=== PATIENT | male | born 1940 | race Caucasian/White ===

== ENCOUNTER 2022-07-20 07:38 | Inpatient (IN) | payer MEDICARE, OTHER ==
[~2022-07-20] VITALS: Ht 170 cm; Wt 87.9 kg
[2022-07-20 07:59] LABS: BASOPHILS # (AUTO) 0.1 10^3/uL (0.0-0.1); BASOPHILS % (AUTO) 1 % (0-10); EOSINOPHILS # (AUTO) 0.4 10^3/uL (0.0-0.3); EOSINOPHILS % (AUTO) 4 % (0-10); HEMATOCRIT 33 % (40-54); HEMOGLOBIN 9.6 g/dL (13.3-17.7); LYMPHOCYTES # (AUTO) 0.9 10^3/uL (1.0-4.0); LYMPHOCYTES % (AUTO) 10 % (12-44); MEAN CORPUSCULAR HEMOGLOBIN 31 pg (25-34); MEAN CORPUSCULAR HGB CONC 30 g/dL (32-36); MEAN CORPUSCULAR VOLUME 103 fL (80-99); MEAN PLATELET VOLUME 9.6 fL (9.0-12.2); MONOCYTES # (AUTO) 0.4 10^3/uL (0.0-1.0); MONOCYTES % (AUTO) 5 % (0-12); NEUTROPHILS # (AUTO) 7.4 10^3/uL (1.8-7.8); NEUTROPHILS % (AUTO) 80 % (42-75); PLATELET COUNT 274 10^3/uL (130-400); WHITE BLOOD COUNT 9.2 10^3/uL (4.3-11.0)
[2022-07-20] MEDS ORDERED: RT-ALBUTEROL/IPRATROPIUM 3 ML (DUONEB) VIAL INH ONE (08:00)
[2022-07-20] MEDS ORDERED: methylPREDNISolone 125 MG (Solu-MEDROL) VIAL IM ONE (08:00)
--- NOTE | 2022-07-20 08:10 | Diagnostic Imaging Report ---
EXAMINATION: Chest radiograph, portable AP view. DATE: 07/20/2022 7:59 AM INDICATION: 82-year-old male, shortness of breath. COMPARISON: None. FINDINGS: Heart size is grossly unremarkable. There is no identified pneumothorax. There is nonspecific right basilar airspace consolidation and blunting of the right lateral costophrenic angle. There are streaky opacities in the left medial lung base. There is a chronic appearing deformity of the left proximal humerus. There is advanced left glenohumeral arthritis with probable intra-articular body in the subscapularis recess. There is a right shoulder prosthesis noted. IMPRESSION: 1. Nonspecific bibasilar airspace consolidation right greater than left which may relate to infiltrate, effusions, and/or atelectasis. Dictated by: Dictated on workstation # [id number]
[2022-07-20] MEDS ORDERED: VANCOMYCIN INJECTION 1,500 MG in NS IV 500 ML 500 ML IV ONE (08:15)
[2022-07-20] MEDS ORDERED: PIPERACILLIN SODIUM/TAZOBACTAM 4.5 GM in NS (IVPB) 100 ML IV ONE (08:15)
[2022-07-20] MEDS ORDERED: methylPREDNISolone 125 MG (Solu-MEDROL) VIAL IVP ONE (08:15)
[2022-07-20 08:23] LABS: BILIRUBIN,URINE NEGATIVE (NEGATIVE); CLARITY,URINE CLEAR; COLOR,URINE YELLOW; GLUCOSE, URINE (UA) NEGATIVE (NEGATIVE); KETONES,URINE NEGATIVE (NEGATIVE); LEUKOCYTE ESTERASE ,URINE TRACE (NEGATIVE); NITRITE,URINE NEGATIVE (NEGATIVE); PROTEIN,URINE NEGATIVE (NEGATIVE)
[2022-07-20 08:30] LABS: BACTERIA,URINE NEGATIVE /HPF
[2022-07-20 08:31] LABS: HYALINE CASTS, URINE RARE /LPF
[2022-07-20 08:34] LABS: INR 1.2 (0.8-1.4); PROTHROMBIN TIME PATIENT 15.5 SEC (12.2-14.7)
[2022-07-20 08:38] LABS: SODIUM 142 MMOL/L (135-145)
[2022-07-20 08:39] LABS: ALANINE AMINOTRANSFERASE 9 U/L (0-55); ALKALINE PHOSPHATASE 75 U/L (40-136); BILIRUBIN,TOTAL 0.3 MG/DL (0.1-1.0); BUN/CREATININE RATIO 18; CALCIUM 8.4 MG/DL (8.5-10.1); CARBON DIOXIDE 39 MMOL/L (21-32); CHLORIDE 100 MMOL/L (98-107); CREATININE SERUM 0.85 MG/DL (0.60-1.30); GFR ESTIMATED 88; GLUCOSE 115 MG/DL (70-105); POTASSIUM 4.1 MMOL/L (3.6-5.0)
[2022-07-20 08:40] LABS: ALBUMIN 2.7 GM/DL (3.2-4.5); TOTAL PROTEIN 5.9 GM/DL (6.4-8.2)
[2022-07-20 08:44] LABS: ABG PH 7.39 (7.37-7.43)
[2022-07-20 08:45] LABS: ABG PCO2 82 MMHG (35-45); ABG PO2 103 MMHG (79-93)
[2022-07-20 08:47] LABS: ABG BASE EXCESS 20.3 MMOL/L (-2.5-2.5); ABG OXYGEN SATURATION 98 % (94-100); ABG TCO2 52.1 MMOL/L (21.0-31.0); ALLENS TEST OK; INSPIRED O2 10 L; VENTILATOR NO
[2022-07-20 08:48] LABS: PATIENT TEMP 36.2
--- NOTE | 2022-07-20 08:52 | ED Cough/URI ---
General Chief Complaint: Respiratory Problems Stated Complaint: SOB Nursing Triage Note: PT TO ROOM FS06 [facility]IA [facility] FROM LONG-TERM WITH C/O HYPOXIA AND CONFUSION. EMS REPORTS PT WAS 71% O2 ON RA AND 73% O2 ON 2LPM NC. PT RECEIVED BREATHING TX ENROUTE TO ED. PT 99% UPON ARRIVAL. Source: patient Exam Limitations: no limitations History of Present Illness Date Seen by Provider: Jul 20, 2022 Time Seen by Provider: 08:15 Initial Comments Patient is a 82-year-old male with history of COPD congestive heart failure who presents from half-way with altered mental status with gurgling respirations and O2 saturation in lower 70s. Patient placed on oxygen given Lasix and albuterol breathing treatment per EMS. Patient maintaining O2 saturation in mid 90s. History is limited by the patient's clinical condition. Timing/Duration: just prior to arrival Severity/Quality: other (Cough) Prior Episodes/Possible Cause: other Modifying Factors: Improves With Other Associated Symptoms: other Allergies and Home Medications Allergies Coded Allergies: No Known Drug Allergies (Unverified , 07/20/22) Patient Home Medication List Home Medication List Reviewed: Yes Review of Systems Review of Systems Constitutional: see HPI EENTM: see HPI Respiratory: see HPI Cardiovascular: see HPI Gastrointestinal: see HPI Genitourinary: see HPI Musculoskeletal: see HPI Skin: see HPI Psychiatric/Neurological: See HPI Hematologic/Lymphatic: See HPI Immunological/Allergic: see HPI All Other Systems Reviewed Negative Unless Noted: No Past Wvpwuuo-Uxonxp-Dalhhk Hx Patient Social History Tobacco Use?: No Smoking Status: Never a Smoker Smokeless Tobacco Frequency: Never a User Use of E-Cig and/or Vaping dev: No Use of E-Cig and/or Vaping Toro: Never a User Substance use?: No Alcohol Use?: No Pt feels they are or have been: No Physical Exam Vital Signs - First Documented 07/20/22 08:58 FiO2 60 Capillary Refill : Less Than 3 Seconds Height: '" Weight: lbs. oz. kg; 32.00 BMI Method: General Appearance: mild distress (Respiratory) Eyes: Bilateral Eye Normal Inspection, Bilateral Eye PERRL HEENT: PERRL/EOMI Neck: non-tender, full range of motion Respiratory: decreased breath sounds, crackles, other (Tachypnea, shallow respiration) Cardiovascular: normal peripheral pulses, regular rate, rhythm Gastrointestinal: non tender, soft Neurologic/Psychiatric: alert, oriented x 3 Skin: normal color Focused Exam Sepsis Stage: Ruled Out Lactate Level 07/20/22 07:45: Lactic Acid Level 0.81 Lactic Acid Level Laboratory Tests Test 07/20/22 07:45 Lactic Acid Level 0.81 MMOL/L (0.50-2.00) Progress/Results/Core Measures Suspected Sepsis SIRS Temperature: Pulse: 95 Respiratory Rate: 14 Laboratory Tests 07/20/22 07:45: White Blood Count 9.2 Blood Pressure 109 /61 Mean: 77 07/20/22 07:45: Lactic Acid Level 0.81 Laboratory Tests 07/20/22 07:45: Creatinine 0.85, INR Comment 1.2, Platelet Count 274, Total Bilirubin 0.3 Results/Orders Lab Results Laboratory Tests Test 07/20/22 07:45 07/20/22 08:15 07/20/22 08:39 07/20/22 08:43 Range/Units White Blood Count 9.2 4.3-11.0 10^3/uL Red Blood Count 3.15 L 4.30-5.52 10^6/uL Hemoglobin 9.6 L 13.3-17.7 g/dL Hematocrit 33 L 40-54 % Mean Corpuscular Volume 103 H 80-99 fL Mean Corpuscular Hemoglobin 31 25-34 pg Mean Corpuscular Hemoglobin Concent 30 L 32-36 g/dL Red Cell Distribution Width 17.8 H 10.0-14.5 % Platelet Count 274 130-400 10^3/uL Mean Platelet Volume 9.6 9.0-12.2 fL Immature Granulocyte % (Auto) 0 % Neutrophils (%) (Auto) 80 H 42-75 % Lymphocytes (%) (Auto) 10 L 12-44 % Monocytes (%) (Auto) 5 0-12 % Eosinophils (%) (Auto) 4 0-10 % Basophils (%) (Auto) 1 0-10 % Neutrophils # (Auto) 7.4 1.8-7.8 10^3/uL Lymphocytes # (Auto) 0.9 L 1.0-4.0 10^3/uL Monocytes # (Auto) 0.4 0.0-1.0 10^3/uL Eosinophils # (Auto) 0.4 H 0.0-0.3 10^3/uL Basophils # (Auto) 0.1 0.0-0.1 10^3/uL Immature Granulocyte # (Auto) 0.0 0.0-0.1 10^3/uL Prothrombin Time 15.5 H 12.2-14.7 SEC INR Comment 1.2 0.8-1.4 Activated Partial Thromboplast Time 27 24-35 SEC Sodium Level 142 135-145 MMOL/L Potassium Level 4.1 3.6-5.0 MMOL/L Chloride Level 100 98-107 MMOL/L Carbon Dioxide Level 39 H 21-32 MMOL/L Anion Gap 3 L 5-14 MMOL/L Blood Urea Nitrogen 15 7-18 MG/DL Creatinine 0.85 0.60-1.30 MG/DL Estimat Glomerular Filtration Rate 88 BUN/Creatinine Ratio 18 Glucose Level 115 H 70-105 MG/DL Lactic Acid Level 0.81 0.50-2.00 MMOL/L Calcium Level 8.4 L 8.5-10.1 MG/DL Corrected Calcium 9.4 8.5-10.1 MG/DL Total Bilirubin 0.3 0.1-1.0 MG/DL Aspartate Amino Transf (AST/SGOT) 13 5-34 U/L Alanine Aminotransferase (ALT/SGPT) 9 0-55 U/L Alkaline Phosphatase 75 40-136 U/L Troponin I < 0.30 <0.30 NG/ML Pro-B-Type Natriuretic Peptide 1116.0 H <450.0 PG/ML Total Protein 5.9 L 6.4-8.2 GM/DL Albumin 2.7 L 3.2-4.5 GM/DL Urine Color YELLOW Urine Clarity CLEAR Urine pH 6.0 5-9 Urine Specific [place] 1.020 1.016-1.022 Urine Protein NEGATIVE NEGATIVE Urine Glucose (UA) NEGATIVE NEGATIVE Urine Ketones NEGATIVE NEGATIVE Urine Nitrite NEGATIVE NEGATIVE Urine Bilirubin NEGATIVE NEGATIVE Urine Urobilinogen 0.2 < = 1.0 MG/DL Urine Leukocyte Esterase TRACE H NEGATIVE Urine RBC (Auto) NEGATIVE NEGATIVE Urine RBC NONE /HPF Urine WBC 2-5 /HPF Urine Squamous Epithelial Cells NONE /HPF Urine Crystals NONE /LPF Urine Bacteria NEGATIVE /HPF Urine Casts PRESENT /LPF Urine Hyaline Casts RARE /LPF Urine Mucus SMALL H /LPF Urine Culture Indicated NO Blood Gas Puncture Site RT RADIAL Blood Gas Patient Temperature 36.2 Arterial Blood pH 7.39 7.37-7.43 Arterial Blood Partial Pressure CO2 82 *H 35-45 MMHG Arterial Blood Partial Pressure O2 103 H 79-93 MMHG Arterial Blood HCO3 50 *H 23-27 MMOL/L Arterial Blood Total CO2 52.1 *H 21.0-31.0 MMOL/L Arterial Blood Oxygen Saturation 98 94-100 % Arterial Blood Base Excess 20.3 H -2.5-2.5 MMOL/L Ponce Test OK Blood Gas Ventilator Setting NO Blood Gas Inspired Oxygen 10 L Influenza Type A (RT-PCR) Not Detected Not Detecte Influenza Type B (RT-PCR) Not Detected Not Detecte SARS-CoV-2 RNA (RT-PCR) Not Detected Not Detecte My Orders Orders - SIGRID MARIE DO Cbc With Automated Diff (07/20/22 07:51) Comprehensive Metabolic Panel (07/20/22 07:51) Blood Culture (07/20/22 07:51) Sputum Culture (07/20/22 07:51) Urinalysis (07/20/22 07:51) Urine Culture (07/20/22 07:51) Protime With Inr (07/20/22 07:51) Partial Thromboplastin Time (07/20/22 07:51) Chest 1 View Ap/Pa Only (07/20/22 07:51) Ed Iv/Invasive Line Start (07/20/22 07:51) Ed Iv/Invasive Line Start (07/20/22 07:51) Vital Signs Adult Sepsis Patie Q15M (07/20/22 07:51) O2 (07/20/22 07:51) Remove Rings In Anticipation O (07/20/22 07:51) Lactic Acid Analyzer (07/20/22 07:51) Troponin I Fs (07/20/22 07:51) Probnp Fs (07/20/22 07:51) Ekg Tracing (07/20/22 07:51) Albuterol/Ipra Inhalation Soln (Duoneb I (07/20/22 08:00) Svn Small Volume Nebulizer (07/20/22 07:53) Piperacillin Sodium/Tazobactam (Zosyn Vi (07/20/22 08:15) Vancomycin Injection (Vancomycin Injecti (07/20/22 08:15) Methylprednisolone Sod Succ (Solu-Medrol (07/20/22 08:15) Covid 19 Inhouse Test (07/20/22 08:15) Arterial Blood Gas (07/20/22 08:15) Influenza A And B By Pcr (07/20/22 08:15) Isolation Central Supply Req (07/20/22 08:15) Bipap (Bilevel) Set Up (07/20/22 08:47) Furosemide Injection (Lasix Injection) (07/20/22 09:00) Medications Given in ED Current Medications Medications Dose Ordered Sig/Elizabeth Route Start Time Stop Time Status Last Admin Dose Admin Albuterol/ Ipratropium 3 ml ONCE ONCE INH 07/20/22 08:00 07/20/22 08:12 DC 07/20/22 08:17 3 ML Methylprednisolone Sodium Succinate 125 mg ONCE ONCE IVP 07/20/22 08:15 07/20/22 08:16 DC 07/20/22 08:17 125 MG Piperacillin Sod/ Tazobactam Sod 4.5 gm/Sodium Chloride 100 ml @ 200 mls/hr ONCE ONCE IV 07/20/22 08:15 07/20/22 08:44 DC 07/20/22 08:27 200 MLS/HR Vancomycin HCl 1500 mg/Sodium Chloride 500 ml @ 257.5 mls/ hr ONCE ONCE IV 07/20/22 08:15 07/20/22 10:11 07/20/22 08:27 257.5 MLS/HR Vital Signs/I&O 07/20/22 07/20/22 07/20/22 07/20/22 07:38 07:38 07:38 08:58 Temp 36.2 Pulse 95 Resp 14 B/P (MAP) 109/61 (77) Pulse Ox 95 95 97 O2 Delivery Non Rebreather Non Rebreather Non Rebreather NIV Bilevel O2 Flow Rate 15.00 15.00 15.00 FiO2 60 Capillary Refill : Less Than 3 Seconds Blood Pressure Mean: 77 Departure Communication (Admissions) EKG: Sinus tach, left bundle branch block, rate 102. Chest x-ray: Right lower lobe infiltrate. Patient with respiratory failure likely multifactorial due to volume overload COPD and possible infiltrate. Patient stabilized on oxygen/BiPAP, given IV Lasix and, steroids and IV antibiotics. Dr. Graham to admit to [facility]. Impression Primary Impression: Acute respiratory failure with hypoxia Disposition: ADMITTED INPATIENT Condition: Critical Admissions Decision to Admit Reason: Admit from ER (General) Decision to Admit/Date: Jul 20, 2022 Time/Decision to Admit Time: 09:15 (Dr. Graham) SIGRID MARIE DO Jul 20, 2022 08:52
[2022-07-20] MEDS ORDERED: FUROSEMIDE 40 MG/4 ML INJ (LASIX) IVP ONE (09:00)
[2022-07-20] MEDS ORDERED: ACETAMINOPHEN 325 MG TABLET PO PRN (11:45)
[2022-07-20] MEDS ORDERED: diphenhydrAMINE 25 MG TAB (BENADRYL) PO PRN (11:45)
[2022-07-20] MEDS ORDERED: ONDANSETRON 4 MG/2 ML (SDV) Z0FRAN IV PRN (11:45)
[2022-07-20] MEDS ORDERED: BISACODYL 10 MG SUPP (DULCOLAX) PR PRN (11:45)
[2022-07-20] MEDS ORDERED: polyethylene glycoL POWDER 17 GM (MIRALAX) PACK PO PRN (11:45)
[2022-07-20] MEDS ORDERED: ONDANSETRON 4 MG (ZOFRAN) ORAL DISSOLVE TAB PO PRN (11:45)
[2022-07-20] MEDS ORDERED: MELATONIN 3 MG TABLET PO PRN (11:45)
[2022-07-20] MEDS ORDERED: NS IV 500 ML 500 ML IV PRN (11:45)
[2022-07-20] MEDS ORDERED: diphenhydrAMINE 50 MG/ML INJ (BENADRYL) IVP PRN (11:45)
[2022-07-20] MEDS ORDERED: ANTACID SUSP 30 ML UDC (MYLANTA) PO PRN (11:45)
[2022-07-20] MEDS ORDERED: NS IV 1000 ML 1,000 ML IV SCH (11:45)
--- NOTE | 2022-07-20 11:59 | Tele-ICU Consult ---
History of Present Illness History of Present Illness Date Seen by Provider: Jul 20, 2022 Time Seen by Provider: 11:57 Date of Admission (Tele-ICU Physician , consultation as per request of PCP Service provided via interactive audio and video telecommunications E-CARE system to a patient admitted to ICU bed in [facility]. Available chart/ vitals / labs / Images reviewed H&P is from ER notes Patient's information available about PMH, Shx, Fhx allergy reviewed inEMR. ROS as per chart and RN report Now in ICU, hypodermically stable Video assessment done using teleICU camera, rest of exam as per RN Discussed with RN. 82-year-old male with history of COPD congestive heart failure who presents from [facility] with altered mental status with gurgling respirations and O2 saturation in lower 70s. Patient placed on BIPAP given Lasix and albuterol and ABX Now in ICU , confused, can talk A/P Acute hypoxic resp failure - on BIPAP rr30 tv 280 - tried 09/04 - poorly tolerated ) - follow abg at 14.00 Confusion , agitation - ? TME vs baseline - neuro exam nonfocal as per RNs Suspected PNA ( neg flu and covid ) - started HAP coverage - from [place] Chronic hypercarbic resp failure - -Co2 close to presumed baseline now TRE ulcers - ? venous stasis , ? cellulites - as per bedside assessment Anemia - no active bleeding - follow Elv BNP - lasix given in ER , good UO - unmeasured - follow closely , on 40 % on Bipap - Lines : , (Central Line Necessity Reviewed) Segal: 07/20 OG: Nutrition:NPO now Analgesia: Anxiety/ delirium VTE Prophylaxis: xarelto - NEED TO CHANGE TO LOVENOX IF NPO Stress Ulcer Prophylaxis: NA now Plans in collaboration with bedside consultants and IM MDs. Discussed with RN to reach out if any questions or concerns A total of 32 minutes of critical care time was devoted to this patient today, required to treat and/or prevent further deterioration of critical care condition ( as above ) . I am remotely monitoring this patient from another state. I am unable to do the bedside exam, and history/physical and pertinent information is taken from other notes in the computer and bedside staff. . Allergies and Home Medications Allergies Coded Allergies: No Known Drug Allergies (Unverified , 07/20/22) Past Medical/Social/Family Hx Patient Social History Tobacco Use?: No Smoking Status: Never a Smoker Smokeless Tobacco Frequency: Never a User Use of E-Cig and/or Vaping dev: No E-Cig and/or Vaping Freq: Never a User Substance use?: No Alcohol Use?: No Pt stated abuse/neglect: No Current Status Advance Directives: No Communicates: Verbally Primary Language: Yemeni Is interpretation needed?: No Sensory deficits: Hearing impairment Implanted or Applied Medical D: None Review of Systems Constitutional: see HPI Focused Exam Lactate Level 07/20/22 07:45: Lactic Acid Level 0.81 Height, Weight, BMI Height: '" Weight: lbs. oz. kg; 32.00 BMI Method: Exam Exam Patient acknowledged, consented, and participated in this virtual visit which was conducted using real time audio/video Vital Signs Date Time Temp Pulse Resp B/P (MAP) Pulse Ox O2 Delivery O2 Flow Rate FiO2 07/20/22 11:46 92 07/20/22 10:41 36.3 75 16 111/64 97 NIV Bilevel 07/20/22 08:58 97 NIV Bilevel 60 07/20/22 07:38 95 Non Rebreather 15.00 07/20/22 07:38 Non Rebreather 15.00 07/20/22 07:38 36.2 95 14 109/61 (77) 95 Non Rebreather 15.00 Height & Weight Height: '" Weight: lbs. oz. kg; 32.00 BMI Method: General Appearance: No Apparent Distress Capillary Refill: Less Than 3 Seconds Gastrointestinal: non tender, soft Results Lab Laboratory Tests 07/20/22 07:45 Assessment/Plan Assessment/Plan 1 YOEL ARREAGA MD Jul 20, 2022 11:59
[2022-07-20 12:00] VITALS: BP 117/77
[2022-07-20 13:16] VITALS: BP 109/61
[2022-07-20] MEDS: RT-ALBUTEROL/IPRATROPIUM 3 ML (DUONEB) VIAL INH SCH ×3 (14:33→22:30)
[2022-07-20] MEDS ORDERED: MELA3TAB39 PO (14:37)
[2022-07-20] MEDS ORDERED: DOCU100C37 PO (14:37)
[2022-07-20] MEDS ORDERED: ATOR80TA76 PO (14:37)
[2022-07-20] MEDS ORDERED: POLY500P24 MC (14:37)
[2022-07-20] MEDS ORDERED: QUET25TA PO (14:37)
[2022-07-20] MEDS ORDERED: MULT-1136 PO (14:37)
[2022-07-20] MEDS ORDERED: MIDO5TAB3 PO (14:37)
[2022-07-20] MEDS ORDERED: FERR325T18 PO (14:37)
[2022-07-20] MEDS ORDERED: TMSL.4C PO (14:37)
[2022-07-20] MEDS ORDERED: ACET-93 PO (14:37)
[2022-07-20] MEDS ORDERED: FURO20TA4 PO (14:37)
[2022-07-20] MEDS ORDERED: OLN5T PO (14:37)
[2022-07-20] MEDS ORDERED: ASPI-1238 PO (14:37)
[2022-07-20] MEDS ORDERED: APIX5TAB PO (14:37)
[2022-07-20 14:41] LABS: ABG BASE EXCESS 16.3 MMOL/L (-2.5-2.5); ABG OXYGEN SATURATION 100 % (94-100); ABG PO2 158 MMHG (79-93)
[2022-07-20 14:49] LABS: ABG PCO2 83 MMHG (35-45); ABG PH 7.34 (7.37-7.43); ABG TCO2 45.4 MMOL/L (21.0-31.0)
[2022-07-20 14:50] LABS: ALLENS TEST YES-POS; INSPIRED O2 15L; PATIENT TEMP 98.8; VENTILATOR NO
--- NOTE | 2022-07-20 15:00 | History & Physical-Hospitalist ---
DELILAH OROURKE 07/20/22 1500: History of Present Illness HPI/Chief Complaint Patient is an 82-year-old male with a history of CHF, COPD, and HTN who presented to the ED via EMS on 07/20 from a nursing facility with chief complaint of AMS and hypoxia. History is limited due the patient's AMS. Patient was found by staff to have AMS, gurgling respirations, and O2 sat in the 70s. EMS gave lasix, breathing treatment, and oxygen, and his O2 saturation was 99% u idris arrival to the ED. Patient is awake and alert, but is confused and can not answer very many questions. He has no memory of today's events or leading up to them. The patient was admitted to [facility] earlier this month with similar symptoms and was discharged on the . Patient was maintaining oxygen saturation levels in the 90s on BIPAP, which the patient repeatedly removed and is now on a non-rebreather. Patient states he is very confused and does not know why he is here or what is happening. Per skilled nursing records, the patient is A&Ox4 at baseline, however, [facility] noted that the patient was confused and agitated during the initial portion of his stay. Patient has no complaints. Source: patient, RN/MD, RN notes reviewed, EMS notes reviewed, old records Exam Limitations: clinical condition Date Seen 07/20/22 Time Seen by a Provider: 02:00 Attending Physician PCP Admitting Physician: Heather Graham DO Attending Physician: Heather Graham DO Referring Physician Date of Admission Jul 20, 2022 at 11:25 Home Medications & Allergies Home Medications Reviewed patient Home Medication Reconciliation performed by pharmacy medication reconciliations systems test technician and/or nursing. Patients Allergies have been reviewed. Allergies Allergies Coded Allergies No Known Drug Allergies (Iwztnkzzhb80/28/22) Past Ugrdnko-Refhsn-Xdwgyv Hx Patient Social History Tobacco Use?: No Smoking Status: Never a Smoker Smokeless Tobacco Frequency: Never a User Use of E-Cig and/or Vaping dev: No Use of E-Cig and/or Vaping Toro: Never a User Substance use?: No Alcohol Use?: No Pt feels they are or have been: Unable to obtain Current Status Advance Directives: No Communicates: Verbally Primary Language: Sri Lankan Preferred Spoken Language: Sri Lankan Is interpretation needed?: No Sensory deficits: Hearing impairment Implanted or Applied Medical D: None Review of Systems ROS-Unable to Obtain: AMS Physical Exam Physical Exam Vital Signs Vital Signs - First Documented 07/20/22 08:58 FiO2 60 Capillary Refill : Less Than 3 Seconds Height, Weight, BMI Height: '" Weight: lbs. oz. kg; 31.14 BMI Method: General Appearance: No Apparent Distress, WD/WN, Obese HEENT: PERRL/EOMI Neck: Non Tender, Supple Respiratory: Chest Non Tender, No Respiratory Distress, Decreased Breath Sounds Cardiovascular: Regular Rate, Rhythm, Normal Peripheral Pulses Gastrointestinal: Non Tender, Soft Rectal: Deferred Back: No CVA Tenderness, No Vertebral Tenderness Extremity: Non Tender, No Pedal Edema, Other (Venous stasis dermatitis b/l LEs) Neurologic/Psychiatric: Alert, Disoriented Skin: Warm/Dry, Ecchymosis (Ecchymosis scattered throughout all 4 extremities) Lymphatic: No Adenopathy Results Results/Procedures Labs Laboratory Tests 07/20/22 07:45 Patient resulted labs reviewed. Assessment/Plan Admission Diagnosis Acute respiratory failure Admission Status: Inpatient Order (span 2 midnights) Reason for Inpatient Admission: Acute respiratory failure Assessment and Plan Acute respiratory failure with hypoxia and hypercapnia COPD exacerbation AMS CHF HTN Pulmonary HTN Hx of PE CAD SHANNAN Chronic lymphedema Resume BIPAP if possible, may need intubation Given lasix and steroids in ED today Continue vancomycin, zosyn Continue nebulizers Monitor ABGs On Xarelto Home meds for HTN HEATHER GRAHAM DO 07/21/22 0525: History of Present Illness HPI/Chief Complaint CC: Respiratory failure HPI: This is a [facility] skilled nursing pt who presented to the ICU from [facility] from the skilled nursing with acute respiratory failure. He required BiPAP due to hypercapnia. At this current time pt is unable to provide any history. We will initiate Zosyn and Vanc, empiric coverage for pneumonia on chest x-ray. Dr. Kaufman will be consulted for volume overload. Source: RN/MD Exam Limitations: clinical condition Past Mhemgqz-Cdgyae-Sxwxgy Hx Patient Social History Employed/Student: retired Review of Systems Constitutional: see HPI Physical Exam Physical Exam General Appearance: Chronically ill, Moderate Distress, Obese Respiratory: Decreased Breath Sounds Cardiovascular: Regular Rate, Rhythm Neurologic/Psychiatric: Alert, Disoriented Assessment/Plan Admission Diagnosis Assessment: Acute respiratory failure PNA facility acquired Dementia HTN HLP Plan: BiPAP Precedex IV abx Admission Status: Inpatient Order (span 2 midnights) Reason for Inpatient Admission: resp fail Supervisory-Addendum Brief Verification & Attestation Participated in pt care: history, MDM, physical Personally performed: exam, history, MDM, supervision of care Care discussed with: Medical Student Procedures: n/a Results interpretation: Verified all documentation Verification and Attestation of Medical Student E/M Service A medical student performed and documented this service in my presence. I reviewed and verified all information documented by the medical student and made modifications to such information, when appropriate. I personally performed the physical exam and medical decision making. Heather Graham, Jul 21, 2022,05:25 DELILAH OROURKE Jul 20, 2022 15:00 HEATHER GRAHAM DO Jul 21, 2022 05:25
[2022-07-20] MEDS: NS IV 1000 ML 1,000 ML IV SCH (15:53)
[2022-07-20] MEDS: PIPERACILLIN SODIUM/TAZOBACTAM 4.5 GM in NS (IVPB) 100 ML IV SCH ×2 (15:53→22:14)
[2022-07-20] MEDS: methylPREDNISolone 125 MG (Solu-MEDROL) VIAL IVP SCH ×2 (15:54→20:18)
--- NOTE | 2022-07-20 16:23 | Consultation-Cardiology ---
HPI-Cardiology Cardiology Consultation: Date of Consultation 07/20/22 Time Seen by a Provider: 15:50 Date of Admission 07-20-22 Attending Physician Admitting Physician Admitting Physician: Heather Graham DO Attending Physician: Heather Graham DO Consulting Physician Yary Kaufman MD HPI: Chief Complaint: Increasing SOB Mr. Easley is an 82 yr old male admitted to ICU 6 from the [facility] ED with increasing SOB and AMS. He is currently on a non-rebreather. He awakens easily. He is able to tell me he is in the hospital, but does not know where. He denies any c/o CP. He is a poor historian and has only been able to tell me he has been SOB. Review of the chart has been done Review of Systems-Cardiology Review of Systems Other comments ROS to the extent it can be obtained is as per the HPI All Other Systems Reviewed Negative Unless Noted: No IYK-Pmwnca-Gelrqq Hx Patient Social History Smoking Status: Never a Smoker Have you traveled recently?: No Alcohol Use?: No Pt feels they are or have been: Unable to obtain Past Medical History PMH As described under Assessment. Family Medical History Family Medical History: Unable to obtain d/t confusion Allergies and Home Medications Allergies Coded Allergies: No Known Drug Allergies (Unverified , 07/20/22) Patient Home Medication List Acetaminophen (Acetaminophen) 500 Mg Tablet, 500 MG PO PRN PRN for PAIN-MILD (1- 4), (Reported) Entered as Reported by: MARCELLO ABAD on 07/20/221436 Last Action: New Order Apixaban (Eliquis) 5 Mg Tablet, 5 MG PO BID, (Reported) Entered as Reported by: MARCELLO ABAD on 07/20/221436 Last Action: New Order Aspirin (Aspirin EC) 81 Mg Tablet.dr, 81 MG PO DAILY, (Reported) Entered as Reported by: MARCELLO ABAD on 07/20/221436 Last Action: New Order Atorvastatin Calcium (Atorvastatin Calcium) 80 Mg Tablet, 80 MG PO HS, (Reported) Entered as Reported by: MARCELLO ABAD on 07/20/221436 Last Action: New Order Docusate Sodium (Docusate Sodium) 100 Mg Capsule, 100 MG PO PRN PRN for CONSTIPATION-2ND LINE, (Reported) Entered as Reported by: MARCELLO ABAD on 07/20/221436 Last Action: New Order Ferrous Sulfate (Ferrous Sulfate) 325 Mg (65 Mg Iron) Tablet, 325 MG PO DAILY, (Reported) Entered as Reported by: MARCELLO ABAD on 07/20/221436 Last Action: New Order Furosemide (Furosemide) 20 Mg Tablet, 20 MG PO DAILY, (Reported) Entered as Reported by: MARCELLO ABDA on 07/20/221436 Last Action: New Order Melatonin (Melatonin) 3 Mg Tablet, 3 MG PO HS, (Reported) Entered as Reported by: MARCELLO ABAD on 07/20/221436 Last Action: New Order Midodrine HCl (Midodrine HCl) 5 Mg Tablet, 5 MG PO TID, (Reported) Entered as Reported by: MARCELLO ABAD on 07/20/221436 Last Action: New Order Multivitamin (Multivitamin) 1 Each Tablet, 1 EACH PO DAILY, (Reported) Entered as Reported by: MARCELLO ABAD on 07/20/221436 Last Action: New Order Olanzapine (Olanzapine) 5 Mg Tablet, 5 MG PO HS, (Reported) Entered as Reported by: MARCELLO ABAD on 07/20/221436 Last Action: New Order Polyethylene Glycol 8000 (Polyethylene Glycol) 100 % Powder, 17 GM MC PRN PRN for CONSTIPATION-1ST LINE, (Reported) Entered as Reported by: MARCELLO ABAD on 07/20/221436 Last Action: New Order Quetiapine Fumarate (Seroquel) 25 Mg Tablet, 125 MG PO DAILY, (Reported) Entered as Reported by: MARCELLO ABAD on 07/20/221436 Last Action: New Order Tamsulosin HCl (Flomax) 0.4 Mg Cap, 0.4 MG PO DAILY, (Reported) Entered as Reported by: MARCELLO ABAD on 07/20/221436 Last Action: New Order Physical Exam-Cardiology Physical Exam Vital Signs/I&O 07/20/22 07/20/22 07/20/22 07/20/22 20:00 20:00 20:26 21:00 Temp 36.1 Pulse 92 82 Resp 29 24 B/P (MAP) 93/61 (72) 107/63 (78) Pulse Ox 91 100 O2 Delivery Non Rebreather Non Rebreather Non Rebreather Non Rebreather O2 Flow Rate 10.00 15.00 10.00 10.00 07/20/22 07/20/22 07/20/22 07/20/22 22:00 22:30 22:47 23:00 Pulse 69 60 58 Resp 36 23 12 B/P (MAP) 108/64 (79) 102/56 (71) Pulse Ox 100 94 93 O2 Delivery Non Rebreather NIV Bilevel NIV Bilevel O2 Flow Rate 10.00 45.00 100.00 100.00 07/20/22 07/20/22 07/21/22 07/21/22 23:39 23:39 00:00 00:55 Temp 36.3 Pulse 57 Resp 21 B/P (MAP) 115/67 (83) Pulse Ox 94 96 O2 Delivery NIV Bilevel NIV Bilevel NIV Bilevel NIV Bilevel O2 Flow Rate 100.00 100.00 80.00 FiO2 100 07/21/22 07/21/22 07/21/22 07/21/22 01:00 01:00 02:00 02:42 Pulse 56 56 53 54 Resp 13 16 18 B/P (MAP) 127/74 (91) 132/81 (98) Pulse Ox 97 96 97 O2 Delivery NIV Bilevel NIV Bilevel O2 Flow Rate 80.00 80.00 80.00 07/21/22 07/21/22 07/21/22 07/21/22 03:00 04:00 04:18 04:19 Temp 36.2 Pulse 60 53 Resp 12 15 B/P (MAP) 129/67 (87) 131/72 (91) Pulse Ox 93 97 95 O2 Delivery NIV Bilevel NIV Bilevel NIV Bilevel NIV Bilevel O2 Flow Rate 80.00 80.00 60.00 FiO2 60 07/21/22 07/21/22 07/21/22 07/21/22 04:45 05:00 06:00 06:52 Pulse 50 56 Resp 13 12 B/P (MAP) 137/77 (97) 141/81 (101) Pulse Ox 94 99 O2 Delivery NIV Bilevel NIV Bilevel NIV Bilevel NIV Bilevel O2 Flow Rate 70.00 70.00 70.00 60.00 07/21/22 00:00 Intake Total 585 ml Output Total 1850 ml Balance -1265 ml Capillary Refill : Less Than 3 Seconds Constitutional: other (Oriented to self and place (hospital) only) HEENT: PERRL, hard of hearing Neck: No carotid bruit; carotid pulses are 2 + bilaterally Respiratory: chest expansion is symmetric, chest is bilaterally symmetric, other (coarse breath sounds throughout, diminished lower lobes bilat) Cardiovascular: regular rate-rhythm; No JVD; S1 and S2, systolic murmur Gastrointestinal: No tender; soft, audible bowel sounds Extremities: no lower extremity edema bilateral Neurologic/Psychiatric: grossly intact (moves extremities) Skin: other (abrasions to bilat LE with dressing to LLE; multiple bruises to arms bilat) Data Review Labs Laboratory Tests 07/20/22 07:45: White Blood Count 9.2, Red Blood Count 3.15L, Hemoglobin 9.6L, Hematocrit 33L, Mean Corpuscular Volume 103H, Mean Corpuscular Hemoglobin 31, Mean Corpuscular Hemoglobin Concent 30L, Red Cell Distribution Width 17.8H, Platelet Count 274, Mean Platelet Volume 9.6, Immature Granulocyte % (Auto) 0, Neutrophils (%) (Auto) 80H, Lymphocytes (%) (Auto) 10L, Monocytes (%) (Auto) 5, Eosinophils (%) (Auto) 4, Basophils (%) (Auto) 1, Neutrophils # (Auto) 7.4, Lymphocytes # (Auto) 0.9L, Monocytes # (Auto) 0.4, Eosinophils # (Auto) 0.4H, Basophils # (Auto) 0.1, Immature Granulocyte # (Auto) 0.0, Prothrombin Time 15.5H, INR Comment 1.2, Activated Partial Thromboplast Time 27, Sodium Level 142, Potassium Level 4.1, Chloride Level 100, Carbon Dioxide Level 39H, Anion Gap 3L, Blood Urea Nitrogen 15, Creatinine 0.85, Estimat Glomerular Filtration Rate 88, BUN/Creatinine Ratio 18, Glucose Level 115H, Lactic Acid Level 0.81, Calcium Level 8.4L, Corrected Calcium 9.4, Total Bilirubin 0.3, Aspartate Amino Transf (AST/SGOT) 13, Alanine Aminotransferase (ALT/SGPT) 9, Alkaline Phosphatase 75, Troponin I < 0.30, Pro-B-Type Natriuretic Peptide 1116.0H, Total Protein 5.9L, Albumin 2.7L 07/20/22 08:15: Urine Color YELLOW, Urine Clarity CLEAR, Urine pH 6.0, Urine Specific [place] 1.020, Urine Protein NEGATIVE, Urine Glucose (UA) NEGATIVE, Urine Ketones NEGATIVE, Urine Nitrite NEGATIVE, Urine Bilirubin NEGATIVE, Urine Urobilinogen 0.2, Urine Leukocyte Esterase TRACEH, Urine RBC (Auto) NEGATIVE, Urine RBC NONE, Urine WBC 2-5, Urine Squamous Epithelial Cells NONE, Urine Crystals NONE, Urine Bacteria NEGATIVE, Urine Casts PRESENT, Urine Hyaline Casts RARE, Urine Mucus SMALLH, Urine Culture Indicated NO 07/20/22 08:39: Blood Gas Puncture Site RT RADIAL, Blood Gas Patient Temperature 36.2, Arterial Blood pH 7.39, Arterial Blood Partial Pressure CO2 82*H, Arterial Blood Partial Pressure O2 103H, Arterial Blood HCO3 50*H, Arterial Blood Total CO2 52.1*H, Arterial Blood Oxygen Saturation 98, Arterial Blood Base Excess 20.3H, Ponce T est OK, Blood Gas Ventilator Setting NO, Blood Gas Inspired Oxygen 10 L 07/20/22 08:43: Influenza Type A (RT-PCR) Not Detected, Influenza Type B (RT-PCR) Not Detected, SARS-CoV-2 RNA (RT-PCR) Not Detected 07/20/22 14:30: Blood Gas Puncture Site LR, Blood Gas Patient Temperature 98.8, Arterial Blood pH 7.34*L, Arterial Blood Partial Pressure CO2 83*H, Arterial Blood Partial Pressure O2 158H, Arterial Blood HCO3 43*H, Arterial Blood Total CO2 45.4*H, Arterial Blood Oxygen Saturation 100, Arterial Blood Base Excess 16.3H, Ponce Test YES-POS, Blood Gas Ventilator Setting NO, Blood Gas Inspired Oxygen 15L 07/20/22 19:00: Blood Gas Puncture Site R RADIAL, Blood Gas Patient Temperature 36.7, Arterial Blood pH 7.29*L, Arterial Blood Partial Pressure CO2 97*H, Arterial Blood Pa rtial Pressure O2 28*L, Arterial Blood HCO3 46*H, Arterial Blood Total CO2 48.5*H, Arterial Blood Oxygen Saturation 39L, Arterial Blood Base Excess 18.1H, Ponce Test YES-POS, Blood Gas Ventilator Setting NO, Blood Gas Inspired Oxygen 15 L 07/21/22 04:17: White Blood Count 5.3, Red Blood Count 3.45L, Hemoglobin 10.4L, Hematocrit 36L, Mean Corpuscular Volume 104H, Mean Corpuscular Hemoglobin 30, Mean Corpuscular Hemoglobin Concent 29L, Red Cell Distribution Width 18.0H, Platelet Count 253, Mean Platelet Volume 10.0, Immature Granulocyte % (Auto) 1, Neutrophils (%) (Auto) 87H, Lymphocytes (%) (Auto) 9L, Monocytes (%) (Auto) 3, Eosinophils (%) (Auto) 0, Basophils (%) (Auto) 0, Neutrophils # (Auto) 4.6, Lymphocytes # (Auto) 0.5L, Monocytes # (Auto) 0.2, Eosinophils # (Auto) 0.0, Basophils # (Auto) 0.0, Immature Granulocyte # (Auto) 0.0, Neutrophils % (Manual) 86, Lymphocytes % (Manual) 9, Monocytes % (Manual) 5, Anisocytosis MODERATE, Macrocytosis MODERATE, Sodium Level 145, Potassium Level 4.3, Chloride Level 93L, Carbon Dioxide Level 35H, Anion Gap 17H, Blood Urea Nitrogen 19H, Creatinine 1.10, Estimat Glomerular Filtration Rate 68, BUN/Creatinine Ratio 17, Glucose Level 202H, Calcium Level 8.3L, Corrected Calcium 9.1, Phosphorus Level 5.2H, Magnesium Level 1.4L, Total Bilirubin 0.4, Aspartate Amino Transf (AST/SGOT) 11, Alanine Aminotransferase (ALT/SGPT) 12, Alkaline Phosphatase 61, Total Protein 6.2L, Albumin 3.0L 07/21/22 05:00: Blood Gas Puncture Site R BRACH, Blood Gas Patient Temperature 36.2, Arterial Blood pH 7.39, Arterial Blood Partial Pressure CO2 70H, Arterial Blood Partial Pressure O2 97H, Arterial Blood HCO3 41*H, Arterial Blood Total CO2 43.4*H, Arterial Blood Oxygen Saturation 99, Arterial Blood Base Excess 15.3H, Ponce Test YES-POS, Blood Gas Ventilator Setting NO, Blood Gas Inspired Oxygen 70% Radiology NAME: LAURIE EASLEY [facility] REC#: [id number] PT STATUS: REG ER : 1940 PHYSICIAN: SIGRID MARIE DO ADMIT DATE: 07/20/22/ER FS Signed Date of Exam:07/20/22 CHEST 1 VIEW AP/PA ONLY EXAMINATION: Chest radiograph, portable AP view. DATE: 07/20/2022 7:59 AM INDICATION: 82-year-old male, shortness of breath. COMPARISON: None. FINDINGS: Heart size is grossly unremarkable. There is no identified pneumothorax. There is nonspecific right basilar airspace consolidation and blunting of the right lateral costophrenic angle. There are streaky opacities in the left medial lung base. There is a chronic appearing deformity of the left proximal humerus. There is advanced left glenohumeral arthritis with probable intra-articular body in the subscapularis recess. There is a right shoulder prosthesis noted. IMPRESSION: 1. Nonspecific bibasilar airspace consolidation right greater than left which may relate to infiltrate, effusions, and/or atelectasis. Dictated by: Dictated on workstation # [id number] Dict: 07/20/22 0759 Trans: 07/20/22937 CV [id number] Interpreted by: ZOYA BARRETO MD Electronically signed by: ZOYA BARRETO MD 07/20/2238 A/P-Cardiology Assessment/Admission Diagnosis Respiratory failure with hypoxia - likely multifactorial d/t acute on chronic diastolic CHF, acute on chronic exacerbation of COPD, SHANNAN and pneumonia AMS - likely d/t hypoxia CAD - records from [facility] in [place], [place] of 2021 state h/o PCI (details unknown) - Echocardiogram of 06-25-22 at [facility] in [place], [place] by Dr. Bhatia showed LVEF 60%. Mild RV dilatation. No signif valvular abnormalities Document h/o PE per [facility] records - details unknown - has been maintained on OAC with Eliquis as out pt HTN SHANNAN H/O diastolic CHF H/O COPD H/O pulmonary HTN Discussion and Recomendations Acute respiratory failure with hypoxia and AMS - likely d/t reasons noted above Management of pneumonia is per medical services Documented h/o PE - OAC has been resumed per medical services Acute on chronic diastolic CHF - treat with diuretics Documented h/o CAD - details unknown - request records - start low dose ASA Monitor lab closely Further recs will be based on his hospital course We would like to thank Dr. Graham for this consult ZOILA VALLE Jul 20, 2022 16:22
[2022-07-20] MEDS ORDERED: ASPIRIN 81 MG CHEW (CHILDREN'S ASA) PO NR (16:45)
--- NOTE | 2022-07-20 17:36 | Consultation-Cardiology ---
HPI-Cardiology Cardiology Consultation: Date of Consultation 07/20/22 Time Seen by a Provider: 16:50 Date of Admission Attending Physician Admitting Physician Admitting Physician: Heather Graham DO Attending Physician: Heather Graham DO Consulting Physician LAURA LOWERY MD, MA, FACP, FACC, FSCAI, CCDS Physician requesting consult: Dr Graham HPI: Chief Complaint: Reason for Card consult: Increasing SOB Mr. Easley is an 82 yr old male admitted to ICU 6 from the [facility] ED with increasing SOB and AMS. He is currently on a non-rebreather. He awakens easily. He is able to tell me he is in the hospital, but does not know where. He denies any c/o CP. He is a poor historian and has only been able to tell me he has been SOB. Review of the chart has been done Review of Systems-Cardiology All Other Systems Reviewed Negative Unless Noted: No RGL-Neyqky-Eqxyvp Hx Patient Social History Smoking Status: Never a Smoker Have you traveled recently?: No Alcohol Use?: No Pt feels they are or have been: Unable to obtain Past Medical History PMH As described under Assessment. Family Medical History Family Medical History: Unable to obtain d/t confusion Allergies and Home Medications Allergies Coded Allergies: No Known Drug Allergies (Unverified , 07/20/22) Patient Home Medication List Home Medication List Reviewed: Yes Acetaminophen (Acetaminophen) 500 Mg Tablet, 500 MG PO PRN PRN for PAIN-MILD (1- 4), (Reported) Entered as Reported by: MARCELLO ABAD on 07/20/221436 Last Action: New Order Apixaban (Eliquis) 5 Mg Tablet, 5 MG PO BID, (Reported) Entered as Reported by: MARCELLO ABAD on 07/20/221436 Last Action: New Order Aspirin (Aspirin EC) 81 Mg Tablet., 81 MG PO DAILY, (Reported) Entered as Reported by: MARCELLO ABAD on 07/20/221436 Last Action: New Order Atorvastatin Calcium (Atorvastatin Calcium) 80 Mg Tablet, 80 MG PO HS, (Reported) Entered as Reported by: MARCELLO ABAD on 07/20/221436 Last Action: New Order Docusate Sodium (Docusate Sodium) 100 Mg Capsule, 100 MG PO PRN PRN for CONSTIPATION-2ND LINE, (Reported) Entered as Reported by: MARCELLO ABAD on 07/20/221436 Last Action: New Order Ferrous Sulfate (Ferrous Sulfate) 325 Mg (65 Mg Iron) Tablet, 325 MG PO DAILY, (Reported) Entered as Reported by: MARCELLO ABAD on 07/20/221436 Last Action: New Order Furosemide (Furosemide) 20 Mg Tablet, 20 MG PO DAILY, (Reported) Entered as Reported by: MARCELLO ABAD on 07/20/221436 Last Action: New Order Melatonin (Melatonin) 3 Mg Tablet, 3 MG PO HS, (Reported) Entered as Reported by: MARCELLO ABAD on 07/20/221436 Last Action: New Order Midodrine HCl (Midodrine HCl) 5 Mg Tablet, 5 MG PO TID, (Reported) Entered as Reported by: MARCELLO ABAD on 07/20/221436 Last Action: New Order Multivitamin (Multivitamin) 1 Each Tablet, 1 EACH PO DAILY, (Reported) Entered as Reported by: MARCELLO ABAD on 07/20/221436 Last Action: New Order Olanzapine (Olanzapine) 5 Mg Tablet, 5 MG PO HS, (Reported) Entered as Reported by: MARCELLO ABAD on 07/20/221436 Last Action: New Order Polyethylene Glycol 8000 (Polyethylene Glycol) 100 % Powder, 17 GM MC PRN PRN for CONSTIPATION-1ST LINE, (Reported) Entered as Reported by: MARCELLO ABAD on 07/20/221436 Last Action: New Order Quetiapine Fumarate (Seroquel) 25 Mg Tablet, 125 MG PO DAILY, (Reported) Entered as Reported by: MARCELLO ABAD on 07/20/221436 Last Action: New Order Tamsulosin HCl (Flomax) 0.4 Mg Cap, 0.4 MG PO DAILY, (Reported) Entered as Reported by: MARCELLO ABAD on 07/20/221436 Last Action: New Order Physical Exam-Cardiology Physical Exam Vital Signs/I&O 07/20/22 07/20/22 07/20/22 07/20/22 07:38 07:38 07:38 08:58 Temp 36.2 Pulse 95 Resp 14 B/P (MAP) 109/61 (77) Pulse Ox 95 95 97 O2 Delivery Non Rebreather Non Rebreather Non Rebreather NIV Bilevel O2 Flow Rate 15.00 15.00 15.00 FiO2 60 07/20/22 07/20/22 07/20/22 07/20/22 10:41 11:30 11:46 11:59 Temp 36.3 Pulse 75 91 92 Resp 16 33 B/P (MAP) 111/64 117/77 (90) Pulse Ox 97 86 O2 Delivery NIV Bilevel NIV Bilevel NIV Bilevel O2 Flow Rate 40.00 FiO2 30 07/20/22 07/20/22 07/20/22 07/20/22 12:00 12:00 13:00 13:00 Pulse 93 92 86 83 Resp 39 27 21 B/P (MAP) 110/82 (91) 108/76 (87) Pulse Ox 96 94 91 O2 Delivery NIV Bilevel NIV Bilevel O2 Flow Rate 40.00 30.00 40.00 07/20/22 07/20/22 07/20/22 07/20/22 13:16 14:00 14:34 15:00 Temp 36.2 Pulse 103 84 83 Resp 25 21 B/P (MAP) 124/76 (92) 114/64 (81) Pulse Ox 95 98 100 100 O2 Delivery NIV Bilevel Non Rebreather NIV Bilevel O2 Flow Rate 40.00 15.00 40.00 07/20/22 16:00 Pulse 86 Resp 26 B/P (MAP) 111/65 (80) Pulse Ox 100 O2 Delivery NIV Bilevel O2 Flow Rate 40.00 Capillary Refill : Less Than 3 Seconds Constitutional: other (Oriented to self and place (hospital) only) HEENT: PERRL, hard of hearing Neck: No carotid bruit; carotid pulses are 2 + bilaterally Respiratory: chest expansion is symmetric, chest is bilaterally symmetric, other (coarse breath sounds throughout, diminished lower lobes bilat) Cardiovascular: regular rate-rhythm; No JVD; S1 and S2, systolic murmur Gastrointestinal: No tender; soft, audible bowel sounds Extremities: no lower extremity edema bilateral Neurologic/Psychiatric: grossly intact (moves extremities) Skin: other (abrasions to bilat LE with dressing to LLE; multiple bruises to arms bilat) Data Review Labs Laboratory Tests 07/20/22 07:45: White Blood Count 9.2, Red Blood Count 3.15L, Hemoglobin 9.6L, Hematocrit 33L, Mean Corpuscular Volume 103H, Mean Corpuscular Hemoglobin 31, Mean Corpuscular Hemoglobin Concent 30L, Red Cell Distribution Width 17.8H, Platelet Count 274, Mean Platelet Volume 9.6, Immature Granulocyte % (Auto) 0, Neutrophils (%) (Auto) 80H, Lymphocytes (%) (Auto) 10L, Monocytes (%) (Auto) 5, Eosinophils (%) (Auto) 4, Basophils (%) (Auto) 1, Neutrophils # (Auto) 7.4, Lymphocytes # (Auto) 0.9L, Monocytes # (Auto) 0.4, Eosinophils # (Auto) 0.4H, Basophils # (Auto) 0.1, Immature Granulocyte # (Auto) 0.0, Prothrombin Time 15.5H, INR Comment 1.2, Activated Partial Thromboplast Time 27, Sodium Level 142, Potassium Level 4.1, Chloride Level 100, Carbon Dioxide Level 39H, Anion Gap 3L, Blood Urea Nitrogen 15, Creatinine 0.85, Estimat Glomerular Filtration Rate 88, BUN/Creatinine Ratio 18, Glucose Level 115H, Lactic Acid Level 0.81, Calcium Level 8.4L, Corrected Calcium 9.4, Total Bilirubin 0.3, Aspartate Amino Transf (AST/SGOT) 13, Alanine Aminotransferase (ALT/SGPT) 9, Alkaline Phosphatase 75, Troponin I < 0.30, Pro-B-Type Natriuretic Peptide 1116.0H, Total Protein 5.9L, Albumin 2.7L 07/20/22 08:15: Urine Color YELLOW, Urine Clarity CLEAR, Urine pH 6.0, Urine Specific [place] 1.020, Urine Protein NEGATIVE, Urine Glucose (UA) NEGATIVE, Urine Ketones NEGATIVE, Urine Nitrite NEGATIVE, Urine Bilirubin NEGATIVE, Urine Urobilinogen 0.2, Urine Leukocyte Esterase TRACEH, Urine RBC (Auto) NEGATIVE, Urine RBC NONE, Urine WBC 2-5, Urine Squamous Epithelial Cells NONE, Urine Crystals NONE, Urine Bacteria NEGATIVE, Urine Casts PRESENT, Urine Hyaline Casts RARE, Urine Mucus SMALLH, Urine Culture Indicated NO 07/20/22 08:39: Blood Gas Puncture Site RT RADIAL, Blood Gas Patient Temperature 36.2, Arterial Blood pH 7.39, Arterial Blood Partial Pressure CO2 82*H, Arterial Blood Partial Pressure O2 103H, Arterial Blood HCO3 50*H, Arterial Blood Total CO2 52.1*H, Arterial Blood Oxygen Saturation 98, Arterial Blood Base Excess 20.3H, Ponce Test OK, Blood Gas Ventilator Setting NO, Blood Gas Inspired Oxygen 10 L 07/20/22 08:43: Influenza Type A (RT-PCR) Not Detected, Influenza Type B (RT-PCR) Not Detected, SARS-CoV-2 RNA (RT-PCR) Not Detected 07/20/22 14:30: Blood Gas Puncture Site LR, Blood Gas Patient Temperature 98.8, Arterial Blood pH 7.34*L, Arterial Blood Partial Pressure CO2 83*H, Arterial Blood Partial Pressure O2 158H, Arterial Blood HCO3 43*H, Arterial Blood Total CO2 45.4*H, Arterial Blood Oxygen Saturation 100, Arterial Blood Base Excess 16.3H, Ponce Test YES-POS, Blood Gas Ventilator Setting NO, Blood Gas Inspired Oxygen 15L A/P-Cardiology Assessment/Admission Diagnosis Respiratory failure with hypoxia - likely multifactorial d/t acute on chronic diastolic CHF, acute on chronic exacerbation of COPD, SHANNAN and pneumonia AMS - likely d/t hypoxia CAD - records from [facility] in [place], [place] of 2021 state h/o PCI (details unknown) - Echocardiogram of 06-25-[address] [facility] in [place], [place] by Dr. Bhatia showed LVEF 60%. Mild RV dilatation. No signif valvular abnormalities Document h/o PE per [facility] records - details unknown - has been maintained on OAC with Eliquis as out pt HTN SHANNAN H/O diastolic CHF H/O COPD H/O pulmonary HTN Discussion and Recomendations Acute respiratory failure with hypoxia and AMS - likely d/t reasons noted above Management of pneumonia is per medical services Documented h/o PE - OAC has been resumed per Medical services Acute on chronic diastolic CHF - treat with diuretics Documented h/o CAD - details unknown - request records - start low dose ASA Monitor lab closely Further recs will be based on his hospital course We would like to thank Dr. Graham for this consult LAURA LOWERY MD FACP FAC CCDS Jul 20, 2022 17:35
[2022-07-20] MEDS: RIVAROXABAN 20 MG TABLET (XARELTO) PO SCH (17:59)
[2022-07-20] MEDS: FUROSEMIDE 40 MG/4 ML INJ (LASIX) IVP SCH (18:00)
[2022-07-20 19:18] LABS: ABG BASE EXCESS 18.1 MMOL/L (-2.5-2.5); ABG OXYGEN SATURATION 39 % (94-100)
[2022-07-20 19:20] LABS: ABG PCO2 97 MMHG (35-45); ABG PH 7.29 (7.37-7.43); ABG PO2 28 MMHG (79-93); ABG TCO2 48.5 MMOL/L (21.0-31.0)
[2022-07-20 19:21] LABS: ALLENS TEST YES-POS; INSPIRED O2 15 L; PATIENT TEMP 36.7; VENTILATOR NO
--- NOTE | 2022-07-20 19:59 | Tele-ICU Progress Note ---
Subjective Date Seen by a Provider: Jul 20, 2022 Time Seen by a Provider: 19:55 Subjective/Events-last exam called to evaluate pt and ABG, Pt with COPD and hypercarbic resp failure, latest ABG 7.29/pCO2 97 pO2 28, probably a venous ABG previous pCO2's are in 80's I looked in on pt via camera, is awake and conversant but oriented to name, SpO2 is in 90's and pt not working hard to breathe. Will try combination of BiPAP and IV Precedex Does not look like needs to be intubated Sepsis Event Evaluation Height, Weight, BMI Height: '" Weight: lbs. oz. kg; 31.14 BMI Method: Focused Exam Lactate Level 07/20/22 07:45: Lactic Acid Level 0.81 Exam Exam Patient acknowledged, consented, and participated in this virtual visit which was conducted using real time audio/video Vital Signs Date Time Temp Pulse Resp B/P (MAP) Pulse Ox O2 Delivery O2 Flow Rate FiO2 07/20/22 19:07 100 Non Rebreather 15.00 07/20/22 18:00 91 11 127/108 (114) 93 Non Rebreather 15.00 07/20/22 17:00 85 19 108/61 (77) 100 Non Rebreather 15.00 07/20/22 16:00 NIV Bilevel 30 07/20/22 16:00 86 26 111/65 (80) 100 NIV Bilevel 40.00 07/20/22 15:00 83 21 114/64 (81) 100 NIV Bilevel 40.00 07/20/22 14:34 100 Non Rebreather 15.00 07/20/22 14:00 84 25 124/76 (92) 98 NIV Bilevel 40.00 07/20/22 13:16 36.2 103 95 07/20/22 13:00 83 07/20/22 13:00 86 21 108/76 (87) 91 NIV Bilevel 40.00 07/20/22 12:00 92 27 94 30.00 07/20/22 12:00 93 39 110/82 (91) 96 NIV Bilevel 40.00 07/20/22 11:59 NIV Bilevel 30 07/20/22 11:46 92 07/20/22 11:30 91 33 117/77 (90) 86 NIV Bilevel 40.00 07/20/22 10:41 36.3 75 16 111/64 97 NIV Bilevel 07/20/22 08:58 97 NIV Bilevel 60 07/20/22 07:38 95 Non Rebreather 15.00 07/20/22 07:38 Non Rebreather 15.00 07/20/22 07:38 36.2 95 14 109/61 (77) 95 Non Rebreather 15.00 Height & Weight Height: '" Weight: lbs. oz. kg; 31.14 BMI Method: General Appearance: No Apparent Distress, WD/WN, Mild Distress, Obese HEENT: PERRL/EOMI Neck: Non Tender, Supple Respiratory: Chest Non Tender, No Respiratory Distress, Decreased Breath Sounds Cardiovascular: Regular Rate, Rhythm, Normal Peripheral Pulses Capillary Refill: Less Than 3 Seconds Gastrointestinal: non tender, soft Extremity: Non Tender, No Pedal Edema, Other (Venous stasis dermatitis b/l LEs) Neurologic/Psychiatric: Alert, Disoriented Skin: Warm/Dry, Ecchymosis (Ecchymosis scattered throughout all 4 extremities) Lymphatic: No Adenopathy Results Lab Laboratory Tests 07/20/22 07:45 Assessment/Plan Assessment/Plan Hypercarbic resp failure, will start on IV Precedx and try BiPAP /, FiO2 50% Critical Care: Critically Ill Patient Time spent with patient (mins): 25 LADARIUS CHAVEZ MD Jul 20, 2022 19:59
[2022-07-20] MEDS ORDERED: DexMEDEtomidine 250 ML DRIP 250 ML IV SCH (20:15)
[2022-07-20] MEDS: DOCUSATE SODIUM 100 MG (COLACE) CAP PO SCH (20:18)
[2022-07-20] MEDS: VANCOMYCIN 1250 MG/NS 250 ML IVPB IV SCH ×2 (20:18)
[2022-07-20] MEDS: DexMEDEtomidine 250 ML DRIP 250 ML IV SCH (20:38)
[2022-07-20] MEDS: MICONAZOLE 2% POWDER (DESENEX AF) 90 GM TOP SCH (21:53)
[2022-07-20 22:30] VITALS: BP 117/77
[2022-07-21] VITALS (7 sets, daily range): BP systolic 127–144; BP diastolic 67–85
[2022-07-21] MEDS: NS IV 1000 ML 1,000 ML IV SCH (00:58)
[2022-07-21] MEDS: RT-ALBUTEROL/IPRATROPIUM 3 ML (DUONEB) VIAL INH SCH ×6 (02:41→21:58)
[2022-07-21] MEDS: methylPREDNISolone 125 MG (Solu-MEDROL) VIAL IVP SCH ×4 (04:12→20:19)
[2022-07-21 04:57] LABS: BASOPHILS % (AUTO) 0 % (0-10); EOSINOPHILS % (AUTO) 0 % (0-10); HEMATOCRIT 36 % (40-54); HEMOGLOBIN 10.4 g/dL (13.3-17.7); LYMPHOCYTES # (AUTO) 0.5 10^3/uL (1.0-4.0); LYMPHOCYTES % (AUTO) 9 % (12-44); MEAN CORPUSCULAR HEMOGLOBIN 30 pg (25-34); MEAN CORPUSCULAR HGB CONC 29 g/dL (32-36); MEAN CORPUSCULAR VOLUME 104 fL (80-99); MONOCYTES # (AUTO) 0.2 10^3/uL (0.0-1.0); MONOCYTES % (AUTO) 3 % (0-12); NEUTROPHILS # (AUTO) 4.6 10^3/uL (1.8-7.8); NEUTROPHILS % (AUTO) 87 % (42-75); PLATELET COUNT 253 10^3/uL (130-400); WHITE BLOOD COUNT 5.3 10^3/uL (4.3-11.0)
[2022-07-21 05:18] LABS: BILIRUBIN,TOTAL 0.4 MG/DL (0.1-1.0); CALCIUM 8.3 MG/DL (8.5-10.1); CREATININE SERUM 1.1 MG/DL (0.60-1.30); MAGNESIUM 1.4 MG/DL (1.6-2.4); PHOSPHORUS 5.2 MG/DL (2.3-4.7); POTASSIUM 4.3 MMOL/L (3.6-5.0); TOTAL PROTEIN 6.2 GM/DL (6.4-8.2)
[2022-07-21 05:26] LABS: ABG BASE EXCESS 15.3 MMOL/L (-2.5-2.5); ABG OXYGEN SATURATION 99 % (94-100); ABG PCO2 70 MMHG (35-45); ABG PH 7.39 (7.37-7.43); ABG PO2 97 MMHG (79-93)
[2022-07-21] MEDS: MAGNESIUM 1 GM/100 ML IVPB 100 ML IV SCH ×3 (05:26→05:41)
[2022-07-21] MEDS: POTASSIUM CL 10MEQ/50ML IVPB 50 ML IV SCH (05:26)
[2022-07-21] MEDS: KCL 20 MEQ TAB (K-DUR) PO SCH (05:26)
[2022-07-21 05:29] LABS: ALLENS TEST YES-POS; INSPIRED O2 70%
[2022-07-21 05:30] LABS: PATIENT TEMP 36.2; VENTILATOR NO
[2022-07-21 05:32] LABS: ABG TCO2 43.4 MMOL/L (21.0-31.0)
[2022-07-21] MEDS: DexMEDEtomidine 250 ML DRIP 250 ML IV SCH ×4 (05:40→22:00)
[2022-07-21] MEDS: PIPERACILLIN SODIUM/TAZOBACTAM 4.5 GM in NS (IVPB) 100 ML IV SCH ×3 (05:40→21:59)
[2022-07-21] MEDS: FUROSEMIDE 40 MG/4 ML INJ (LASIX) IVP SCH ×2 (05:41→18:30)
[2022-07-21 05:58] LABS: LYMPHOCYTES % (MANUAL) 9 %; MONOCYTES % (MANUAL) 5 %; NEUTROPHILS % (MANUAL) 86 %
[2022-07-21 05:59] LABS: ANISOCYTOSIS MODERATE
[2022-07-21] MEDS: VANCOMYCIN 1250 MG/NS 250 ML IVPB IV SCH ×4 (08:27→20:18)
[2022-07-21] MEDS: ASPIRIN 81 MG CHEW (CHILDREN'S ASA) PO SCH (08:28)
[2022-07-21] MEDS: DOCUSATE SODIUM 100 MG (COLACE) CAP PO SCH ×2 (08:28→20:18)
[2022-07-21] MEDS: MICONAZOLE 2% POWDER (DESENEX AF) 90 GM TOP SCH ×2 (08:29→20:19)
--- NOTE | 2022-07-21 08:49 | Tele-ICU Progress Note ---
Subjective Date Seen by a Provider: Jul 21, 2022 Subjective/Events-last exam This virtual visit was conducted using real time audio/video. Thank you for asking us to see this patient for respiratory insufficiency due to AECOPD/CHF, B pna Recent events: anxiety/delirium. PE: VSS. Obese. Comfortable on camera currently O2 sat 96% on BiP 18/10, 60% HEENT: No obvious masses, adenopathy or JVD. Chest: clear to auscultation, diminished. CV: RRR S1 S2 No murmur or added sounds. Abd: Non-tender. Bowel sounds Y. : Unremarkable. Segal Y. [employer]/psychiatric: Grossly intact. No obvious focal findings. Extremities: 1+ edema. Capillary refill < 3 seconds. Skin: unremarkable. Results: Elevated BUN 19, BG 202.. Decreased Hb 10.4. B.39/70/97 on 70%. CXR: Hyperinflated, bibasilar infilts.. Available chart/ vitals / labs / images reviewed. Video assessment done using teleICU camera, rest of exam as per RN. A/P: Respiratory insufficiency: Continue present management with BiPAP. Prec., Duonebs, Medrol. Monitor for increasing oxygenation needs and/or need for intubation. Critical Care: critically ill patient. Cont. abx, lasix, Xarelto. TKO IVF. Discussed with RN Moon. Asked RN to reach out to eICU if any questions or concerns later. Time spent with patient/coordination of care with other health professionals ( mins): Sepsis Event Evaluation Height, Weight, BMI Height: '" Weight: lbs. oz. kg; 30.93 BMI Method: Focused Exam Lactate Level 07/20/22 07:45: Lactic Acid Level 0.81 Exam Exam Patient acknowledged, consented, and participated in this virtual visit which was conducted using real time audio/video Vital Signs Date Time Temp Pulse Resp B/P (MAP) Pulse Ox O2 Delivery O2 Flow Rate FiO2 07/21/22 08:00 52 16 135/82 (99) 93 NIV Bilevel 70.00 07/21/22 07:55 36.0 07/21/22 07:50 50.00 07/21/22 07:44 52 18 96 60.00 07/21/22 07:00 51 13 126/73 (90) 97 NIV Bilevel 70.00 07/21/22 07:00 54 07/21/22 06:52 NIV Bilevel 60.00 07/21/22 06:00 56 12 141/81 (101) 99 NIV Bilevel 70.00 07/21/22 05:00 50 13 137/77 (97) 94 NIV Bilevel 70.00 07/21/22 04:45 NIV Bilevel 70.00 07/21/22 04:19 95 NIV Bilevel 60 07/21/22 04:18 36.2 NIV Bilevel 60.00 07/21/22 04:00 53 15 131/72 (91) 97 NIV Bilevel 80.00 07/21/22 03:00 60 12 129/67 (87) 93 NIV Bilevel 80.00 07/21/22 02:42 54 18 97 80.00 07/21/22 02:00 53 16 132/81 (98) 96 NIV Bilevel 80.00 07/21/22 01:00 56 07/21/22 01:00 56 13 127/74 (91) 97 NIV Bilevel 80.00 07/21/22 00:55 NIV Bilevel 80.00 07/21/22 00:00 57 21 115/67 (83) 96 NIV Bilevel 100.00 07/20/22 23:39 36.3 NIV Bilevel 100.00 07/20/22 23:39 94 NIV Bilevel 100 07/20/22 23:00 58 12 102/56 (71) 93 NIV Bilevel 100.00 07/20/22 22:47 NIV Bilevel 100.00 07/20/22 22:30 60 23 94 45.00 07/20/22 22:00 69 36 108/64 (79) 100 Non Rebreather 10.00 07/20/22 21:00 82 24 107/63 (78) 100 Non Rebreather 10.00 07/20/22 20:26 36.1 Non Rebreather 10.00 07/20/22 20:00 Non Rebreather 15.00 07/20/22 20:00 92 29 93/61 (72) 91 Non Rebreather 10.00 07/20/22 19:07 100 Non Rebreather 15.00 07/20/22 19:00 Non Rebreather 10.00 07/20/22 19:00 85 29 115/66 (82) 99 Non Rebreather 10.00 07/20/22 19:00 85 07/20/22 18:00 91 11 127/108 (114) 93 Non Rebreather 15.00 07/20/22 17:00 85 19 108/61 (77) 100 Non Rebreather 15.00 07/20/22 16:00 NIV Bilevel 30 07/20/22 16:00 86 26 111/65 (80) 100 NIV Bilevel 40.00 07/20/22 15:00 83 21 114/64 (81) 100 NIV Bilevel 40.00 07/20/22 14:34 100 Non Rebreather 15.00 07/20/22 14:00 Non Rebreather 15.00 07/20/22 14:00 84 25 124/76 (92) 98 NIV Bilevel 40.00 07/20/22 13:16 36.2 103 95 07/20/22 13:00 83 07/20/22 13:00 86 21 108/76 (87) 91 NIV Bilevel 40.00 07/20/22 12:00 92 27 94 30.00 07/20/22 12:00 93 39 110/82 (91) 96 NIV Bilevel 40.00 07/20/22 11:59 NIV Bilevel 30 07/20/22 11:46 92 07/20/22 11:30 91 33 117/77 (90) 86 NIV Bilevel 40.00 07/20/22 10:41 36.3 75 16 111/64 97 NIV Bilevel 07/20/22 08:58 97 NIV Bilevel 60 I & O 07/21/22 07:00 Intake Total 1555 ml Output Total 2275 ml Balance -720 ml Height & Weight Height: '" Weight: lbs. oz. kg; 30.93 BMI Method: General Appearance: Chronically ill, Moderate Distress, Obese HEENT: PERRL/EOMI Neck: Non Tender, Supple Respiratory: Decreased Breath Sounds Cardiovascular: Regular Rate, Rhythm Capillary Refill: Less Than 3 Seconds Gastrointestinal: non tender, soft Extremity: Non Tender, No Pedal Edema, Other (Venous stasis dermatitis b/l LEs) Neurologic/Psychiatric: Alert, Disoriented Skin: Warm/Dry, Ecchymosis (Ecchymosis scattered throughout all 4 extremities) Lymphatic: No Adenopathy Results Lab Laboratory Tests 07/20/22 07:45 07/21/22 04:17 Assessment/Plan Assessment/Plan See free text. Critical Care: Critically Ill Patient LINDA FOX MD Jul 21, 2022 08:49
[2022-07-21] MEDS ORDERED: VANCOMYCIN INJECTION 1,750 MG in NS IV 500 ML 500 ML IV ONE (09:13)
[2022-07-21] MEDS ORDERED: PIPERACILLIN SODIUM/TAZOBACTAM 4.5 GM in NS (IVPB) 100 ML IV ONE (09:13)
--- NOTE | 2022-07-21 11:18 | Progress Note - Hospitalist ---
DELILAH OROURKE 07/21/22 1118: Subjective HPI/CC On Admission Date Seen by Provider: Jul 21, 2022 Time Seen by Provider: 09:15 CC: Respiratory failure HPI: This is a [facility] correction pt who presented to the ICU from [place] [facility] from the correction with acute respiratory failure. He required BiPAP due to hypercapnia. At this current time pt is unable to provide any history. We will initiate Zosyn and Vanc, empiric coverage for pneumonia on chest x-ray. Dr. Kaufman will be consulted for volume overload. Subjective/Events-last exam Patient is asleep in his bed, BIPAP in place. Started on precedex yesterday. ABG today shows a pH of 7.39, pCO2 of 70 and pO2 of 97. Red sediment seen in p atient's catheter. Per RN, the patient is confused and agitated when he is awake. Focused Exam Lactate Level 07/20/22 07:45: Lactic Acid Level 0.81 Objective Exam Vital Signs Vital Signs Date Time Temp Pulse Resp B/P (MAP) Pulse Ox O2 Delivery O2 Flow Rate FiO2 07/21/22 11:17 56 17 93 40.00 07/21/22 11:00 129/72 (91) NIV Bilevel 07/21/22 08:00 60 07/21/22 07:55 36.0 Capillary Refill : Less Than 3 Seconds General Appearance: No Apparent Distress, WD/WN, Obese HEENT: PERRL/EOMI Neck: Non Tender, Supple Respiratory: Chest Non Tender, No Respiratory Distress, Decreased Breath Sounds Cardiovascular: Regular Rate, Rhythm, No Murmur, Normal Peripheral Pulses Gastrointestinal: Non Tender, Soft Rectal: Deferred Back: No Vertebral Tenderness Extremity: Non Tender, No Pedal Edema, Other (venous stasis dermatitis b/l) Neurologic/Psychiatric: Disoriented Skin: Warm/Dry, Ecchymosis (Multiple scattered throughout extremities) Lymphatic: No Adenopathy Results/Procedures Lab Laboratory Tests 07/21/22 04:17 Patient resulted labs reviewed. Assessment/Plan Assessment and Plan Assess & Plan/Chief Complaint Acute respiratory failure with hypoxia and hypercapnia COPD exacerbation Dementia CHF HTN Pulmonary HTN Hx of PE CAD SHANNAN Chronic lymphedema Obesity: BMI 30.9 Continue BIPAP Continue vancomycin, zosyn Continue nebulizers Continue steroids Continue lasix Continue precedex Monitor ABGs On Xarelto and aspirin Home meds for HTN HEATHER DEL REAL DO 07/22/22 0503: Subjective Subjective/Events-last exam Pt remains on Precedex and BiPAP Prognosis remains poor Cognition is very declined Review of Systems Neurological: Confusion Objective Exam General Appearance: Obese, Other (sedated) Respiratory: Decreased Breath Sounds Cardiovascular: Regular Rate, Rhythm Supervisory-Addendum Brief Verification & Attestation Participated in pt care: history, MDM, physical Personally performed: exam, history, MDM, supervision of care Care discussed with: Medical Student Procedures: n/a Results interpretation: Verified all documentation Verification and Attestation of Medical Student E/M Service A medical student performed and documented this service in my presence. I reviewed and verified all information documented by the medical student and made modifications to such information, when appropriate. I personally performed the physical exam and medical decision making. Heather Del Real, Jul 22, 2022,05:01 DELILAH OROURKE Jul 21, 2022 11:18 HEATHER DEL REAL DO Jul 22, 2022 05:03
--- NOTE | 2022-07-21 11:33 | Progress Note - Cardiology ---
Cardiology SOAP Progress Note Subjective: Lying in bed Increasing confusion at this time Unable to obtain any useful information Objective: I&O/Vital Signs 07/22/22 07/22/22 07/22/22 07/22/22 00:00 00:19 00:21 00:22 Temp 35.3 Pulse 85 Resp 16 B/P (MAP) 129/74 (92) Pulse Ox 92 92 O2 Delivery NIV Bilevel NIV Bilevel NIV Bilevel O2 Flow Rate 50.00 50.00 FiO2 50 07/22/22 07/22/22 07/22/22 07/22/22 01:00 01:00 02:00 02:03 Pulse 56 66 72 83 Resp 11 14 24 B/P (MAP) 116/76 (89) 114/90 (98) Pulse Ox 92 93 92 O2 Delivery NIV Bilevel NIV Bilevel O2 Flow Rate 50.00 50.00 50.00 07/22/22 07/22/22 07/22/22 07/22/22 02:44 03:00 04:00 04:02 Temp 36.3 Pulse 70 68 Resp 16 16 B/P (MAP) 104/71 (82) 96/70 (79) Pulse Ox 93 95 O2 Delivery NIV Bilevel NIV Bilevel NIV Bilevel O2 Flow Rate 60.00 60.00 60.00 07/22/22 07/22/22 07/22/22 07/22/22 04:36 04:36 05:00 06:00 Pulse 70 85 Resp 10 16 B/P (MAP) 123/64 (83) 119/88 (98) Pulse Ox 91 95 96 O2 Delivery NIV Bilevel NIV Bilevel NIV Bilevel NIV Bilevel O2 Flow Rate 60.00 60.00 60.00 FiO2 50 07/22/22 07/22/22 07/22/22 07/22/22 06:32 07:00 07:00 07:46 Pulse 74 79 Resp 20 B/P (MAP) 103/56 (72) Pulse Ox 95 90 O2 Delivery High Flow N/C High Flow N/C High Flow N/C O2 Flow Rate 10.00 10.00 10.00 07/22/22 07/22/22 07/22/22 07/22/22 08:00 08:00 08:02 09:00 Temp 36.4 Pulse 66 77 Resp 15 14 B/P (MAP) 85/60 (68) 93/80 (84) Pulse Ox 91 91 90 O2 Delivery Nasal Cannula High Flow N/C High Flow N/C O2 Flow Rate 10.00 10.00 10.00 07/22/22 07/22/22 10:00 10:45 Pulse 101 Resp 21 B/P (MAP) 112/84 (93) Pulse Ox 90 90 O2 Delivery High Flow N/C High Flow N/C O2 Flow Rate 10.00 10.00 07/22/22 00:00 Intake Total 642.5 ml Output Total 1400 ml Balance -757.5 ml Constitutional: other (Oriented to self and place (hospital) only) Respiratory: chest expansion is symmetric, chest is bilaterally symmetric, other (coarse breath sounds throughout, diminished lower lobes bilat) Cardiovascular: regular rate-rhythm; No JVD; S1 and S2, systolic murmur Gastrointestional: No tender; soft, audible bowel sounds Extremities: no lower extremity edema bilateral Neurologic/Psychiatric: grossly intact (moves extremities) Skin: other (abrasions to bilat LE with dressing to LLE; multiple bruises to arms bilat) Results/Procedures: Labs Laboratory Tests 07/21/22 13:01: Glucometer 170H 07/21/22 16:15: Glucometer 153H 07/21/22 20:17: Glucometer 144H 07/22/22 04:49: White Blood Count 9.0, Red Blood Count 3.27L, Hemoglobin 9.9L, Hematocrit 33L, Mean Corpuscular Volume 102H, Mean Corpuscular Hemoglobin 30, Mean Corpuscular Hemoglobin Concent 30L, Red Cell Distribution Width 18.4H, Platelet Count 225, Mean Platelet Volume 10.5, Immature Granulocyte % (Auto) 0, Neutrophils (%) (Auto) 95H, Lymphocytes (%) (Auto) 3L, Monocytes (%) (Auto) 2, Eosinophils (%) (Auto) 0, Basophils (%) (Auto) 0, Neutrophils # (Auto) 8.6H, Lymphocytes # (Auto) 0.2L, Monocytes # (Auto) 0.2, Eosinophils # (Auto) 0.0, Basophils # (Auto) 0.0, Immature Granulocyte # (Auto) 0.0, Sodium Level 143, Potassium Level 3.1L, Chloride Level 101, Carbon Dioxide Level 28, Anion Gap 14, Blood Urea Nitrogen 26H, Creatinine 0.85, Estimat Glomerular Filtration Rate 88, BUN/Creatinine Ratio 31, Glucose Level 148H, Calcium Level 6.9L, Corrected Calcium 8.0L, Phosphorus Level 3.5, Magnesium Level 1.5L, Total Bilirubin 0.4, Aspartate Amino Transf (AST/SGOT) 10, Alanine Aminotransferase (ALT/SGPT) 10, Alkaline Phosphatase 49, Total Protein 5.2L, Albumin 2.6L 07/22/22 05:04: Blood Gas Puncture Site LR, Blood Gas Patient Temperature 37, Arterial Blood pH 7.51H, Arterial Blood Partial Pressure CO2 51H, Arterial Blood Partial Pressure O2 102H, Arterial Blood HCO3 40H, Arterial Blood Total CO2 41.7*H, Arterial Blood Oxygen Saturation 100, Arterial Blood Base Excess 15.7H, Ponce Test YES- POS, Blood Gas Ventilator Setting NO, Blood Gas Inspired Oxygen 60% 07/22/22 10:50: Glucometer 135H Microbiology 07/20/22 Urine Culture - Preliminary, Resulted Proteus mirabilis 07/20/22 Blood Culture - Preliminary, Resulted No growth A/P: Assessment: Respiratory failure with hypoxia - likely multifactorial d/t acute on chronic diastolic CHF, acute on chronic exacerbation of COPD, SHANNAN and pneumonia AMS - likely d/t hypoxia CAD - records from [facility] in [place], [place] of 2021 state h/o PCI (details unknown) Acute on chronic diastolic CHF - Echocardiogram of 06-25-[address] [facility] in [place], [place] by Dr. Bhatia showed LVEF 60%. Mild RV dilatation. No signif valvular abnormalities - Echocardiogram of 06-30-22 showed LVEF 50-55%. Grade 1 diastolic dysfunction. LA and RA mildly dilated Document h/o PE per [facility] records - details unknown - has been maintained on OAC with Eliquis as out pt HTN SHANNAN H/O COPD H/O pulmonary HTN Plan: Acute respiratory failure with hypoxia and AMS - likely d/t reasons noted above Management of pneumonia is per medical services Acute on chronic diastolic CHF - treat with diuretics Documented h/o CAD - details unknown - waiting on records from [facility] Monitor lab closely ZOILA VALLE Jul 21, 2022 11:33
[2022-07-21] MEDS ORDERED: POLY17PO6 PO (15:07)
[2022-07-21] MEDS ORDERED: MULT-1136 PO (15:07)
[2022-07-21] MEDS ORDERED: OLAN5TAB23 PO (15:07)
[2022-07-21] MEDS ORDERED: SODI45SP9 NSEACH (15:07)
--- NOTE | 2022-07-21 18:26 | Progress Note - Cardiology ---
Cardiology SOAP Progress Note Subjective: Confused, disoriented, and unable to provide any history Objective: I&O/Vital Signs 07/21/22 07/21/22 07/21/22 07/21/22 06:52 07:00 07:00 07:44 Pulse 54 51 52 Resp 13 18 B/P (MAP) 126/73 (90) Pulse Ox 97 96 O2 Delivery NIV Bilevel NIV Bilevel O2 Flow Rate 60.00 70.00 60.00 07/21/22 07/21/22 07/21/22 07/21/22 07:50 07:55 08:00 08:00 Temp 36.0 Pulse 52 Resp 16 B/P (MAP) 135/82 (99) Pulse Ox 93 95 O2 Delivery NIV Bilevel NIV Bilevel O2 Flow Rate 50.00 70.00 FiO2 60 07/21/22 07/21/22 07/21/22 07/21/22 09:00 10:00 10:49 11:00 Pulse 54 51 52 53 Resp 16 9 16 13 B/P (MAP) 137/78 (97) 138/76 (96) 129/72 (91) Pulse Ox 94 96 98 96 O2 Delivery NIV Bilevel NIV Bilevel NIV Bilevel O2 Flow Rate 70.00 50.00 50.00 50.00 07/21/22 07/21/22 07/21/22 07/21/22 11:17 11:30 12:00 12:00 Temp 36.0 Pulse 56 52 Resp 17 14 B/P (MAP) 133/70 (91) Pulse Ox 93 91 O2 Delivery NIV Bilevel NIV Bilevel O2 Flow Rate 40.00 40.00 40.00 07/21/22 07/21/22 07/21/22 07/21/22 13:00 13:00 14:00 14:18 Pulse 49 55 53 49 Resp 8 10 16 B/P (MAP) 132/78 (96) 138/84 (102) Pulse Ox 92 96 95 O2 Delivery NIV Bilevel NIV Bilevel O2 Flow Rate 40.00 40.00 40.00 07/21/22 07/21/22 07/21/22 07/21/22 15:00 16:00 16:00 16:55 Temp 35.0 Pulse 50 53 49 Resp 7 25 B/P (MAP) 144/79 (100) 140/84 (102) Pulse Ox 92 92 O2 Delivery NIV Bilevel NIV Bilevel O2 Flow Rate 40.00 40.00 07/21/22 00:00 Intake Total 585 ml Output Total 1850 ml Balance -1265 ml Constitutional: No AAO x 3; other (very confused, mildly agitated) Respiratory: chest expansion is symmetric, chest is bilaterally symmetric, other (coarse breath sounds throughout, diminished lower lobes bilat) Cardiovascular: regular rate-rhythm; No JVD; S1 and S2, systolic murmur Gastrointestional: No tender; soft, audible bowel sounds Extremities: no lower extremity edema bilateral Neurologic/Psychiatric: No oriented x 3; other (mental status exam given above, moves all limbs equally) Skin: other (abrasions to bilat LE with dressing to LLE; multiple bruises to arms bilat) Results/Procedures: Labs Laboratory Tests 07/20/22 19:00: Blood Gas Puncture Site R RADIAL, Blood Gas Patient Temperature 36.7, Arterial Blood pH 7.29*L, Arterial Blood Partial Pressure CO2 97*H, Arterial Blood Partial Pressure O2 28*L, Arterial Blood HCO3 46*H, Arterial Blood Total CO2 48.5*H, Arterial Blood Oxygen Saturation 39L, Arterial Blood Base Excess 18.1H, Ponce Test YES-POS, Blood Gas Ventilator Setting NO, Blood Gas Inspired Oxygen 15 L 07/21/22 04:17: White Blood Count 5.3, Red Blood Count 3.45L, Hemoglobin 10.4L, Hematocrit 36L, Mean Corpuscular Volume 104H, Mean Corpuscular Hemoglobin 30, Mean Corpuscular Hemoglobin Concent 29L, Red Cell Distribution Width 18.0H, Platelet Count 253, Mean Platelet Volume 10.0, Immature Granulocyte % (Auto) 1, Neutrophils (%) (Auto) 87H, Lymphocytes (%) (Auto) 9L, Monocytes (%) (Auto) 3, Eosinophils (%) (Auto) 0, Basophils (%) (Auto) 0, Neutrophils # (Auto) 4.6, Lymphocytes # (Auto) 0.5L, Monocytes # (Auto) 0.2, Eosinophils # (Auto) 0.0, Basophils # (Auto) 0.0, Immature Granulocyte # (Auto) 0.0, Neutrophils % (Manual) 86, Lymphocytes % (Manual) 9, Monocytes % (Manual) 5, Anisocytosis MODERATE, Macrocytosis MODERATE, Sodium Level 145, Potassium Level 4.3, Chloride Level 93L, Carbon Dioxide Level 35H, Anion Gap 17H, Blood Urea Nitrogen 19H, Creatinine 1.10, Estimat Glomerular Filtration Rate 68, BUN/Creatinine Ratio 17, Glucose Level 202H, Calcium Level 8.3L, Corrected Calcium 9.1, Phosphorus Level 5.2H, Magnesi um Level 1.4L, Total Bilirubin 0.4, Aspartate Amino Transf (AST/SGOT) 11, Alanine Aminotransferase (ALT/SGPT) 12, Alkaline Phosphatase 61, Total Protein 6.2L, Albumin 3.0L 07/21/22 05:00: Blood Gas Puncture Site R BRACH, Blood Gas Patient Temperature 36.2, Arterial Blood pH 7.39, Arterial Blood Partial Pressure CO2 70H, Arterial Blood Partial Pressure O2 97H, Arterial Blood HCO3 41*H, Arterial Blood Total CO2 43.4*H, Arterial Blood Oxygen Saturation 99, Arterial Blood Base Excess 15.3H, Ponce Test YES-POS, Blood Gas Ventilator Setting NO, Blood Gas Inspired Oxygen 70% 07/21/22 13:01: Glucometer 170H 07/21/22 16:15: Glucometer 153H Microbiology 07/20/22 Urine Culture - Preliminary, Resulted Proteus mirabilis 07/20/22 Blood Culture - Preliminary, Resulted No growth A/P: Assessment: Respiratory failure with hypoxia - likely multifactorial d/t acute on chronic diastolic CHF, acute on chronic exacerbation of COPD, SHANNAN and pneumonia AMS, deteriorating mental status CAD - records from [facility] in [place], [place] of 2021 state h/o PCI (details unknown) Acute on chronic diastolic CHF - Echocardiogram of 06-25-[address] [facility] in [place], [place] by Dr. Bhatia showed LVEF 60%. Mild RV dilatation. No signif valvular abnormalities - Echocardiogram of 06-30-22 showed LVEF 50-55%. Grade 1 diastolic dysfunction. LA and RA mildly dilated Document h/o PE per [facility] records - details unknown - has been maintained on OAC with Eliquis as out pt HTN SHANNAN H/O COPD H/O pulmonary HTN Plan: Deteriorating mental status is being managed by the Hospitalist emelyn Acute respiratory failure with hypoxia and AMS - likely d/t reasons noted above Management of pneumonia is per medical services Acute on chronic diastolic CHF - treat with diuretics Documented h/o CAD - details unknown - waiting on records from [facility] Monitor lab closely LAURA LOWERY MD FACP FAC CCDS Jul 21, 2022 18:26
[2022-07-21] MEDS: RIVAROXABAN 20 MG TABLET (XARELTO) PO SCH (18:35)
[2022-07-21] MEDS ORDERED: ZIPRASIDONE 20 MG INJ (GEODON) VIAL IM ONE ×2 (23:39→23:45)
[2022-07-21] MEDS ORDERED: WATER (STERILE) FOR INJ 10 ML BTL INJ SCH (23:45)
[2022-07-22 02:03] VITALS: BP 90/59
[2022-07-22] MEDS: RT-ALBUTEROL/IPRATROPIUM 3 ML (DUONEB) VIAL INH SCH ×6 (02:03→22:45)
[2022-07-22] MEDS: methylPREDNISolone 125 MG (Solu-MEDROL) VIAL IVP SCH ×4 (03:08→19:45)
[2022-07-22] MEDS ORDERED: SALINE NASAL SPRAY (OCEAN) 45 ML BTL PRN (05:15)
[2022-07-22] MEDS ORDERED: DOCUSATE SODIUM 100 MG (COLACE) CAP PO PRN (05:15)
[2022-07-22] MEDS ORDERED: polyethylene glycoL POWDER 17 GM (MIRALAX) PACK PO PRN (05:15)
[2022-07-22 05:21] LABS: ABG BASE EXCESS 15.7 MMOL/L (-2.5-2.5); ABG OXYGEN SATURATION 100 % (94-100); ABG PCO2 51 MMHG (35-45); ABG PH 7.51 (7.37-7.43); ABG PO2 102 MMHG (79-93)
[2022-07-22 05:22] LABS: ALLENS TEST YES-POS; INSPIRED O2 60%; PATIENT TEMP 37; VENTILATOR NO
[2022-07-22 05:23] LABS: ABG TCO2 41.7 MMOL/L (21.0-31.0)
[2022-07-22 05:35] LABS: BASOPHILS % (AUTO) 0 % (0-10); EOSINOPHILS % (AUTO) 0 % (0-10); HEMATOCRIT 33 % (40-54); HEMOGLOBIN 9.9 g/dL (13.3-17.7); LYMPHOCYTES # (AUTO) 0.2 10^3/uL (1.0-4.0); LYMPHOCYTES % (AUTO) 3 % (12-44); MEAN CORPUSCULAR HEMOGLOBIN 30 pg (25-34); MEAN CORPUSCULAR HGB CONC 30 g/dL (32-36); MEAN CORPUSCULAR VOLUME 102 fL (80-99); MEAN PLATELET VOLUME 10.5 fL (9.0-12.2); MONOCYTES # (AUTO) 0.2 10^3/uL (0.0-1.0); MONOCYTES % (AUTO) 2 % (0-12); NEUTROPHILS # (AUTO) 8.6 10^3/uL (1.8-7.8); NEUTROPHILS % (AUTO) 95 % (42-75); PLATELET COUNT 225 10^3/uL (130-400)
[2022-07-22 05:53] LABS: ALBUMIN 2.6 GM/DL (3.2-4.5); BILIRUBIN,TOTAL 0.4 MG/DL (0.1-1.0); CALCIUM 6.9 MG/DL (8.5-10.1); CREATININE SERUM 0.85 MG/DL (0.60-1.30); MAGNESIUM 1.5 MG/DL (1.6-2.4); PHOSPHORUS 3.5 MG/DL (2.3-4.7); POTASSIUM 3.1 MMOL/L (3.6-5.0); TOTAL PROTEIN 5.2 GM/DL (6.4-8.2)
[2022-07-22] MEDS: MAGNESIUM 1 GM/100 ML IVPB 100 ML IV SCH ×2 (05:59→06:10)
[2022-07-22] MEDS: POTASSIUM CL 10MEQ/50ML IVPB 50 ML IV SCH (06:00)
[2022-07-22] MEDS: KCL 20 MEQ TAB (K-DUR) PO SCH (06:00)
[2022-07-22] MEDS ORDERED: KCL 20 MEQ TAB (K-DUR) PO ONE ×2 (06:00→08:00)
[2022-07-22] MEDS: MULTIVIT W/MINERALS TAB (THERAGRAN M) PO SCH (06:09)
[2022-07-22] MEDS: FUROSEMIDE 40 MG/4 ML INJ (LASIX) IVP SCH ×2 (06:10→17:38)
[2022-07-22] MEDS: PIPERACILLIN SODIUM/TAZOBACTAM 4.5 GM in NS (IVPB) 100 ML IV SCH ×3 (06:10→22:02)
[2022-07-22] MEDS: MIDODRINE 10 MG (PROAMATINE) TAB PO SCH ×3 (08:15→17:38)
[2022-07-22] MEDS: QUEtiapine 25 MG (SEROquel) TAB IMMEDIATE RELEASE PO SCH (08:15)
[2022-07-22] MEDS: TAMSULOSIN 0.4 MG (FLOMAX) CAP PO SCH (08:15)
[2022-07-22] MEDS: FERROUS SULF 325 MG (IRON) TAB PO SCH (08:15)
[2022-07-22] MEDS: DOCUSATE SODIUM 100 MG (COLACE) CAP PO SCH ×2 (08:16→19:44)
[2022-07-22] MEDS: VANCOMYCIN 1250 MG/NS 250 ML IVPB IV SCH ×4 (08:18→19:47)
[2022-07-22] MEDS: ASPIRIN 81 MG CHEW (CHILDREN'S ASA) PO SCH (08:51)
[2022-07-22] MEDS: MICONAZOLE 2% POWDER (DESENEX AF) 90 GM TOP SCH ×2 (08:52→19:45)
[2022-07-22] MEDS ORDERED: FUROSEMIDE 20 MG (LASIX) TAB PO SCH (09:00)
[2022-07-22] MEDS ORDERED: ASPIRIN E.C. 81 MG (ECOTRIN) TAB PO SCH (09:00)
--- NOTE | 2022-07-22 09:20 | Tele-ICU Progress Note ---
Subjective Date Seen by a Provider: Jul 22, 2022 Subjective/Events-last exam This virtual visit was conducted using real time audio/video. Thank you for asking us to see this patient for respiratory insufficiency due to AECOPD/CHF, B pna Recent events: anxiety/delirium improved. PE: VSS. Obese. Comfortable on camera currently. O2 sat 94% on NC 10 LPM. Uses 2-4 LPM at NH. HEENT: No obvious masses, adenopathy or JVD. Chest: clear to auscultation, diminished. CV: RRR S1 S2 No murmur or added sounds. Abd: Non-tender. Bowel sounds Y. : Unremarkable. Segal Y. STAMP CLASSIFIER/psychiatric: Grossly intact. No obvious focal findings. Extremities: Trace edema. Capillary refill < 3 seconds. Skin: unremarkable. Results: Elevated BUN 26, BG 148 BNP 1116. Decreased Hb 10.4. B.51/51/102 on 60%. CXR: Hyperinflated, bibasilar infilts.. Available chart/ vitals / labs / images reviewed. Video assessment done using teleICU camera, rest of exam as per RN. A/P: Respiratory insufficiency: Continue present management with BiPAP. Prec., Duonebs, Medrol. Wean O2 as toño. Monitor for increasing oxygenation needs and/or need for intubation. Critical Care: critically ill patient. Cont. abx, lasix, Xarelto, ASA, statin, Seroquel. Replace K. . Discussed with ERIN Boogie. Asked RN to reach out to eICU if any questions or concerns later. Time spent with patient/coordination of care with other health professionals (mins): 25 Sepsis Event Evaluation Height, Weight, BMI Height: '" Weight: lbs. oz. kg; 30.58 BMI Method: Focused Exam Lactate Level 07/20/22 07:45: Lactic Acid Level 0.81 Exam Exam Patient acknowledged, consented, and participated in this virtual visit which was conducted using real time audio/video Vital Signs Date Time Temp Pulse Resp B/P (MAP) Pulse Ox O2 Delivery O2 Flow Rate FiO2 07/22/22 08:02 36.4 07/22/22 07:46 90 High Flow N/C 10.00 07/22/22 07:00 74 07/22/22 06:32 High Flow N/C 10.00 07/22/22 06:00 85 16 119/88 (98) 96 NIV Bilevel 60.00 07/22/22 05:00 70 10 123/64 (83) 95 NIV Bilevel 60.00 07/22/22 04:36 91 NIV Bilevel 50 07/22/22 04:36 NIV Bilevel 60.00 07/22/22 04:02 36.3 07/22/22 04:00 68 16 96/70 (79) 95 NIV Bilevel 60.00 07/22/22 03:00 70 16 104/71 (82) 93 NIV Bilevel 60.00 07/22/22 02:44 NIV Bilevel 60.00 07/22/22 02:03 83 24 92 50.00 07/22/22 02:00 72 14 114/90 (98) 93 NIV Bilevel 50.00 07/22/22 01:00 66 11 116/76 (89) 92 NIV Bilevel 50.00 07/22/22 01:00 56 07/22/22 00:22 92 NIV Bilevel 50 07/22/22 00:21 NIV Bilevel 50.00 07/22/22 00:19 35.3 07/22/22 00:00 85 16 129/74 (92) 92 NIV Bilevel 50.00 07/21/22 23:00 56 18 133/77 (95) 92 NIV Bilevel 50.00 07/21/22 22:16 62 140/83 07/21/22 22:00 50 16 108/74 (85) 94 NIV Bilevel 50.00 07/21/22 21:58 44 18 94 50.00 07/21/22 21:00 60 11 132/75 (94) 93 NIV Bilevel 50.00 07/21/22 20:00 57 11 130/92 (105) 94 NIV Bilevel 50.00 07/21/22 20:00 92 NIV Bilevel 50 07/21/22 19:47 35.6 07/21/22 19:00 65 18 120/73 (89) 90 NIV Bilevel 40.00 07/21/22 19:00 NIV Bilevel 50.00 07/21/22 19:00 65 07/21/22 18:25 52 18 91 30.00 07/21/22 18:00 60 7 137/96 (110) 91 NIV Bilevel 40.00 07/21/22 17:00 56 7 138/76 (96) 94 NIV Bilevel 40.00 07/21/22 16:55 49 07/21/22 16:00 53 25 140/84 (102) 92 NIV Bilevel 40.00 07/21/22 16:00 95 NIV Bilevel 60 07/21/22 16:00 35.0 07/21/22 15:00 50 7 144/79 (100) 92 NIV Bilevel 40.00 07/21/22 14:18 49 16 95 40.00 07/21/22 14:00 53 10 138/84 (102) 96 NIV Bilevel 40.00 07/21/22 13:00 55 8 132/78 (96) 92 NIV Bilevel 40.00 07/21/22 13:00 49 07/21/22 12:00 52 14 133/70 (91) 91 NIV Bilevel 40.00 07/21/22 12:00 95 NIV Bilevel 60 07/21/22 12:00 36.0 07/21/22 11:30 NIV Bilevel 40.00 07/21/22 11:17 56 17 93 40.00 07/21/22 11:00 53 13 129/72 (91) 96 NIV Bilevel 50.00 07/21/22 10:49 52 16 98 50.00 07/21/22 10:00 51 9 138/76 (96) 96 NIV Bilevel 50.00 I & O 07/22/22 06:59 Intake Total 2452.5 ml Output Total 2525 ml Balance -72.5 ml Height & Weight Height: '" Weight: lbs. oz. kg; 30.58 BMI Method: General Appearance: Obese, Other (sedated) HEENT: PERRL/EOMI Neck: Non Tender, Supple Respiratory: Decreased Breath Sounds Cardiovascular: Regular Rate, Rhythm Capillary Refill: Less Than 3 Seconds Gastrointestinal: non tender, soft Extremity: Non Tender, No Pedal Edema, Other (venous stasis dermatitis b/l) Neurologic/Psychiatric: Disoriented Skin: Warm/Dry, Ecchymosis (Multiple scattered throughout extremities) Lymphatic: No Adenopathy Results Lab Laboratory Tests 07/21/22 04:17 07/22/22 04:49 Assessment/Plan Assessment/Plan See free text. Critical Care: Critically Ill Patient LINDA FOX MD Jul 22, 2022 09:20
--- NOTE | 2022-07-22 10:31 | Progress Note - Hospitalist ---
JOHNATHON VELASQUEZ 07/22/22 1030: Subjective HPI/CC On Admission Date Seen by Provider: Jul 22, 2022 Time Seen by Provider: 09:25 CC: Respiratory failure HPI: This is a [facility] pt who presented to the ICU from [facility] from the prison with acute respiratory failure. He required BiPAP due to hypercapnia. At this current time pt is unable to provide any history. We will initiate Zosyn and Vanc, empiric coverage for pneumonia on chest x-ray. Dr. Kaufman will be consulted for volume overload. Subjective/Events-last exam Ignacio Easley is an 82 yo male who was admitted to the ICU from the [facility] due to respiratory failure requiring BiPAP. Labs since last recheck are s ignificant for low HGB of 9.9, K+ 3.1, and elevated BUN of 26; ABG revealed pH 7.51, pCO2 51, pO2 102. The patient on encounter today is no longer on BiPAP. He is alert and speaking but confused. He expresses that he was not aware that he is in the hospital, and he does not recall why. The patient is unable to provide further history. Review of Systems Not obtained due to patient's condition Focused Exam Lactate Level 07/20/22 07:45: Lactic Acid Level 0.81 Objective Exam Vital Signs Vital Signs Date Time Temp Pulse Resp B/P (MAP) Pulse Ox O2 Delivery O2 Flow Rate FiO2 07/22/22 10:00 101 21 112/84 (93) 90 High Flow N/C 10.00 07/22/22 08:02 36.4 07/22/22 04:36 50 Capillary Refill : Less Than 3 Seconds General Appearance: Mild Distress, Other (On oxygen nasal cannula. Confused.) Respiratory: No Accessory Muscle Use, Wheezing (diffuse inspiratory and expiratory wheezes) Cardiovascular: Regular Rate, Rhythm, No Edema, Normal Peripheral Pulses Extremity: No Pedal Edema Results/Procedures Lab Laboratory Tests 07/22/22 04:49 Patient resulted labs reviewed. Assessment/Plan Assessment and Plan Assess & Plan/Chief Complaint 1. Acute respiratory failure with hypoxia and hypercapnia: BiPAP no longer required, but continue to monitor patient's respiratory status with repeat ABGs. Continue vancomycin, Zosyn. Continue nebulizers, steroids 2. COPD exacerbation: Continue nebulizers, steroids 3. CHF: Continue Lasix 4. HTN, Pulmonary HTN: Continue home meds 5. Hx of PE: Continue Xarelto, aspirin regimen. 6. Dementia HEATHER DEL REAL DO 07/23/22 0456: Subjective Subjective/Events-last exam Pt is doing a lot better ABG is 7.51//102 Off BiPAP now Wheezing bilaterally so we'll maintain breathing treatments Overall varied prognosis given the severity of his dementia Objective Exam General Appearance: No Apparent Distress, WD/WN, Chronically ill Neurologic/Psychiatric: Alert, Disoriented Supervisory-Addendum Brief Verification & Attestation Participated in pt care: history, MDM, physical Personally performed: exam, history, MDM, supervision of care Care discussed with: Medical Student Procedures: n/a Results interpretation: Verified all documentation Verification and Attestation of Medical Student E/M Service A medical student performed and documented this service in my presence. I reviewed and verified all information documented by the medical student and made modifications to such information, when appropriate. I personally performed the physical exam and medical decision making. Heather Del Real, Jul 23, 2022,04:56 JOHNATHON VELASQUEZ Jul 22, 2022 10:30 HEATHER DEL REAL DO Jul 23, 2022 04:56
--- NOTE | 2022-07-22 11:07 | Progress Note - Cardiology ---
Cardiology SOAP Progress Note Subjective: Lying in bed Confused Unable to provide any useful information Objective: I&O/Vital Signs 07/22/22 07/22/22 07/22/22 07/22/22 21:00 21:43 22:00 22:45 Pulse 91 81 93 Resp 23 20 19 B/P (MAP) 95/50 (65) 99/52 (68) Pulse Ox 95 94 90 O2 Delivery High Flow N/C Non Rebreather Non Rebreather O2 Flow Rate 12.00 10.00 10.00 65.00 07/22/22 07/22/22 07/22/22 07/23/22 22:49 23:00 23:45 00:00 Temp 37.0 Pulse 93 128 Resp 20 28 B/P (MAP) 90/54 (66) 121/102 (108) Pulse Ox 94 89 O2 Delivery NIV Bilevel NIV Bilevel NIV Bilevel NIV Bilevel O2 Flow Rate 40.00 40.00 40.00 40.00 07/23/22 07/23/22 07/23/22 07/23/22 00:18 00:30 01:00 01:00 Pulse 94 91 Resp 17 B/P (MAP) 95/60 (72) Pulse Ox 92 94 O2 Delivery NIV Bilevel NIV Bilevel NIV Bilevel O2 Flow Rate 60.00 60.00 FiO2 65 07/23/22 07/23/22 07/23/22 07/23/22 02:00 02:20 02:32 02:42 Pulse 82 78 Resp 20 22 B/P (MAP) 105/72 (83) Pulse Ox 92 96 O2 Delivery NIV Bilevel NIV Bilevel O2 Flow Rate 60.00 100.00 80.00 90.00 07/23/22 07/23/22 07/23/22 07/23/22 02:44 03:00 03:34 03:34 Temp 36.2 36.2 Pulse 81 Resp 16 B/P (MAP) 128/81 (97) Pulse Ox 95 O2 Delivery NIV Bilevel NIV Bilevel O2 Flow Rate 90.00 90.00 07/23/22 07/23/22 07/23/22 07/23/22 03:47 04:00 05:00 06:00 Pulse 73 56 55 Resp 17 17 14 B/P (MAP) 113/64 (80) 153/77 (102) 137/84 (101) Pulse Ox 93 96 96 96 O2 Delivery NIV Bilevel NIV Bilevel NIV Bilevel NIV Bilevel O2 Flow Rate 90.00 90.00 90.00 FiO2 90 07/23/22 07/23/22 07/23/22 07/23/22 07:00 07:05 08:00 08:19 Temp 35.8 Pulse 67 61 64 Resp 16 B/P (MAP) 121/63 Pulse Ox 92 O2 Flow Rate 90.00 07/23/22 00:00 Intake Total 762.5 ml Output Total 1575 ml Balance -812.5 ml Constitutional: No AAO x 3; other (very confused, mildly agitated) Respiratory: chest expansion is symmetric, chest is bilaterally symmetric, other (coarse breath sounds throughout, diminished lower lobes bilat) Cardiovascular: regular rate-rhythm; No JVD; S1 and S2, systolic murmur Gastrointestional: No tender; soft, audible bowel sounds Extremities: no lower extremity edema bilateral Neurologic/Psychiatric: No oriented x 3; other (mental status exam given above, moves all limbs equally) Skin: other (abrasions to bilat LE with dressing to LLE; multiple bruises to arms bilat) Results/Procedures: Labs Laboratory Tests 07/22/22 10:50: Glucometer 135H 07/22/22 16:47: Glucometer 101 07/22/22 21:11: Glucometer 131H 07/23/22 04:02: White Blood Count 10.1, Red Blood Count 3.43L, Hemoglobin 10.3L, Hematocrit 35L, Mean Corpuscular Volume 102H, Mean Corpuscular Hemoglobin 30, Mean Corpuscular Hemoglobin Concent 30L, Red Cell Distribution Width 18.9H, Platelet Count 236, Mean Platelet Volume 10.1, Immature Granulocyte % (Auto) 0, Neutrophils (%) (Auto) 91H, Lymphocytes (%) (Auto) 4L, Monocytes (%) (Auto) 5, Eosinophils (%) (Auto) 0, Basophils (%) (Auto) 0, Neutrophils # (Auto) 9.2H, Lymphocytes # (Auto) 0.4L, Monocytes # (Auto) 0.6, Eosinophils # (Auto) 0.0, Basophils # (Auto) 0.0, Immature Granulocyte # (Auto) 0.0, Sodium Level 143, Potassium Level 3.5L, Chloride Level 95L, Carbon Dioxide Level 33H, Anion Gap 15H, Blood Urea Nitrogen 42H, Creatinine 1.33H, Estimat Glomerular Filtration Rate 54, BUN/Creatinine Ratio 32, Glucose Level 148H, Calcium Level 8.6, Corrected Calcium 9.4, Phosphorus Level 3.0, Magnesium Level 2.1, Total Bilirubin 0.7, Aspartate Amino Transf (AST/SGOT) 12, Alanine Aminotransferase (ALT/SGPT) 10, Alkaline Phosphatase 49, Total Protein 6.0L, Albumin 3.0L 07/23/22 05:00: Blood Gas Puncture Site RRAD, Blood Gas Patient Temperature 36.2, Arterial Blood pH 7.41, Arterial Blood Partial Pressure CO2 66H, Arterial Blood Partial Pressure O2 85, Arterial Blood HCO3 42*H, Arterial Blood Total CO2 43.9*H, Arterial Blood Oxygen Saturation 98, Arterial Blood Base Excess 16.0H, Ponce Test YES-POS, Blood Gas Ventilator Setting NO, Blood Gas Inspired Oxygen 90% Microbiology 07/20/22 Urine Culture - Final, Complete Proteus mirabilis 07/20/22 Blood Culture - Preliminary, Resulted No growth A/P: Assessment: Respiratory failure with hypoxia - likely multifactorial d/t acute on chronic diastolic CHF, acute on chronic exacerbation of COPD, SHANNAN and pneumonia AMS, deteriorating mental status CAD - records from [facility] in [place], [place] of 2021 state h/o PCI (details unknown) Acute on chronic diastolic CHF - Echocardiogram of 06-25-[address] [facility] in [place], [place] by Dr. Bhatia showed LVEF 60%. Mild RV dilatation. No signif valvular abnormalities - Echocardiogram of 06-30-22 showed LVEF 50-55%. Grade 1 diastolic dysfunction. LA and RA mildly dilated Document h/o PE per [facility] records - details unknown - has been maintained on OAC with Eliquis as out pt HTN SHANNAN H/O COPD H/O pulmonary HTN Plan: Deteriorating mental status is being managed by the Hospitalist emelyn Acute respiratory failure with hypoxia and AMS - likely d/t reasons noted above Management of pneumonia is per medical services Acute on chronic diastolic CHF - treat with diuretics Replace electrolytes - received potassium this mornig Documented h/o CAD - details unknown - waiting on records from [facility] Monitor lab closely ZOILA VALLE Jul 22, 2022 11:07
[2022-07-22] MEDS: RIVAROXABAN 20 MG TABLET (XARELTO) PO SCH (16:05)
--- NOTE | 2022-07-22 17:21 | Progress Note - Cardiology ---
Cardiology SOAP Progress Note Subjective: Mod gen malaise No focal weakness Shortness of breath improving No cp or palp or syncope No n/v/d Objective: I&O/Vital Signs 07/22/22 07/22/22 07/22/22 07/22/22 06:00 06:32 07:00 07:00 Pulse 85 74 79 Resp 16 20 B/P (MAP) 119/88 (98) 103/56 (72) Pulse Ox 96 95 O2 Delivery NIV Bilevel High Flow N/C High Flow N/C O2 Flow Rate 60.00 10.00 10.00 07/22/22 07/22/22 07/22/22 07/22/22 07:46 08:00 08:00 08:02 Temp 36.4 Pulse 66 Resp 15 B/P (MAP) 85/60 (68) Pulse Ox 90 91 91 O2 Delivery High Flow N/C Nasal Cannula High Flow N/C O2 Flow Rate 10.00 10.00 10.00 07/22/22 07/22/22 07/22/22 07/22/22 09:00 10:00 10:45 11:00 Pulse 77 101 79 Resp 14 21 16 B/P (MAP) 93/80 (84) 112/84 (93) 105/52 (69) Pulse Ox 90 90 90 93 O2 Delivery High Flow N/C High Flow N/C High Flow N/C High Flow N/C O2 Flow Rate 10.00 10.00 10.00 10.00 07/22/22 07/22/22 07/22/22 07/22/22 12:00 12:00 12:20 13:00 Pulse 89 85 Resp 12 17 B/P (MAP) 114/63 (80) 94/74 (81) Pulse Ox 90 92 93 O2 Delivery Nasal Cannula High Flow N/C Non Rebreather Non Rebreather O2 Flow Rate 10.00 10.00 10.00 10.00 07/22/22 07/22/22 07/22/22 07/22/22 13:00 14:00 15:00 15:29 Pulse 90 86 98 Resp 16 8 B/P (MAP) 97/58 (71) 97/61 (73) Pulse Ox 90 90 90 O2 Delivery Non Rebreather Non Rebreather Non Rebreather O2 Flow Rate 10.00 10.00 12.00 07/22/22 07/22/22 16:00 16:00 Pulse 107 Resp 13 B/P (MAP) 84/60 (68) Pulse Ox 90 90 O2 Delivery Nasal Cannula Non Rebreather O2 Flow Rate 10.00 10.00 07/21/22 23:59 Intake Total 642.5 ml Output Total 1400 ml Balance -757.5 ml Constitutional: other (less confused today, O x 2, very hard of hearing) Respiratory: chest expansion is symmetric, chest is bilaterally symmetric, other (coarse breath sounds throughout, diminished lower lobes bilat) Cardiovascular: regular rate-rhythm; No JVD; S1 and S2, systolic murmur Gastrointestional: No tender; soft, audible bowel sounds Extremities: no lower extremity edema bilateral Neurologic/Psychiatric: No oriented x 3; other (mental status exam given above, moves all limbs equally) Skin: other (abrasions to bilat LE with dressing to LLE; multiple bruises to arms bilat) Results/Procedures: Labs Laboratory Tests 07/21/22 20:17: Glucometer 144H 07/22/22 04:49: White Blood Count 9.0, Red Blood Count 3.27L, Hemoglobin 9.9L, Hematocrit 33L, Mean Corpuscular Volume 102H, Mean Corpuscular Hemoglobin 30, Mean Corpuscular Hemoglobin Concent 30L, Red Cell Distribution Width 18.4H, Platelet Count 225, Mean Platelet Volume 10.5, Immature Granulocyte % (Auto) 0, Neutrophils (%) (Auto) 95H, Lymphocytes (%) (Auto) 3L, Monocytes (%) (Auto) 2, Eosinophils (%) (Auto) 0, Basophils (%) (Auto) 0, Neutrophils # (Auto) 8.6H, Lymphocytes # (Auto) 0.2L, Monocytes # (Auto) 0.2, Eosinophils # (Auto) 0.0, Basophils # (Auto) 0.0, Immature Granulocyte # (Auto) 0.0, Sodium Level 143, Potassium Level 3.1L, Chloride Level 101, Carbon Dioxide Level 28, Anion Gap 14, Blood Urea Nitrogen 26H, Creatinine 0.85, Estimat Glomerular Filtration Rate 88, BUN/Creatinine Ratio 31, Glucose Level 148H, Calcium Level 6.9L, Corrected Calcium 8.0L, Phosphorus Level 3.5, Magnesium Level 1.5L, Total Bilirubin 0.4, Aspartate Amino Transf (AST/SGOT) 10, Alanine Aminotransferase (ALT/SGPT) 10, Alkaline Phosphatase 49, Total Protein 5.2L, Albumin 2.6L 07/22/22 05:04: Blood Gas Puncture Site LR, Blood Gas Patient Temperature 37, Arterial Blood pH 7.51H, Arterial Blood Partial Pressure CO2 51H, Arterial Blood Partial Pressure O2 102H, Arterial Blood HCO3 40H, Arterial Blood Total CO2 41.7*H, Arterial Blood Oxygen Saturation 100, Arterial Blood Base Excess 15.7H, Ponce Test YES- POS, Blood Gas Ventilator Setting NO, Blood Gas Inspired Oxygen 60% 07/22/22 10:50: Glucometer 135H 07/22/22 16:47: Glucometer 101 Microbiology 07/20/22 Urine Culture - Final, Complete Proteus mirabilis 07/20/22 Blood Culture - Preliminary, Resulted No growth A/P: Assessment: Respiratory failure with hypoxia - likely multifactorial d/t acute on chronic diastolic CHF, acute on chronic exacerbation of COPD, SHANNAN and pneumonia AMS, improving Very hard of hearing CAD - records from [facility] in [place], [place] of 2021 state h/o PCI (details unknown) Acute on chronic diastolic CHF - Echocardiogram of 06-25-22 at [facility] in [place], [place] by Dr. Bhatia showed LVEF 60%. Mild RV dilatation. No signif valvular abnormalities - Echocardiogram of 06-30-22 showed LVEF 50-55%. Grade 1 diastolic dysfunction. LA and RA mildly dilated Document h/o PE per [facility] records - details unknown - has been maintained on OAC with Eliquis as out pt HTN SHANNAN H/O COPD H/O pulmonary HTN Plan: Acute respiratory failure with hypoxia and AMS - likely d/t reasons noted above Management of pneumonia is per medical services Acute on chronic diastolic CHF - treat with diuretics Replace electrolytes - received potassium this mornig Documented h/o CAD - details unknown - waiting on records from [facility] Monitor lab closely LAURA LOWERY MD FACP FAC CCDS Jul 22, 2022 17:21
[2022-07-22] MEDS ORDERED: DIGOXIN 0.25 MG/ML (LANOXIN) 2 ML AMP IV PRN (19:35)
[2022-07-22] MEDS ORDERED: DIGOXIN 0.25 MG/ML (LANOXIN) 2 ML AMP ONE (19:38)
[2022-07-22] MEDS: MELATONIN 3 MG TABLET PO SCH (19:44)
[2022-07-22] MEDS: OLANZapine 5 MG ODT (ZyPREXA ZYDIS) PO SCH (19:44)
[2022-07-22] MEDS ORDERED: DIGOXIN 0.25 MG/ML (LANOXIN) 2 ML AMP IV NR (19:45)
--- NOTE | 2022-07-22 21:04 | Tele-ICU Progress Note ---
Subjective Date Seen by a Provider: Jul 22, 2022 Time Seen by a Provider: 21:02 Subjective/Events-last exam Called for marginal BP, 89/54, nick GÓMEZ, on dig for a fib with RVR, has been getting diuresis for last 3 days, suspect relative hypovolemia Sepsis Event Evaluation Height, Weight, BMI Height: '" Weight: lbs. oz. kg; 30.58 BMI Method: Focused Exam Lactate Level 07/20/22 07:45: Lactic Acid Level 0.81 Exam Exam Patient acknowledged, consented, and participated in this virtual visit which was conducted using real time audio/video Vital Signs Date Time Temp Pulse Resp B/P (MAP) Pulse Ox O2 Delivery O2 Flow Rate FiO2 07/22/22 19:53 37.7 Non Rebreather 10.00 07/22/22 19:31 36.3 07/22/22 19:21 Non Rebreather 10.00 07/22/22 18:00 36.9 109 18 131/81 (98) 94 Non Rebreather 10.00 07/22/22 17:30 134 24 129/96 (107) 87 Non Rebreather 10.00 07/22/22 17:00 165 14 103/40 (61) 93 Non Rebreather 10.00 07/22/22 16:00 107 13 84/60 (68) 90 Non Rebreather 10.00 07/22/22 16:00 90 Nasal Cannula 10.00 07/22/22 15:29 90 Non Rebreather 12.00 07/22/22 15:00 98 8 97/61 (73) 90 Non Rebreather 10.00 07/22/22 14:00 86 16 97/58 (71) 90 Non Rebreather 10.00 07/22/22 13:00 90 07/22/22 13:00 85 17 94/74 (81) 93 Non Rebreather 10.00 07/22/22 12:20 Non Rebreather 10.00 07/22/22 12:00 89 12 114/63 (80) 92 High Flow N/C 10.00 07/22/22 12:00 90 Nasal Cannula 10.00 07/22/22 11:00 79 16 105/52 (69) 93 High Flow N/C 10.00 07/22/22 10:45 90 High Flow N/C 10.00 07/22/22 10:00 101 21 112/84 (93) 90 High Flow N/C 10.00 07/22/22 09:00 77 14 93/80 (84) 90 High Flow N/C 10.00 07/22/22 08:02 36.4 07/22/22 08:00 66 15 85/60 (68) 91 High Flow N/C 10.00 07/22/22 08:00 91 Nasal Cannula 10.00 07/22/22 07:46 90 High Flow N/C 10.00 07/22/22 07:00 79 20 103/56 (72) 95 High Flow N/C 10.00 07/22/22 07:00 74 07/22/22 06:32 High Flow N/C 10.00 07/22/22 06:00 85 16 119/88 (98) 96 NIV Bilevel 60.00 07/22/22 05:00 70 10 123/64 (83) 95 NIV Bilevel 60.00 07/22/22 04:36 91 NIV Bilevel 50 07/22/22 04:36 NIV Bilevel 60.00 07/22/22 04:02 36.3 07/22/22 04:00 68 16 96/70 (79) 95 NIV Bilevel 60.00 07/22/22 03:00 70 16 104/71 (82) 93 NIV Bilevel 60.00 07/22/22 02:44 NIV Bilevel 60.00 07/22/22 02:03 83 24 92 50.00 07/22/22 02:00 72 14 114/90 (98) 93 NIV Bilevel 50.00 07/22/22 01:00 66 11 116/76 (89) 92 NIV Bilevel 50.00 07/22/22 01:00 56 07/22/22 00:22 92 NIV Bilevel 50 07/22/22 00:21 NIV Bilevel 50.00 07/22/22 00:19 35.3 07/22/22 00:00 85 16 129/74 (92) 92 NIV Bilevel 50.00 07/21/22 23:00 56 18 133/77 (95) 92 NIV Bilevel 50.00 07/21/22 22:16 62 140/83 07/21/22 22:00 50 16 108/74 (85) 94 NIV Bilevel 50.00 07/21/22 21:58 44 18 94 50.00 I & O 07/22/22 06:59 Intake Total 2452.5 ml Output Total 2525 ml Balance -72.5 ml Height & Weight Height: '" Weight: lbs. oz. kg; 30.58 BMI Method: General Appearance: Mild Distress, Other (On oxygen nasal cannula. Confused.) HEENT: PERRL/EOMI Neck: Non Tender, Supple Respiratory: No Accessory Muscle Use, Wheezing (diffuse inspiratory and expiratory wheezes) Cardiovascular: Regular Rate, Rhythm, No Edema, Normal Peripheral Pulses Capillary Refill: Greater Than 3 Seconds Gastrointestinal: non tender, soft Extremity: No Pedal Edema Neurologic/Psychiatric: Disoriented Skin: Warm/Dry, Ecchymosis (Multiple scattered throughout extremities) Lymphatic: No Adenopathy Results Lab Laboratory Tests 07/21/22 04:17 07/22/22 04:49 Assessment/Plan Assessment/Plan suspect hypovolemia, will give 500 mL normal saline bolus Keagan Chavez MD Critical Care: Critically Ill Patient Time spent with patient (mins): 20 LADARIUS CHAVEZ MD Jul 22, 2022 21:04
[2022-07-22] MEDS: NS IV 500 ML 500 ML IV SCH (21:26)
[2022-07-22 22:45] VITALS: BP 99/52
--- NOTE | 2022-07-22 23:33 | Tele-ICU Progress Note ---
Subjective Date Seen by a Provider: Jul 22, 2022 Time Seen by a Provider: 23:31 Subjective/Events-last exam Pt agitated, carries Dx of Alzheimers Has been Margarita Morel, IV Precedex, none has helped much, appears to be "sundowning" BP 98/50, HR has gone up to 130 with agitation will give IV Benadryl 25 Keagan Chavez MD Sepsis Event Evaluation Height, Weight, BMI Height: '" Weight: lbs. oz. kg; 30.58 BMI Method: Focused Exam Lactate Level 07/20/22 07:45: Lactic Acid Level 0.81 Exam Exam Patient acknowledged, consented, and participated in this virtual visit which was conducted using real time audio/video Vital Signs Date Time Temp Pulse Resp B/P (MAP) Pulse Ox O2 Delivery O2 Flow Rate FiO2 07/22/22 22:49 NIV Bilevel 40.00 07/22/22 22:45 93 19 90 65.00 07/22/22 21:43 Non Rebreather 10.00 07/22/22 20:00 High Flow N/C 12.00 07/22/22 20:00 92 High Flow N/C 12.00 07/22/22 19:53 37.7 Non Rebreather 10.00 07/22/22 19:31 36.3 07/22/22 19:21 Non Rebreather 10.00 07/22/22 19:00 126 07/22/22 18:00 36.9 109 18 131/81 (98) 94 Non Rebreather 10.00 07/22/22 17:30 134 24 129/96 (107) 87 Non Rebreather 10.00 07/22/22 17:00 165 14 103/40 (61) 93 Non Rebreather 10.00 07/22/22 16:00 107 13 84/60 (68) 90 Non Rebreather 10.00 07/22/22 16:00 90 Nasal Cannula 10.00 07/22/22 15:29 90 Non Rebreather 12.00 07/22/22 15:00 98 8 97/61 (73) 90 Non Rebreather 10.00 07/22/22 14:00 86 16 97/58 (71) 90 Non Rebreather 10.00 07/22/22 13:00 90 07/22/22 13:00 85 17 94/74 (81) 93 Non Rebreather 10.00 07/22/22 12:20 Non Rebreather 10.00 07/22/22 12:00 89 12 114/63 (80) 92 High Flow N/C 10.00 07/22/22 12:00 90 Nasal Cannula 10.00 07/22/22 11:00 79 16 105/52 (69) 93 High Flow N/C 10.00 07/22/22 10:45 90 High Flow N/C 10.00 07/22/22 10:00 101 21 112/84 (93) 90 High Flow N/C 10.00 07/22/22 09:00 77 14 93/80 (84) 90 High Flow N/C 10.00 07/22/22 08:02 36.4 07/22/22 08:00 66 15 85/60 (68) 91 High Flow N/C 10.00 07/22/22 08:00 91 Nasal Cannula 10.00 07/22/22 07:46 90 High Flow N/C 10.00 07/22/22 07:00 79 20 103/56 (72) 95 High Flow N/C 10.00 07/22/22 07:00 74 07/22/22 06:32 High Flow N/C 10.00 07/22/22 06:00 85 16 119/88 (98) 96 NIV Bilevel 60.00 07/22/22 05:00 70 10 123/64 (83) 95 NIV Bilevel 60.00 07/22/22 04:36 91 NIV Bilevel 50 07/22/22 04:36 NIV Bilevel 60.00 07/22/22 04:02 36.3 07/22/22 04:00 68 16 96/70 (79) 95 NIV Bilevel 60.00 07/22/22 03:00 70 16 104/71 (82) 93 NIV Bilevel 60.00 07/22/22 02:44 NIV Bilevel 60.00 07/22/22 02:03 83 24 92 50.00 07/22/22 02:00 72 14 114/90 (98) 93 NIV Bilevel 50.00 07/22/22 01:00 66 11 116/76 (89) 92 NIV Bilevel 50.00 07/22/22 01:00 56 07/22/22 00:22 92 NIV Bilevel 50 07/22/22 00:21 NIV Bilevel 50.00 07/22/22 00:19 35.3 07/22/22 00:00 85 16 129/74 (92) 92 NIV Bilevel 50.00 I & O 07/22/22 07:00 Intake Total 2452.5 ml Output Total 2525 ml Balance -72.5 ml Height & Weight Height: '" Weight: lbs. oz. kg; 30.58 BMI Method: General Appearance: Mild Distress, Other (On oxygen nasal cannula. Confused.) HEENT: PERRL/EOMI Neck: Non Tender, Supple Respiratory: No Accessory Muscle Use, Wheezing (diffuse inspiratory and expiratory wheezes) Cardiovascular: Regular Rate, Rhythm, No Edema, Normal Peripheral Pulses Capillary Refill: Greater Than 3 Seconds Gastrointestinal: non tender, soft Extremity: No Pedal Edema Neurologic/Psychiatric: Disoriented Skin: Warm/Dry, Ecchymosis (Multiple scattered throughout extremities) Lymphatic: No Adenopathy Results Lab Laboratory Tests 07/21/22 04:17 07/22/22 04:49 Assessment/Plan Assessment/Plan agitation which has been refractory to Seroquel, Zyprexa, IV Precedex will give IV Benadryl 25 mi IV Critical Care: Critically Ill Patient (20) Time spent with patient (mins): 20 LADARIUS CHAVEZ MD Jul 22, 2022 23:33
[2022-07-22] MEDS: DexMEDEtomidine 250 ML DRIP 250 ML IV SCH (23:34)
[2022-07-22] MEDS ORDERED: diphenhydrAMINE 50 MG/ML INJ (BENADRYL) IVP ONE (23:45)
[2022-07-23] MEDS: methylPREDNISolone 125 MG (Solu-MEDROL) VIAL IVP SCH ×4 (02:29→21:06)
[2022-07-23 02:32] VITALS: BP 124/68
[2022-07-23] MEDS: RT-ALBUTEROL/IPRATROPIUM 3 ML (DUONEB) VIAL INH SCH ×6 (02:32→22:30)
[2022-07-23 04:36] LABS: BASOPHILS % (AUTO) 0 % (0-10); EOSINOPHILS % (AUTO) 0 % (0-10); HEMATOCRIT 35 % (40-54); HEMOGLOBIN 10.3 g/dL (13.3-17.7); LYMPHOCYTES # (AUTO) 0.4 10^3/uL (1.0-4.0); LYMPHOCYTES % (AUTO) 4 % (12-44); MEAN CORPUSCULAR HEMOGLOBIN 30 pg (25-34); MEAN CORPUSCULAR HGB CONC 30 g/dL (32-36); MEAN CORPUSCULAR VOLUME 102 fL (80-99); MEAN PLATELET VOLUME 10.1 fL (9.0-12.2); MONOCYTES # (AUTO) 0.6 10^3/uL (0.0-1.0); MONOCYTES % (AUTO) 5 % (0-12); NEUTROPHILS # (AUTO) 9.2 10^3/uL (1.8-7.8); NEUTROPHILS % (AUTO) 91 % (42-75); PLATELET COUNT 236 10^3/uL (130-400); WHITE BLOOD COUNT 10.1 10^3/uL (4.3-11.0)
[2022-07-23 05:01] LABS: POTASSIUM 3.5 MMOL/L (3.6-5.0)
[2022-07-23 05:02] LABS: CALCIUM 8.6 MG/DL (8.5-10.1)
[2022-07-23 05:05] LABS: BILIRUBIN,TOTAL 0.7 MG/DL (0.1-1.0)
[2022-07-23 05:07] LABS: CREATININE SERUM 1.33 MG/DL (0.60-1.30)
[2022-07-23 05:10] LABS: MAGNESIUM 2.1 MG/DL (1.6-2.4)
[2022-07-23] MEDS: MAGNESIUM 1 GM/100 ML IVPB 100 ML IV SCH (05:17)
[2022-07-23 05:18] LABS: ABG OXYGEN SATURATION 98 % (94-100); ABG PCO2 66 MMHG (35-45); ABG PH 7.41 (7.37-7.43); ABG PO2 85 MMHG (79-93); ALLENS TEST YES-POS; PATIENT TEMP 36.2; VENTILATOR NO
[2022-07-23] MEDS: KCL 20 MEQ TAB (K-DUR) PO SCH (05:18)
[2022-07-23] MEDS: POTASSIUM CL 10MEQ/50ML IVPB 50 ML IV SCH (05:18)
[2022-07-23 05:20] LABS: ABG TCO2 43.9 MMOL/L (21.0-31.0); INSPIRED O2 90%
[2022-07-23] MEDS: FUROSEMIDE 40 MG/4 ML INJ (LASIX) IVP SCH (05:57)
[2022-07-23] MEDS: MULTIVIT W/MINERALS TAB (THERAGRAN M) PO SCH (05:57)
[2022-07-23] MEDS: PIPERACILLIN SODIUM/TAZOBACTAM 4.5 GM in NS (IVPB) 100 ML IV SCH ×3 (05:57→21:51)
[2022-07-23 07:05] VITALS: BP 128/83
--- NOTE | 2022-07-23 08:06 | Progress Note - Hospitalist ---
Subjective HPI/CC On Admission Date Seen by Provider: Jul 23, 2022 Time Seen by Provider: 10:30 CC: Respiratory failure HPI: This is a [facility] skilled nursing pt who presented to the ICU from [place] [facility] from the skilled nursing with acute respiratory failure. He required BiPAP due to hypercapnia. At this current time pt is unable to provide any history. We will initiate Zosyn and Vanc, empiric coverage for pneumonia on chest x-ray. Dr. Kaufman will be consulted for volume overload. Subjective/Events-last exam Patient remains BiPAP dependent Precedex needed for agitation Patient will either need to be intubated or placed on comfort care Family is okay with intubation but DNR order was put in Review of Systems Neurological: Confusion Objective Exam Vital Signs Vital Signs Date Time Temp Pulse Resp B/P (MAP) Pulse Ox O2 Delivery O2 Flow Rate FiO2 07/24/22 04:00 94 NIV Bilevel 100 07/24/22 03:41 80 136/98 07/24/22 01:39 24 100.00 07/23/22 23:44 36.5 Capillary Refill : Greater Than 3 Seconds General Appearance: No Apparent Distress, WD/WN, Chronically ill Respiratory: Decreased Breath Sounds Cardiovascular: Regular Rate, Rhythm Neurologic/Psychiatric: Disoriented Results/Procedures Lab Laboratory Tests 07/24/22 03:15 Patient resulted labs reviewed. Assessment/Plan Assessment and Plan Assess & Plan/Chief Complaint Assessment: 1. Acute respiratory failure with hypoxia and hypercapnia: BiPAP no longer required, but continue to monitor patient's respiratory status with repeat ABGs. Continue vancomycin, Zosyn. Continue nebulizers, steroids 2. COPD exacerbation: Continue nebulizers, steroids 3. CHF: Continue Lasix 4. HTN, Pulmonary HTN: Continue home meds 5. Hx of PE: Continue Xarelto, aspirin regimen. 6. Dementia Plan: DNR Prognosis poor Remains BiPAP dependent Critical Care Critically Ill Patient (20) VALERIO DEL REAL DO Jul 23, 2022 08:06
[2022-07-23] MEDS: DexMEDEtomidine 250 ML DRIP 250 ML IV SCH ×2 (08:19→23:41)
[2022-07-23] MEDS: ASPIRIN 81 MG CHEW (CHILDREN'S ASA) PO SCH (08:26)
[2022-07-23] MEDS: QUEtiapine 25 MG (SEROquel) TAB IMMEDIATE RELEASE PO SCH (08:27)
[2022-07-23] MEDS: DOCUSATE SODIUM 100 MG (COLACE) CAP PO SCH ×3 (08:27→21:19)
[2022-07-23] MEDS: MIDODRINE 10 MG (PROAMATINE) TAB PO SCH ×4 (08:27→18:49)
[2022-07-23] MEDS: TAMSULOSIN 0.4 MG (FLOMAX) CAP PO SCH (08:27)
[2022-07-23] MEDS: FERROUS SULF 325 MG (IRON) TAB PO SCH (08:27)
[2022-07-23] MEDS: MICONAZOLE 2% POWDER (DESENEX AF) 90 GM TOP SCH ×3 (08:32→21:19)
--- NOTE | 2022-07-23 08:59 | Progress Note - Cardiology ---
Cardiology SOAP Progress Note Subjective: Sitting up in bed with Bi-pap in place Confused Objective: I&O/Vital Signs 07/23/22 07/23/22 07/23/22 07/23/22 20:00 20:00 20:00 21:00 Temp 36.1 Pulse 89 79 Resp 20 20 B/P (MAP) 142/90 (107) 146/96 (113) Pulse Ox 92 94 89 O2 Delivery NIV Bilevel NIV Bilevel NIV Bilevel O2 Flow Rate 100.00 100.00 FiO2 100 07/23/22 07/23/22 07/23/22 07/23/22 22:00 22:27 23:00 23:41 Pulse 76 82 70 82 Resp 21 20 25 B/P (MAP) 136/98 (111) 154/99 (117) 136/98 Pulse Ox 96 92 95 O2 Delivery NIV Bilevel NIV Bilevel O2 Flow Rate 100.00 100.00 100.00 07/23/22 07/23/22 07/24/22 07/24/22 23:44 23:52 00:00 01:00 Temp 36.5 Pulse 69 80 Resp 23 B/P (MAP) 129/101 (110) Pulse Ox 92 97 O2 Delivery NIV Bilevel NIV Bilevel O2 Flow Rate 100.00 FiO2 100 07/24/22 07/24/22 07/24/22 07/24/22 01:00 01:39 02:00 03:00 Pulse 72 80 61 69 Resp 21 24 20 19 B/P (MAP) 159/94 (115) 152/93 (112) 157/97 (117) Pulse Ox 95 94 94 96 O2 Delivery NIV Bilevel NIV Bilevel NIV Bilevel O2 Flow Rate 100.00 100.00 100.00 100.00 07/24/22 07/24/22 07/24/22 07/24/22 03:41 04:00 04:00 05:00 Pulse 80 66 60 Resp 16 16 B/P (MAP) 136/98 143/100 (114) 165/107 (126) Pulse Ox 97 94 97 O2 Delivery NIV Bilevel NIV Bilevel NIV Bilevel O2 Flow Rate 100.00 100.00 FiO2 100 07/24/22 07/24/22 06:00 06:41 Pulse 66 82 Resp 16 20 B/P (MAP) 165/97 (119) Pulse Ox 97 98 O2 Delivery NIV Bilevel O2 Flow Rate 100.00 100.00 07/24/22 00:00 Intake Total 850 ml Output Total 650 ml Balance 200 ml Constitutional: other (less confused today, O x 2, very hard of hearing) Respiratory: chest expansion is symmetric, chest is bilaterally symmetric, other (coarse breath sounds throughout, diminished lower lobes bilat) Cardiovascular: irregularly irregular; No JVD; S1 and S2, systolic murmur Gastrointestional: No tender; soft, audible bowel sounds Extremities: no lower extremity edema bilateral Neurologic/Psychiatric: No oriented x 3; other (mental status exam given above, moves all limbs equally) Skin: other (abrasions to bilat LE with dressing to LLE; multiple bruises to arms bilat) Results/Procedures: Labs Laboratory Tests 07/23/22 10:33: Glucometer 191H 07/23/22 15:20: Glucometer 104 07/23/22 20:34: Glucometer 157H 07/24/22 03:15: White Blood Count 8.9, Red Blood Count 3.77L, Hemoglobin 11.3L, Hematocrit 38L, Mean Corpuscular Volume 102H, Mean Corpuscular Hemoglobin 30, Mean Corpuscular Hemoglobin Concent 29L, Red Cell Distribution Width 18.7H, Platelet Count 199, Mean Platelet Volume 10.1, Immature Granulocyte % (Auto) 0, Neutrophils (%) (Auto) 93H, Lymphocytes (%) (Auto) 4L, Monocytes (%) (Auto) 3, Eosinophils (%) (Auto) 0, Basophils (%) (Auto) 0, Neutrophils # (Auto) 8.3H, Lymphocytes # (Auto) 0.4L, Monocytes # (Auto) 0.2, Eosinophils # (Auto) 0.0, Basophils # (Auto) 0.0, Immature Granulocyte # (Auto) 0.0, Sodium Level 144, Potassium Level 4.4, Chloride Level 100, Carbon Dioxide Level 28, Anion Gap 16H, Blood Urea Nitrogen 44H, Creatinine 1.29, Estimat Glomerular Filtration Rate 56, BUN/Creatinine Ratio 34, Glucose Level 175H, Calcium Level 8.6, Corrected Calcium 9.3, Phosphorus Level 4.8H, Magnesium Level 2.1, Total Bilirubin 0.7, Aspartate Amino Transf (AST/SGOT) 11, Alanine Aminotransferase (ALT/SGPT) 10, Alkaline Phosphatase 50, Total Protein 6.2L, Albumin 3.1L 07/24/22 04:10: Blood Gas Puncture Site LEFT RADIAL, Blood Gas Patient Temperature 36.7, Arterial Blood pH 7.41, Arterial Blood Partial Pressure CO2 57H, Arterial Blood Partial Pressure O2 92, Arterial Blood HCO3 35H, Arterial Blood Total CO2 37.1H, Arterial Blood Oxygen Saturation 98, Arterial Blood Base Excess 10.3H, Ponce Test YES-POS, Blood Gas Ventilator Setting NO, Blood Gas Inspired Oxygen NA Microbiology 07/20/22 Urine Culture - Final, Complete Proteus mirabilis 07/20/22 Blood Culture - Preliminary, Resulted No growth A/P: Assessment: Respiratory failure with hypoxia - likely multifactorial d/t acute on chronic diastolic CHF, acute on chronic exacerbation of COPD, SHANNAN and pneumonia New onset a-fib with RVR per tele on 07-22-22 - OAC with Xarelto - rate controlled Confusion Very hard of hearing CAD - records from [facility] in [place], [place] of 2021 state h/o PCI (details unknown) Acute on chronic diastolic CHF - Echocardiogram of 06-25-22 at [facility] in [place], [place] by Dr. Bhatia showed LVEF 60%. Mild RV dilatation. No signif valvular abnormalities - Echocardiogram of 06-30-22 showed LVEF 50-55%. Grade 1 diastolic dysfunction. LA and RA mildly dilated Document h/o PE per [facility] records - details unknown - has been maintained on OAC with Eliquis as out pt Acute renal insufficiency - likely d/t aggressive diuresis - reduce diuretices HTN SHANNAN H/O COPD H/O pulmonary HTN Plan: New onset a-fib with RVR on 07-22-22 - rate controlled - Continue OAC with Xarelto Acute respiratory failure with hypoxia and AMS - likely d/t reasons noted above Management of pneumonia is per medical services Acute on chronic diastolic CHF Acute renal insufficiency likely in some part d/t aggressive diuresis - reduce dose Replace electrolytes - received potassium Documented h/o CAD - details unknown - waiting on records from [facility] Monitor lab closely ZOILA VALLE Jul 23, 2022 08:59
[2022-07-23] MEDS ORDERED: KCL 20 MEQ TAB (K-DUR) PO ONE (09:00)
--- NOTE | 2022-07-23 09:03 | Tele-ICU Progress Note ---
Subjective Date Seen by a Provider: Jul 23, 2022 Subjective/Events-last exam This virtual visit was conducted using real time audio/video. Thank you for asking us to see this patient for respiratory insufficiency due to AECOPD/CHF, B pna Recent events: anxiety/deliriumrecurred, back in afib, back on BiPAP. Recd 500 ml bolus overnight PE: VSS. Obese. Comfortable on camera currently. O2 sat 91% on BiPAP. Uses 2-4 LPM at NE. HEENT: No obvious masses, adenopathy or JVD. Chest: clear to auscultation, diminished, wheezy. CV: RRR S1 S2 No murmur or added sounds. Abd: Non-tender. Bowel sounds Y. : Unremarkable. Segal Y. [employer]/psychiatric: Grossly intact. No obvious focal findings. Extremities: No edema. Capillary refill < 3 seconds. Skin: unremarkable. Results: Elevated BUN 42, Cr 1.33BG 148 BNP 1116. Decreased Hb 10.3. B.41/66/85 on 60%. CXR: Hyperinflated, bibasilar infilts.. Available chart/ vitals / labs / images reviewed. Video assessment done using teleICU camera, rest of exam as per RN. A/P: Respiratory insufficiency: Continue present management with BiPAP. Attempt NC 10 LPM this AM. Cont. Prec., Duonebs, Medrol. Wean O2 as toño. Monitor for increasing oxygenation needs and/or need for intubation. Critical Care: critically ill patient. Cont. abx, lasix, Xarelto, ASA, statin, Seroquel. Replace K. . Discussed with ERIN Boogie. Asked RN to reach out to eICU if any questions or concerns later. Time spent with patient/coordination of care with other health professionals (mins): 22 Sepsis Event Evaluation Height, Weight, BMI Height: '" Weight: lbs. oz. kg; 29.68 BMI Method: Exam Exam Patient acknowledged, consented, and participated in this virtual visit which was conducted using real time audio/video Vital Signs Date Time Temp Pulse Resp B/P (MAP) Pulse Ox O2 Delivery O2 Flow Rate FiO2 07/23/22 08:19 64 121/63 07/23/22 08:00 70 21 121/63 (82) 93 NIV Bilevel 90.00 07/23/22 08:00 35.8 07/23/22 07:05 61 16 92 90.00 07/23/22 07:00 59 16 128/83 (98) 93 NIV Bilevel 90.00 07/23/22 07:00 67 07/23/22 06:00 55 14 137/84 (101) 96 NIV Bilevel 90.00 07/23/22 05:00 56 17 153/77 (102) 96 NIV Bilevel 90.00 07/23/22 04:00 73 17 113/64 (80) 96 NIV Bilevel 90.00 07/23/22 03:47 93 NIV Bilevel 90 07/23/22 03:34 36.2 07/23/22 03:34 36.2 07/23/22 03:00 81 16 128/81 (97) 95 NIV Bilevel 90.00 07/23/22 02:44 NIV Bilevel 90.00 07/23/22 02:42 90.00 07/23/22 02:32 78 22 96 80.00 07/23/22 02:20 NIV Bilevel 100.00 07/23/22 02:00 82 20 105/72 (83) 92 NIV Bilevel 60.00 07/23/22 01:00 91 17 95/60 (72) 94 NIV Bilevel 60.00 07/23/22 01:00 94 07/23/22 00:30 NIV Bilevel 60.00 07/23/22 00:18 92 NIV Bilevel 65 07/23/22 00:00 128 28 121/102 (108) 89 NIV Bilevel 40.00 07/22/22 23:45 37.0 NIV Bilevel 40.00 07/22/22 23:00 93 20 90/54 (66) 94 NIV Bilevel 40.00 07/22/22 22:49 NIV Bilevel 40.00 07/22/22 22:45 93 19 90 65.00 07/22/22 22:00 81 20 99/52 (68) 94 Non Rebreather 10.00 07/22/22 21:43 Non Rebreather 10.00 07/22/22 21:00 91 23 95/50 (65) 95 High Flow N/C 12.00 07/22/22 20:00 113 17 87/67 (74) 95 High Flow N/C 12.00 07/22/22 20:00 High Flow N/C 12.00 07/22/22 20:00 92 High Flow N/C 12.00 07/22/22 19:53 37.7 Non Rebreather 10.00 07/22/22 19:31 36.3 07/22/22 19:21 Non Rebreather 10.00 07/22/22 19:00 118 15 80/68 (72) 95 Non Rebreather 10.00 07/22/22 19:00 126 07/22/22 18:00 36.9 109 18 131/81 (98) 94 Non Rebreather 10.00 07/22/22 17:30 134 24 129/96 (107) 87 Non Rebreather 10.00 07/22/22 17:00 165 14 103/40 (61) 93 Non Rebreather 10.00 07/22/22 16:00 107 13 84/60 (68) 90 Non Rebreather 10.00 07/22/22 16:00 90 Nasal Cannula 10.00 07/22/22 15:29 90 Non Rebreather 12.00 07/22/22 15:00 98 8 97/61 (73) 90 Non Rebreather 10.00 07/22/22 14:00 86 16 97/58 (71) 90 Non Rebreather 10.00 07/22/22 13:00 90 07/22/22 13:00 85 17 94/74 (81) 93 Non Rebreather 10.00 07/22/22 12:20 Non Rebreather 10.00 07/22/22 12:00 89 12 114/63 (80) 92 High Flow N/C 10.00 07/22/22 12:00 90 Nasal Cannula 10.00 07/22/22 11:00 79 16 105/52 (69) 93 High Flow N/C 10.00 07/22/22 10:45 90 High Flow N/C 10.00 07/22/22 10:00 101 21 112/84 (93) 90 High Flow N/C 10.00 07/22/22 09:00 77 14 93/80 (84) 90 High Flow N/C 10.00 I & O 07/23/22 07:00 Intake Total 1535.0 ml Output Total 3475 ml Balance -1940.0 ml Height & Weight Height: '" Weight: lbs. oz. kg; 29.68 BMI Method: General Appearance: No Apparent Distress, WD/WN, Chronically ill HEENT: PERRL/EOMI Neck: Non Tender, Supple Respiratory: No Accessory Muscle Use, Wheezing (diffuse inspiratory and expirat ory wheezes) Cardiovascular: Regular Rate, Rhythm, No Edema, Normal Peripheral Pulses Capillary Refill: Greater Than 3 Seconds Gastrointestinal: non tender, soft Extremity: No Pedal Edema Neurologic/Psychiatric: Alert, Disoriented Skin: Warm/Dry, Ecchymosis (Multiple scattered throughout extremities) Lymphatic: No Adenopathy Results Lab Laboratory Tests 07/22/22 04:49 07/23/22 04:02 Assessment/Plan Assessment/Plan See free text. Critical Care: Critically Ill Patient LINDA FOX MD Jul 23, 2022 09:03
[2022-07-23 10:15] VITALS: BP 88/60
[2022-07-23] MEDS: NS IV 500 ML 500 ML IV SCH (10:37)
[2022-07-23 14:54] VITALS: BP 94/58
[2022-07-23] MEDS: RIVAROXABAN 20 MG TABLET (XARELTO) PO SCH ×2 (17:07→18:49)
--- NOTE | 2022-07-23 17:10 | Progress Note - Cardiology ---
Cardiology SOAP Progress Note Subjective: Does not report cp or palp or syncope Does not report shortness of breath Has had some nausea Report gen weakness and malaise Objective: I&O/Vital Signs 07/23/22 07/23/22 07/23/22 07/23/22 06:00 07:00 07:00 07:05 Pulse 55 67 59 61 Resp 14 16 16 B/P (MAP) 137/84 (101) 128/83 (98) Pulse Ox 96 93 92 O2 Delivery NIV Bilevel NIV Bilevel O2 Flow Rate 90.00 90.00 90.00 07/23/22 07/23/22 07/23/22 07/23/22 08:00 08:00 08:00 08:19 Temp 35.8 Pulse 70 64 Resp 21 B/P (MAP) 121/63 (82) 121/63 Pulse Ox 97 93 O2 Delivery NIV Bilevel NIV Bilevel O2 Flow Rate 90.00 FiO2 90 07/23/22 07/23/22 07/23/22 07/23/22 09:00 10:00 10:15 10:41 Pulse 51 64 86 Resp 20 16 22 B/P (MAP) 128/77 (94) 87/61 (70) Pulse Ox 100 96 95 O2 Delivery NIV Bilevel NIV Bilevel NIV Bilevel O2 Flow Rate 90.00 90.00 85.00 85.00 07/23/22 07/23/22 07/23/22 07/23/22 11:00 12:00 12:00 12:00 Temp 35.8 Pulse 68 85 Resp 19 16 B/P (MAP) 79/43 (55) 109/80 (90) Pulse Ox 92 97 93 O2 Delivery NIV Bilevel NIV Bilevel NIV Bilevel O2 Flow Rate 85.00 85.00 FiO2 100 07/23/22 07/23/22 07/23/22 07/23/22 13:00 13:00 13:00 14:00 Pulse 90 90 109 Resp 27 15 B/P (MAP) 128/90 (103) 117/46 (69) Pulse Ox 94 94 O2 Delivery NIV Bilevel NIV Bilevel NIV Bilevel O2 Flow Rate 100.00 100.00 100.00 07/23/22 07/23/22 07/23/22 07/23/22 14:54 15:00 15:57 16:00 Temp 36.0 Pulse 112 113 96 Resp 24 14 B/P (MAP) 98/64 (75) 100/68 (79) Pulse Ox 93 91 94 O2 Delivery NIV Bilevel NIV Bilevel O2 Flow Rate 100.00 100.00 100.00 07/23/22 00:00 Intake Total 762.5 ml Output Total 1575 ml Balance -812.5 ml Constitutional: other (O x 2, very hard of hearing) Respiratory: chest expansion is symmetric, chest is bilaterally symmetric, other (coarse breath sounds throughout, diminished lower lobes bilat) Cardiovascular: irregularly irregular; No JVD; S1 and S2, systolic murmur Gastrointestional: No tender; soft, audible bowel sounds Extremities: no lower extremity edema bilateral Neurologic/Psychiatric: No oriented x 3; other (mental status exam given above, moves all limbs equally) Skin: other (abrasions to bilat LE with dressing to LLE; multiple bruises to arms bilat) Results/Procedures: Labs Laboratory Tests 07/22/22 21:11: Glucometer 131H 07/23/22 04:02: White Blood Count 10.1, Red Blood Count 3.43L, Hemoglobin 10.3L, Hematocrit 35L, Mean Corpuscular Volume 102H, Mean Corpuscular Hemoglobin 30, Mean Corpuscular Hemoglobin Concent 30L, Red Cell Distribution Width 18.9H, Platelet Count 236, Mean Platelet Volume 10.1, Immature Granulocyte % (Auto) 0, Neutrophils (%) (Auto) 91H, Lymphocytes (%) (Auto) 4L, Monocytes (%) (Auto) 5, Eosinophils (%) (Auto) 0, Basophils (%) (Auto) 0, Neutrophils # (Auto) 9.2H, Lymphocytes # (Auto) 0.4L, Monocytes # (Auto) 0.6, Eosinophils # (Auto) 0.0, Basophils # (Auto) 0.0, Immature Granulocyte # (Auto) 0.0, Sodium Level 143, Potassium Level 3.5L, Chloride Level 95L, Carbon Dioxide Level 33H, Anion Gap 15H, Blood Urea Nitrogen 42H, Creatinine 1.33H, Estimat Glomerular Filtration Rate 54, BUN/Creatinine Ratio 32, Glucose Level 148H, Calcium Level 8.6, Corrected Calcium 9.4, Phosphorus Level 3.0, Magnesium Level 2.1, Total Bilirubin 0.7, Aspartate Amino Transf (AST/SGOT) 12, Alanine Aminotransferase (ALT/SGPT) 10, Alkaline Phosphatase 49, Total Protein 6.0L, Albumin 3.0L 07/23/22 05:00: Blood Gas Puncture Site RRAD, Blood Gas Patient Temperature 36.2, Arterial Blood pH 7.41, Arterial Blood Partial Pressure CO2 66H, Arterial Blood Partial Pressure O2 85, Arterial Blood HCO3 42*H, Arterial Blood Total CO2 43.9*H, Arterial Blood Oxygen Saturation 98, Arterial Blood Base Excess 16.0H, Ponce Test YES-POS, Blood Gas Ventilator Setting NO, Blood Gas Inspired Oxygen 90% 07/23/22 10:33: Glucometer 191H 07/23/22 15:20: Glucometer 104 Microbiology 07/20/22 Urine Culture - Final, Complete Proteus mirabilis 07/20/22 Blood Culture - Preliminary, Resulted No growth A/P: Assessment: Respiratory failure with hypoxia - likely multifactorial d/t acute on chronic diastolic CHF, acute on chronic exacerbation of COPD, SHANNAN and pneumonia New onset a-fib with RVR per tele on 07-22-22 - OAC with Xarelto - rate controlled Confusion Very hard of hearing CAD - records from [facility] in [place], [place] of 2021 state h/o PCI (details unknown) Acute on chronic diastolic CHF - Echocardiogram of 06-25-[address] [facility] in [place], [place] by Dr. Bhatia showed LVEF 60%. Mild RV dilatation. No signif valvular abnormalities - Echocardiogram of 06-30-22 showed LVEF 50-55%. Grade 1 diastolic dysfunction. LA and RA mildly dilated Document h/o PE per [facility] records - details unknown - has been maintained on OAC with Eliquis as out pt Acute renal insufficiency - likely d/t aggressive diuresis - reduce diuretices HTN SHANNAN H/O COPD H/O pulmonary HTN Plan: Hypotension - give iv fluids New onset a-fib with RVR on 07-22-22 - rate controlled - Continue OAC with Xarelto Acute respiratory failure with hypoxia and AMS - likely d/t reasons noted above Management of pneumonia is per medical services Acute on chronic diastolic CHF Acute renal insufficiency likely in some part d/t aggressive diuresis - reduce dose Replace electrolytes - received potassium Documented h/o CAD - details unknown - waiting on records from [place] Monitor lab closely LAURA LOWERY MD FACP [facility] Jul 23, 2022 17:10
[2022-07-23 18:40] VITALS: BP 117/93
[2022-07-23] MEDS: NS IV 1000 ML 1,000 ML IV SCH (18:53)
[2022-07-23] MEDS ORDERED: HALOPERIDOL 5 MG/ML (HALDOL) VIAL IM ONE (20:45)
[2022-07-23] MEDS ORDERED: HALOPERIDOL 5 MG/ML (HALDOL) VIAL ONE (20:55)
[2022-07-23] MEDS: MELATONIN 3 MG TABLET PO SCH ×2 (21:12→21:19)
[2022-07-23] MEDS: OLANZapine 5 MG ODT (ZyPREXA ZYDIS) PO SCH ×2 (21:12→21:19)
[2022-07-24] MEDS: RT-ALBUTEROL/IPRATROPIUM 3 ML (DUONEB) VIAL INH SCH ×6 (01:39→22:43)
[2022-07-24] MEDS: methylPREDNISolone 125 MG (Solu-MEDROL) VIAL IVP SCH ×4 (02:59→21:11)
[2022-07-24] MEDS: NS IV 1000 ML 1,000 ML IV SCH ×3 (03:30→23:30)
[2022-07-24 03:48] LABS: BASOPHILS % (AUTO) 0 % (0-10); EOSINOPHILS % (AUTO) 0 % (0-10); HEMATOCRIT 38 % (40-54); HEMOGLOBIN 11.3 g/dL (13.3-17.7); LYMPHOCYTES # (AUTO) 0.4 10^3/uL (1.0-4.0); LYMPHOCYTES % (AUTO) 4 % (12-44); MEAN CORPUSCULAR HEMOGLOBIN 30 pg (25-34); MEAN CORPUSCULAR HGB CONC 29 g/dL (32-36); MEAN CORPUSCULAR VOLUME 102 fL (80-99); MEAN PLATELET VOLUME 10.1 fL (9.0-12.2); MONOCYTES # (AUTO) 0.2 10^3/uL (0.0-1.0); MONOCYTES % (AUTO) 3 % (0-12); NEUTROPHILS # (AUTO) 8.3 10^3/uL (1.8-7.8); NEUTROPHILS % (AUTO) 93 % (42-75); PLATELET COUNT 199 10^3/uL (130-400); WHITE BLOOD COUNT 8.9 10^3/uL (4.3-11.0)
[2022-07-24 04:08] LABS: ALBUMIN 3.1 GM/DL (3.2-4.5); POTASSIUM 4.4 MMOL/L (3.6-5.0)
[2022-07-24 04:09] LABS: CALCIUM 8.6 MG/DL (8.5-10.1)
[2022-07-24 04:11] LABS: TOTAL PROTEIN 6.2 GM/DL (6.4-8.2)
[2022-07-24 04:12] LABS: BILIRUBIN,TOTAL 0.7 MG/DL (0.1-1.0)
[2022-07-24 04:14] LABS: PHOSPHORUS 4.8 MG/DL (2.3-4.7)
[2022-07-24 04:15] LABS: CREATININE SERUM 1.29 MG/DL (0.60-1.30)
[2022-07-24 04:17] LABS: MAGNESIUM 2.1 MG/DL (1.6-2.4)
[2022-07-24 04:35] LABS: ABG BASE EXCESS 10.3 MMOL/L (-2.5-2.5); ABG OXYGEN SATURATION 98 % (94-100); ABG PCO2 57 MMHG (35-45); ABG PH 7.41 (7.37-7.43); ABG PO2 92 MMHG (79-93); ABG TCO2 37.1 MMOL/L (21.0-31.0)
[2022-07-24 04:36] LABS: ALLENS TEST YES-POS
[2022-07-24 04:37] LABS: PATIENT TEMP 36.7; VENTILATOR NO
[2022-07-24] MEDS: MAGNESIUM 1 GM/100 ML IVPB 100 ML IV SCH (05:30)
[2022-07-24] MEDS: POTASSIUM CL 10MEQ/50ML IVPB 50 ML IV SCH (05:30)
[2022-07-24] MEDS: KCL 20 MEQ TAB (K-DUR) PO SCH (05:30)
[2022-07-24] MEDS: PIPERACILLIN SODIUM/TAZOBACTAM 4.5 GM in NS (IVPB) 100 ML IV SCH ×3 (05:57→22:50)
--- NOTE | 2022-07-24 07:45 | Tele-ICU Progress Note ---
Subjective Date Seen by a Provider: Jul 24, 2022 Time Seen by a Provider: 07:40 Subjective/Events-last exam This virtual visit was conducted using real time audio/video. Remains on BiPAP 07/06, FiO2 80%, SpO2 in 90's Problems remain with agitation, remains on Zyprexa, Seroquel-not given Also on Medrol, albuterol, IV Precedex @ 1.5, no bradycardia ABG 7.41 Last CXR 07/20 showed bilbasilar opacities, on IV Zosyn, Vancomycin will repeat Pt is DNR but can be intubated if needed per family Sepsis Event Evaluation Height, Weight, BMI Height: '" Weight: lbs. oz. kg; 29.10 BMI Method: Exam Exam Patient acknowledged, consented, and participated in this virtual visit which was conducted using real time audio/video Vital Signs Date Time Temp Pulse Resp B/P (MAP) Pulse Ox O2 Delivery O2 Flow Rate FiO2 07/24/22 06:41 82 20 98 100.00 07/24/22 06:00 66 16 165/97 (119) 97 NIV Bilevel 100.00 07/24/22 05:00 60 16 165/107 (126) 97 NIV Bilevel 100.00 07/24/22 04:00 94 NIV Bilevel 100 07/24/22 04:00 66 16 143/100 (114) 97 NIV Bilevel 100.00 07/24/22 03:41 80 136/98 07/24/22 03:00 69 19 157/97 (117) 96 NIV Bilevel 100.00 07/24/22 02:00 61 20 152/93 (112) 94 NIV Bilevel 100.00 07/24/22 01:39 80 24 94 100.00 07/24/22 01:00 72 21 159/94 (115) 95 NIV Bilevel 100.00 07/24/22 01:00 80 07/24/22 00:00 69 23 129/101 (110) 97 NIV Bilevel 100.00 07/23/22 23:52 92 NIV Bilevel 100 07/23/22 23:44 36.5 07/23/22 23:41 82 136/98 07/23/22 23:00 70 25 154/99 (117) 95 NIV Bilevel 100.00 07/23/22 22:27 82 20 92 100.00 07/23/22 22:00 76 21 136/98 (111) 96 NIV Bilevel 100.00 07/23/22 21:00 79 20 146/96 (113) 89 NIV Bilevel 100.00 07/23/22 20:00 89 20 142/90 (107) 94 NIV Bilevel 100.00 07/23/22 20:00 92 NIV Bilevel 100 07/23/22 20:00 36.1 07/23/22 19:00 82 18 119/77 (91) 94 NIV Bilevel 100.00 07/23/22 19:00 80 07/23/22 18:40 82 20 92 100.00 07/23/22 18:00 82 121/94 (103) 98 NIV Bilevel 100.00 07/23/22 17:00 98 119/90 (100) 96 NIV Bilevel 100.00 07/23/22 16:00 96 100/68 (79) 94 NIV Bilevel 100.00 07/23/22 16:00 99 NIV Bilevel 100 07/23/22 15:57 36.0 07/23/22 15:00 113 14 98/64 (75) 91 NIV Bilevel 100.00 07/23/22 14:54 112 24 93 100.00 07/23/22 14:00 109 15 117/46 (69) 94 NIV Bilevel 100.00 07/23/22 13:00 NIV Bilevel 100.00 07/23/22 13:00 90 07/23/22 13:00 90 27 128/90 (103) 94 NIV Bilevel 100.00 07/23/22 12:00 35.8 07/23/22 12:00 85 16 109/80 (90) 93 NIV Bilevel 85.00 07/23/22 12:00 97 NIV Bilevel 100 07/23/22 11:00 68 19 79/43 (55) 92 NIV Bilevel 85.00 07/23/22 10:41 NIV Bilevel 85.00 07/23/22 10:15 86 22 95 85.00 07/23/22 10:00 64 16 87/61 (70) 96 NIV Bilevel 90.00 07/23/22 09:00 51 20 128/77 (94) 100 NIV Bilevel 90.00 07/23/22 08:19 64 121/63 07/23/22 08:00 70 21 121/63 (82) 93 NIV Bilevel 90.00 07/23/22 08:00 35.8 07/23/22 08:00 97 NIV Bilevel 90 I & O 07/24/22 07:00 Intake Total 950 ml Output Total 2075 ml Balance -1125 ml Height & Weight Height: '" Weight: lbs. oz. kg; 29.10 BMI Method: General Appearance: No Apparent Distress, WD/WN, Chronically ill HEENT: PERRL/EOMI Neck: Non Tender, Supple Respiratory: Decreased Breath Sounds Cardiovascular: Regular Rate, Rhythm Capillary Refill: Greater Than 3 Seconds Gastrointestinal: normal bowel sounds, non tender, soft Extremity: No Pedal Edema Neurologic/Psychiatric: Disoriented Skin: Warm/Dry, Ecchymosis (Multiple scattered throughout extremities) Lymphatic: No Adenopathy Results Lab Laboratory Tests 07/23/22 04:02 07/24/22 03:15 Assessment/Plan Assessment/Plan AECOPD, dementia/agitation-can talk does not always understand and can get combative PNA will continue on IV Zosyn, leave on BiPAP for now, Pt is DNR but can be intubated Spoke with Keagan KHANreservoir engineering consultant: Critically Ill Patient Time spent with patient (mins): 25 LADARIUS CHAVEZ MD Jul 24, 2022 07:45
[2022-07-24] MEDS: DexMEDEtomidine 250 ML DRIP 250 ML IV SCH ×2 (08:06→18:36)
--- NOTE | 2022-07-24 09:52 | Diagnostic Imaging Report ---
INDICATION: Hypertension. INDICATION: Respiratory failure COMPARISON: 07/20/2022 FINDINGS: There are new bibasilar infiltrates as well as likely left greater than right pleural effusions. The upper lobes are clear. The heart size is stable. IMPRESSION: 1. Bibasilar pleural-parenchymal opacities, greater left, appear to be a combination of pleural fluid and subjacent consolidations. 2. No overt failure pattern and no pneumothorax. Dictated by: Dictated on workstation # [id number]
[2022-07-24] MEDS: DOCUSATE SODIUM 100 MG (COLACE) CAP PO SCH ×2 (10:45→21:29)
[2022-07-24] MEDS: QUEtiapine 25 MG (SEROquel) TAB IMMEDIATE RELEASE PO SCH (10:45)
[2022-07-24] MEDS: FUROSEMIDE 40 MG (LASIX) TAB PO SCH (10:46)
[2022-07-24] MEDS: FERROUS SULF 325 MG (IRON) TAB PO SCH (10:46)
[2022-07-24] MEDS: ASPIRIN 81 MG CHEW (CHILDREN'S ASA) PO SCH (10:46)
[2022-07-24] MEDS: TAMSULOSIN 0.4 MG (FLOMAX) CAP PO SCH (10:47)
[2022-07-24] MEDS: MICONAZOLE 2% POWDER (DESENEX AF) 90 GM TOP SCH ×2 (10:47→21:11)
[2022-07-24] MEDS: MULTIVIT W/MINERALS TAB (THERAGRAN M) PO SCH (10:47)
--- NOTE | 2022-07-24 10:54 | Progress Note - Cardiology ---
Cardiology SOAP Progress Note Subjective: Sitting up in bed Bi-pap in place Confused Objective: I&O/Vital Signs 07/26/22 07/27/22 07/27/22 07/27/22 23:49 03:27 07:06 07:09 Temp 36.4 36.2 Pulse 65 95 Resp 18 18 B/P (MAP) 112/62 (79) 134/64 (87) Pulse Ox 93 96 94 O2 Delivery NIV Bilevel NIV Bilevel High Flow N/C High Flow N/C O2 Flow Rate 15.00 10.00 07/27/22 07/27/22 07/27/22 08:00 08:00 10:25 Temp 36.7 Pulse 95 138 Resp 18 24 B/P (MAP) 101/66 (78) Pulse Ox 93 88 O2 Delivery High Flow N/C Nasal Cannula High Flow N/C O2 Flow Rate 11.00 15.00 FiO2 15 07/27/22 00:00 Intake Total 350 ml Output Total 2150 ml Balance -1800 ml Constitutional: other (O x 2, very hard of hearing) Respiratory: chest expansion is symmetric, chest is bilaterally symmetric, other (coarse breath sounds throughout, diminished lower lobes bilat) Cardiovascular: irregularly irregular; No JVD; S1 and S2, systolic murmur Gastrointestional: No tender; soft, audible bowel sounds Extremities: no lower extremity edema bilateral Neurologic/Psychiatric: No oriented x 3; other (mental status exam given above, moves all limbs equally) Skin: other (abrasions to bilat LE with dressing to LLE; multiple bruises to arms bilat) Results/Procedures: Labs Laboratory Tests 07/26/22 15:39: Glucometer 138H 07/26/22 20:55: Glucometer 166H 07/27/22 05:06: Glucometer 221H 07/27/22 05:35: White Blood Count 18.1H, Red Blood Count 3.68L, Hemoglobin 11.2L, Hematocrit 38L , Mean Corpuscular Volume 104H, Mean Corpuscular Hemoglobin 30, Mean Corpuscular Hemoglobin Concent 29L, Red Cell Distribution Width 18.6H, Platelet Count 264, Mean Platelet Volume 10.9, Immature Granulocyte % (Auto) 0, Neutrophils (%) (Auto) 96H, Lymphocytes (%) (Auto) 1L, Monocytes (%) (Auto) 3, Eosinophils (%) (Auto) 0, Basophils (%) (Auto) 0, Neutrophils # (Auto) 17.4H, Lymphocytes # (Auto) 0.2L, Monocytes # (Auto) 0.5, Eosinophils # (Auto) 0.0, Basophils # (Auto) 0.0, Immature Granulocyte # (Auto) 0.1, Neutrophils % (Manual) 97, Lymphocytes % (Manual) 2, Monocytes % (Manual) 1, Poikilocytosis SLIGHT, Anisocytosis MODERATE, Microcytosis SLIGHT, Macrocytosis SLIGHT, Sodium Level 143, Potassium Level 3.8, Chloride Level 101, Carbon Dioxide Level 29, Anion Gap 13, Blood Urea Nitrogen 43H, Creatinine 1.19, Estimat Glomerular Filtration Rate 62, BUN/Creatinine Ratio 36, Glucose Level 191H, Calcium Level 8.9, Corrected Calcium 9.6, Magnesium Level 1.9, Total Bilirubin 0.5, Aspartate Amino Transf (AST/SGOT) 10, Alanine Aminotransferase (ALT/SGPT) 13, Alkaline Phosphatase 46, Total Protein 5.6L, Albumin 3.1L 07/27/22 10:33: Glucometer 162H Microbiology 07/20/22 Urine Culture - Final, Complete Proteus mirabilis 07/20/22 Blood Culture - Final, Complete No growth Procedures NAME: LAURIE JOHNSON [facility] REC#: [id number] PT STATUS: ADM IN : 1940 PHYSICIAN: LADARIUS CHAVEZ MD ADMIT DATE: 07/20/22/ICU Draft Date of Exam:07/24/22 CHEST 1 VIEW, AP/PA ONLY INDICATION: Hypertension. INDICATION: Respiratory failure COMPARISON: 07/20/2022 FINDINGS: There are new bibasilar infiltrates as well as likely left greater than right pleural effusions. The upper lobes are clear. The heart size is stable. IMPRESSION: 1. Bibasilar pleural-parenchymal opacities, greater left, appear to be a combination of pleural fluid and subjacent consolidations. 2. No overt failure pattern and no pneumothorax. Dictated on workstation # [id number] Dict: 07/24/22 0948 Trans: 07/24/22 0951 [facility] [id number] Interpreted by: JUAN JOSE SOW Electronically signed by: A/P: Assessment: Respiratory failure with hypoxia - likely multifactorial d/t acute on chronic diastolic CHF, acute on chronic exacerbation of COPD, SHANNAN and pneumonia New onset a-fib with RVR per tele on 07-22-22 - OAC with Xarelto - rate controlled Confusion Very hard of hearing CAD - records from [facility] in [place], [place] of 2021 state h/o PCI (details unknown) Acute on chronic diastolic CHF - compensated - Echocardiogram of 06-25-22 at [facility] in [place], [place] by Dr. Bhatia showed LVEF 60%. Mild RV dilatation. No signif valvular abnormalities - Echocardiogram of 06-30-22 showed LVEF 50-55%. Grade 1 diastolic dysfunction. LA and RA mildly dilated Document h/o PE per [facility] records - details unknown - has been maintained on OAC with Eliquis as out pt Acute renal insufficiency - likely d/t aggressive diuresis - renal function improved following reduction in diuretices HTN SHANNAN H/O COPD H/O pulmonary HTN Plan: Hypotension - resolved New onset a-fib with RVR on 07-22-22 - rate controlled - Continue OAC with Xarelto Acute respiratory failure with hypoxia and AMS - likely d/t reasons noted above Management of pneumonia is per medical services Acute renal insufficiency likely in some part d/t aggressive diuresis - renal function improved with reduction of diuretics Monitor lab closely ZOILA VALLE Jul 24, 2022 10:54
[2022-07-24] MEDS: MIDODRINE 10 MG (PROAMATINE) TAB PO SCH ×3 (10:56→18:25)
--- NOTE | 2022-07-24 11:05 | Progress Note - Hospitalist ---
Subjective HPI/CC On Admission Date Seen by Provider: Jul 24, 2022 Time Seen by Provider: 10:00 CC: Respiratory failure HPI: This is a [facility] prison pt who presented to the ICU from [place] [facility] from the prison with acute respiratory failure. He required BiPAP due to hypercapnia. At this current time pt is unable to provide any history. We will initiate Zosyn and Vanc, empiric coverage for pneumonia on chest x-ray. Dr. Kaufman will be consulted for volume overload. Subjective/Events-last exam Pt remains BiPAP dependent at 100% oxygen Pt may need to be intubated DNR maintained Review of Systems Neurological: Confusion Objective Exam Vital Signs Vital Signs Date Time Temp Pulse Resp B/P (MAP) Pulse Ox O2 Delivery O2 Flow Rate FiO2 07/25/22 04:00 88 23 108/70 (83) 97 NIV Bilevel 90.00 07/25/22 04:00 80 07/25/22 00:48 35.9 Capillary Refill : Greater Than 3 Seconds General Appearance: No Apparent Distress, WD/WN, Chronically ill Respiratory: No Accessory Muscle Use, No Respiratory Distress, Decreased Breath Sounds Cardiovascular: Regular Rate, Rhythm Results/Procedures Lab Laboratory Tests 07/25/22 04:22 Patient resulted labs reviewed. Assessment/Plan Assessment and Plan Assess & Plan/Chief Complaint Assessment: 1. Acute respiratory failure with hypoxia and hypercapnia: BiPAP no longer required, but continue to monitor patient's respiratory status with repeat ABGs. Continue vancomycin, Zosyn. Continue nebulizers, steroids 2. COPD exacerbation: Continue nebulizers, steroids 3. CHF: Continue Lasix 4. HTN, Pulmonary HTN: Continue home meds 5. Hx of PE: Continue Xarelto, aspirin regimen. 6. Dementia Plan: DNR Prognosis poor Remains BiPAP dependent Critical Care Critically Ill Patient NASIMAVALERIO ERICKSON Jul 24, 2022 11:05
--- NOTE | 2022-07-24 14:10 | Physician Query Clarification ---
Physician Query-General Query to Physician: The medical record reflects the following clinical scenario: History/Risk factors: "Patient was found by staff to have AMS, gurgling respirations, and O2 sat in the 70s", custodial resident, Clinical Findings: Admission Chest Xray: "bibasilar airspace consolidation right greater than left which may relate to infiltrate, effusions, and/or atelectasis." Temp 36.2 with T Max 37.7 and T min 35.0, AHRF requiring 02 up to 100% and Bipap, 14 on admission has been 20s to 30s frequently, initially non productive cough later documented to be productive with "creamy blood tinged sputum". Treatment: ER: DuoNeb, Zosyn IV, vancomycin IV, Solu-Medrol IV, Continues to receive Vanco, and Zosyn IV, supplemental 02, Bipap, Question: Is Pneumonia a clinically valid diagnosis? Pneumonia (facility acquired) was documented in the Assessment and plan on the H and P with no further documentation of Pneumonia on attending progress notes. Dr. Ana Kaufman did documented Pneumonia on consult note and progress notes. If yes, please document in the Progress Notes and Discharge Summary. 1. Yes, Pneumonia clinically valid, present on admission, condition resolving 2. No, condition ruled out 3. Other, with explanation of clinical findings 4. Undetermined, no explanation for clinical findings In responding to this query, please exercise your independent professional judgment. The purpose of this communication is to more accurately reflect the complexity of your patients condition. The fact that a question is asked does not imply that any particular answer is desired or expected. Thank you for your timely response to this clarification. Manuel Oleary MSN, RN Clinical Special Weapons And Tactics Officer [email or web address] PHYSICIAN RESPONSE: Based on the clinical findings in the record, please respond to the query above on this document as an addendum. Physician Response: Physician Response 1 If you have questions please contact: Director Of Content And Programming: Ext: Thank you for your time and cooperation. Clinical Special Weapons And Tactics Officer/Director Of Content And Programming This is a permanent part of the medical record MANUEL OLEARY Jul 24, 2022 14:10 VALERIO DEL REAL DO Jul 24, 2022 19:24
--- NOTE | 2022-07-24 15:46 | Tele-ICU Progress Note ---
Subjective Date Seen by a Provider: Jul 24, 2022 Time Seen by a Provider: 15:42 Subjective/Events-last exam called for marked agitation, has had same problem every afternoon, in past given Haldol 5 mg IM QTc today 412, will give another 5 mg IM Grzegorzdoar Wu MD Sepsis Event Evaluation Height, Weight, BMI Height: '" Weight: lbs. oz. kg; 29.10 BMI Method: Exam Exam Patient acknowledged, consented, and participated in this virtual visit which was conducted using real time audio/video Vital Signs Date Time Temp Pulse Resp B/P (MAP) Pulse Ox O2 Delivery O2 Flow Rate FiO2 07/24/22 15:00 74 12 119/62 (81) 95 NIV Bilevel 100.00 07/24/22 14:41 94 High Flow N/C 10.00 07/24/22 14:00 78 16 106/61 (76) 99 NIV Bilevel 100.00 07/24/22 13:00 68 07/24/22 13:00 80 18 123/70 (87) 96 NIV Bilevel 100.00 07/24/22 12:00 99 NIV Bilevel 100 07/24/22 12:00 71 14 122/71 (88) 96 NIV Bilevel 100.00 07/24/22 11:00 72 18 121/85 (97) 96 NIV Bilevel 100.00 07/24/22 10:25 69 21 99 80.00 07/24/22 10:00 56 17 140/90 (107) 99 NIV Bilevel 100.00 07/24/22 09:00 72 15 127/71 (89) 94 NIV Bilevel 100.00 07/24/22 08:06 79 148/99 07/24/22 08:00 66 7 135/91 (106) 95 NIV Bilevel 100.00 07/24/22 08:00 99 NIV Bilevel 100 07/24/22 08:00 36.0 07/24/22 07:00 62 14 173/101 (125) 96 NIV Bilevel 100.00 07/24/22 07:00 67 07/24/22 06:41 82 20 98 100.00 07/24/22 06:00 66 16 165/97 (119) 97 NIV Bilevel 100.00 07/24/22 05:00 60 16 165/107 (126) 97 NIV Bilevel 100.00 07/24/22 04:00 94 NIV Bilevel 100 07/24/22 04:00 66 16 143/100 (114) 97 NIV Bilevel 100.00 07/24/22 03:41 80 136/98 07/24/22 03:00 69 19 157/97 (117) 96 NIV Bilevel 100.00 07/24/22 02:00 61 20 152/93 (112) 94 NIV Bilevel 100.00 07/24/22 01:39 80 24 94 100.00 07/24/22 01:00 72 21 159/94 (115) 95 NIV Bilevel 100.00 07/24/22 01:00 80 07/24/22 00:00 69 23 129/101 (110) 97 NIV Bilevel 100.00 07/23/22 23:52 92 NIV Bilevel 100 07/23/22 23:44 36.5 07/23/22 23:41 82 136/98 07/23/22 23:00 70 25 154/99 (117) 95 NIV Bilevel 100.00 07/23/22 22:27 82 20 92 100.00 07/23/22 22:00 76 21 136/98 (111) 96 NIV Bilevel 100.00 07/23/22 21:00 79 20 146/96 (113) 89 NIV Bilevel 100.00 07/23/22 20:00 89 20 142/90 (107) 94 NIV Bilevel 100.00 07/23/22 20:00 92 NIV Bilevel 100 07/23/22 20:00 36.1 07/23/22 19:00 82 18 119/77 (91) 94 NIV Bilevel 100.00 07/23/22 19:00 80 07/23/22 18:40 82 20 92 100.00 07/23/22 18:00 82 121/94 (103) 98 NIV Bilevel 100.00 07/23/22 17:00 98 119/90 (100) 96 NIV Bilevel 100.00 07/23/22 16:00 96 100/68 (79) 94 NIV Bilevel 100.00 07/23/22 16:00 99 NIV Bilevel 100 07/23/22 15:57 36.0 I & O 07/24/22 07:00 Intake Total 950 ml Output Total 2075 ml Balance -1125 ml Height & Weight Height: '" Weight: lbs. oz. kg; 29.10 BMI Method: General Appearance: No Apparent Distress, WD/WN, Chronically ill HEENT: PERRL/EOMI Neck: Non Tender, Supple Respiratory: Decreased Breath Sounds Cardiovascular: Regular Rate, Rhythm Capillary Refill: Greater Than 3 Seconds Gastrointestinal: normal bowel sounds, non tender, soft Extremity: No Pedal Edema Neurologic/Psychiatric: Disoriented Skin: Warm/Dry, Ecchymosis (Multiple scattered throughout extremities) Lymphatic: No Adenopathy Results Lab Laboratory Tests 07/23/22 04:02 07/24/22 03:15 Assessment/Plan Assessment/Plan dementia, severe agitation, will give Haldol 5 mg IM x 1 MD SCOTT Nielsen JOSEPH K MD Jul 24, 2022 15:46
[2022-07-24] MEDS ORDERED: HALOPERIDOL 5 MG/ML (HALDOL) VIAL IM NR (16:00)
[2022-07-24] MEDS: RIVAROXABAN 20 MG TABLET (XARELTO) PO SCH (16:29)
--- NOTE | 2022-07-24 18:02 | Progress Note - Cardiology ---
Cardiology SOAP Progress Note Subjective: Hard of hearing Varying mental status: intermittent clarity and confusion Does not report new symptoms Objective: I&O/Vital Signs 07/24/22 07/24/22 07/24/22 07/24/22 06:00 06:41 07:00 07:00 Pulse 66 82 67 62 Resp 16 20 14 B/P (MAP) 165/97 (119) 173/101 (125) Pulse Ox 97 98 96 O2 Delivery NIV Bilevel NIV Bilevel O2 Flow Rate 100.00 100.00 100.00 07/24/22 07/24/22 07/24/22 07/24/22 08:00 08:00 08:00 08:06 Temp 36.0 Pulse 66 79 Resp 7 B/P (MAP) 135/91 (106) 148/99 Pulse Ox 99 95 O2 Delivery NIV Bilevel NIV Bilevel O2 Flow Rate 100.00 FiO2 100 07/24/22 07/24/22 07/24/22 07/24/22 09:00 10:00 10:25 11:00 Pulse 72 56 69 72 Resp 15 17 21 18 B/P (MAP) 127/71 (89) 140/90 (107) 121/85 (97) Pulse Ox 94 99 99 96 O2 Delivery NIV Bilevel NIV Bilevel NIV Bilevel O2 Flow Rate 100.00 100.00 80.00 100.00 07/24/22 07/24/22 07/24/22 07/24/22 12:00 12:00 13:00 13:00 Pulse 71 80 68 Resp 14 18 B/P (MAP) 122/71 (88) 123/70 (87) Pulse Ox 96 99 96 O2 Delivery NIV Bilevel NIV Bilevel NIV Bilevel O2 Flow Rate 100.00 100.00 FiO2 100 07/24/22 07/24/22 07/24/22 07/24/22 14:00 14:41 15:00 16:00 Pulse 78 74 Resp 16 12 B/P (MAP) 106/61 (76) 119/62 (81) Pulse Ox 99 94 95 99 O2 Delivery NIV Bilevel High Flow N/C NIV Bilevel NIV Bilevel O2 Flow Rate 100.00 10.00 100.00 FiO2 100 07/24/22 07/24/22 07/24/22 16:00 16:00 17:00 Temp 35.8 Pulse 67 78 Resp 17 19 B/P (MAP) 115/84 (94) 113/98 (103) Pulse Ox 98 97 O2 Delivery NIV Bilevel NIV Bilevel O2 Flow Rate 100.00 100.00 07/23/22 23:59 Intake Total 850 ml Output Total 650 ml Balance 200 ml Constitutional: other (O x 2, very hard of hearing) Respiratory: chest expansion is symmetric, chest is bilaterally symmetric, other (coarse breath sounds throughout, diminished lower lobes bilat) Cardiovascular: irregularly irregular; No JVD; S1 and S2, systolic murmur Gastrointestional: No tender; soft, audible bowel sounds Extremities: no lower extremity edema bilateral Neurologic/Psychiatric: No oriented x 3; other (mental status exam given above, moves all limbs equally) Skin: other (abrasions to bilat LE with dressing to LLE; multiple bruises to arms bilat) Results/Procedures: Labs Laboratory Tests 07/23/22 20:34: Glucometer 157H 07/24/22 03:15: White Blood Count 8.9, Red Blood Count 3.77L, Hemoglobin 11.3L, Hematocrit 38L, Mean Corpuscular Volume 102H, Mean Corpuscular Hemoglobin 30, Mean Corpuscular Hemoglobin Concent 29L, Red Cell Distribution Width 18.7H, Platelet Count 199, Mean Platelet Volume 10.1, Immature Granulocyte % (Auto) 0, Neutrophils (%) (Auto) 93H, Lymphocytes (%) (Auto) 4L, Monocytes (%) (Auto) 3, Eosinophils (%) (Auto) 0, Basophils (%) (Auto) 0, Neutrophils # (Auto) 8.3H, Lymphocytes # (Auto) 0.4L, Monocytes # (Auto) 0.2, Eosinophils # (Auto) 0.0, Basophils # (Auto) 0.0, Immature Granulocyte # (Auto) 0.0, Sodium Level 144, Potassium Level 4.4, Chloride Level 100, Carbon Dioxide Level 28, Anion Gap 16H, Blood Urea Nitrogen 44H, Creatinine 1.29, Estimat Glomerular Filtration Rate 56, BUN/Creatinine Ratio 34, Glucose Level 175H, Calcium Level 8.6, Corrected Calcium 9.3, Phosphorus Level 4.8H, Magnesium Level 2.1, Total Bilirubin 0.7, Aspartate Amino Transf (AST/SGOT) 11, Alanine Aminotransferase (ALT/SGPT) 10, Alkaline Phosphatase 50, Total Protein 6.2L, Albumin 3.1L 07/24/22 04:10: Blood Gas Puncture Site LEFT RADIAL, Blood Gas Patient Temperature 36.7, Arterial Blood pH 7.41, Arterial Blood Partial Pressure CO2 57H, Arterial Blood Partial Pressure O2 92, Arterial Blood HCO3 35H, Arterial Blood Total CO2 37.1H, Arterial Blood Oxygen Saturation 98, Arterial Blood Base Excess 10.3H, Ponce Test YES-POS, Blood Gas Ventilator Setting NO, Blood Gas Inspired Oxygen NA 07/24/22 11:23: Glucometer 157H 07/24/22 16:06: Glucometer 166H Microbiology 07/20/22 Urine Culture - Final, Complete Proteus mirabilis 07/20/22 Blood Culture - Preliminary, Resulted No growth A/P: Assessment: Respiratory failure with hypoxia - likely multifactorial d/t acute on chronic diastolic CHF, acute on chronic exacerbation of COPD, SHANNAN and pneumonia New onset a-fib with RVR per tele on 07-22-22 - OAC with Xarelto - rate controlled Confusion Very hard of hearing CAD - records from [facility] in [place], [place] of 2021 state h/o PCI (details unknown) Acute on chronic diastolic CHF - compensated - Echocardiogram of 06-25-22 at [facility] in [place], [place] by Dr. Bhatia showed LVEF 60%. Mild RV dilatation. No signif valvular abnormalities - Echocardiogram of 06-30-22 showed LVEF 50-55%. Grade 1 diastolic dysfunction. LA and RA mildly dilated Document h/o PE per [facility] records - details unknown - has been maintained on OAC with Eliquis as out pt Acute renal insufficiency - likely d/t aggressive diuresis - renal function improved following reduction in diuretics HTN SHANNAN H/O COPD H/O pulmonary HTN Plan: Complex management Hypotension - resolved New onset a-fib with RVR on 07-22-22 - rate controlled - Continue OAC with Xarelto Acute respiratory failure with hypoxia and AMS - likely d/t reasons noted above Management of pneumonia is per medical services Acute renal insufficiency likely in some part d/t aggressive diuresis - renal function improved with reduction of diuretics Monitor lab closely LAURA LOWERY MD FACP [facility] Jul 24, 2022 18:02
[2022-07-24] MEDS: NS IV 500 ML 500 ML IV SCH ×2 (18:35→23:07)
[2022-07-24] MEDS: OLANZapine 5 MG ODT (ZyPREXA ZYDIS) PO SCH (21:27)
[2022-07-24] MEDS: MELATONIN 3 MG TABLET PO SCH (21:29)
[2022-07-24] MEDS ORDERED: HALOPERIDOL 5 MG/ML (HALDOL) VIAL IV ONE (23:15)
[2022-07-25] MEDS ORDERED: ZIPRASIDONE 20 MG INJ (GEODON) VIAL IM ONE ×6 (00:15→18:47)
[2022-07-25] MEDS ORDERED: WATER (STERILE) FOR INJ 10 ML BTL INJ ONE ×3 (00:15→18:00)
[2022-07-25] MEDS: DexMEDEtomidine 250 ML DRIP 250 ML IV SCH ×3 (02:15→17:32)
[2022-07-25] MEDS: RT-ALBUTEROL/IPRATROPIUM 3 ML (DUONEB) VIAL INH SCH ×6 (02:54→22:40)
[2022-07-25] MEDS: methylPREDNISolone 125 MG (Solu-MEDROL) VIAL IVP SCH ×4 (04:30→20:34)
[2022-07-25] MEDS: NS IV 1000 ML 1,000 ML IV SCH ×2 (04:30→14:37)
[2022-07-25 04:40] LABS: BASOPHILS % (AUTO) 0 % (0-10); EOSINOPHILS % (AUTO) 0 % (0-10); HEMATOCRIT 37 % (40-54); HEMOGLOBIN 11.1 g/dL (13.3-17.7); LYMPHOCYTES # (AUTO) 0.3 10^3/uL (1.0-4.0); LYMPHOCYTES % (AUTO) 3 % (12-44); MEAN CORPUSCULAR HEMOGLOBIN 31 pg (25-34); MEAN CORPUSCULAR HGB CONC 30 g/dL (32-36); MEAN CORPUSCULAR VOLUME 102 fL (80-99); MEAN PLATELET VOLUME 10.7 fL (9.0-12.2); MONOCYTES # (AUTO) 0.5 10^3/uL (0.0-1.0); MONOCYTES % (AUTO) 5 % (0-12); NEUTROPHILS # (AUTO) 8.5 10^3/uL (1.8-7.8); NEUTROPHILS % (AUTO) 91 % (42-75); PLATELET COUNT 166 10^3/uL (130-400); WHITE BLOOD COUNT 9.3 10^3/uL (4.3-11.0)
[2022-07-25 05:10] LABS: BILIRUBIN,TOTAL 0.5 MG/DL (0.1-1.0); CALCIUM 8.6 MG/DL (8.5-10.1); CREATININE SERUM 1.17 MG/DL (0.60-1.30); MAGNESIUM 1.9 MG/DL (1.6-2.4); PHOSPHORUS 4.7 MG/DL (2.3-4.7); POTASSIUM 4.5 MMOL/L (3.6-5.0); TOTAL PROTEIN 5.9 GM/DL (6.4-8.2)
[2022-07-25] MEDS: KCL 20 MEQ TAB (K-DUR) PO SCH (05:22)
[2022-07-25] MEDS: POTASSIUM CL 10MEQ/50ML IVPB 50 ML IV SCH (05:22)
[2022-07-25] MEDS: MAGNESIUM 1 GM/100 ML IVPB 100 ML IV SCH (05:22)
[2022-07-25] MEDS: PIPERACILLIN SODIUM/TAZOBACTAM 4.5 GM in NS (IVPB) 100 ML IV SCH (06:19)
--- NOTE | 2022-07-25 06:46 | Progress Note - Hospitalist ---
Subjective HPI/CC On Admission Date Seen by Provider: Jul 25, 2022 Time Seen by Provider: 11:00 CC: Respiratory failure HPI: This is a [facility] halfway pt who presented to the ICU from [facility] from the halfway with acute respiratory failure. He required BiPAP due to hypercapnia. At this current time pt is unable to provide any history. We will initiate Zosyn and Vanc, empiric coverage for pneumonia on chest x-ray. Dr. Kaufman will be consulted for volume overload. Subjective/Events-last exam No major changes BiPAP dependent We will try to wean down today Dementia is so profound it is hard for him to follow any direction Review of Systems General: Fatigue, Malaise Neurological: Confusion Objective Exam Vital Signs Vital Signs Date Time Temp Pulse Resp B/P (MAP) Pulse Ox O2 Delivery O2 Flow Rate FiO2 07/26/22 05:00 82 18 121/90 (100) 95 NIV Bilevel 70.00 07/26/22 03:37 70 07/25/22 16:53 36.1 Capillary Refill : Less Than 3 Seconds General Appearance: No Apparent Distress, WD/WN, Other (Sedated on BiPAP) Respiratory: Lungs Clear, Normal Breath Sounds Cardiovascular: Regular Rate, Rhythm Results/Procedures Lab Laboratory Tests 07/26/22 03:50 Patient resulted labs reviewed. Assessment/Plan Assessment and Plan Assess & Plan/Chief Complaint Assessment: 1. Acute respiratory failure with hypoxia and hypercapnia: BiPAP no longer required, but continue to monitor patient's respiratory status with repeat ABGs. Continue vancomycin, Zosyn. Continue nebulizers, steroids 2. COPD exacerbation: Continue nebulizers, steroids 3. CHF: Continue Lasix 4. HTN, Pulmonary HTN: Continue home meds 5. Hx of PE: Continue Xarelto, aspirin regimen. 6. Dementia Plan: DNR Prognosis poor Remains BiPAP dependent Critical Care Critically Ill Patient VALERIO DEL REAL Jul 25, 2022 06:46
--- NOTE | 2022-07-25 08:19 | Tele-ICU Progress Note ---
Subjective Date Seen by a Provider: Jul 25, 2022 Time Seen by a Provider: 08:15 Subjective/Events-last exam This virtual visit was conducted using real time audio/video. Oxygen needs better, now on BIPAP 16 80%, I reviewed CXR from yesterday, shows LLL infiltrate, Now on IV Vanco/Zosyn Still having issues with agitation at night, right now still pulling on tubes Pt is DNR but intubation ok, Not needing much suctioning Sepsis Event Evaluation Height, Weight, BMI Height: '" Weight: lbs. oz. kg; 29.37 BMI Method: Exam Exam Patient acknowledged, consented, and participated in this virtual visit which was conducted using real time audio/video Vital Signs Date Time Temp Pulse Resp B/P (MAP) Pulse Ox O2 Delivery O2 Flow Rate FiO2 07/25/22 07:55 36.2 07/25/22 07:39 77 18 96 80.00 07/25/22 07:00 65 07/25/22 06:00 74 14 158/107 (124) 99 NIV Bilevel 90.00 07/25/22 05:00 84 13 160/127 (138) 97 NIV Bilevel 90.00 07/25/22 04:00 88 23 108/70 (83) 97 NIV Bilevel 90.00 07/25/22 04:00 98 NIV Bilevel 80 07/25/22 03:00 80 14 128/98 (108) 99 NIV Bilevel 90.00 07/25/22 02:54 68 26 96 80.00 07/25/22 02:00 76 21 141/86 (104) 97 NIV Bilevel 90.00 07/25/22 01:00 104 07/25/22 01:00 80 15 114/88 (97) 99 NIV Bilevel 90.00 07/25/22 00:48 35.9 07/25/22 00:00 86 30 123/99 (107) 99 NIV Bilevel 90.00 07/25/22 00:00 98 NIV Bilevel 80 07/24/22 23:00 60 17 130/92 (105) 100 NIV Bilevel 90.00 07/24/22 22:40 63 35 94 80.00 07/24/22 22:00 74 15 137/97 (110) 99 NIV Bilevel 90.00 07/24/22 21:00 62 20 142/84 (103) 98 NIV Bilevel 90.00 07/24/22 20:00 62 15 118/87 (97) 98 NIV Bilevel 90.00 07/24/22 20:00 98 NIV Bilevel 90 07/24/22 19:56 35.5 07/24/22 19:27 51 20 97 80.00 07/24/22 19:00 70 07/24/22 19:00 56 13 121/82 (95) 96 NIV Bilevel 90.00 07/24/22 18:36 74 133/86 07/24/22 18:19 35.8 78 19 145/70 (95) 97 NIV Bilevel 90.00 07/24/22 17:00 78 19 113/98 (103) 97 NIV Bilevel 100.00 07/24/22 16:00 67 17 115/84 (94) 98 NIV Bilevel 100.00 07/24/22 16:00 35.8 07/24/22 16:00 99 NIV Bilevel 100 07/24/22 15:00 74 12 119/62 (81) 95 NIV Bilevel 100.00 07/24/22 14:41 94 High Flow N/C 10.00 07/24/22 14:00 78 16 106/61 (76) 99 NIV Bilevel 100.00 07/24/22 13:00 68 07/24/22 13:00 80 18 123/70 (87) 96 NIV Bilevel 100.00 07/24/22 12:00 99 NIV Bilevel 100 07/24/22 12:00 71 14 122/71 (88) 96 NIV Bilevel 100.00 07/24/22 11:00 72 18 121/85 (97) 96 NIV Bilevel 100.00 07/24/22 10:25 69 21 99 80.00 07/24/22 10:00 56 17 140/90 (107) 99 NIV Bilevel 100.00 07/24/22 09:00 72 15 127/71 (89) 94 NIV Bilevel 100.00 I & O 07/25/22 07:00 Intake Total 2400 ml Output Total 2175 ml Balance 225 ml Height & Weight Height: '" Weight: lbs. oz. kg; 29.37 BMI Method: General Appearance: No Apparent Distress, WD/WN, Chronically ill HEENT: PERRL/EOMI Neck: Non Tender, Supple Respiratory: No Accessory Muscle Use, No Respiratory Distress, Decreased Breath Sounds Cardiovascular: Regular Rate, Rhythm, Other (goes from a fib to sinus) Capillary Refill: Less Than 3 Seconds Gastrointestinal: normal bowel sounds, non tender, soft Extremity: No Pedal Edema Neurologic/Psychiatric: Disoriented Skin: Warm/Dry, Ecchymosis (Multiple scattered throughout extremities) Lymphatic: No Adenopathy Results Lab Laboratory Tests 07/24/22 03:15 07/25/22 04:22 Assessment/Plan Assessment/Plan AECOPD, CHF, dementia PNA LLL will continue on same oxygen delivery, continue abx, keep HOB up meds PRN for extreme agitatiojn getting Geodon and Haldol, will order EKG to check QTc interval Critical Care: Critically Ill Patient Time spent with patient (mins): 25 LADARIUS CHAVEZ MD Jul 25, 2022 08:19
[2022-07-25] MEDS: MIDODRINE 10 MG (PROAMATINE) TAB PO SCH ×4 (09:00→17:02)
[2022-07-25] MEDS: MICONAZOLE 2% POWDER (DESENEX AF) 90 GM TOP SCH ×2 (10:16→20:55)
--- NOTE | 2022-07-25 11:15 | Progress Note - Cardiology ---
Cardiology SOAP Progress Note Subjective: On BiPAP Confused Unable to provide any meaningful review of systems Objective: I&O/Vital Signs 07/25/22 07/25/22 07/25/22 07/25/22 00:00 00:00 00:48 01:00 Temp 35.9 Pulse 86 80 Resp 30 15 B/P (MAP) 123/99 (107) 114/88 (97) Pulse Ox 98 99 99 O2 Delivery NIV Bilevel NIV Bilevel NIV Bilevel O2 Flow Rate 90.00 90.00 FiO2 80 07/25/22 07/25/22 07/25/22 07/25/22 01:00 02:00 02:54 03:00 Pulse 104 76 68 80 Resp 21 26 14 B/P (MAP) 141/86 (104) 128/98 (108) Pulse Ox 97 96 99 O2 Delivery NIV Bilevel NIV Bilevel O2 Flow Rate 90.00 80.00 90.00 07/25/22 07/25/22 07/25/22 07/25/22 04:00 04:00 05:00 06:00 Pulse 88 84 74 Resp 23 13 14 B/P (MAP) 108/70 (83) 160/127 (138) 158/107 (124) Pulse Ox 98 97 97 99 O2 Delivery NIV Bilevel NIV Bilevel NIV Bilevel NIV Bilevel O2 Flow Rate 90.00 90.00 90.00 FiO2 80 07/25/22 07/25/22 07/25/22 07/25/22 07:00 07:00 07:39 07:55 Temp 36.2 Pulse 84 65 77 Resp 12 18 B/P (MAP) Pulse Ox 96 96 O2 Delivery NIV Bilevel O2 Flow Rate 90.00 80.00 07/25/22 07/25/22 07/25/22 07/25/22 08:00 08:00 09:00 09:53 Pulse 87 114 98 Resp 10 B/P (MAP) 132/91 (105) 140/110 Pulse Ox 96 98 95 O2 Delivery NIV Bilevel NIV Bilevel NIV Bilevel O2 Flow Rate 90.00 90.00 FiO2 80 07/25/22 07/25/22 07/25/22 10:00 10:09 11:00 Pulse 70 71 93 Resp 11 19 24 B/P (MAP) 146/85 (105) 136/85 (102) Pulse Ox 95 95 98 O2 Delivery NIV Bilevel NIV Bilevel O2 Flow Rate 90.00 80.00 90.00 07/25/22 00:00 Intake Total 650 ml Output Total 1500 ml Balance -850 ml Constitutional: other (confused, unable to communicate meaningfully) Respiratory: chest expansion is symmetric, chest is bilaterally symmetric, other (coarse breath sounds throughout, diminished lower lobes bilat) Cardiovascular: irregularly irregular; No JVD; S1 and S2, systolic murmur Gastrointestional: No tender; soft, audible bowel sounds Extremities: no lower extremity edema bilateral Neurologic/Psychiatric: No oriented x 3; other (mental status exam given above, moves all limbs equally) Skin: other (abrasions to bilat LE with dressing to LLE; multiple bruises to arms bilat) Results/Procedures: Labs Laboratory Tests 07/24/22 11:23: Glucometer 157H 07/24/22 16:06: Glucometer 166H 07/24/22 23:07: Glucometer 175H 07/25/22 04:22: White Blood Count 9.3, Red Blood Count 3.63L, Hemoglobin 11.1L, Hematocrit 37L, Mean Corpuscular Volume 102H, Mean Corpuscular Hemoglobin 31, Mean Corpuscular Hemoglobin Concent 30L, Red Cell Distribution Width 18.3H, Platelet Count 166, Mean Platelet Volume 10.7, Immature Granulocyte % (Auto) 1, Neutrophils (%) (Auto) 91H, Lymphocytes (%) (Auto) 3L, Monocytes (%) (Auto) 5, Eosinophils (%) (Auto) 0, Basophils (%) (Auto) 0, Neutrophils # (Auto) 8.5H, Lymphocytes # (Auto) 0.3L, Monocytes # (Auto) 0.5, Eosinophils # (Auto) 0.0, Basophils # (Auto) 0.0, Immature Granulocyte # (Auto) 0.1, Sodium Level 143, Potassium Level 4.5, Chloride Level 100, Carbon Dioxide Level 26, Anion Gap 17H, Blood Urea Nitrogen 40H, Creatinine 1.17, Estimat Glomerular Filtration Rate 63, BUN/Creatinine Ratio 34, Glucose Level 146H, Calcium Level 8.6, Corrected Calcium 9.4, Phosphorus Level 4.7, Magnesium Level 1.9, Total Bilirubin 0.5, Aspartate Amino Transf (AST/SGOT) 25, Alanine Aminotransferase (ALT/SGPT) 15, Alkaline Phosphatase 43, Total Protein 5.9L, Albumin 3.0L 07/25/22 10:29: Glucometer 145H Microbiology 07/20/22 Urine Culture - Final, Complete Proteus mirabilis 07/20/22 Blood Culture - Preliminary, Resulted No growth Laboratory Tests 07/24/22 03:15 07/25/22 04:22 A/P: Assessment: Respiratory failure with hypoxia - likely multifactorial d/t acute on chronic diastolic CHF, acute on chronic exacerbation of COPD, SHANNAN and pneumonia New onset a-fib with RVR per tele on 07-22-22 - OAC with Xarelto - rate controlled Confusion and dementia Very hard of hearing CAD - records from [facility] in [place], [place] of 2021 state h/o PCI (details unknown) Acute on chronic diastolic CHF - compensated - Echocardiogram of 06-25-22 at [facility] in [place], [place] by Dr. Bhatia showed LVEF 60%. Mild RV dilatation. No signif valvular abnormalities - Echocardiogram of 06-30-22 showed LVEF 50-55%. Grade 1 diastolic dysfunction. LA and RA mildly dilated Document h/o PE per [facility] records - details unknown - has been maintained on OAC with Eliquis as out pt Acute renal insufficiency - likely d/t aggressive diuresis - renal function improved following reduction in diuretics HTN SHANNAN H/O COPD H/O pulmonary HTN Plan: * ASA for CAD * Xarelto for stroke prophylaxis * Dig/Dilt as needed for vent rate control (rate is currently controlled) * Check dig level * Midodrine for mild hypotension, currently controlled * eICU and Hosp svces managing resp failure / pneumonia and AMS * Renal function has improved * Monitor labs LAURA LOWERY MD FACP FAC CCDS Jul 25, 2022 11:15
[2022-07-25] MEDS: QUEtiapine 25 MG (SEROquel) TAB IMMEDIATE RELEASE PO SCH (14:32)
[2022-07-25] MEDS: TAMSULOSIN 0.4 MG (FLOMAX) CAP PO SCH (14:32)
[2022-07-25] MEDS: MULTIVIT W/MINERALS TAB (THERAGRAN M) PO SCH (14:32)
[2022-07-25] MEDS: FERROUS SULF 325 MG (IRON) TAB PO SCH (14:32)
[2022-07-25] MEDS: FUROSEMIDE 40 MG (LASIX) TAB PO SCH (14:32)
[2022-07-25] MEDS: ASPIRIN 81 MG CHEW (CHILDREN'S ASA) PO SCH (14:32)
[2022-07-25] MEDS: DOCUSATE SODIUM 100 MG (COLACE) CAP PO SCH ×2 (14:37→20:36)
[2022-07-25] MEDS: NS IV 500 ML 500 ML IV SCH (16:30)
[2022-07-25] MEDS: RIVAROXABAN 20 MG TABLET (XARELTO) PO SCH (17:02)
--- NOTE | 2022-07-25 17:52 | Tele-ICU Progress Note ---
Subjective Date Seen by a Provider: Jul 25, 2022 Time Seen by a Provider: 17:50 Subjective/Events-last exam called for marked agitation, this has happened almost every night, In past Lidya and Margarita has helped, will reorder Keagan Chavez MD Sepsis Event Evaluation Height, Weight, BMI Height: '" Weight: lbs. oz. kg; 29.37 BMI Method: Exam Exam Patient acknowledged, consented, and participated in this virtual visit which was conducted using real time audio/video Vital Signs Date Time Temp Pulse Resp B/P (MAP) Pulse Ox O2 Delivery O2 Flow Rate FiO2 07/25/22 17:32 92 95/51 07/25/22 16:53 36.1 07/25/22 16:52 36.1 89 16 116/64 (81) 98 NIV Bilevel 10.00 10.00 07/25/22 16:52 36.1 07/25/22 16:00 99 NIV Bilevel 70 07/25/22 16:00 89 16 116/64 (81) 98 NIV Bilevel 70.00 07/25/22 15:55 NIV Bilevel 70.00 07/25/22 15:00 93 24 144/77 (99) 96 Nasal Cannula 10.00 07/25/22 14:35 Nasal Cannula 10.00 07/25/22 14:00 87 22 131/77 (95) 99 NIV Bilevel 90.00 07/25/22 13:00 69 12 154/97 (116) NIV Bilevel 90.00 07/25/22 12:50 89 07/25/22 12:00 98 NIV Bilevel 80 07/25/22 12:00 98 24 145/98 (114) 96 NIV Bilevel 90.00 07/25/22 11:00 93 24 136/85 (102) 98 NIV Bilevel 90.00 07/25/22 10:09 71 19 95 80.00 07/25/22 10:00 70 11 146/85 (105) 95 NIV Bilevel 90.00 07/25/22 09:53 98 140/110 07/25/22 09:00 114 10 132/91 (105) 95 NIV Bilevel 90.00 07/25/22 08:00 98 NIV Bilevel 80 07/25/22 08:00 87 96 NIV Bilevel 90.00 07/25/22 07:55 36.2 07/25/22 07:39 77 18 96 80.00 07/25/22 07:00 65 07/25/22 07:00 84 12 96 NIV Bilevel 90.00 07/25/22 06:00 74 14 158/107 (124) 99 NIV Bilevel 90.00 07/25/22 05:00 84 13 160/127 (138) 97 NIV Bilevel 90.00 07/25/22 04:00 88 23 108/70 (83) 97 NIV Bilevel 90.00 07/25/22 04:00 98 NIV Bilevel 80 07/25/22 03:00 80 14 128/98 (108) 99 NIV Bilevel 90.00 07/25/22 02:54 68 26 96 80.00 07/25/22 02:00 76 21 141/86 (104) 97 NIV Bilevel 90.00 07/25/22 01:00 104 07/25/22 01:00 80 15 114/88 (97) 99 NIV Bilevel 90.00 07/25/22 00:48 35.9 07/25/22 00:00 86 30 123/99 (107) 99 NIV Bilevel 90.00 07/25/22 00:00 98 NIV Bilevel 80 07/24/22 23:00 60 17 130/92 (105) 100 NIV Bilevel 90.00 07/24/22 22:40 63 35 94 80.00 07/24/22 22:00 74 15 137/97 (110) 99 NIV Bilevel 90.00 07/24/22 21:00 62 20 142/84 (103) 98 NIV Bilevel 90.00 07/24/22 20:00 62 15 118/87 (97) 98 NIV Bilevel 90.00 07/24/22 20:00 98 NIV Bilevel 90 07/24/22 19:56 35.5 07/24/22 19:27 51 20 97 80.00 07/24/22 19:00 70 07/24/22 19:00 56 13 121/82 (95) 96 NIV Bilevel 90.00 07/24/22 18:36 74 133/86 07/24/22 18:19 35.8 78 19 145/70 (95) 97 NIV Bilevel 90.00 I & O 07/25/22 06:59 Intake Total 2400 ml Output Total 2175 ml Balance 225 ml Height & Weight Height: '" Weight: lbs. oz. kg; 29.37 BMI Method: General Appearance: No Apparent Distress, WD/WN, Chronically ill HEENT: PERRL/EOMI Neck: Non Tender, Supple Respiratory: No Accessory Muscle Use, No Respiratory Distress, Decreased Breath Sounds Cardiovascular: Regular Rate, Rhythm, Other (goes from a fib to sinus) Capillary Refill: Less Than 3 Seconds Gastrointestinal: normal bowel sounds, non tender, soft Extremity: No Pedal Edema Neurologic/Psychiatric: Disoriented Skin: Warm/Dry, Ecchymosis (Multiple scattered throughout extremities) Lymphatic: No Adenopathy Results Lab Laboratory Tests 07/24/22 03:15 07/25/22 04:22 Assessment/Plan Assessment/Plan severe agitation, Haldol 5 Geodon 20 will be reordered Critical Care: Critically Ill Patient Time spent with patient (mins): 10 LADARIUS CHAVEZ MD Jul 25, 2022 17:52
[2022-07-25] MEDS ORDERED: HALOPERIDOL 5 MG/ML (HALDOL) VIAL ONE (17:55)
[2022-07-25] MEDS ORDERED: HALOPERIDOL 5 MG/ML (HALDOL) VIAL IM ONE (18:00)
[2022-07-25] MEDS ORDERED: WATER (STERILE) FOR INJECTION 10 ML ONE (18:46)
[2022-07-25] MEDS: OLANZapine 5 MG ODT (ZyPREXA ZYDIS) PO SCH (20:36)
[2022-07-25] MEDS: MELATONIN 3 MG TABLET PO SCH (20:36)
[2022-07-25] MEDS: HYDROmorphone 2 MG/ML VIAL (DILAUDID) IV PRN (22:53)
[2022-07-26] MEDS: DexMEDEtomidine 250 ML DRIP 250 ML IV SCH ×3 (00:43→16:03)
[2022-07-26] MEDS: NS IV 1000 ML 1,000 ML IV SCH ×2 (00:43→11:04)
[2022-07-26] MEDS ORDERED: HALOPERIDOL 5 MG/ML (HALDOL) VIAL ONE (01:14)
[2022-07-26] MEDS ORDERED: HALOPERIDOL 5 MG/ML (HALDOL) VIAL IV ONE (01:15)
[2022-07-26] MEDS: RT-ALBUTEROL/IPRATROPIUM 3 ML (DUONEB) VIAL INH SCH ×2 (02:55→06:28)
[2022-07-26] MEDS: methylPREDNISolone 125 MG (Solu-MEDROL) VIAL IVP SCH ×4 (03:31→22:24)
[2022-07-26] MEDS: HYDROmorphone 2 MG/ML VIAL (DILAUDID) IV PRN ×2 (03:31→11:25)
[2022-07-26 03:58] LABS: BASOPHILS % (AUTO) 0 % (0-10); EOSINOPHILS % (AUTO) 0 % (0-10); HEMATOCRIT 35 % (40-54); HEMOGLOBIN 10.3 g/dL (13.3-17.7); LYMPHOCYTES # (AUTO) 0.3 10^3/uL (1.0-4.0); LYMPHOCYTES % (AUTO) 3 % (12-44); MEAN CORPUSCULAR HEMOGLOBIN 30 pg (25-34); MEAN CORPUSCULAR HGB CONC 29 g/dL (32-36); MEAN CORPUSCULAR VOLUME 104 fL (80-99); MONOCYTES # (AUTO) 0.4 10^3/uL (0.0-1.0); MONOCYTES % (AUTO) 4 % (0-12); NEUTROPHILS # (AUTO) 9.4 10^3/uL (1.8-7.8); NEUTROPHILS % (AUTO) 92 % (42-75); PLATELET COUNT 181 10^3/uL (130-400); WHITE BLOOD COUNT 10.2 10^3/uL (4.3-11.0)
[2022-07-26 04:28] LABS: ALANINE AMINOTRANSFERASE 15 U/L (0-55); ALBUMIN 2.8 GM/DL (3.2-4.5); ALKALINE PHOSPHATASE 39 U/L (40-136); BILIRUBIN,TOTAL 0.4 MG/DL (0.1-1.0); BUN/CREATININE RATIO 38; CALCIUM 8.4 MG/DL (8.5-10.1); CARBON DIOXIDE 26 MMOL/L (21-32); CHLORIDE 106 MMOL/L (98-107); GFR ESTIMATED 68; GLUCOSE 149 MG/DL (70-105); MAGNESIUM 1.8 MG/DL (1.6-2.4); PHOSPHORUS 4.1 MG/DL (2.3-4.7); POTASSIUM 4.7 MMOL/L (3.6-5.0); SODIUM 147 MMOL/L (135-145); TOTAL PROTEIN 5.4 GM/DL (6.4-8.2)
[2022-07-26] MEDS: MAGNESIUM 1 GM/100 ML IVPB 100 ML IV SCH (06:12)
[2022-07-26] MEDS: KCL 20 MEQ TAB (K-DUR) PO SCH (06:12)
[2022-07-26] MEDS: POTASSIUM CL 10MEQ/50ML IVPB 50 ML IV SCH (06:12)
--- NOTE | 2022-07-26 06:15 | Progress Note - Hospitalist ---
Subjective HPI/CC On Admission Date Seen by Provider: Jul 26, 2022 Time Seen by Provider: 11:30 CC: Respiratory failure HPI: This is a [facility] halfway pt who presented to the ICU from [place] [facility] from the halfway with acute respiratory failure. He required BiPAP due to hypercapnia. At this current time pt is unable to provide any history. We will initiate Zosyn and Vanc, empiric coverage for pneumonia on chest x-ray. Dr. Kaufman will be consulted for volume overload. Subjective/Events-last exam No changes BiPAP dependence noted No pain Review of Systems General: Fatigue, Malaise Neurological: Confusion Objective Exam Vital Signs Vital Signs Date Time Temp Pulse Resp B/P (MAP) Pulse Ox O2 Delivery O2 Flow Rate FiO2 07/26/22 16:03 67 130/83 07/26/22 16:00 35.9 07/26/22 16:00 12 95 NIV Bilevel 70.00 07/26/22 12:00 70 Capillary Refill : Less Than 3 Seconds General Appearance: No Apparent Distress, WD/WN, Chronically ill, Other (BiPAP) Respiratory: Lungs Clear, Normal Breath Sounds Cardiovascular: Regular Rate, Rhythm Neurologic/Psychiatric: Disoriented Results/Procedures Lab Laboratory Tests 07/26/22 03:50 Patient resulted labs reviewed. Assessment/Plan Assessment and Plan Assess & Plan/Chief Complaint Assessment: 1. Acute respiratory failure with hypoxia and hypercapnia: BiPAP no longer required, but continue to monitor patient's respiratory status with repeat ABGs. Continue vancomycin, Zosyn. Continue nebulizers, steroids 2. COPD exacerbation: Continue nebulizers, steroids 3. CHF: Continue Lasix 4. HTN, Pulmonary HTN: Continue home meds 5. Hx of PE: Continue Xarelto, aspirin regimen. 6. Dementia Plan: DNR Prognosis poor Remains BiPAP dependent Critical Care Critically Ill Patient DEL REALROSIBEL MERCADOBrianna ERICKSON Jul 26, 2022 06:15
[2022-07-26 06:28] VITALS: BP 127/82
[2022-07-26] MEDS: MULTIVIT W/MINERALS TAB (THERAGRAN M) PO SCH (08:07)
[2022-07-26] MEDS: QUEtiapine 25 MG (SEROquel) TAB IMMEDIATE RELEASE PO SCH (08:07)
[2022-07-26] MEDS: DOCUSATE SODIUM 100 MG (COLACE) CAP PO SCH ×2 (08:07→22:25)
[2022-07-26] MEDS: FERROUS SULF 325 MG (IRON) TAB PO SCH (08:07)
[2022-07-26] MEDS: ASPIRIN 81 MG CHEW (CHILDREN'S ASA) PO SCH (08:07)
[2022-07-26] MEDS: FUROSEMIDE 40 MG (LASIX) TAB PO SCH (08:07)
[2022-07-26] MEDS: MIDODRINE 10 MG (PROAMATINE) TAB PO SCH ×3 (08:07→17:00)
[2022-07-26] MEDS: TAMSULOSIN 0.4 MG (FLOMAX) CAP PO SCH (08:08)
[2022-07-26] MEDS: MICONAZOLE 2% POWDER (DESENEX AF) 90 GM TOP SCH ×2 (08:08→22:25)
[2022-07-26] MEDS: NS IV 500 ML 500 ML IV SCH (08:26)
--- NOTE | 2022-07-26 09:28 | Tele-ICU Progress Note ---
Progress Note video rounds completed 82 y/o male admitted from [place] with PNA On zosyn and vanc Treated with BIPAP for hypercarbic respiratory failure. HAs underlying dementia PE: resting comfortably with BIPAP 70% HR: a fib 105-112 BP: 132/80 O2 sat: 94% IMP: hypercarbic respiratory failure and PNA PLAN: respiratory support with BIPAP And antibiotics Focused Exam Height, Weight, BMI Height: '" Weight: lbs. oz. kg; 30.41 BMI Method: Labs Laboratory Tests 07/26/22 03:50 Results Results/Procedures Lab Laboratory Tests 07/25/22 04:22 07/26/22 03:50 Results Labs Labs Laboratory Tests 07/25/22 10:29: Glucometer 145H 07/25/22 16:09: Glucometer 287H 07/25/22 21:36: Glucometer 270H 07/26/22 03:50: White Blood Count 10.2, Red Blood Count 3.39L, Hemoglobin 10.3L, Hematocrit 35L, Mean Corpuscular Volume 104H, Mean Corpuscular Hemoglobin 30, Mean Corpuscular Hemoglobin Concent 29L, Red Cell Distribution Width 18.6H, Platelet Count 181, Mean Platelet Volume 11.0, Immature Granulocyte % (Auto) 1, Neutrophils (%) (Auto) 92H, Lymphocytes (%) (Auto) 3L, Monocytes (%) (Auto) 4, Eosinophils (%) (Auto) 0, Basophils (%) (Auto) 0, Neutrophils # (Auto) 9.4H, Lymphocytes # (Auto) 0.3L, Monocytes # (Auto) 0.4, Eosinophils # (Auto) 0.0, Basophils # (Auto) 0.0, Immature Granulocyte # (Auto) 0.1, Sodium Level 147H, Potassium Level 4.7, Chloride Level 106, Carbon Dioxide Level 26, Anion Gap 15H, Blood Urea Nitrogen 42H, Creatinine 1.10, Estimat Glomerular Filtration Rate 68, BUN/Creatinine Ratio 38, Glucose Level 149H, Calcium Level 8.4L, Corrected Calcium 9.4, Phosphorus Level 4.1, Magnesium Level 1.8, Total Bilirubin 0.4, Aspartate Amino Transf (AST/SGOT) 25, Alanine Aminotransferase (ALT/SGPT) 15, Alkaline Phosphatase 39L, Total Protein 5.4L, Albumin 2.8L, Digoxin Level < 0.30L Microbiology 11/28/22 Urine Culture - Final, Complete Proteus mirabilis 07/20/22 Blood Culture - Preliminary, Resulted No growth LADARIUS BLAKELY MD Jul 26, 2022 09:28
[2022-07-26 10:16] VITALS: BP 136/89
[2022-07-26 10:48] VITALS: BP 136/89
--- NOTE | 2022-07-26 13:56 | Progress Note - Cardiology ---
Cardiology SOAP Progress Note Subjective: on BiPAP He does not answer questions or communicate Objective: I&O/Vital Signs 07/26/22 07/26/22 07/26/22 07/26/22 02:00 02:55 03:00 03:37 Pulse 86 97 89 Resp 17 16 11 B/P (MAP) 131/83 (99) 141/93 (109) Pulse Ox 93 98 97 97 O2 Delivery NIV Bilevel NIV Bilevel NIV Bilevel O2 Flow Rate 70.00 70.00 70.00 FiO2 70 07/26/22 07/26/22 07/26/22 07/26/22 04:00 04:00 05:00 06:00 Temp 36.3 Pulse 99 82 90 Resp 16 18 22 B/P (MAP) 129/86 (100) 121/90 (100) 127/82 (97) Pulse Ox 90 95 96 O2 Delivery NIV Bilevel NIV Bilevel NIV Bilevel O2 Flow Rate 70.00 70.00 70.00 07/26/22 07/26/22 07/26/22 07/26/22 06:28 07:00 07:00 07:50 Temp 36.4 Pulse 103 111 116 Resp 19 18 B/P (MAP) 117/72 (87) Pulse Ox 94 O2 Delivery NIV Bilevel O2 Flow Rate 70.00 70.00 07/26/22 07/26/22 07/26/22 07/26/22 08:00 08:06 08:21 09:00 Pulse 93 89 93 Resp 14 B/P (MAP) 126/88 (101) 126/88 132/80 (97) Pulse Ox 94 92 94 O2 Delivery NIV Bilevel NIV Bilevel NIV Bilevel O2 Flow Rate 70.00 70.00 FiO2 70 07/26/22 07/26/22 07/26/22 07/26/22 10:00 10:16 10:48 11:00 Temp 36.4 Pulse 82 82 73 84 Resp 19 18 24 B/P (MAP) 136/89 (105) 144/80 (101) Pulse Ox 96 96 100 99 O2 Delivery NIV Bilevel NIV Bilevel O2 Flow Rate 70.00 100.00 70.00 FiO2 60 07/26/22 07/26/22 07/26/22 11:56 12:00 13:00 Temp 36.9 Pulse 78 90 Resp 16 B/P (MAP) 138/86 (103) Pulse Ox 96 O2 Delivery NIV Bilevel O2 Flow Rate 70.00 07/26/22 00:00 Intake Total 1960 ml Output Total 1400 ml Balance 560 ml Constitutional: other (confused, unable to communicate meaningfully) Respiratory: chest expansion is symmetric, chest is bilaterally symmetric, other (coarse breath sounds throughout, diminished lower lobes bilat) Cardiovascular: irregularly irregular; No JVD; S1 and S2, systolic murmur Gastrointestional: No tender; soft, audible bowel sounds Extremities: no lower extremity edema bilateral Neurologic/Psychiatric: No oriented x 3; other (mental status exam given above, moves all limbs equally) Skin: other (abrasions to bilat LE with dressing to LLE; multiple bruises to arms bilat) Results/Procedures: Labs Laboratory Tests 07/25/22 16:09: Glucometer 287H 07/25/22 21:36: Glucometer 270H 07/26/22 03:50: White Blood Count 10.2, Red Blood Count 3.39L, Hemoglobin 10.3L, Hematocrit 35L, Mean Corpuscular Volume 104H, Mean Corpuscular Hemoglobin 30, Mean Corpuscular Hemoglobin Concent 29L, Red Cell Distribution Width 18.6H, Platelet Count 181, Mean Platelet Volume 11.0, Immature Granulocyte % (Auto) 1, Neutrophils (%) (Auto) 92H, Lymphocytes (%) (Auto) 3L, Monocytes (%) (Auto) 4, Eosinophils (%) (Auto) 0, Basophils (%) (Auto) 0, Neutrophils # (Auto) 9.4H, Lymphocytes # ( Auto) 0.3L, Monocytes # (Auto) 0.4, Eosinophils # (Auto) 0.0, Basophils # (Auto) 0.0, Immature Granulocyte # (Auto) 0.1, Sodium Level 147H, Potassium Level 4.7, Chloride Level 106, Carbon Dioxide Level 26, Anion Gap 15H, Blood Urea Nitrogen 42H, Creatinine 1.10, Estimat Glomerular Filtration Rate 68, BUN/Creatinine Ratio 38, Glucose Level 149H, Calcium Level 8.4L, Corrected Calcium 9.4, Phosphorus Level 4.1, Magnesium Level 1.8, Total Bilirubin 0.4, Aspartate Amino Transf (AST/SGOT) 25, Alanine Aminotransferase (ALT/SGPT) 15, Alkaline Phosphatase 39L, Total Protein 5.4L, Albumin 2.8L, Digoxin Level < 0.30L 07/26/22 10:30: Glucometer 165H Microbiology 07/20/22 Urine Culture - Final, Complete Proteus mirabilis 07/20/22 Blood Culture - Preliminary, Resulted No growth Laboratory Tests 07/25/22 04:22 07/26/22 03:50 A/P: Assessment: Respiratory failure with hypoxia - likely multifactorial d/t acute on chronic diastolic CHF, acute on chronic exacerbation of COPD, SHANNAN and pneumonia New onset a-fib with RVR per tele on 07-22-22 - OAC with Xarelto - rate controlled Confusion and dementia Very hard of hearing CAD - records from [facility] in [place], [place] of 2021 state h/o PCI (details unknown) Acute on chronic diastolic CHF - compensated - Echocardiogram of 06-25-[address] [facility] in [place], [place] by Dr. Bhatia showed LVEF 60%. Mild RV dilatation. No signif valvular abnormalities - Echocardiogram of 06-30-22 showed LVEF 50-55%. Grade 1 diastolic dysfunction. LA and RA mildly dilated Document h/o PE per [facility] records - details unknown - has been maintained on OAC with Eliquis as out pt Acute renal insufficiency - likely d/t aggressive diuresis - renal function improved following reduction in diuretics HTN SHANNAN H/O COPD H/O pulmonary HTN Plan: * ASA for CAD * Xarelto for stroke prophylaxis * Dig/Dilt as needed for vent rate control (rate is currently controlled) * Dig level checked - acceptable (less than 1) * Midodrine for mild hypotension, currently controlled * eICU and Hosp svces managing resp failure / pneumonia and AMS * Renal function has improved * Monitor labs LAURA LOWERY MD FACP FAC CCDS Jul 26, 2022 13:55
[2022-07-26] MEDS: RIVAROXABAN 20 MG TABLET (XARELTO) PO SCH (17:00)
[2022-07-26] MEDS ORDERED: morphine INJ 10 MG/ML 1ML (SYR OR VIAL) IVP PRN (17:45)
[2022-07-26] MEDS ORDERED: ZIPRASIDONE 20 MG INJ (GEODON) VIAL IM PRN (17:45)
[2022-07-26] MEDS ORDERED: WATER (STERILE) FOR INJ 10 ML BTL INJ SCH (17:45)
[2022-07-26] MEDS: RT-ALBUTEROL/IPRATROPIUM 3 ML (DUONEB) VIAL INH PRN (19:20)
[2022-07-26] MEDS ORDERED: HYDROmorphone 2 MG/ML VIAL (DILAUDID) IV PRN (19:45)
[2022-07-26] MEDS: OLANZapine 5 MG ODT (ZyPREXA ZYDIS) PO SCH ×2 (22:25→22:26)
[2022-07-26] MEDS: MELATONIN 3 MG TABLET PO SCH (22:25)
[2022-07-26 23:49] VITALS: BP 112/62
[2022-07-27] VITALS (7 sets, daily range): BP systolic 97–134; BP diastolic 53–66
[2022-07-27] MEDS: methylPREDNISolone 125 MG (Solu-MEDROL) VIAL IVP SCH ×3 (03:17→14:56)
[2022-07-27] MEDS: MULTIVIT W/MINERALS TAB (THERAGRAN M) PO SCH (05:50)
[2022-07-27 05:51] LABS: BASOPHILS % (AUTO) 0 % (0-10); EOSINOPHILS % (AUTO) 0 % (0-10); HEMATOCRIT 38 % (40-54); HEMOGLOBIN 11.2 g/dL (13.3-17.7); LYMPHOCYTES # (AUTO) 0.2 10^3/uL (1.0-4.0); LYMPHOCYTES % (AUTO) 1 % (12-44); MEAN CORPUSCULAR HEMOGLOBIN 30 pg (25-34); MEAN CORPUSCULAR HGB CONC 29 g/dL (32-36); MEAN CORPUSCULAR VOLUME 104 fL (80-99); MEAN PLATELET VOLUME 10.9 fL (9.0-12.2); MONOCYTES # (AUTO) 0.5 10^3/uL (0.0-1.0); MONOCYTES % (AUTO) 3 % (0-12); NEUTROPHILS # (AUTO) 17.4 10^3/uL (1.8-7.8); NEUTROPHILS % (AUTO) 96 % (42-75); PLATELET COUNT 264 10^3/uL (130-400); WHITE BLOOD COUNT 18.1 10^3/uL (4.3-11.0)
[2022-07-27 06:12] LABS: ALBUMIN 3.1 GM/DL (3.2-4.5); BILIRUBIN,TOTAL 0.5 MG/DL (0.1-1.0); CALCIUM 8.9 MG/DL (8.5-10.1); CREATININE SERUM 1.19 MG/DL (0.60-1.30); MAGNESIUM 1.9 MG/DL (1.6-2.4); POTASSIUM 3.8 MMOL/L (3.6-5.0); TOTAL PROTEIN 5.6 GM/DL (6.4-8.2)
[2022-07-27 06:41] LABS: ANISOCYTOSIS MODERATE; LYMPHOCYTES % (MANUAL) 2 %; MICROCYTOSIS SLIGHT; MONOCYTES % (MANUAL) 1 %; NEUTROPHILS % (MANUAL) 97 %; POIKILOCYTOSIS SLIGHT
[2022-07-27] MEDS: TAMSULOSIN 0.4 MG (FLOMAX) CAP PO SCH (09:57)
[2022-07-27] MEDS: ASPIRIN 81 MG CHEW (CHILDREN'S ASA) PO SCH (09:57)
[2022-07-27] MEDS: FERROUS SULF 325 MG (IRON) TAB PO SCH (09:57)
[2022-07-27] MEDS: FUROSEMIDE 40 MG (LASIX) TAB PO SCH (09:57)
[2022-07-27] MEDS: QUEtiapine 25 MG (SEROquel) TAB IMMEDIATE RELEASE PO SCH (09:58)
[2022-07-27] MEDS: MICONAZOLE 2% POWDER (DESENEX AF) 90 GM TOP SCH ×2 (09:58→20:10)
[2022-07-27] MEDS: DOCUSATE SODIUM 100 MG (COLACE) CAP PO SCH ×2 (09:58→20:09)
[2022-07-27] MEDS: MIDODRINE 10 MG (PROAMATINE) TAB PO SCH ×3 (09:58→17:35)
--- NOTE | 2022-07-27 10:49 | Progress Note - Cardiology ---
Cardiology SOAP Progress Note Subjective: Lying in bed Increasing SOB since coming off Bi-pap to eat breakfast Confused Objective: I&O/Vital Signs 07/27/22 07/27/22 07/27/22 07/28/22 19:52 20:15 21:47 00:58 Temp 37.4 36.5 Pulse 101 93 98 Resp 16 24 16 B/P (MAP) 129/56 (80) 125/68 (87) Pulse Ox 97 95 93 O2 Delivery NIV Bilevel NIV Bilevel NIV Bilevel O2 Flow Rate 50.00 50.00 50.00 16.00 16.00 FiO2 50 07/28/22 07/28/22 07/28/22 02:55 04:13 06:28 Temp 36.2 Pulse 104 87 94 Resp 21 20 17 B/P (MAP) 132/70 (90) Pulse Ox 96 97 100 O2 Delivery NIV Bilevel O2 Flow Rate 50.00 50.00 50.00 16.00 07/28/22 00:00 Intake Total 1816 ml Output Total 625 ml Balance 1191 ml Constitutional: other (confused, unable to communicate meaningfully) Respiratory: chest expansion is symmetric, chest is bilaterally symmetric, other (coarse breath sounds throughout, diminished lower lobes bilat) Cardiovascular: irregularly irregular; No JVD; S1 and S2, systolic murmur Gastrointestional: No tender; soft, audible bowel sounds Extremities: no lower extremity edema bilateral Neurologic/Psychiatric: No oriented x 3; other (mental status exam given above, moves all limbs equally) Skin: other (abrasions to bilat LE with dressing to LLE; multiple bruises to arms bilat) Results/Procedures: Labs Laboratory Tests 07/27/22 10:33: Glucometer 162H 07/27/22 15:52: Glucometer 247H 07/27/22 20:00: Glucometer 268H 07/28/22 05:15: White Blood Count 16.4H, Red Blood Count 3.36L, Hemoglobin 9.9L, Hematocrit 34L, Mean Corpuscular Volume 101H, Mean Corpuscular Hemoglobin 30, Mean Corpuscular Hemoglobin Concent 29L, Red Cell Distribution Width 18.7H, Platelet Count 218, Mean Platelet Volume 10.8, Immature Granulocyte % (Auto) 1, Neutrophils (%) (Auto) 93H, Lymphocytes (%) (Auto) 2L, Monocytes (%) (Auto) 4, Eosinophils (%) (Auto) 0, Basophils (%) (Auto) 0, Neutrophils # (Auto) 15.2H, Lymphocytes # (Auto) 0.4L, Monocytes # (Auto) 0.7, Eosinophils # (Auto) 0.0, Basophils # (Auto) 0.0, Immature Granulocyte # (Auto) 0.1, Sodium Level 142, Potassium Level 4.0, Chloride Level 100, Carbon Dioxide Level 31, Anion Gap 11, Blood Urea Nitrogen 70H, Creatinine 1.60H, Estimat Glomerular Filtration Rate 43, BUN/Creatinine Ratio 44, Glucose Level 143H, Calcium Level 8.5, Corrected Calcium 9.4, Magnesium Level 1.7, Total Bilirubin 0.5, Aspartate Amino Transf (AST/SGOT) 11, Alanine Aminotransferase (ALT/SGPT) 10, Alkaline Phosphatase 49, Total Protein 5.1L, Albumin 2.9L, Digoxin Level 0.52L Microbiology 07/20/22 Urine Culture - Final, Complete Proteus mirabilis 07/20/22 Blood Culture - Final, Complete No growth A/P: Assessment: Respiratory failure with hypoxia - likely multifactorial d/t acute on chronic diastolic CHF, acute on chronic exacerbation of COPD, SHANNAN and pneumonia New onset a-fib with RVR per tele on 07-22-22 - OAC with Xarelto - rate controlled Confusion and dementia Very hard of hearing CAD - records from [facility] in [place], [place] of 2021 state h/o PCI (details unknown) Acute on chronic diastolic CHF - compensated - Echocardiogram of 06-25-22 at [facility] in [place], [place] by Dr. Bhatia showed LVEF 60%. Mild RV dilatation. No signif valvular abnormalities - Echocardiogram of 06-30-22 showed LVEF 50-55%. Grade 1 diastolic dysfunction. LA and RA mildly dilated Document h/o PE per [facility] records - details unknown - has been maintained on OAC with Eliquis as out pt Acute renal insufficiency - likely d/t aggressive diuresis - renal function improved following reduction in diuretics HTN SHANNAN H/O COPD H/O pulmonary HTN Plan: * ASA for CAD * Xarelto for stroke prophylaxis * Dig/Dilt as needed for vent rate control * Midodrine for mild hypotension, currently controlled * Hosp svces managing resp failure / pneumonia and AMS * Renal function has improved * Monitor labs ZOILA VALLE [facility] Jul 27, 2022 10:49
[2022-07-27] MEDS: RT-ALBUTEROL/IPRATROPIUM 3 ML (DUONEB) VIAL INH PRN (10:57)
[2022-07-27] MEDS ORDERED: DIGOXIN 0.25 MG/ML (LANOXIN) 2 ML AMP IV NR (11:00)
--- NOTE | 2022-07-27 17:30 | Progress Note - Cardiology ---
Cardiology SOAP Progress Note Subjective: Only minimally communicative Does not report cp or palp or syncope or shortness of breath at rest Some gen malaise Does not report n/v/d Objective: I&O/Vital Signs 07/27/22 07/27/22 07/27/22 07/27/22 07:06 07:09 08:00 08:00 Temp 36.7 Pulse 95 Resp 18 B/P (MAP) 101/66 (78) Pulse Ox 94 93 O2 Delivery High Flow N/C High Flow N/C High Flow N/C Nasal Cannula O2 Flow Rate 15.00 10.00 11.00 FiO2 15 07/27/22 07/27/22 07/27/22 07/27/22 10:25 10:50 10:58 11:03 Pulse 138 97 99 126 Resp 24 22 Pulse Ox 88 96 95 94 O2 Delivery High Flow N/C NIV Bilevel O2 Flow Rate 15.00 70.00 60.00 07/27/22 07/27/22 07/27/22 07/27/22 11:58 14:53 15:47 15:54 Temp 37.4 Pulse 127 115 Resp 18 21 B/P (MAP) 107/60 (76) Pulse Ox 94 93 94 O2 Delivery High Flow N/C O2 Flow Rate 15.00 60.00 50.00 07/27/22 15:56 Temp 37.0 Pulse 100 Resp 20 B/P (MAP) 97/53 (68) Pulse Ox 96 O2 Delivery NIV Bilevel O2 Flow Rate 50.00 16.00 07/26/22 23:59 Intake Total 350 ml Output Total 2150 ml Balance -1800 ml Constitutional: other (on BiPAP, hard or hearing, mildly confused) Respiratory: chest expansion is symmetric, chest is bilaterally symmetric, other (coarse breath sounds throughout, diminished lower lobes bilat) Cardiovascular: irregularly irregular; No JVD; S1 and S2, systolic murmur Gastrointestional: No tender; soft, audible bowel sounds Extremities: no lower extremity edema bilateral Neurologic/Psychiatric: No oriented x 3; other (mental status exam given above, moves all limbs equally) Skin: other (abrasions to bilat LE with dressing to LLE; multiple bruises to arms bilat) Results/Procedures: Labs Laboratory Tests 07/26/22 20:55: Glucometer 166H 07/27/22 05:06: Glucometer 221H 07/27/22 05:35: White Blood Count 18.1H, Red Blood Count 3.68L, Hemoglobin 11.2L, Hematocrit 38L , Mean Corpuscular Volume 104H, Mean Corpuscular Hemoglobin 30, Mean Corpuscular Hemoglobin Concent 29L, Red Cell Distribution Width 18.6H, Platelet Count 264, Mean Platelet Volume 10.9, Immature Granulocyte % (Auto) 0, Neutrophils (%) (Auto) 96H, Lymphocytes (%) (Auto) 1L, Monocytes (%) (Auto) 3, Eosinophils (%) (Auto) 0, Basophils (%) (Auto) 0, Neutrophils # (Auto) 17.4H, Lymphocytes # (A uto) 0.2L, Monocytes # (Auto) 0.5, Eosinophils # (Auto) 0.0, Basophils # (Auto) 0.0, Immature Granulocyte # (Auto) 0.1, Neutrophils % (Manual) 97, Lymphocytes % (Manual) 2, Monocytes % (Manual) 1, Poikilocytosis SLIGHT, Anisocytosis MODERATE, Microcytosis SLIGHT, Macrocytosis SLIGHT, Sodium Level 143, Potassium Level 3.8, Chloride Level 101, Carbon Dioxide Level 29, Anion Gap 13, Blood Urea Nitrogen 43H, Creatinine 1.19, Estimat Glomerular Filtration Rate 62, BUN/C reatinine Ratio 36, Glucose Level 191H, Calcium Level 8.9, Corrected Calcium 9. 6, Magnesium Level 1.9, Total Bilirubin 0.5, Aspartate Amino Transf (AST/SGOT) 10, Alanine Aminotransferase (ALT/SGPT) 13, Alkaline Phosphatase 46, Total Protein 5.6L, Albumin 3.1L 07/27/22 10:33: Glucometer 162H 07/27/22 15:52: Glucometer 247H Microbiology 07/20/22 Urine Culture - Final, Complete Proteus mirabilis 07/20/22 Blood Culture - Final, Complete No growth Laboratory Tests 07/26/22 03:50 07/27/22 05:35 A/P: Assessment: Respiratory failure with hypoxia - likely multifactorial d/t acute on chronic diastolic CHF, acute on chronic exacerbation of COPD, SHANNAN and pneumonia New onset a-fib with RVR per tele on 07-22-22 - OAC with Xarelto - rate controlled Confusion and dementia Very hard of hearing CAD - records from [facility] in [place], [place] of 2021 state h/o PCI (details unknown) Acute on chronic diastolic CHF - compensated - Echocardiogram of 06-25-22 at [facility] in [place], [place] by Dr. Sriram cabello wed LVEF 60%. Mild RV dilatation. No signif valvular abnormalities - Echocardiogram of 06-30-22 showed LVEF 50-55%. Grade 1 diastolic dysfunction. LA and RA mildly dilated Document h/o PE per [facility] records - details unknown - has been maintained on OAC with Eliquis as out pt Acute renal insufficiency - likely d/t aggressive diuresis - renal function improved following reduction in diuretics HTN SHANNAN H/O COPD H/O pulmonary HTN Plan: * ASA for CAD * Xarelto for stroke prophylaxis * Dig/Dilt as needed for vent rate control * Midodrine for mild hypotension, currently controlled * Hosp svces managing resp failure / pneumonia and AMS * Renal function has improved * Monitor labs LAURA LOWERY MD FACP [facility] Jul 27, 2022 17:30
[2022-07-27] MEDS: RIVAROXABAN 20 MG TABLET (XARELTO) PO SCH (17:35)
--- NOTE | 2022-07-27 18:56 | Progress Note ---
Subjective Subjective/Events-last exam Pt is on bipap, able to answer one word at a time, able to state name and answer "hospital" for location. Objective Exam Last Set of Vital Signs Vital Signs Date Time Temp Pulse Resp B/P (MAP) Pulse Ox O2 Delivery O2 Flow Rate FiO2 07/27/22 15:56 37.0 100 20 97/53 (68) 96 NIV Bilevel 50.00 16.00 07/27/22 08:00 15 Capillary Refill : Less Than 3 Seconds I&O Intake and Output 07/26/22 23:59 Intake Total 2700 ml Output Total 3025 ml Balance -325 ml Intake Oral 200 ml IV Total 2500 ml Output Urine Total 3025 ml General: Alert, Mild Distress Lungs: Other (decreased air movement) Heart: Other (tachycardic) Extremities: No Edema Results/Procedures Lab Laboratory Tests 07/26/22 20:55: Glucometer 166H 07/27/22 05:06: Glucometer 221H 07/27/22 05:35: White Blood Count 18.1H, Red Blood Count 3.68L, Hemoglobin 11.2L, Hematocrit 38L , Mean Corpuscular Volume 104H, Mean Corpuscular Hemoglobin 30, Mean Corpuscular Hemoglobin Concent 29L, Red Cell Distribution Width 18.6H, Platelet Count 264, Mean Platelet Volume 10.9, Immature Granulocyte % (Auto) 0, Neutrophils (%) (Auto) 96H, Lymphocytes (%) (Auto) 1L, Monocytes (%) (Auto) 3, Eosinophils (%) (Auto) 0, Basophils (%) (Auto) 0, Neutrophils # (Auto) 17.4H, Lymphocytes # (Auto) 0.2L, Monocytes # (Auto) 0.5, Eosinophils # (Auto) 0.0, Basophils # (Auto) 0.0, Immature Granulocyte # (Auto) 0.1, Neutrophils % (Manual) 97, Lymphocytes % (Manual) 2, Monocytes % (Manual) 1, Poikilocytosis SLIGHT, Anisocytosis MODERATE, Microcytosis SLIGHT, Macrocytosis SLIGHT, Sodium Level 143, Potassium Level 3.8, Chloride Level 101, Carbon Dioxide Level 29, Anion Gap 13, Blood Urea Nitrogen 43H, Creatinine 1.19, Estimat Glomerular Filtration Rate 62, BUN/Creatinine Ratio 36, Glucose Level 191H, Calcium Level 8.9, Corrected Calcium 9.6, Magnesium Level 1.9, Total Bilirubin 0.5, Aspartate Amino Transf (AST/SGOT) 10, Alanine Aminotransferase (ALT/SGPT) 13, Alkaline Phosphatase 46, Total Protein 5.6L, Albumin 3.1L 07/27/22 10:33: Glucometer 162H 07/27/22 15:52: Glucometer 247H Microbiology 07/20/22 Urine Culture - Final, Complete Proteus mirabilis 07/20/22 Blood Culture - Final, Complete No growth Radiology NAME: LAURIE JOHNSON [facility] REC#: [id number] PT STATUS: REG ER : 1940 PHYSICIAN: SIGRID MARIE DO ADMIT DATE: 07/20/22/ER FS Signed Date of Exam:07/20/22 CHEST 1 VIEW AP/PA ONLY EXAMINATION: Chest radiograph, portable AP view. DATE: 07/20/2022 7:59 AM INDICATION: 82-year-old male, shortness of breath. COMPARISON: None. FINDINGS: Heart size is grossly unremarkable. There is no identified pneumothorax. There is nonspecific right basilar airspace consolidation and blunting of the right lateral costophrenic angle. There are streaky opacities in the left medial lung base. There is a chronic appearing deformity of the left proximal humerus. There is advanced left glenohumeral arthritis with probable intra-articular body in the subscapularis recess. There is a right shoulder prosthesis noted. IMPRESSION: 1. Nonspecific bibasilar airspace consolidation right greater than left which may relate to infiltrate, effusions, and/or atelectasis. Dictated by: Dictated on workstation # [id number] Dict: 07/20/22 [id number] Trans: 07/20/22937 CV [id number] Interpreted by: ZOYA BARRETO MD Electronically signed by: ZOYA BARRETO MD 07/20/22937 Assessment/Plan Assessment/Plan Assessment & Plan Respiratory failure with hypoxia - secondary to acute on chronic diastolic CHF, acute on chronic exacerbation of COPD, SHANNAN and pneumonia. Remains dependent on bipap. COPD exacerbation- duonebs, has been on solumedrol 62.5 mg IV q6 since 07/20, but still remains bipap dependent, will taper steroid. Pneumonia- bibasilar consolidations on CXR, right greater than left, treated with Zosyn 07/20-07/25 and vancomycin 07/20-07/22 A-fib with RVR- Cardiology consulted, anticoagulated with Xarelto, rate controlled. Confusion and dementia- uncertain baseline, attempted to review clinic notes, but he has no encounters in our clinic. No family at bedside, will try to call family for more detail. CAD with reported history of percutaneous intervention Acute on chronic diastolic CHF- Cardiology consulted, appreciate recommendations. Echo 06/25/22 at [facility] EF 60%, Echo 06/30/22 EF 50-55%, grade 1 diastolic dysfunction h/o PE per [facility]'s records- on Eliquis Acute renal insufficiency- likely secondary to diuresis, improved HTN SHANNAN H/O pulmonary HTN ANNALISE MESSER MD Jul 27, 2022 18:55
[2022-07-27] MEDS: DexMEDEtomidine 250 ML DRIP 250 ML IV SCH (19:35)
[2022-07-27] MEDS: MELATONIN 3 MG TABLET PO SCH (20:10)
[2022-07-27] MEDS: OLANZapine 5 MG ODT (ZyPREXA ZYDIS) PO SCH ×2 (20:10→20:12)
[2022-07-28] VITALS (7 sets, daily range): BP systolic 94–138; BP diastolic 61–74
[2022-07-28] MEDS: methylPREDNISolone 125 MG (Solu-MEDROL) VIAL IVP SCH ×2 (03:33→15:54)
[2022-07-28 05:38] LABS: BASOPHILS % (AUTO) 0 % (0-10); EOSINOPHILS % (AUTO) 0 % (0-10); HEMATOCRIT 34 % (40-54); HEMOGLOBIN 9.9 g/dL (13.3-17.7); LYMPHOCYTES # (AUTO) 0.4 10^3/uL (1.0-4.0); LYMPHOCYTES % (AUTO) 2 % (12-44); MEAN CORPUSCULAR HEMOGLOBIN 30 pg (25-34); MEAN CORPUSCULAR HGB CONC 29 g/dL (32-36); MEAN CORPUSCULAR VOLUME 101 fL (80-99); MEAN PLATELET VOLUME 10.8 fL (9.0-12.2); MONOCYTES # (AUTO) 0.7 10^3/uL (0.0-1.0); MONOCYTES % (AUTO) 4 % (0-12); NEUTROPHILS # (AUTO) 15.2 10^3/uL (1.8-7.8); NEUTROPHILS % (AUTO) 93 % (42-75); PLATELET COUNT 218 10^3/uL (130-400); WHITE BLOOD COUNT 16.4 10^3/uL (4.3-11.0)
[2022-07-28 05:48] LABS: ALBUMIN 2.9 GM/DL (3.2-4.5)
[2022-07-28 05:49] LABS: CALCIUM 8.5 MG/DL (8.5-10.1)
[2022-07-28 05:51] LABS: TOTAL PROTEIN 5.1 GM/DL (6.4-8.2)
[2022-07-28 05:52] LABS: BILIRUBIN,TOTAL 0.5 MG/DL (0.1-1.0)
[2022-07-28 05:54] LABS: CREATININE SERUM 1.6 MG/DL (0.60-1.30)
[2022-07-28 05:57] LABS: MAGNESIUM 1.7 MG/DL (1.6-2.4)
[2022-07-28] MEDS: DIGOXIN 0.125 MG (LANOXIN) TAB PO SCH (08:35)
[2022-07-28] MEDS: FERROUS SULF 325 MG (IRON) TAB PO SCH (08:35)
[2022-07-28] MEDS: MIDODRINE 10 MG (PROAMATINE) TAB PO SCH ×3 (08:35→18:03)
[2022-07-28] MEDS: TAMSULOSIN 0.4 MG (FLOMAX) CAP PO SCH (08:35)
[2022-07-28] MEDS: ASPIRIN 81 MG CHEW (CHILDREN'S ASA) PO SCH (08:35)
[2022-07-28] MEDS: MULTIVIT W/MINERALS TAB (THERAGRAN M) PO SCH (08:35)
[2022-07-28] MEDS: FUROSEMIDE 40 MG (LASIX) TAB PO SCH (08:35)
[2022-07-28] MEDS: QUEtiapine 25 MG (SEROquel) TAB IMMEDIATE RELEASE PO SCH (08:36)
[2022-07-28] MEDS: DOCUSATE SODIUM 100 MG (COLACE) CAP PO SCH ×2 (08:36→20:56)
[2022-07-28] MEDS: MICONAZOLE 2% POWDER (DESENEX AF) 90 GM TOP SCH ×2 (08:36→21:04)
--- NOTE | 2022-07-28 12:04 | Progress Note - Cardiology ---
Cardiology SOAP Progress Note Subjective: Sitting up in bed Objective: I&O/Vital Signs 07/28/22 07/28/22 07/28/22 07/29/22 20:00 20:55 22:18 00:09 Temp 36.0 36.5 Pulse 90 103 92 Resp 20 17 20 B/P (MAP) 136/65 (88) 145/78 (100) Pulse Ox 97 100 97 O2 Delivery NIV Bilevel NIV Bilevel O2 Flow Rate 50.00 50.00 16.00 FiO2 50 07/29/22 07/29/22 03:28 07:38 Temp 36.2 36.5 Pulse 80 83 Resp 16 18 B/P (MAP) 121/61 (81) 133/75 (94) Pulse Ox 99 96 O2 Delivery NIV Bilevel Nasal Cannula O2 Flow Rate 50.00 8.00 16.00 07/29/22 00:00 Intake Total 1060 ml Output Total 2425 ml Balance -1365 ml Constitutional: other (on BiPAP, hard or hearing, mildly confused) Respiratory: chest expansion is symmetric, chest is bilaterally symmetric, other (coarse breath sounds throughout, diminished lower lobes bilat) Cardiovascular: irregularly irregular; No JVD; S1 and S2, systolic murmur Gastrointestional: No tender; soft, audible bowel sounds Extremities: no lower extremity edema bilateral Neurologic/Psychiatric: No oriented x 3; other (mental status exam given above, moves all limbs equally) Skin: other (abrasions to bilat LE with dressing to LLE; multiple bruises to arms bilat) Results/Procedures: Labs Laboratory Tests 07/28/22 11:10: Glucometer 200H 07/28/22 14:03: Lab Scanned Report Transfusion Reaction Form 07/28/22 16:01: Glucometer 170H 07/28/22 20:33: Glucometer 159H 07/29/22 05:34: White Blood Count 13.9H, Red Blood Count 3.55L, Hemoglobin 10.6L, Hematocrit 36L , Mean Corpuscular Volume 102H, Mean Corpuscular Hemoglobin 30, Mean Corpuscular Hemoglobin Concent 29L, Red Cell Distribution Width 18.4H, Platelet Count 235, Mean Platelet Volume 11.3, Immature Granulocyte % (Auto) 1, Neutrophils (%) (Auto) 94H, Lymphocytes (%) (Auto) 2L, Monocytes (%) (Auto) 3, Eosinophils (%) (Auto) 0, Basophils (%) (Auto) 0, Neutrophils # (Auto) 13.1H, Lymphocytes # (Auto) 0.3L, Monocytes # (Auto) 0.4, Eosinophils # (Auto) 0.0, Basophils # (Auto) 0.0, Immature Granulocyte # (Auto) 0.1, Sodium Level 142, Potassium Level 4.1, Chloride Level 97L, Carbon Dioxide Level 33H, Anion Gap 12, Blood Urea Nitrogen 61H, Creatinine 1.30, Estimat Glomerular Filtration Rate 56, BUN/Creatinine Ratio 47, Glucose Level 141H, Calcium Level 8.7, Corrected Calcium 9.6, Magnesium Level 1.8, Total Bilirubin 0.7, Aspartate Amino Transf (AST/SGOT) 12, Alanine Aminotransferase (ALT/SGPT) 15, Alkaline Phosphatase 48, Total Protein 5.2L, Albumin 2.9L 07/29/22 05:51: Glucometer 138H Microbiology 07/20/22 Urine Culture - Final, Complete Proteus mirabilis 07/20/22 Blood Culture - Final, Complete No growth A/P: Assessment: Respiratory failure with hypoxia - likely multifactorial d/t acute on chronic diastolic CHF, acute on chronic exacerbation of COPD, SHANNAN and pneumonia New onset a-fib with RVR per tele on 07-22-22 - OAC with Xarelto - rate controlled Confusion and dementia Very hard of hearing CAD - records from [facility] in [place], [place] of 2021 state h/o PCI (details unknown) Acute on chronic diastolic CHF - compensated - Echocardiogram of 06-25-[address] [facility] in [place], [place] by Dr. Bhatia showed LVEF 60%. Mild RV dilatation. No signif valvular abnormalities - Echocardiogram of 06-30-22 showed LVEF 50-55%. Grade 1 diastolic dysfunction. LA and RA mildly dilated Document h/o PE per [facility] records - details unknown - has been maintained on OAC with Eliquis as out pt Acute renal insufficiency - likely d/t aggressive diuresis - renal function improved following reduction in diuretics HTN SHANNAN H/O COPD H/O pulmonary HTN Plan: * ASA for CAD * Xarelto for stroke prophylaxis * Currently on digoxin for HR control - dig leevl acceptable at 0.52 - monitor closely * Midodrine for mild hypotension, currently controlled * Hosp svces managing resp failure / pneumonia and AMS * Monitor labs ZOILA VALLE Jul 28, 2022 12:04
[2022-07-28] MEDS: RIVAROXABAN 20 MG TABLET (XARELTO) PO SCH (15:54)
--- NOTE | 2022-07-28 17:12 | Progress Note - Cardiology ---
Cardiology SOAP Progress Note Subjective: On BiPAP. Does not communicate Objective: I&O/Vital Signs 07/28/22 07/28/22 07/28/22 07/28/22 06:28 08:00 08:00 12:00 Temp 36.5 36.0 Pulse 94 111 97 Resp 17 20 20 B/P (MAP) 138/66 (90) 131/74 (93) Pulse Ox 100 97 89 O2 Delivery NIV Bilevel High Flow N/C Nasal Cannula O2 Flow Rate 50.00 7.00 FiO2 10 07/28/22 00:00 Intake Total 1816 ml Output Total 625 ml Balance 1191 ml Constitutional: other (on BiPAP, non-communicative) Respiratory: chest expansion is symmetric, chest is bilaterally symmetric, other (coarse breath sounds throughout, diminished lower lobes bilat) Cardiovascular: irregularly irregular; No JVD; S1 and S2, systolic murmur Gastrointestional: No tender; soft, audible bowel sounds Extremities: no lower extremity edema bilateral Neurologic/Psychiatric: No oriented x 3; other (mental status exam given above, moves all limbs equally) Skin: other (abrasions to bilat LE with dressing to LLE; multiple bruises to arms bilat) Results/Procedures: Labs Laboratory Tests 07/27/22 20:00: Glucometer 268H 07/28/22 05:15: White Blood Count 16.4H, Red Blood Count 3.36L, Hemoglobin 9.9L, Hematocrit 34L, Mean Corpuscular Volume 101H, Mean Corpuscular Hemoglobin 30, Mean Corpuscular Hemoglobin Concent 29L, Red Cell Distribution Width 18.7H, Platelet Count 218, Mean Platelet Volume 10.8, Immature Granulocyte % (Auto) 1, Neutrophils (%) (Auto) 93H, Lymphocytes (%) (Auto) 2L, Monocytes (%) (Auto) 4, Eosinophils (%) (Auto) 0, Basophils (%) (Auto) 0, Neutrophils # (Auto) 15.2H, Lymphocytes # (Auto) 0.4L, Monocytes # (Auto) 0.7, Eosinophils # (Auto) 0.0, Basophils # (Auto) 0.0, Immature Granulocyte # (Auto) 0.1, Sodium Level 142, Potassium Level 4.0, Chloride Level 100, Carbon Dioxide Level 31, Anion Gap 11, Blood Urea Nitrogen 70H, Creatinine 1.60H, Estimat Glomerular Filtration Rate 43, BUN/Creatinine Ratio 44, Glucose Level 143H, Calcium Level 8.5, Corrected Calcium 9.4, Magnesium Level 1.7, Total Bilirubin 0.5, Aspartate Amino Transf (AST/SGOT) 11, Alanine Aminotransferase (ALT/SGPT) 10, Alkaline Phosphatase 49, Total Protein 5.1L, Albumin 2.9L, Digoxin Level 0.52L 07/28/22 11:10: Glucometer 200H 07/28/22 14:03: Lab Scanned Report Transfusion Reaction Form 07/28/22 16:01: Glucometer 170H Microbiology 07/20/22 Urine Culture - Final, Complete Proteus mirabilis 07/20/22 Blood Culture - Final, Complete No growth A/P: Assessment: Respiratory failure with hypoxia - likely multifactorial d/t acute on chronic diastolic CHF, acute on chronic exacerbation of COPD, SHANNAN and pneumonia New onset a-fib with RVR per tele on 07-22-22 - OAC with Xarelto - rate controlled Confusion and dementia Very hard of hearing CAD - records from [facility] in [place], [place] of 2021 state h/o PCI (details unknown) Acute on chronic diastolic CHF - compensated - Echocardiogram of 06-25-22 at [facility] in [place], [place] by Dr. Bhatia showed LVEF 60%. Mild RV dilatation. No signif valvular abnormalities - Echocardiogram of 06-30-22 showed LVEF 50-55%. Grade 1 diastolic dysfunction. LA and RA mildly dilated Document h/o PE per [facility] records - details unknown - has been maintained on OAC with Eliquis as out pt Acute renal insufficiency - likely d/t aggressive diuresis - renal function improved following reduction in diuretics HTN SHANNAN H/O COPD H/O pulmonary HTN Plan: * ASA for CAD * Xarelto for stroke prophylaxis * Currently on digoxin for HR control - dig level acceptable at 0.52 - monitor closely * Midodrine for mild hypotension, currently controlled * Hosp svces managing resp failure / pneumonia and AMS * Monitor labs LAURA LOWERY MD FACP [facility] Jul 28, 2022 17:12
[2022-07-28] MEDS: OLANZapine 5 MG ODT (ZyPREXA ZYDIS) PO SCH ×2 (20:56→21:00)
[2022-07-28] MEDS: MELATONIN 3 MG TABLET PO SCH (20:56)
--- NOTE | 2022-07-28 21:29 | Progress Note ---
Subjective Subjective/Events-last exam Pt seen at 1330. On high flow nasal cannula, breathing more easily today. Denies concerns. Able to answer name and location but doesn't answer other questions. Objective Exam Last Set of Vital Signs Vital Signs Date Time Temp Pulse Resp B/P (MAP) Pulse Ox O2 Delivery O2 Flow Rate FiO2 07/28/22 20:00 36.0 90 20 136/65 (88) 97 07/28/22 16:00 Nasal Cannula 7.00 7.00 07/28/22 08:00 10 Capillary Refill : Less Than 3 Seconds I&O Intake and Output 07/28/22 00:00 Intake Total 2516 ml Output Total 1575 ml Balance 941 ml Intake Oral 2516 ml Output Urine Total 1575 ml General: Alert, Mild Distress Lungs: Other (ronchi) Heart: Regular Rate Neuro: Other (answers name and some direct questions, but others does not respond to) Psych/Mental Status: Mood NL Results/Procedures Lab Laboratory Tests 07/28/22 05:15: White Blood Count 16.4H, Red Blood Count 3.36L, Hemoglobin 9.9L, Hematocrit 34L, Mean Corpuscular Volume 101H, Mean Corpuscular Hemoglobin 30, Mean Corpuscular Hemoglobin Concent 29L, Red Cell Distribution Width 18.7H, Platelet Count 218, Mean Platelet Volume 10.8, Immature Granulocyte % (Auto) 1, Neutrophils (%) (Auto) 93H, Lymphocytes (%) (Auto) 2L, Monocytes (%) (Auto) 4, Eosinophils (%) (Auto) 0, Basophils (%) (Auto) 0, Neutrophils # (Auto) 15.2H, Lymphocytes # (Auto) 0.4L, Monocytes # (Auto) 0.7, Eosinophils # (Auto) 0.0, Basophils # (Auto) 0.0, Immature Granulocyte # (Auto) 0.1, Sodium Level 142, Potassium Level 4.0, Chloride Level 100, Carbon Dioxide Level 31, Anion Gap 11, Blood Urea Nitrogen 70H, Creatinine 1.60H, Estimat Glomerular Filtration Rate 43, BUN/Creatinine Ratio 44, Glucose Level 143H, Calcium Level 8.5, Corrected C alcium 9.4, Magnesium Level 1.7, Total Bilirubin 0.5, Aspartate Amino Transf (AST/SGOT) 11, Alanine Aminotransferase (ALT/SGPT) 10, Alkaline Phosphatase 49, Total Protein 5.1L, Albumin 2.9L, Digoxin Level 0.52L 07/28/22 11:10: Glucometer 200H 07/28/22 14:03: Lab Scanned Report Transfusion Reaction Form 07/28/22 16:01: Glucometer 170H 07/28/22 20:33: Glucometer 159H Microbiology 07/20/22 Urine Culture - Final, Complete Proteus mirabilis 07/20/22 Blood Culture - Final, Complete No growth Radiology NAME: LAURIE JOHNSON [facility] REC#: [id number] PT STATUS: REG ER : 1940 PHYSICIAN: SIGRID MARIE DO ADMIT DATE: 07/20/22/ER FS Signed Date of Exam:07/20/22 CHEST 1 VIEW AP/PA ONLY EXAMINATION: Chest radiograph, portable AP view. DATE: 07/20/2022 7:59 AM INDICATION: 82-year-old male, shortness of breath. COMPARISON: None. FINDINGS: Heart size is grossly unremarkable. There is no identified pneumothorax. There is nonspecific right basilar airspace consolidation and blunting of the right lateral costophrenic angle. There are streaky opacities in the left medial lung base. There is a chronic appearing deformity of the left proximal humerus. There is advanced left glenohumeral arthritis with probable intra-articular body in the subscapularis recess. There is a right shoulder prosthesis noted. IMPRESSION: 1. Nonspecific bibasilar airspace consolidation right greater than left which may relate to infiltrate, effusions, and/or atelectasis. Dictated by: Dictated on workstation # [id number] Dict: 07/20/22 0759 Trans: 07/20/22937 CV [id number] Interpreted by: ZOYA BARRETO MD Electronically signed by: ZOYA BARRETO MD 07/20/2238 Assessment/Plan Assessment/Plan Assessment & Plan Respiratory failure with hypoxia - secondary to acute on chronic diastolic CHF, acute on chronic exacerbation of COPD, SHANNAN and pneumonia. Able to be on high flow nasal cannula most of the day today. COPD exacerbation- duonebs, has been on solumedrol 62.5 mg IV q6 since 07/20, but still remained bipap dependent, tapered to q12 on 07/27 Pneumonia- bibasilar consolidations on CXR, right greater than left, treated with Zosyn 07/20-07/25 and vancomycin 07/20-07/22 A-fib with RVR- Cardiology consulted, anticoagulated with Xarelto, rate controlled. Confusion and dementia- uncertain baseline, attempted to review clinic notes, but he has no encounters in our clinic. No family at bedside, will try to call family for more detail. CAD with reported history of percutaneous intervention Acute on chronic diastolic CHF- Cardiology consulted, appreciate recommendations. Echo 06/25/22 at [facility] EF 60%, Echo 06/30/22 EF 50-55%, grade 1 diastolic dysfunction h/o PE per [facility]'s records- on Eliquis Acute renal insufficiency- likely secondary to diuresis, improved HTN SHANNAN H/O pulmonary HTN ANNALISE MESSER MD Jul 28, 2022 21:29
[2022-07-29 00:09] VITALS: BP 145/78
[2022-07-29] MEDS: methylPREDNISolone 125 MG (Solu-MEDROL) VIAL IVP SCH ×2 (03:26→15:22)
[2022-07-29 03:28] VITALS: BP 121/61
[2022-07-29] MEDS: MULTIVIT W/MINERALS TAB (THERAGRAN M) PO SCH (05:48)
[2022-07-29 05:59] LABS: BASOPHILS % (AUTO) 0 % (0-10); EOSINOPHILS % (AUTO) 0 % (0-10); HEMATOCRIT 36 % (40-54); HEMOGLOBIN 10.6 g/dL (13.3-17.7); LYMPHOCYTES # (AUTO) 0.3 10^3/uL (1.0-4.0); LYMPHOCYTES % (AUTO) 2 % (12-44); MEAN CORPUSCULAR HEMOGLOBIN 30 pg (25-34); MEAN CORPUSCULAR HGB CONC 29 g/dL (32-36); MEAN CORPUSCULAR VOLUME 102 fL (80-99); MEAN PLATELET VOLUME 11.3 fL (9.0-12.2); MONOCYTES # (AUTO) 0.4 10^3/uL (0.0-1.0); MONOCYTES % (AUTO) 3 % (0-12); NEUTROPHILS # (AUTO) 13.1 10^3/uL (1.8-7.8); NEUTROPHILS % (AUTO) 94 % (42-75); PLATELET COUNT 235 10^3/uL (130-400); WHITE BLOOD COUNT 13.9 10^3/uL (4.3-11.0)
[2022-07-29 06:20] LABS: ALBUMIN 2.9 GM/DL (3.2-4.5); BILIRUBIN,TOTAL 0.7 MG/DL (0.1-1.0); CALCIUM 8.7 MG/DL (8.5-10.1); CREATININE SERUM 1.3 MG/DL (0.60-1.30); MAGNESIUM 1.8 MG/DL (1.6-2.4); POTASSIUM 4.1 MMOL/L (3.6-5.0); TOTAL PROTEIN 5.2 GM/DL (6.4-8.2)
[2022-07-29 07:38] VITALS: BP 133/75
[2022-07-29] MEDS: FERROUS SULF 325 MG (IRON) TAB PO SCH (08:15)
[2022-07-29] MEDS: QUEtiapine 25 MG (SEROquel) TAB IMMEDIATE RELEASE PO SCH (08:15)
[2022-07-29] MEDS: DOCUSATE SODIUM 100 MG (COLACE) CAP PO SCH ×2 (08:15→20:14)
[2022-07-29] MEDS: MIDODRINE 10 MG (PROAMATINE) TAB PO SCH ×3 (08:15→17:49)
[2022-07-29] MEDS: DIGOXIN 0.125 MG (LANOXIN) TAB PO SCH (08:15)
[2022-07-29] MEDS: TAMSULOSIN 0.4 MG (FLOMAX) CAP PO SCH (08:15)
[2022-07-29] MEDS: FUROSEMIDE 40 MG (LASIX) TAB PO SCH (08:16)
[2022-07-29] MEDS: MICONAZOLE 2% POWDER (DESENEX AF) 90 GM TOP SCH ×2 (08:16→20:15)
[2022-07-29] MEDS: ASPIRIN 81 MG CHEW (CHILDREN'S ASA) PO SCH (08:16)
[2022-07-29 11:17] VITALS: BP 129/71
--- NOTE | 2022-07-29 11:30 | Progress Note - Cardiology ---
Cardiology SOAP Progress Note Subjective: Currently on Bi-pap Objective: I&O/Vital Signs 07/29/22 07/30/22 07/30/22 07/30/22 20:57 00:40 02:26 04:20 Temp 36.2 36.3 Pulse 116 101 89 86 Resp 28 17 18 18 B/P (MAP) 124/73 (90) 142/80 (100) Pulse Ox 97 99 97 O2 Delivery NIV Bilevel NIV Bilevel O2 Flow Rate 35.00 35.00 25.00 16.00 07/30/22 07/30/22 07:22 08:00 Temp 35.4 Pulse 82 84 Resp 16 20 B/P (MAP) 172/77 (108) Pulse Ox 95 95 O2 Delivery NIV Bilevel O2 Flow Rate 25.00 07/30/22 00:00 Intake Total 1300 ml Output Total 2100 ml Balance -800 ml Constitutional: other (on BiPAP, non-communicative) Respiratory: chest expansion is symmetric, chest is bilaterally symmetric, other (coarse breath sounds throughout, diminished lower lobes bilat) Cardiovascular: irregularly irregular; No JVD; S1 and S2, systolic murmur Gastrointestional: No tender; soft, audible bowel sounds Extremities: no lower extremity edema bilateral Neurologic/Psychiatric: No oriented x 3; other (mental status exam given above, moves all limbs equally) Skin: other (abrasions to bilat LE with dressing to LLE; multiple bruises to arms bilat) Results/Procedures: Labs Laboratory Tests 07/29/22 10:51: Glucometer 243H 07/29/22 15:19: Glucometer 179H 07/29/22 20:29: Glucometer 367H 07/30/22 06:09: Glucometer 149H 07/30/22 06:10: White Blood Count 15.0H, Red Blood Count 3.61L, Hemoglobin 10.8L, Hematocrit 37L , Mean Corpuscular Volume 101H, Mean Corpuscular Hemoglobin 30, Mean Corpuscular Hemoglobin Concent 30L, Red Cell Distribution Width 18.4H, Platelet Count 251, Mean Platelet Volume 10.7, Immature Granulocyte % (Auto) 1, Neutrophils (%) (Auto) 95H, Lymphocytes (%) (Auto) 2L, Monocytes (%) (Auto) 3, Eosinophils (%) (Auto) 0, Basophils (%) (Auto) 0, Neutrophils # (Auto) 14.3H, Lymphocytes # (Auto) 0.3L, Monocytes # (Auto) 0.4, Eosinophils # (Auto) 0.0, Basophils # (Auto) 0.0, Immature Granulocyte # (Auto) 0.1, Sodium Level 141, Potassium Level 4.2, Chloride Level 97L, Carbon Dioxide Level 35H, Anion Gap 9, Blood Urea Nitrogen 60H, Creatinine 1.07, Estimat Glomerular Filtration Rate 70, BUN/Cr eatinine Ratio 56, Glucose Level 149H, Calcium Level 8.8, Corrected Calcium 9.6, Magnesium Level 1.9, Total Bilirubin 0.5, Aspartate Amino Transf (AST/SGOT) 8, Alanine Aminotransferase (ALT/SGPT) 13, Alkaline Phosphatase 54, Total Protein 5.3L, Albumin 3.0L, Digoxin Level 0.61L Microbiology 07/20/22 Urine Culture - Final, Complete Proteus mirabilis 07/20/22 Blood Culture - Final, Complete No growth A/P: Assessment: Respiratory failure with hypoxia - likely multifactorial d/t acute on chronic diastolic CHF, acute on chronic exacerbation of COPD, SHANNAN and pneumonia - Bi-pap dependant New onset a-fib with RVR per tele on 07-22-22 - OAC with Xarelto - rate controlled Confusion and dementia Very hard of hearing CAD - records from [facility] in [place], [place] of 2021 state h/o PCI (details unknown) Acute on chronic diastolic CHF - compensated - Echocardiogram of 06-25-[address] [facility] in [place], [place] by Dr. Bhatia showed LVEF 60%. Mild RV dilatation. No signif valvular abnormalities - Echocardiogram of 06-30-22 showed LVEF 50-55%. Grade 1 diastolic dysfunction. LA and RA mildly dilated Document h/o PE per [facility] records - details unknown - has been maintained on OAC with Eliquis as out pt Acute renal insufficiency - likely d/t aggressive diuresis - renal function improved following reduction in diuretics HTN SHANNAN H/O COPD H/O pulmonary HTN Plan: * Continue ASA for CAD * Continue Xarelto for stroke prophylaxis * Currently on digoxin for HR control - dig level acceptable at 0.52 - monitor closely * Midodrine for mild hypotension, currently controlled * Hosp svces managing resp failure / pneumonia and AMS * Monitor labs ZOILA VALLE Jul 29, 2022 11:30
--- NOTE | 2022-07-29 14:15 | Progress Note - Cardiology ---
Cardiology SOAP Progress Note Subjective: On BiPAP and non-communicative Objective: I&O/Vital Signs 07/29/22 07/29/22 07/29/22 07/29/22 03:28 07:38 08:00 11:17 Temp 36.2 36.5 36.5 Pulse 80 83 104 Resp 16 18 18 B/P (MAP) 121/61 (81) 133/75 (94) 129/71 (90) Pulse Ox 99 96 97 O2 Delivery NIV Bilevel Nasal Cannula High Flow N/C NIV Bilevel O2 Flow Rate 50.00 8.00 16.00 FiO2 10 07/29/22 00:00 Intake Total 1060 ml Output Total 2425 ml Balance -1365 ml Constitutional: other (on BiPAP, non-communicative) Respiratory: chest expansion is symmetric, chest is bilaterally symmetric, other (coarse breath sounds throughout, diminished lower lobes bilat) Cardiovascular: irregularly irregular; No JVD; S1 and S2, systolic murmur Gastrointestional: No tender; soft, audible bowel sounds Extremities: no lower extremity edema bilateral Neurologic/Psychiatric: No oriented x 3; other (mental status exam given above, moves all limbs equally) Skin: other (abrasions to bilat LE with dressing to LLE; multiple bruises to arms bilat) Results/Procedures: Labs Laboratory Tests 07/28/22 16:01: Glucometer 170H 07/28/22 20:33: Glucometer 159H 07/29/22 05:34: White Blood Count 13.9H, Red Blood Count 3.55L, Hemoglobin 10.6L, Hematocrit 36L , Mean Corpuscular Volume 102H, Mean Corpuscular Hemoglobin 30, Mean Corpuscular Hemoglobin Concent 29L, Red Cell Distribution Width 18.4H, Platelet Count 235, Mean Platelet Volume 11.3, Immature Granulocyte % (Auto) 1, Neutrophils (%) (Auto) 94H, Lymphocytes (%) (Auto) 2L, Monocytes (%) (Auto) 3, Eosinophils (%) (Auto) 0, Basophils (%) (Auto) 0, Neutrophils # (Auto) 13.1H, Lymphocytes # (Auto) 0.3L, Monocytes # (Auto) 0.4, Eosinophils # (Auto) 0.0, Basophils # (Aut o) 0.0, Immature Granulocyte # (Auto) 0.1, Sodium Level 142, Potassium Level 4.1, Chloride Level 97L, Carbon Dioxide Level 33H, Anion Gap 12, Blood Urea Nitrogen 61H, Creatinine 1.30, Estimat Glomerular Filtration Rate 56, BUN/Creatinine Ratio 47, Glucose Level 141H, Calcium Level 8.7, Corrected Calcium 9.6, Magnesium Level 1.8, Total Bilirubin 0.7, Aspartate Amino Transf (AST/SGOT) 12, Alanine Aminotransferase (ALT/SGPT) 15, Alkaline Phosphatase 48, Total Protein 5.2L, Albumin 2.9L 07/29/22 05:51: Glucometer 138H 07/29/22 10:51: Glucometer 243H Microbiology 07/20/22 Urine Culture - Final, Complete Proteus mirabilis 07/20/22 Blood Culture - Final, Complete No growth Laboratory Tests 07/28/22 05:15 07/29/22 05:34 A/P: Assessment: Respiratory failure with hypoxia - likely multifactorial d/t acute on chronic diastolic CHF, acute on chronic exacerbation of COPD, SHANNAN and pneumonia - Bi-pap dependant New onset a-fib with RVR per tele on 07-22-22 - OAC with Xarelto - rate controlled Confusion and dementia Very hard of hearing CAD - records from [facility] in [place], [place] of 2021 state h/o PCI (details unknown) Acute on chronic diastolic CHF - compensated - Echocardiogram of 06-25-[address] [facility] in [place], [place] by Dr. Bhatia showed LVEF 60%. Mild RV dilatation. No signif valvular abnormalities - Echocardiogram of 06-30-22 showed LVEF 50-55%. Grade 1 diastolic dysfunction. LA and RA mildly dilated Document h/o PE per [facility] records - details unknown - has been maintained on OAC with Eliquis as out pt Acute renal insufficiency - likely d/t aggressive diuresis - renal function improved following reduction in diuretics HTN SHANNAN H/O COPD H/O pulmonary HTN Plan: * Continue ASA for CAD * Continue Xarelto for stroke prophylaxis * Currently on digoxin for HR control - dig level acceptable at 0.52 on 07/28/22 - monitor closely * Midodrine for mild hypotension, currently controlled * Hosp svces managing resp failure / pneumonia and AMS * Monitor labs LAURA LOWERY MD FACP FAC CCDS Jul 29, 2022 14:15
[2022-07-29 15:07] VITALS: BP 137/75
[2022-07-29] MEDS: RIVAROXABAN 20 MG TABLET (XARELTO) PO SCH (17:49)
--- NOTE | 2022-07-29 18:41 | Progress Note ---
Subjective Subjective/Events-last exam Seen at 1335, Pt is on bipap again, opens eyes to voice but doesn't answer questions. Objective Exam Last Set of Vital Signs Vital Signs Date Time Temp Pulse Resp B/P (MAP) Pulse Ox O2 Delivery O2 Flow Rate FiO2 07/29/22 15:07 36.5 105 22 137/75 (95) 96 OxyMask 35.00 07/29/22 08:00 10 Capillary Refill : Less Than 3 Seconds I&O Intake and Output 07/29/22 00:00 Intake Total 1060 ml Output Total 3175 ml Balance -2115 ml Intake Oral 1060 ml Output Urine Total 3175 ml # Bowel Movements 2 General: Other (somnolent) Lungs: Other (ronchi) Heart: Regular Rate Neuro: Other (lethargic, opens eyes to voice) Results/Procedures Lab Laboratory Tests 07/28/22 20:33: Glucometer 159H 07/29/22 05:34: White Blood Count 13.9H, Red Blood Count 3.55L, Hemoglobin 10.6L, Hematocrit 36L , Mean Corpuscular Volume 102H, Mean Corpuscular Hemoglobin 30, Mean Corpuscular Hemoglobin Concent 29L, Red Cell Distribution Width 18.4H, Platelet Count 235, Mean Platelet Volume 11.3, Immature Granulocyte % (Auto) 1, Neutrophils (%) (Auto) 94H, Lymphocytes (%) (Auto) 2L, Monocytes (%) (Auto) 3, Eosinophils (%) (Auto) 0, Basophils (%) (Auto) 0, Neutrophils # (Auto) 13.1H, Lymphocytes # (Auto) 0.3L, Monocytes # (Auto) 0.4, Eosinophils # (Auto) 0.0, Basophils # (Auto) 0.0, Immature Granulocyte # (Auto) 0.1, Sodium Level 142, Potassium Level 4.1, Chloride Level 97L, Carbon Dioxide Level 33H, Anion Gap 12, Blood Urea Nitrogen 61H, Creatinine 1.30, Estimat Glomerular Filtration Rate 56, BUN/Creatinine Ratio 47, Glucose Level 141H, Calcium Level 8.7, Corrected Calciu m 9.6, Magnesium Level 1.8, Total Bilirubin 0.7, Aspartate Amino Transf (AST/SGOT) 12, Alanine Aminotransferase (ALT/SGPT) 15, Alkaline Phosphatase 48, Total Protein 5.2L, Albumin 2.9L 07/29/22 05:51: Glucometer 138H 07/29/22 10:51: Glucometer 243H 07/29/22 15:19: Glucometer 179H Microbiology 07/20/22 Urine Culture - Final, Complete Proteus mirabilis 07/20/22 Blood Culture - Final, Complete No growth Radiology NAME: LAURIE JOHNSON [facility] REC#: [id number] PT STATUS: REG ER : 1940 PHYSICIAN: SIGRID MARIE DO ADMIT DATE: 07/20/22/ER FS Signed Date of Exam:07/20/22 CHEST 1 VIEW AP/PA ONLY EXAMINATION: Chest radiograph, portable AP view. DATE: 07/20/2022 7:59 AM INDICATION: 82-year-old male, shortness of breath. COMPARISON: None. FINDINGS: Heart size is grossly unremarkable. There is no identified pneumothorax. There is nonspecific right basilar airspace consolidation and blunting of the right lateral costophrenic angle. There are streaky opacities in the left medial lung base. There is a chronic appearing deformity of the left proximal humerus. There is advanced left glenohumeral arthritis with probable intra-articular body in the subscapularis recess. There is a right shoulder prosthesis noted. IMPRESSION: 1. Nonspecific bibasilar airspace consolidation right greater than left which may relate to infiltrate, effusions, and/or atelectasis. Dictated by: Dictated on workstation # [id number] Dict: 07/20/22 0759 Trans: 07/20/22937 [facility] [id number] Interpreted by: ZOYA BARRETO MD Electronically signed by: ZOYA BARRETO MD 07/20/22937 Assessment/Plan Assessment/Plan Assessment & Plan Respiratory failure with hypoxia - secondary to acute on chronic diastolic CHF, acute on chronic exacerbation of COPD, SHANNAN and pneumonia. Able to be on high flow nasal cannula most of the day 07/28, however is now again bipap dependent, and is getting anxious and agitated, not wanting to use bipap. Discussed updated status with and son as I am concerned he may begin to fight bipap enough to require sedation and intubation if they do not feel he would want to pursue comfort care. They expressed understanding and are discussing. COPD exacerbation- art, has been on solumedrol 62.5 mg IV q6 since 07/20, but still remains bipap dependent, tapered to q12 on 07/27 Pneumonia- bibasilar consolidations on CXR, right greater than left, treated wi th Zosyn 07/20-07/25 and vancomycin 07/20-07/22 A-fib with RVR- Cardiology consulted, anticoagulated with Xarelto, rate controll ed. Confusion and dementia- uncertain baseline, attempted to review clinic notes, but he has no encounters in our clinic. No family at bedside, will try to call family for more detail. CAD with reported history of percutaneous intervention Acute on chronic diastolic CHF- Cardiology consulted, appreciate recommendations. Echo 06/25/[address] [facility] EF 60%, Echo 06/30/22 EF 50-55%, grade 1 diastolic dysfunction h/o PE per [facility]'s records- on Eliquis Acute renal insufficiency- likely secondary to diuresis, improved HTN SHANNAN H/O pulmonary HTN ANNALISE MESSER MD Jul 29, 2022 18:41
[2022-07-29 19:59] VITALS: BP 129/72
[2022-07-29] MEDS: OLANZapine 5 MG ODT (ZyPREXA ZYDIS) PO SCH ×2 (20:14)
[2022-07-29] MEDS: MELATONIN 3 MG TABLET PO SCH (20:14)
[2022-07-29] MEDS ORDERED: inSUlin ASPART (NovoLOG) 1 UNIT/0.01 ML (CHARGE PER UNIT) ONE (21:55)
[2022-07-29] MEDS: inSUlin ASPART (NovoLOG) 1 UNIT/0.01 ML (CHARGE PER UNIT) SC SCH (21:57)
[2022-07-30] VITALS (8 sets, daily range): BP systolic 124–172; BP diastolic 71–83
[2022-07-30] MEDS: methylPREDNISolone 125 MG (Solu-MEDROL) VIAL IVP SCH (03:26)
[2022-07-30] MEDS: inSUlin ASPART (NovoLOG) 1 UNIT/0.01 ML (CHARGE PER UNIT) SC SCH ×4 (06:00→22:07)
[2022-07-30] MEDS: MULTIVIT W/MINERALS TAB (THERAGRAN M) PO SCH (06:22)
[2022-07-30 06:29] LABS: BASOPHILS % (AUTO) 0 % (0-10); EOSINOPHILS % (AUTO) 0 % (0-10); HEMATOCRIT 37 % (40-54); HEMOGLOBIN 10.8 g/dL (13.3-17.7); LYMPHOCYTES # (AUTO) 0.3 10^3/uL (1.0-4.0); LYMPHOCYTES % (AUTO) 2 % (12-44); MEAN CORPUSCULAR HEMOGLOBIN 30 pg (25-34); MEAN CORPUSCULAR HGB CONC 30 g/dL (32-36); MEAN CORPUSCULAR VOLUME 101 fL (80-99); MEAN PLATELET VOLUME 10.7 fL (9.0-12.2); MONOCYTES # (AUTO) 0.4 10^3/uL (0.0-1.0); MONOCYTES % (AUTO) 3 % (0-12); NEUTROPHILS # (AUTO) 14.3 10^3/uL (1.8-7.8); NEUTROPHILS % (AUTO) 95 % (42-75); PLATELET COUNT 251 10^3/uL (130-400)
[2022-07-30 06:48] LABS: POTASSIUM 4.2 MMOL/L (3.6-5.0)
[2022-07-30 06:49] LABS: CALCIUM 8.8 MG/DL (8.5-10.1)
[2022-07-30 06:50] LABS: TOTAL PROTEIN 5.3 GM/DL (6.4-8.2)
[2022-07-30 06:52] LABS: BILIRUBIN,TOTAL 0.5 MG/DL (0.1-1.0)
[2022-07-30 06:54] LABS: CREATININE SERUM 1.07 MG/DL (0.60-1.30)
[2022-07-30 06:57] LABS: MAGNESIUM 1.9 MG/DL (1.6-2.4)
[2022-07-30] MEDS: MICONAZOLE 2% POWDER (DESENEX AF) 90 GM TOP SCH ×2 (08:36→20:44)
[2022-07-30] MEDS: DIGOXIN 0.125 MG (LANOXIN) TAB PO SCH (08:36)
[2022-07-30] MEDS: FERROUS SULF 325 MG (IRON) TAB PO SCH (08:37)
[2022-07-30] MEDS: MIDODRINE 10 MG (PROAMATINE) TAB PO SCH ×3 (08:37→17:28)
[2022-07-30] MEDS: FUROSEMIDE 40 MG (LASIX) TAB PO SCH (08:37)
[2022-07-30] MEDS: DOCUSATE SODIUM 100 MG (COLACE) CAP PO SCH ×2 (08:37→20:43)
[2022-07-30] MEDS: ASPIRIN 81 MG CHEW (CHILDREN'S ASA) PO SCH (08:37)
[2022-07-30] MEDS: TAMSULOSIN 0.4 MG (FLOMAX) CAP PO SCH (08:37)
[2022-07-30] MEDS: QUEtiapine 25 MG (SEROquel) TAB IMMEDIATE RELEASE PO SCH (08:37)
[2022-07-30] MEDS: predniSONE 20 MG TAB PO SCH (08:37)
--- NOTE | 2022-07-30 09:09 | Progress Note - Cardiology ---
Cardiology SOAP Progress Note Subjective: Awake, alert this morning Off the Bi-pap [facility] Denies any c/o CP States breathing is better Objective: I&O/Vital Signs 07/30/22 07/30/22 07/30/22 07/31/22 20:00 22:02 23:53 02:33 Temp 36.7 Pulse 82 84 91 Resp 20 18 16 B/P (MAP) 141/83 (102) Pulse Ox 94 96 96 94 O2 Delivery NIV Bilevel NIV Bilevel O2 Flow Rate 16.00 25.00 25.00 25.00 FiO2 60 07/31/22 07/31/22 04:12 06:52 Temp 36.7 Pulse 86 91 Resp 16 16 B/P (MAP) 157/86 (109) Pulse Ox 95 91 O2 Delivery NIV Bilevel O2 Flow Rate 25.00 35.00 07/31/22 00:00 Intake Total 1220 ml Output Total 2250 ml Balance -1030 ml Constitutional: other ([facility], awake and alert this morning; oriented to self and place) Respiratory: chest expansion is symmetric, chest is bilaterally symmetric, other (coarse breath sounds throughout, diminished lower lobes bilat) Cardiovascular: irregularly irregular; No JVD; S1 and S2, systolic murmur Gastrointestional: No tender; soft, audible bowel sounds Extremities: no lower extremity edema bilateral Neurologic/Psychiatric: No oriented x 3; other (mental status exam given above, moves all limbs equally) Skin: other (abrasions to bilat LE with dressing to LLE; multiple bruises to arms bilat) Results/Procedures: Labs Laboratory Tests 07/30/22 11:32: Glucometer 223H 07/31/22 05:23: Glucometer 110 Microbiology 07/20/22 Urine Culture - Final, Complete Proteus mirabilis 07/20/22 Blood Culture - Final, Complete No growth A/P: Assessment: Respiratory failure with hypoxia - likely multifactorial d/t acute on chronic diastolic CHF, acute on chronic exacerbation of COPD, SHANNAN and pneumonia - Off bi-pap today New onset a-fib with RVR per tele on 07-22-22 - OAC with Xarelto - rate controlled Confusion and dementia Very hard of hearing CAD - records from [facility] in [place], [place] of 2021 state h/o PCI (details unknown) Acute on chronic diastolic CHF - compensated - Echocardiogram of 06-25-22 at [facility] in [place], [place] by Dr. Bhatia showed LVEF 60%. Mild RV dilatation. No signif valvular abnormalities - Echocardiogram of 06-30-22 showed LVEF 50-55%. Grade 1 diastolic dysfunction. LA and RA mildly dilated Document h/o PE per [facility]'s records - details unknown - has been maintained on OAC with Eliquis as out pt Acute renal insufficiency - likely d/t aggressive diuresis - renal function improved following reduction in diuretics HTN SHANNAN H/O COPD H/O pulmonary HTN Plan: * Continue ASA for CAD * Continue Xarelto for stroke prophylaxis * Currently on digoxin for HR control - dig level 0.61 today * Midodrine for mild hypotension, currently controlled * Hosp svces managing resp failure / pneumonia and AMS * Monitor labs ZOILA VALLE Jul 30, 2022 09:09
--- NOTE | 2022-07-30 12:47 | Progress Note ---
Subjective Subjective/Events-last exam Pt on bipap, but is alert and oriented to self, knows he is in the hospital and that is 2021 and he is here for breathing problems. He says he hates the mask because he has to yell and it is uncomfortable. Asked about his wishes and if he would want to be off bipap, he asked his options. Discussed that we could focus on comfort and stop bipap but his life may be limited. Alternatively if he gets worse would require intubation. He expressed some ambivalence to either. Objective Exam Last Set of Vital Signs Vital Signs Date Time Temp Pulse Resp B/P (MAP) Pulse Ox O2 Delivery O2 Flow Rate FiO2 07/30/22 11:07 103 21 94 25.00 07/30/22 08:00 NIV Bilevel 60 07/30/22 08:00 35.4 172/77 (108) Capillary Refill : Less Than 3 Seconds I&O Intake and Output 07/30/22 00:00 Intake Total 1500 ml Output Total 2600 ml Balance -1100 ml Intake Oral 1500 ml Output Urine Total 2600 ml General: Alert, Mild Distress Lungs: Other (ronchi) Heart: Regular Rate Extremities: No Edema Neuro: Normal Speech Psych/Mental Status: Mood NL Results/Procedures Lab Laboratory Tests 07/29/22 15:19: Glucometer 179H 07/29/22 20:29: Glucometer 367H 07/30/22 06:09: Glucometer 149H 07/30/22 06:10: White Blood Count 15.0H, Red Blood Count 3.61L, Hemoglobin 10.8L, Hematocrit 37L , Mean Corpuscular Volume 101H, Mean Corpuscular Hemoglobin 30, Mean Corpuscular Hemoglobin Concent 30L, Red Cell Distribution Width 18.4H, Platelet Count 251, Mean Platelet Volume 10.7, Immature Granulocyte % (Auto) 1, Neutrophils (%) (Auto) 95H, Lymphocytes (%) (Auto) 2L, Monocytes (%) (Auto) 3, Eosinophils (%) (Auto) 0, Basophils (%) (Auto) 0, Neutrophils # (Auto) 14.3H, Lymphocytes # (Auto) 0.3L, Monocytes # (Auto) 0.4, Eosinophils # (Auto) 0.0, Basophils # (Auto) 0.0, Immature Granulocyte # (Auto) 0.1, Sodium Level 141, Potassium Level 4.2, Chloride Level 97L, Carbon Dioxide Level 35H, Anion Gap 9, Blood Urea Nitrogen 60H, Creatinine 1.07, Estimat Glomerular Filtration Rate 70, BUN/Creatinine Ratio 56, Glucose Level 149H, Calcium Level 8.8, Corrected Calcium 9.6, Magnesium Level 1.9, Total Bilirubin 0.5, Aspartate Amino Transf (AST/SGOT) 8, Alanine Aminotransferase (ALT/SGPT) 13, Alkaline Phosphatase 54, Total Protein 5.3L, Albumin 3.0L, Digoxin Level 0.61L 07/30/22 11:32: Glucometer 223H Microbiology 07/20/22 Urine Culture - Final, Complete Proteus mirabilis 07/20/22 Blood Culture - Final, Complete No growth Radiology NAME: LAURIE JOHNSON [facility] REC#: [id number] PT STATUS: REG ER : 1940 PHYSICIAN: SIGRID MARIE DO ADMIT DATE: 07/20/22/ER FS Signed Date of Exam:07/20/22 CHEST 1 VIEW AP/PA ONLY EXAMINATION: Chest radiograph, portable AP view. DATE: 07/20/2022 7:59 AM INDICATION: 82-year-old male, shortness of breath. COMPARISON: None. FINDINGS: Heart size is grossly unremarkable. There is no identified pneumothorax. There is nonspecific right basilar airspace consolidation and blunting of the right lateral costophrenic angle. There are streaky opacities in the left medial lung base. There is a chronic appearing deformity of the left proximal humerus. There is advanced left glenohumeral arthritis with probable intra-articular body in the subscapularis recess. There is a right shoulder prosthesis noted. IMPRESSION: 1. Nonspecific bibasilar airspace consolidation right greater than left which may relate to infiltrate, effusions, and/or atelectasis. Dictated by: Dictated on workstation # [id number] Dict: 07/20/22 0759 Trans: 07/20/22937 [facility] [id number] Interpreted by: ZOYA BARRETO MD Electronically signed by: ZOYA BARRETO MD 07/20/2238 Assessment/Plan Assessment/Plan Assessment & Plan Respiratory failure with hypoxia - secondary to acute on chronic diastolic CHF, acute on chronic exacerbation of COPD, SHANNAN and pneumonia. Able to be on high flow nasal cannula most of the day 07/28, however is now again bipap dependent, and is getting anxious and agitated, not wanting to use bipap. Discussed updated status with and son as I am concerned he may begin to fight bipap enough to require sedation and intubation if they do not feel he would want to pursue comfort care. They expressed understanding and are discussing. 07/30- per patient, he does recognize he could without bipap, and doesn't seem upset by this, but also when asked what he would want, requests what we think is best. Discussed that I don't expect him to get better by using ventilator if that were needed, but as to changing to comfort goals, would be his decision. He will continue to consider. I let him know about the discussion with his family as well and confirmed he did not want to change his status right now, to which he nodded. COPD exacerbation- art, has been on solumedrol 62.5 mg IV q6 since 07/20, but still remains bipap dependent, tapered to q12 on 07/27. Changed to oral prednisone taper 07/30. Pneumonia- bibasilar consolidations on CXR, right greater than left, treated with Zosyn 07/20-07/25 and vancomycin 07/20-07/22 A-fib with RVR- Cardiology consulted, anticoagulated with Xarelto, rate controlled. Confusion and dementia- uncertain baseline, attempted to review clinic notes, but he has no encounters in our clinic. Discussed with and caregiver who stated at baseline he could get around, cook some in the microwave, was "usually confused" but "rarely had memory loss". CAD with reported history of percutaneous intervention Acute on chronic diastolic CHF- Cardiology consulted, appreciate recommendations. Echo 06/25/22 at [facility] EF 60%, Echo 06/30/22 EF 50-55%, grade 1 diastolic dysfunction h/o PE per [facility]'s records- on Eliquis Acute renal insufficiency- likely secondary to diuresis, improved HTN SHANNAN H/O pulmonary HTN ANNALISE MESSER MD Jul 30, 2022 12:47
--- NOTE | 2022-07-30 14:08 | Progress Note - Cardiology ---
Cardiology SOAP Progress Note Subjective: Confused at the time of my exam. Unable to provide any reliable response to questions Objective: I&O/Vital Signs 07/30/22 07/30/22 07/30/22 07/30/22 02:26 04:20 07:22 08:00 Temp 36.3 35.4 Pulse 89 86 82 84 Resp 18 18 16 20 B/P (MAP) 142/80 (100) 172/77 (108) Pulse Ox 99 97 95 95 O2 Delivery NIV Bilevel NIV Bilevel O2 Flow Rate 35.00 25.00 25.00 16.00 07/30/22 07/30/22 07/30/22 08:00 11:07 12:00 Temp 35.6 Pulse 103 100 Resp 21 21 B/P (MAP) 148/73 (98) Pulse Ox 95 94 96 O2 Delivery NIV Bilevel Room Air O2 Flow Rate 16.00 25.00 FiO2 60 07/30/22 00:00 Intake Total 1300 ml Output Total 2100 ml Balance -800 ml Constitutional: other ([place], confused) Respiratory: chest expansion is symmetric, chest is bilaterally symmetric, other (coarse breath sounds throughout, diminished lower lobes bilat) Cardiovascular: irregularly irregular; No JVD; S1 and S2, systolic murmur Gastrointestional: No tender; soft, audible bowel sounds Extremities: no lower extremity edema bilateral Neurologic/Psychiatric: No oriented x 3; other (mental status exam given above, moves all limbs equally) Skin: other (abrasions to bilat LE with dressing to LLE; multiple bruises to arms bilat) Results/Procedures: Labs Laboratory Tests 07/29/22 15:19: Glucometer 179H 07/29/22 20:29: Glucometer 367H 07/30/22 06:09: Glucometer 149H 07/30/22 06:10: White Blood Count 15.0H, Red Blood Count 3.61L, Hemoglobin 10.8L, Hematocrit 37L , Mean Corpuscular Volume 101H, Mean Corpuscular Hemoglobin 30, Mean Corpuscular Hemoglobin Concent 30L, Red Cell Distribution Width 18.4H, Platelet Count 251, Mean Platelet Volume 10.7, Immature Granulocyte % (Auto) 1, Neutrophils (%) (Auto) 95H, Lymphocytes (%) (Auto) 2L, Monocytes (%) (Auto) 3, Eosinophils (%) (Auto) 0, Basophils (%) (Auto) 0, Neutrophils # (Auto) 14.3H, Lymphocytes # (Auto) 0.3L, Monocytes # (Auto) 0.4, Eosinophils # (Auto) 0.0, Basophils # (Auto) 0.0, Immature Granulocyte # (Auto) 0.1, Sodium Level 141, Potassium Level 4.2, Chloride Level 97L, Carbon Dioxide Level 35H, Anion Gap 9, Blood Urea Nitrogen 60H, Creatinine 1.07, Estimat Glomerular Filtration Rate 70, BUN/Creatinine Ratio 56, Glucose Level 149H, Calcium Level 8.8, Corrected Calcium 9.6, Magnesium Level 1.9, Total Bilirubin 0.5, Aspartate Amino Transf (AST/SGOT) 8, Alanine Aminotransferase (ALT/SGPT) 13, Alkaline Phosphatase 54, Total Protein 5.3L, Albumin 3.0L, Digoxin Level 0.61L 07/30/22 11:32: Glucometer 223H Microbiology 07/20/22 Urine Culture - Final, Complete Proteus mirabilis 07/20/22 Blood Culture - Final, Complete No growth Laboratory Tests 07/29/22 05:34 07/30/22 06:10 A/P: Assessment: Respiratory failure with hypoxia - likely multifactorial d/t acute on chronic diastolic CHF, acute on chronic exacerbation of COPD, SHANNAN and pneumonia - has required BiPAP intermittently New onset a-fib with RVR per tele on 07-22-22 - OAC with Xarelto - rate controlled Confusion and dementia Very hard of hearing CAD - records from [facility] in [place], [place] of 2021 state h/o PCI (details unknown) Acute on chronic diastolic CHF - compensated - Echocardiogram of 06-25-22 at [facility] in [place], [place] by Dr. Bhatia showed LVEF 60%. Mild RV dilatation. No signif valvular abnormalities - Echocardiogram of 06-30-22 showed LVEF 50-55%. Grade 1 diastolic dysfunction. LA and RA mildly dilated Document h/o PE per [facility] records - details unknown - has been maintained on OAC with Eliquis as out pt Acute renal insufficiency - likely d/t aggressive diuresis - renal function improved following reduction in diuretics HTN SHANNAN H/O COPD H/O pulmonary HTN Plan: * Continue ASA for CAD * Continue Xarelto for stroke prophylaxis * Currently on digoxin for HR control - dig level 0.61 today * Midodrine for mild hypotension, currently controlled * Hosp svces managing resp failure / pneumonia and AMS * Monitor labs LAURA LOWERY MD [facility] CCDS Jul 30, 2022 14:08
[2022-07-30] MEDS: RIVAROXABAN 20 MG TABLET (XARELTO) PO SCH (17:28)
[2022-07-30] MEDS: OLANZapine 5 MG ODT (ZyPREXA ZYDIS) PO SCH ×2 (20:43→20:45)
[2022-07-30] MEDS: MELATONIN 3 MG TABLET PO SCH (20:43)
[2022-07-31 04:12] VITALS: BP 157/86
[2022-07-31] MEDS: inSUlin ASPART (NovoLOG) 1 UNIT/0.01 ML (CHARGE PER UNIT) SC SCH ×4 (05:39→20:52)
[2022-07-31] MEDS: MULTIVIT W/MINERALS TAB (THERAGRAN M) PO SCH (05:43)
[2022-07-31] MEDS: predniSONE 20 MG TAB PO SCH (05:44)
[2022-07-31 08:00] VITALS: BP 164/81
[2022-07-31 08:23] LABS: BASOPHILS % (AUTO) 0 % (0-10); EOSINOPHILS # (AUTO) 0.1 10^3/uL (0.0-0.3); EOSINOPHILS % (AUTO) 1 % (0-10); HEMATOCRIT 37 % (40-54); HEMOGLOBIN 11.1 g/dL (13.3-17.7); LYMPHOCYTES # (AUTO) 0.4 10^3/uL (1.0-4.0); LYMPHOCYTES % (AUTO) 2 % (12-44); MEAN CORPUSCULAR HEMOGLOBIN 31 pg (25-34); MEAN CORPUSCULAR HGB CONC 30 g/dL (32-36); MEAN CORPUSCULAR VOLUME 101 fL (80-99); MEAN PLATELET VOLUME 10.5 fL (9.0-12.2); MONOCYTES # (AUTO) 0.6 10^3/uL (0.0-1.0); MONOCYTES % (AUTO) 4 % (0-12); NEUTROPHILS # (AUTO) 14.9 10^3/uL (1.8-7.8); NEUTROPHILS % (AUTO) 92 % (42-75); PLATELET COUNT 271 10^3/uL (130-400); WHITE BLOOD COUNT 16.1 10^3/uL (4.3-11.0)
[2022-07-31 08:40] LABS: BILIRUBIN,TOTAL 0.7 MG/DL (0.1-1.0); CALCIUM 8.8 MG/DL (8.5-10.1); CREATININE SERUM 0.98 MG/DL (0.60-1.30); MAGNESIUM 1.9 MG/DL (1.6-2.4); POTASSIUM 3.8 MMOL/L (3.6-5.0); TOTAL PROTEIN 5.3 GM/DL (6.4-8.2)
[2022-07-31] MEDS: FERROUS SULF 325 MG (IRON) TAB PO SCH (09:07)
[2022-07-31] MEDS: ASPIRIN 81 MG CHEW (CHILDREN'S ASA) PO SCH (09:07)
[2022-07-31] MEDS: DOCUSATE SODIUM 100 MG (COLACE) CAP PO SCH ×2 (09:07→20:46)
[2022-07-31] MEDS: DIGOXIN 0.125 MG (LANOXIN) TAB PO SCH (09:07)
[2022-07-31] MEDS: MIDODRINE 10 MG (PROAMATINE) TAB PO SCH ×3 (09:08→18:27)
[2022-07-31] MEDS: MICONAZOLE 2% POWDER (DESENEX AF) 90 GM TOP SCH ×2 (09:08→20:47)
[2022-07-31] MEDS: FUROSEMIDE 40 MG (LASIX) TAB PO SCH (09:08)
[2022-07-31] MEDS: TAMSULOSIN 0.4 MG (FLOMAX) CAP PO SCH (09:08)
[2022-07-31] MEDS: QUEtiapine 25 MG (SEROquel) TAB IMMEDIATE RELEASE PO SCH (09:08)
--- NOTE | 2022-07-31 11:16 | Progress Note - Cardiology ---
Cardiology SOAP Progress Note Subjective: More awake and alert at the time of this exam Denies cp or palp or syncope or shortness of breath Gen weakness present Objective: I&O/Vital Signs 07/30/22 07/31/22 07/31/22 07/31/22 23:53 02:33 04:12 06:52 Temp 36.7 36.7 Pulse 84 91 86 91 Resp 18 16 16 16 B/P (MAP) 141/83 (102) 157/86 (109) Pulse Ox 96 94 95 91 O2 Delivery NIV Bilevel NIV Bilevel O2 Flow Rate 25.00 25.00 25.00 35.00 07/31/22 07/31/22 08:00 08:00 Temp 36.9 Pulse 78 Resp 19 B/P (MAP) 164/81 (108) Pulse Ox 95 97 O2 Delivery NIV Bilevel O2 Flow Rate 16.00 25.00 FiO2 60 07/31/22 00:00 Intake Total 1220 ml Output Total 2250 ml Balance -1030 ml Constitutional: other ([place], oriented to place and person at this time ( alertness varies throughout the day)) Respiratory: chest expansion is symmetric, chest is bilaterally symmetric, other (coarse breath sounds throughout, diminished lower lobes bilat) Cardiovascular: irregularly irregular; No JVD; S1 and S2, systolic murmur Gastrointestional: No tender; soft, audible bowel sounds Extremities: no lower extremity edema bilateral Neurologic/Psychiatric: No oriented x 3; other (mental status exam given above, moves all limbs equally) Skin: other (abrasions to bilat LE with dressing to LLE; multiple bruises to arms bilat) Results/Procedures: Labs Laboratory Tests 07/30/22 11:32: Glucometer 223H 07/31/22 05:23: Glucometer 110 07/31/22 08:09: White Blood Count 16.1H, Red Blood Count 3.64L, Hemoglobin 11.1L, Hematocrit 37L , Mean Corpuscular Volume 101H, Mean Corpuscular Hemoglobin 31, Mean Corpuscular Hemoglobin Concent 30L, Red Cell Distribution Width 18.4H, Platelet Count 271, Mean Platelet Volume 10.5, Immature Granulocyte % (Auto) 1, Neutrophils (%) (Auto) 92H, Lymphocytes (%) (Auto) 2L, Monocytes (%) (Auto) 4, Eosinophils (%) (Auto) 1, Basophils (%) (Auto) 0, Neutrophils # (Auto) 14.9H, Lymphocytes # (Auto) 0.4L, Monocytes # (Auto) 0.6, Eosinophils # (Auto) 0.1, Basophils # (Auto) 0.0, Immature Granulocyte # (Auto) 0.1, Sodium Level 139, Potassium Level 3.8, Chloride Level 93L, Carbon Dioxide Level 36H, Anion Gap 10, Blood Urea Nitrogen 53H, Creatinine 0.98, Estimat Glomerular Filtration Rate 78, BUN/Creatinine Ratio 54, Glucose Level 116H, Calcium Level 8.8, Corrected Calcium 9.6, Magnesium Level 1.9, Total Bilirubin 0.7, Aspartate Amino Transf (AST/SGOT) 11, Alanine Aminotransferase (ALT/SGPT) 15, Alkaline Phosphatase 54, Total Protein 5.3L, Albumin 3.0L Microbiology 07/20/22 Urine Culture - Final, Complete Proteus mirabilis 07/20/22 Blood Culture - Final, Complete No growth Laboratory Tests 07/30/22 06:10 07/31/22 08:09 A/P: Assessment: Respiratory failure with hypoxia - likely multifactorial d/t acute on chronic diastolic CHF, acute on chronic exacerbation of COPD, SHANNAN and pneumonia - has required BiPAP intermittently New onset a-fib with RVR per tele on 07-22-22 - OAC with Xarelto - rate controlled Confusion and dementia and sun-downing Very hard of hearing CAD - records from [facility] in [place], [place] of 2021 state h/o PCI (details unknown) Acute on chronic diastolic CHF - compensated - Echocardiogram of 06-25-22 at [facility] in [place], [place] by Dr. Bhatia s howed LVEF 60%. Mild RV dilatation. No signif valvular abnormalities - Echocardiogram of 06-30-22 showed LVEF 50-55%. Grade 1 diastolic dysfunction. LA and RA mildly dilated Document h/o PE per [facility] records - details unknown - has been maintained on OAC with Eliquis as out pt Acute renal insufficiency - likely d/t aggressive diuresis - renal function improved following reduction in diuretics HTN SHANNAN H/O COPD H/O pulmonary HTN Plan: * Continue ASA for CAD * Continue Xarelto for stroke prophylaxis * Currently on digoxin for HR control - dig level 0.61 today * Midodrine for mild hypotension, currently controlled * Hosp svces managing resp failure / pneumonia and AMS * Ok for d/c from cardiac standpoint LAURA LOWERY MD FACP [facility] CCDS Jul 31, 2022 11:16
[2022-07-31 12:46] VITALS: BP 117/62
[2022-07-31 16:05] VITALS: BP 149/80
--- NOTE | 2022-07-31 16:54 | Progress Note ---
Subjective Subjective/Events-last exam Pt on high flow nasal cannula at time of my exam, reports no concerns. He is alert but confused, talking about taking his for a drive in the [address] which is in the garage he points to across the room. Objective Exam Last Set of Vital Signs Vital Signs Date Time Temp Pulse Resp B/P (MAP) Pulse Ox O2 Delivery O2 Flow Rate FiO2 07/31/22 16:05 36.0 91 18 149/80 (103) NIV Bilevel 35.00 17.00 07/31/22 14:41 98 07/31/22 08:00 60 Capillary Refill : Less Than 3 Seconds I&O Intake and Output 07/31/22 00:00 Intake Total 1220 ml Output Total 2950 ml Balance -1730 ml Intake Oral 1220 ml Output Urine Total 2950 ml # Bowel Movements 1 General: Alert Lungs: Clear to Auscultation, Normal Air Movement Heart: Regular Rate, No Murmurs Abdomen: Normal Bowel Sounds, Soft Extremities: No Edema Neuro: Normal Speech, Other (oriented x 3) Psych/Mental Status: Mood NL Results/Procedures Lab Laboratory Tests 07/31/22 05:23: Glucometer 110 07/31/22 08:09: White Blood Count 16.1H, Red Blood Count 3.64L, Hemoglobin 11.1L, Hematocrit 37L , Mean Corpuscular Volume 101H, Mean Corpuscular Hemoglobin 31, Mean Corpuscular Hemoglobin Concent 30L, Red Cell Distribution Width 18.4H, Platelet Count 271, Mean Platelet Volume 10.5, Immature Granulocyte % (Auto) 1, Neutrophils (%) (Auto) 92H, Lymphocytes (%) (Auto) 2L, Monocytes (%) (Auto) 4, Eosinophils (%) (Auto) 1, Basophils (%) (Auto) 0, Neutrophils # (Auto) 14.9H, Lymphocytes # (Auto) 0.4L, Monocytes # (Auto) 0.6, Eosinophils # (Auto) 0.1, Basophils # (Auto) 0.0, Immature Granulocyte # (Auto) 0.1, Sodium Level 139, Potassium Level 3.8, Chloride Level 93L, Carbon Dioxide Level 36H, Anion Gap 10, Blood Urea Nitrogen 53H, Creatinine 0.98, Estimat Glomerular Filtration Rate 78, BUN/Creatinine Ratio 54, Glucose Level 116H, Calcium Level 8.8, Corrected Calcium 9.6, Magnesium Level 1.9, Total Bilirubin 0.7, Aspartate Amino Transf (AST/SGOT) 11, Alanine Aminotransferase (ALT/SGPT) 15, Alkaline Phosphatase 54, Total Protein 5.3L, Albumin 3.0L 07/31/22 11:13: Glucometer 283H 07/31/22 16:12: Glucometer 211H Microbiology 07/20/22 Urine Culture - Final, Complete Proteus mirabilis 07/20/22 Blood Culture - Final, Complete No growth Radiology NAME: LAURIE JOHNSON [facility] REC#: [id number] PT STATUS: REG ER : 1940 PHYSICIAN: SIGRID MARIE DO ADMIT DATE: 07/20/22/ER FS Signed Date of Exam:07/20/22 CHEST 1 VIEW AP/PA ONLY EXAMINATION: Chest radiograph, portable AP view. DATE: 07/20/2022 7:59 AM INDICATION: 82-year-old male, shortness of breath. COMPARISON: None. FINDINGS: Heart size is grossly unremarkable. There is no identified pneumothorax. There is nonspecific right basilar airspace consolidation and blunting of the right lateral costophrenic angle. There are streaky opacities in the left medial lung base. There is a chronic appearing deformity of the left proximal humerus. There is advanced left glenohumeral arthritis with probable intra-articular body in the subscapularis recess. There is a right shoulder prosthesis noted. IMPRESSION: 1. Nonspecific bibasilar airspace consolidation right greater than left which may relate to infiltrate, effusions, and/or atelectasis. Dictated by: Dictated on workstation # [id number] Dict: 07/20/22 0759 Trans: 07/20/22937 [facility] [id number] Interpreted by: ZOYA BARRETO MD Electronically signed by: ZOYA BARRETO MD 07/20/2238 Assessment/Plan Assessment/Plan Assessment & Plan Respiratory failure with hypoxia - secondary to acute on chronic diastolic CHF, acute on chronic exacerbation of COPD, SHANNAN and pneumonia. Able to be on high flow nasal cannula most of the day 12/6, however is now again bipap dependent, and is getting anxious and agitated, not wanting to use bipap. Discussed updated status with and son as I am concerned he may begin to fight bipap enough to require sedation and intubation if they do not feel he would want to pursue comfort care. They expressed understanding and are discussing. 07/30- per patient, he does recognize he could without bipap, and doesn't seem upset by this, but also when asked what he would want, requests what we think is best. Discussed that I don't expect him to get better by using ventilator if that were needed, but as to changing to comfort goals, would be his decision. He will continue to consider. I let him know about the discussion with his family as well and confirmed he did not want to change his status right now, to which he nodded. 07/31- again appears somewhat improved, but is too confused to discuss goals of care, family reportedly coming later today. COPD exacerbation- art, has been on solumedrol 62.5 mg IV q6 since 07/20, but still remains bipap dependent, tapered to q12 on 07/27. Changed to oral prednisone taper 07/30. Pneumonia- bibasilar consolidations on CXR, right greater than left, treated with Zosyn 07/20-07/25 and vancomycin 07/20-07/22 A-fib with RVR- Cardiology consulted, anticoagulated with Xarelto, rate controlled. Confusion and dementia- uncertain baseline, attempted to review clinic notes, but he has no encounters in our clinic. Discussed with and caregiver who stated at baseline he could get around, cook some in the microwave, was "usually confused" but "rarely had memory loss". CAD with reported history of percutaneous intervention Acute on chronic diastolic CHF- Cardiology consulted, appreciate recommendations. Echo 06/25/22 at [facility] EF 60%, Echo 06/30/22 EF 50-55%, grade 1 diastolic dysfunction h/o PE per [facility]'s records- on Eliquis Acute renal insufficiency- likely secondary to diuresis, improved HTN SHANNAN H/O pulmonary HTN ANNALISE MESSER MD Jul 31, 2022 16:54
[2022-07-31] MEDS: RIVAROXABAN 20 MG TABLET (XARELTO) PO SCH (18:27)
[2022-07-31 20:05] VITALS: BP 133/80
[2022-07-31] MEDS: MELATONIN 3 MG TABLET PO SCH (20:45)
[2022-07-31] MEDS: OLANZapine 5 MG ODT (ZyPREXA ZYDIS) PO SCH ×2 (20:45)
[2022-08-01 00:07] VITALS: BP 133/82
[2022-08-01 03:36] VITALS: BP 132/71
[2022-08-01] MEDS: MULTIVIT W/MINERALS TAB (THERAGRAN M) PO SCH (05:21)
[2022-08-01] MEDS: inSUlin ASPART (NovoLOG) 1 UNIT/0.01 ML (CHARGE PER UNIT) SC SCH ×5 (05:22→20:29)
[2022-08-01] MEDS: predniSONE 20 MG TAB PO SCH (05:22)
--- NOTE | 2022-08-01 06:34 | Progress Note - Hospitalist ---
Subjective HPI/CC On Admission Date Seen by Provider: Aug 01, 2022 Time Seen by Provider: 11:00 CC: Respiratory failure HPI: This is a [facility] detention pt who presented to the ICU from [place] [facility] from the detention with acute respiratory failure. He required BiPAP due to hypercapnia. At this current time pt is unable to provide any history. We will initiate Zosyn and Vanc, empiric coverage for pneumonia on chest x-ray. Dr. Kaufman will be consulted for volume overload. Subjective/Events-last exam Patient is now DNR per family request Patient sleeps all the time No acute issues Review of Systems General: Fatigue, Malaise Neurological: Confusion Objective Exam Vital Signs Vital Signs Date Time Temp Pulse Resp B/P (MAP) Pulse Ox O2 Delivery O2 Flow Rate FiO2 08/01/22 11:16 36.1 101 18 114/69 (84) 96 High Flow N/C 5.00 08/01/22 07:35 35 Capillary Refill : Less Than 3 Seconds General Appearance: No Apparent Distress, WD/WN, Chronically ill Respiratory: Lungs Clear Cardiovascular: Regular Rate, Rhythm Results/Procedures Lab Patient resulted labs reviewed. Assessment/Plan Assessment and Plan Assess & Plan/Chief Complaint Assessment: 1. Acute respiratory failure with hypoxia and hypercapnia: BiPAP no longer required, but continue to monitor patient's respiratory status with repeat ABGs. Continue vancomycin, Zosyn. Continue nebulizers, steroids 2. COPD exacerbation: Continue nebulizers, steroids 3. CHF: Continue Lasix 4. HTN, Pulmonary HTN: Continue home meds 5. Hx of PE: Continue Xarelto, aspirin regimen. 6. Dementia Plan: DNR Prognosis poor Discharge home Wednesday Critical Care Critically Ill Patient VALERIO DEL REAL DO Aug 01, 2022 06:34
[2022-08-01 08:43] VITALS: BP 135/86
[2022-08-01] MEDS: ASPIRIN 81 MG CHEW (CHILDREN'S ASA) PO SCH (09:13)
[2022-08-01] MEDS: FUROSEMIDE 40 MG (LASIX) TAB PO SCH (09:13)
[2022-08-01] MEDS: DIGOXIN 0.125 MG (LANOXIN) TAB PO SCH (09:14)
[2022-08-01] MEDS: MIDODRINE 10 MG (PROAMATINE) TAB PO SCH ×3 (09:14→16:23)
[2022-08-01] MEDS: DOCUSATE SODIUM 100 MG (COLACE) CAP PO SCH ×2 (09:14→20:18)
[2022-08-01] MEDS: TAMSULOSIN 0.4 MG (FLOMAX) CAP PO SCH (09:14)
[2022-08-01] MEDS: FERROUS SULF 325 MG (IRON) TAB PO SCH (09:14)
[2022-08-01] MEDS: MICONAZOLE 2% POWDER (DESENEX AF) 90 GM TOP SCH ×2 (09:15→20:19)
[2022-08-01] MEDS: QUEtiapine 25 MG (SEROquel) TAB IMMEDIATE RELEASE PO SCH (09:22)
[2022-08-01 11:16] VITALS: BP 114/69
[2022-08-01 15:23] VITALS: BP 107/73
[2022-08-01] MEDS: RIVAROXABAN 20 MG TABLET (XARELTO) PO SCH (16:23)
[2022-08-01 19:17] VITALS: BP 109/75
[2022-08-01] MEDS: OLANZapine 5 MG ODT (ZyPREXA ZYDIS) PO SCH ×2 (20:18)
[2022-08-01] MEDS: MELATONIN 3 MG TABLET PO SCH (20:18)
[2022-08-02] VITALS: BP 131/71
[2022-08-02 03:57] VITALS: BP 117/69
[2022-08-02] MEDS: inSUlin ASPART (NovoLOG) 1 UNIT/0.01 ML (CHARGE PER UNIT) SC SCH ×4 (05:59→20:50)
[2022-08-02] MEDS: predniSONE 20 MG TAB PO SCH (05:59)
[2022-08-02] MEDS: MULTIVIT W/MINERALS TAB (THERAGRAN M) PO SCH (05:59)
--- NOTE | 2022-08-02 06:17 | Progress Note - Hospitalist ---
Subjective HPI/CC On Admission Date Seen by Provider: Aug 02, 2022 Time Seen by Provider: 11:00 CC: Respiratory failure HPI: This is a [facility] long term pt who presented to the ICU from [place] [facility] from the long term with acute respiratory failure. He required BiPAP due to hypercapnia. At this current time pt is unable to provide any history. We will initiate Zosyn and Vanc, empiric coverage for pneumonia on chest x-ray. Dr. Kaufman will be consulted for volume overload. Subjective/Events-last exam No major changes Awakens but sleeps most of the time Ready for DC from my standpoint Overall prognosis is extremely poor Review of Systems Neurological: Confusion Objective Exam Vital Signs Vital Signs Date Time Temp Pulse Resp B/P (MAP) Pulse Ox O2 Delivery O2 Flow Rate FiO2 08/02/22 15:16 36.3 100 20 120/66 (84) 96 High Flow N/C 3.50 08/01/22 19:27 95 Capillary Refill : Less Than 3 Seconds General Appearance: No Apparent Distress, WD/WN, Chronically ill Respiratory: Lungs Clear, Normal Breath Sounds, Decreased Breath Sounds Cardiovascular: Regular Rate, Rhythm Neurologic/Psychiatric: Alert, Disoriented Results/Procedures Lab Patient resulted labs reviewed. Assessment/Plan Assessment and Plan Assess & Plan/Chief Complaint Assessment: 1. Acute respiratory failure with hypoxia and hypercapnia: BiPAP no longer required 2. COPD exacerbation: Continue nebulizers 3. CHF: Continue Lasix 4. HTN, Pulmonary HTN: Continue home meds 5. Hx of PE: Continue Xarelto, aspirin regimen. 6. Dementia Plan: DNR Prognosis poor Discharge home Wednesday Critical Care Critically Ill Patient NASIMAVALERIO ERICKSON Aug 02, 2022 06:17
[2022-08-02 08:54] VITALS: BP 127/78
[2022-08-02] MEDS: FERROUS SULF 325 MG (IRON) TAB PO SCH (09:54)
[2022-08-02] MEDS: DOCUSATE SODIUM 100 MG (COLACE) CAP PO SCH ×2 (09:54→20:45)
[2022-08-02] MEDS: TAMSULOSIN 0.4 MG (FLOMAX) CAP PO SCH (09:54)
[2022-08-02] MEDS: DIGOXIN 0.125 MG (LANOXIN) TAB PO SCH (09:54)
[2022-08-02] MEDS: ASPIRIN 81 MG CHEW (CHILDREN'S ASA) PO SCH (09:54)
[2022-08-02] MEDS: QUEtiapine 25 MG (SEROquel) TAB IMMEDIATE RELEASE PO SCH (09:55)
[2022-08-02] MEDS: FUROSEMIDE 40 MG (LASIX) TAB PO SCH (09:55)
[2022-08-02] MEDS: MIDODRINE 10 MG (PROAMATINE) TAB PO SCH ×3 (09:55→17:40)
[2022-08-02] MEDS: MICONAZOLE 2% POWDER (DESENEX AF) 90 GM TOP SCH ×2 (09:56→20:47)
[2022-08-02 12:31] VITALS: BP 120/78
[2022-08-02 15:16] VITALS: BP 120/66
[2022-08-02] MEDS: RIVAROXABAN 20 MG TABLET (XARELTO) PO SCH (17:40)
[2022-08-02] MEDS: MELATONIN 3 MG TABLET PO SCH (20:42)
[2022-08-02] MEDS: OLANZapine 5 MG ODT (ZyPREXA ZYDIS) PO SCH ×2 (20:42)
[2022-08-03 00:10] VITALS: BP 134/80
[2022-08-03 03:43] VITALS: BP 130/71
[2022-08-03] MEDS: inSUlin ASPART (NovoLOG) 1 UNIT/0.01 ML (CHARGE PER UNIT) SC SCH ×3 (05:41→16:32)
[2022-08-03] MEDS: predniSONE 20 MG TAB PO SCH (05:41)
[2022-08-03] MEDS: MULTIVIT W/MINERALS TAB (THERAGRAN M) PO SCH (05:41)
[2022-08-03 08:00] VITALS: BP 109/68
[2022-08-03 08:05] VITALS: BP 113/70
[2022-08-03] MEDS: DOCUSATE SODIUM 100 MG (COLACE) CAP PO SCH (09:05)
[2022-08-03] MEDS: ASPIRIN 81 MG CHEW (CHILDREN'S ASA) PO SCH (09:05)
[2022-08-03] MEDS: DIGOXIN 0.125 MG (LANOXIN) TAB PO SCH (09:05)
[2022-08-03] MEDS: MIDODRINE 10 MG (PROAMATINE) TAB PO SCH ×2 (09:05→13:27)
[2022-08-03] MEDS: TAMSULOSIN 0.4 MG (FLOMAX) CAP PO SCH (09:05)
[2022-08-03] MEDS: FERROUS SULF 325 MG (IRON) TAB PO SCH (09:06)
[2022-08-03] MEDS: MICONAZOLE 2% POWDER (DESENEX AF) 90 GM TOP SCH (09:06)
[2022-08-03] MEDS: FUROSEMIDE 40 MG (LASIX) TAB PO SCH (09:06)
[2022-08-03] MEDS: QUEtiapine 25 MG (SEROquel) TAB IMMEDIATE RELEASE PO SCH (09:06)
[2022-08-03] MEDS ORDERED: PRED10TA22 PO (11:12)
[2022-08-03] MEDS ORDERED: DIGO125T18 PO (11:12)
[2022-08-03] MEDS ORDERED: FURO40TA4 PO (11:12)
[2022-08-03] MEDS ORDERED: OXC5T PO (11:12)
[2022-08-03] MEDS ORDERED: IPRA3AMP31 INH (11:12)
--- NOTE | 2022-08-03 11:13 | Discharge Inst-Skilled Nursing ---
Discharge Inst-Skilled NF Reconcile Patient Problems Problems Reviewed?: Yes Chief Complaint CC: Respiratory failure HPI: This is a [facility] halfway pt who presented to the ICU from [facility] from the halfway with acute respiratory failure. He required BiPAP due to hypercapnia. At this current time pt is unable to provide any history. We will initiate Zosyn and Vanc, empiric coverage for pneumonia on chest x-ray. Dr. Kaufman will be consulted for volume overload. Patient Instructions Patient Problems: Debility Dementia Consult/Follow Up/Orders Follow Up Appt.: PCP [place] rounds Skilled NF Admit to: [facility] Certification (SNF) I certify that SNF services are required to be given on an inpatient basis because of the above named patient's need for long term care on a continuing basis for the conditions(s) for which he/she was receiving inpatient hospital services prior to his/her transfer to the SNF. Long Term Facility Order: Nursing Services, Machinist Apprentice Wood-Evaluate & Treat, Physical Therapy-Evaluate & Treat, Speech Language-Evaluate & Treat Oxygen Delivery Method: Nasal Cannula (4L/min) Resuscitation Status: Do Not Resuscitate New & Resume Previous Orders New Medications: Prednisone (Prednisone) 10 Mg Tab.ds.pk 10 MG PO DAILY, #10 EA Take 4 tabs(40mg)daily,decrease by 1 tab(10MG)daily. Digoxin (Digox) 125 Mcg (0.125 Mg) Tablet 0.125 MG PO DAILY, #30 TAB Furosemide (Furosemide) 40 Mg Tablet 40 MG PO DAILY, #30 TAB Ipratropium/Albuterol Sulfate (Iprat-Albut 0.5-3(2.5) mg/3 ml) 0.5 Mg-3 Mg (2.5 Mg Base)/3 Ml Ampul.neb 3 ML INH Q2HR PRN for SHORTNESS OF AIR, #30 INHALER Oxycodone Hcl (Oxyir Tablet) 5 Mg Tab 5 MG PO Q4HR PRN for PAIN-SEE DOSE INSTRUCTIONS, #10 TAB Continued Medications: Acetaminophen (Acetaminophen) 500 Mg Tablet 500 MG PO Q6H PRN for PAIN-MILD (1-4), TAB Apixaban (Eliquis) 5 Mg Tablet 5 MG PO BID, TAB Aspirin (Aspirin EC) 81 Mg Tablet.dr 81 MG PO DAILY, TAB Atorvastatin Calcium (Atorvastatin Calcium) 80 Mg Tablet 80 MG PO HS, TAB Docusate Sodium (Docusate Sodium) 100 Mg Capsule 100 MG PO Q12H PRN for CONSTIPATION-1ST LINE, CAP Ferrous Sulfate (Ferrous Sulfate) 325 Mg (65 Mg Iron) Tablet 325 MG PO DAILY, TAB Melatonin (Melatonin) 3 Mg Tablet 3 MG PO HS, TAB Midodrine HCl (Midodrine HCl) 5 Mg Tablet 5 MG PO TID, TAB Multivitamin (Multivitamin) 1 Each Tablet 1 EACH PO DAILY, TAB Olanzapine (Olanzapine Odt) 5 Mg Tab.rapdis 5 MG PO HS, TAB Polyethylene Glycol 3350 (Miralax) 17 Gram Powd.pack 17 GM PO DAILY PRN for CONSTIPATION-2ND LINE, EACH Quetiapine Fumarate (Seroquel) 25 Mg Tablet 125 MG PO DAILY, TAB TAKES 5 (25MG) TABS Sodium Chloride (Saline Nose [place]) 0.65 % [place] 1 SPRAYS NSEACH DAILY PRN for CONGESTION, EA Tamsulosin HCl (Flomax) 0.4 Mg Cap 0.4 MG PO DAILY, CAP Discontinued Medications: Furosemide (Furosemide) 20 Mg Tablet 20 MG PO DAILY, TAB Heather Graham Aug 03, 2022 11:13 HEATHER GRAHAM DO Aug 03, 2022 11:13
[2022-08-03 12:05] VITALS: BP 107/73
== END 2022-08-03 16:34 | DRG 193 ==
LOC: ER FS 07:40 → ICU 11:25 → 4TH 07-26 18:12
PROVIDERS: ADMIT Internal Medicine; ATTEND Internal Medicine
PROC: 5A09457 Assistance with Respiratory Ventilation, 24-96 Consecutive Hours, Continuous Positive Airway Pressure (ICD-10-PCS; principal; 2022-07-20)
PROC: 5A0945A Assistance with Respiratory Ventilation, 24-96 Consecutive Hours, High Flow/Velocity Cannula (ICD-10-PCS; 2022-07-22)
DX: J18.9 Pneumonia, unspecified organism (principal); I50.33 Acute on chronic diastolic (congestive) heart failure; J96.01 Acute respiratory failure with hypoxia; J96.22 Acute and chronic respiratory failure with hypercapnia; J44.0 Chronic obstructive pulmonary disease with (acute) lower respiratory infection; J44.1 Chronic obstructive pulmonary disease with (acute) exacerbation; F02.811 Dementia in other diseases classified elsewhere, unspecified severity, with agitation; F05 Delirium due to known physiological condition; Z66 Do not resuscitate; I11.0 Hypertensive heart disease with heart failure; G47.33 Obstructive sleep apnea (adult) (pediatric); I27.20 Pulmonary hypertension, unspecified; H91.90 Unspecified hearing loss, unspecified ear; Z20.822 Contact with and (suspected) exposure to COVID-19; I25.10 Atherosclerotic heart disease of native coronary artery without angina pectoris; I89.0 Lymphedema, not elsewhere classified; E86.1 Hypovolemia; G30.9 Alzheimer's disease, unspecified; Z86.711 Personal history of pulmonary embolism; Z79.01 Long term (current) use of anticoagulants; Z79.82 Long term (current) use of aspirin
CPT/HCPCS: 36415; 36600; 71045; 80053; 80162; 81000; 82607; 82746; 82805; 82947; 83605; 83735; 83880; 84100; 84484; 85007; 85025; 85027; 85610; 85730; 87040; 87077; 87088; 87186; 87636; 93005; 93306; 94640; 94660; 94760; 96365; 96366; 96367; 96368; 96375

== ENCOUNTER 2022-08-13 20:39 | Inpatient (IN) | payer MEDICARE, OTHER ==
[~2022-08-13] VITALS: Ht 177.8 cm; Wt 88.0 kg
[~2022-08-13 20:39] MED LIST: ACET-93 PO; APIX5TAB PO; ASPI-1238 PO; ATOR80TA76 PO; DIGO125T18 PO; DOCU100C37 PO; FERR325T18 PO; FURO20TA4 PO; FURO40TA4 PO; IPRA3AMP31 INH; MELA3TAB39 PO; MIDO5TAB3 PO; MULT-1136 PO; OLAN5TAB23 PO; OLN5T PO; OXC5T PO; POLY17PO6 PO; POLY500P24 MC; PRED10TA22 PO; QUET25TA PO; SODI45SP9 NSEACH; TMSL.4C PO
[2022-08-13] MEDS ORDERED: methylPREDNISolone 125 MG (Solu-MEDROL) VIAL IVP STA (20:50)
[2022-08-13] MEDS ORDERED: FUROSEMIDE 40 MG/4 ML INJ (LASIX) IVP STA (20:50)
--- NOTE | 2022-08-13 20:59 | ED General ---
General Chief Complaint: Respiratory Problems Stated Complaint: LOW O2 Source of Information: Patient, EMS, Snf Records, Old Records (Cardiology and Inpatient records from admit 07/20 to 08/03) Exam Limitations: Other (chronic dementia, respiratory distress) History of Present Illness Date Seen by Provider: Aug 13, 2022 Time Seen by Provider: 20:39 Initial Comments 82-year-old male presenting by EMS from [facility] with acute on chronic hypoxia and respiratory failure. He has a history of COPD, CHF, pulmonary hypertension, pulmonary emboli. He was recently admitted to [facility] for acute on chronic respiratory failure with hypoxia and was on intermittent BiPAP. He slowly improved with treatment in the hospital. He continues to have a poor prognosis and was discharged with DNR back to the custodial. He was admitted from July 20 through August 03. He currently has a roommate at [facility] that is positive for influenza A. Tonight they noticed that his oxygen saturation was in the 70s and his extremities were cool. He is currently on Augmentin for a UTI that was started on August 11. Unclear on how long his breathing has been worsening but definitely at least this evening. Severity: Moderate Modifying Factors: improves with Other (oxygen by non-rebreather helped raise his oxygen saturation to 100%) Associated Systoms: Cough, Shortness of Air Allergies and Home Medications Allergies Coded Allergies: No Known Drug Allergies (Unverified , 07/20/22) Patient Home Medication List Home Medication List Reviewed: Yes Acetaminophen (Acetaminophen) 500 Mg Tablet, 500 MG PO Q6H PRN for PAIN-MILD (1- 4), (Reported) Entered as Reported by: MARCELLO ABAD on 07/20/22 143 Apixaban (Eliquis) 5 Mg Tablet, 5 MG PO BID, (Reported) Entered as Reported by: MARCELLO ABAD on 07/20/22 143 Aspirin (Aspirin EC) 81 Mg Tablet.dr, 81 MG PO DAILY, (Reported) Entered as Reported by: MARCELLO ABAD on 07/20/22 143 Atorvastatin Calcium (Atorvastatin Calcium) 80 Mg Tablet, 80 MG PO HS, (Reported) Entered as Reported by: MARCELLO ABAD on 07/20/22 143 Digoxin (Digox) 125 Mcg (0.125 Mg) Tablet, 0.125 MG PO DAILY Prescribed by: VALERIO DEL REAL on 08/03/22 111 Docusate Sodium (Docusate Sodium) 100 Mg Capsule, 100 MG PO Q12H PRN for CON STIPATION-1ST LINE, (Reported) Entered as Reported by: MARCELLO ABAD on 07/20/22 143 Ferrous Sulfate (Ferrous Sulfate) 325 Mg (65 Mg Iron) Tablet, 325 MG PO DAILY, (Reported) Entered as Reported by: MARCELLO ABAD on 07/20/22 143 Furosemide (Furosemide) 40 Mg Tablet, 40 MG PO DAILY Prescribed by: VALERIO DEL REAL on 08/03/221111 Ipratropium/Albuterol Sulfate (Iprat-Albut 0.5-3(2.5) mg/3 ml) 0.5 Mg-3 Mg (2.5 Mg Base)/3 Ml Ampul.neb, 3 ML INH Q2HR PRN for SHORTNESS OF AIR Prescribed by: VALERIO DEL REAL on 08/03/221111 Melatonin (Melatonin) 3 Mg Tablet, 3 MG PO HS, (Reported) Entered as Reported by: MARCELLO ABAD on 07/20/22 143 Midodrine HCl (Midodrine HCl) 5 Mg Tablet, 5 MG PO TID, (Reported) Entered as Reported by: MARCELLO ABAD on 07/20/22 143 Multivitamin (Multivitamin) 1 Each Tablet, 1 EACH PO DAILY, (Reported) Entered as Reported by: ANNETTE ROMERO on 07/21/22 150 Olanzapine (Olanzapine Odt) 5 Mg Tab.rapdis, 5 MG PO HS, (Reported) Entered as Reported by: ANNETTE ROMERO on 07/21/22 1507 Oxycodone Hcl (Oxyir Tablet) 5 Mg Tab, 5 MG PO Q4HR PRN for PAIN-SEE DOSE INSTRUCTIONS Prescribed by: VALERIO DEL REAL on 08/03/22 111 Polyethylene Glycol 3350 (Miralax) 17 Gram Powd.pack, 17 GM PO DAILY PRN for CONSTIPATION-2ND LINE, (Reported) Entered as Reported by: ANNETTE ROMERO on 07/21/22 150 Prednisone (Prednisone) 10 Mg Tab.ds.pk, 10 MG PO DAILY Prescribed by: VALERIO DEL REAL on 08/03/221111 Quetiapine Fumarate (Seroquel) 25 Mg Tablet, 125 MG PO DAILY, (Reported) Entered as Reported by: MARCELLO ABAD on 07/20/22 1437 Sodium Chloride (Saline Nose [place]) 0.65 % [place], 1 SPRAYS NSEACH DAILY PRN for CONGESTION, (Reported) Entered as Reported by: ANNETTE ROMERO on 07/21/22 1507 Tamsulosin HCl (Flomax) 0.4 Mg Cap, 0.4 MG PO DAILY, (Reported) Entered as Reported by: MARCELLO ABAD on 07/20/22 1437 Review of Systems Review of Systems Constitutional: No fever Respiratory: cough, short of breath; No stridor Cardiovascular: No chest pain Unable to obtain full ROS as patient has dementia and is not answering all questions Past Tonwxlw-Hkntdg-Ilyorr Hx Patient Social History Tobacco Use?: No Smoking Status: Never a Smoker (according to recent hospital admission records) Past Medical History Surgery/Hospitalization HX: COPD, Diastolic CHF, Pulmonary hypertension, history of Pulmonary embolus, dementia, UTI Physical Exam Vital Signs Capillary Refill : Height, Weight, BMI Height: '" Weight: lbs. oz. kg; 30.41 BMI Method: General Appearance: Chronically ill, Moderate Distress, Obese HEENT: PERRL/EOMI, Moist Mucous Membranes Respiratory: Chest Non Tender, Accessory Muscle Use, Decreased Breath Sounds, Respiratory Distress, Rhonci, Wheezing Cardiovascular: Normal Peripheral Pulses, Tachycardia Gastrointestinal: Normal Bowel Sounds, No Pulsatile Mass, Non Tender, Soft Extremity: Pedal Edema (1+ bilateral pitting edema), Other (cool extremities with multiple bruises in various stages of healing. ) Neurologic/Psychiatric: Alert; No Oriented x3 (oriented to self only) Skin: Cool, Ecchymosis (multiple bruises in various stages of healing) Focused Exam Lactate Level 08/13/22 20:55: Lactic Acid Level 1.53 Lactic Acid Level Laboratory Tests Test 08/13/22 20:55 Lactic Acid Level 1.53 MMOL/L (0.50-2.00) Progress/Results/Core Measures Suspected Sepsis SIRS Temperature: Pulse: Respiratory Rate: Laboratory Tests 08/13/22 20:55: White Blood Count 4.9 Blood Pressure / Mean: 08/13/22 20:55: Lactic Acid Level 1.53 Laboratory Tests 08/13/22 20:55: Creatinine 0.98, Platelet Count 162, Total Bilirubin 0.4 Results/Orders Lab Results Laboratory Tests Test 08/13/22 20:47 08/13/22 20:55 08/13/22 21:11 Range/Units Influenza Type A (RT-PCR) Detected H Not Detecte Influenza Type B (RT-PCR) Not Detected Not Detecte SARS-CoV-2 RNA (RT-PCR) Not Detected Not Detecte White Blood Count 4.9 4.3-11.0 10^3/uL Red Blood Count 3.55 L 4.30-5.52 10^6/uL Hemoglobin 10.6 L 13.3-17.7 g/dL Hematocrit 35 L 40-54 % Mean Corpuscular Volume 99 80-99 fL Mean Corpuscular Hemoglobin 30 25-34 pg Mean Corpuscular Hemoglobin Concent 30 L 32-36 g/dL Red Cell Distribution Width 17.1 H 10.0-14.5 % Platelet Count 162 130-400 10^3/uL Mean Platelet Volume 10.1 9.0-12.2 fL Immature Granulocyte % (Auto) 0 % Neutrophils (%) (Auto) 80 H 42-75 % Lymphocytes (%) (Auto) 14 12-44 % Monocytes (%) (Auto) 4 0-12 % Eosinophils (%) (Auto) 1 0-10 % Basophils (%) (Auto) 0 0-10 % Neutrophils # (Auto) 3.9 1.8-7.8 10^3/uL Lymphocytes # (Auto) 0.7 L 1.0-4.0 10^3/uL Monocytes # (Auto) 0.2 0.0-1.0 10^3/uL Eosinophils # (Auto) 0.1 0.0-0.3 10^3/uL Basophils # (Auto) 0.0 0.0-0.1 10^3/uL Immature Granulocyte # (Auto) 0.0 0.0-0.1 10^3/uL Sodium Level 130 L 135-145 MMOL/L Potassium Level 5.0 3.6-5.0 MMOL/L Chloride Level 87 L 98-107 MMOL/L Carbon Dioxide Level 33 H 21-32 MMOL/L Anion Gap 10 5-14 MMOL/L Blood Urea Nitrogen 30 H 7-18 MG/DL Creatinine 0.98 0.60-1.30 MG/DL Estimat Glomerular Filtration Rate 78 BUN/Creatinine Ratio 31 Glucose Level 119 H 70-105 MG/DL Lactic Acid Level 1.53 0.50-2.00 MMOL/L Calcium Level 8.5 8.5-10.1 MG/DL Corrected Calcium 9.4 8.5-10.1 MG/DL Total Bilirubin 0.4 0.1-1.0 MG/DL Aspartate Amino Transf (AST/SGOT) 45 H 5-34 U/L Alanine Aminotransferase (ALT/SGPT) 35 0-55 U/L Alkaline Phosphatase 76 40-136 U/L C-Reactive Protein 20.86 H <0.50 MG/DL Pro-B-Type Natriuretic Peptide 1320.0 H <450.0 PG/ML Total Protein 6.7 6.4-8.2 GM/DL Albumin 2.9 L 3.2-4.5 GM/DL Bedside Blood Gas pH (LAB) 7.335 7.310-7.410 Bedside Blood Gas pCO2 (LAB) 70.5 *H 41.0-51.0 mmHg Bedside Blood Gas pO2 (LAB) 147 H 80-105 mmHg Bedside Blood Gas HCO3 (LAB) 37.6 H 23.0-28.0 mmol/L POC Blood Gas Total CO2 Calc 40 H 24-29 mmol/L Bedside Bl Gas O2 Saturation (Calc) 99 H 95-98 % Bedside Arterial Blood Base Excess 12 H -2-3 mmol/L My Orders Orders - MARCIE BLEVINS MD Cbc With Automated Diff (08/13/22 20:47) Comprehensive Metabolic Panel (08/13/22 20:47) Blood Culture (08/13/22 20:47) Chest 1 View Ap/Pa Only (08/13/22 20:47) Ekg Tracing (08/13/22 20:47) O2 (08/13/22 20:47) Ed Iv/Invasive Line Start (08/13/22 20:47) Monitor-Rhythm Ecg Trace Only (08/13/22 20:47) Crp Fs (08/13/22 20:47) Lactic Acid Analyzer (08/13/22 20:47) Probnp Fs (08/13/22 20:47) Covid 19 Inhouse Test (08/13/22 20:47) Influenza A And B By Pcr (08/13/22 20:47) Isolation Central Supply Req (08/13/22 20:47) Furosemide Injection (Lasix Injection) (08/13/22 20:50) Methylprednisolone Sod Succ (Solu-Medrol (08/13/22 20:50) Code/Resuscitation (08/13/22 20:50) Bipap (Bilevel) Set Up (08/13/22 21:42) Nursing Communication (Order) (08/13/22 21:42) Vital Signs/I&O Capillary Refill : Progress Note #1: Progress Note Order labs with ABG, blood cultures, lactic acid, CXR, ECG, ProBNP. Order lasix 80 mg IV x 1, Solumedrol 125 mg IV x 1, Oxygen to maintain sats >90%. 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 Progress Note #2: Time: 21:37 Progress Note His 1 view chest x-ray appears to be improved from recent admission as he has improved effusion and no definite infiltrate or pneumothorax. CBC shows improved WBC count to 4.9 with stable chronic anemia with Hgb 10.6. Influenza A positive from nasal swab. Negative Covid and Influenza B. Lactic acid negative at 1.53. He has elevated CRP to go with infection. proBNP elevated to 1320. ABG shows pH of 7.34 with pCO2 70.5 which is only slightly higher than his 57-60 baseline at discharge last week. pO2 147 on non-rebreather at 10 Lpm. ECG shows sinus tachycardia with occasional PVC and Left Bundle Branch block that is stable from 07/20. With his CXR not showing effusion the order for Lasix was decreased from 80 mg to 40 mg IV. Started on BiPap to help with his elevated pCO2 level. Patient has had low blood pressure but awakens to voice and answers some questions. Only oriented to self with chronic dementia. 2208 d/w Dr. Sweeney and with him positive for Influenza A and having acute on chronic respiratory failure with hypoxia and hypercapnia will admit on BiPAP. Ordered IV Peramivir for influenza A treatment as concerned he would have difficulty taking oral medicine without dropping his O2 sats. Will admit to ICU for tonight and have him continue with BiPap and monitoring. He is DNR but ok with getting BiPap and treatment for influenza A. He already was taking Augmentin that was started on 08/11 for UTI. Will consult E-ICU to help manage his care tonight. Progress Note #3: Time: 23:19 Progress Note d/w Dr. Muro for E-ICU to give him some information and background about the patient. Advised of acute on chronic respiratory failure with hypoxia and hypercapnea in face of Influenza A infection. Chronic diastolic heart failure with pulmonary hypertension and hx of PE. Poor prognosis with recurrent respir atory issues and now having Influenza A. He was made DNR/DNI when he was recently admitted to [facility] from 07/20 to 08/03. He might need more hospice care rather than aggressive management with his poor prognosis and recurrent respiratory distress. ECG Initial ECG Impression Date: Aug 13, 2022 Initial ECG Impression Time: 21:21 Initial ECG Rate: 108 Initial ECG Rhythm: S.Tach Initial ECG Comparisson: Unchanged (07/20/2022) Comment Based on my independent review and interpretation of his electrocardiogram he has sinus tachycardia with a heart rate of 108 bpm with occasional PVCs. There is a left bundle branch block. OR interval [address] elevation. QT interval 330 ms with a QTc interval 393 ms. Overall appears similar to prior tracing from July 20, 2022 Diagnostic Imaging Diagonstic Imaging: Xray Plain Films/CT/US/NM/MRI: chest Comments NAME: LAURIE JOHNSON MED REC#: [id number] PT STATUS: REG ER : 1940 PHYSICIAN: MARCIE BLEVINS MD ADMIT DATE: 08/13/22/ER FS Draft Date of Exam:08/13/22 CHEST 1 VIEW AP/PA ONLY Chest 1 view AP/PA only Indication: Shortness of breath. Comparison: 07/24/2022. Findings: The left-sided pleural effusion has resolved. Right basilar pulmonary opacities persist and may be due to atelectasis versus small residual effusion. Summation shadow of patient's head and neck overlies the lung apices and these partially obscure portions of the lung. Allowing for this, no pneumothorax or pleural effusion. Normal heart size. Impression: 1. Improved versus redistributed small left pleural effusion. 2. No acute process has developed in the interim. Dictated on workstation # [id number] Dict: 08/13/222120 Trans: 08/13/222125 [facility] [id number] Interpreted by: SHADY HUGHES MD Electronically signed by: Reviewed: Reviewed by Me Critical Care Note Critical Care Total Time (minutes) 45 minutes Progress 45 minutes of critical care time was spent with patient. Time excluded separately billable procedures. Time spent obtaining history from patient, custodial records, recent admission, ordering tests and reviewing results, ordering interventions and reviewing response, ordering x-rays and reviewing imaging, discussion with consultants, documentation in the chart. He was at risk of cardiopulmonary failure with his influenza on top of his chronic COPD and chronic respiratory failure. Departure Communication (Admissions) Time/Spoke to Admitting Phy: 22:09 d/w Dr. Sweeney and will admit to ICU for closer monitoring at least for tonight. Continue with BiPap and start RMAT protocol. ABG on arrival to ICU. He is DNR but will admit for influenza treatment and respiratory support. Impression Primary Impression: Acute on chronic respiratory failure with hypoxia Additional Impressions: Influenza A Hypercapnemia Disposition: 30 STILL A PATIENT Condition: Critical Admissions Decision to Admit Reason: Admit from ER (General) Decision to Admit/Date: Aug 13, 2022 Time/Decision to Admit Time: 22:09 Departure-Patient Inst. Referrals: WILL BOOKER MD (PCP/Family) Primary Care Physician MARCIE BLEVINS MD Aug 13, 2022 20:59
[2022-08-13 21:15] LABS: BASOPHILS % (AUTO) 0 % (0-10); EOSINOPHILS # (AUTO) 0.1 10^3/uL (0.0-0.3); EOSINOPHILS % (AUTO) 1 % (0-10); HEMATOCRIT 35 % (40-54); HEMOGLOBIN 10.6 g/dL (13.3-17.7); LYMPHOCYTES # (AUTO) 0.7 10^3/uL (1.0-4.0); LYMPHOCYTES % (AUTO) 14 % (12-44); MEAN CORPUSCULAR HEMOGLOBIN 30 pg (25-34); MEAN CORPUSCULAR HGB CONC 30 g/dL (32-36); MEAN CORPUSCULAR VOLUME 99 fL (80-99); MEAN PLATELET VOLUME 10.1 fL (9.0-12.2); MONOCYTES # (AUTO) 0.2 10^3/uL (0.0-1.0); MONOCYTES % (AUTO) 4 % (0-12); NEUTROPHILS # (AUTO) 3.9 10^3/uL (1.8-7.8); NEUTROPHILS % (AUTO) 80 % (42-75); PLATELET COUNT 162 10^3/uL (130-400); WHITE BLOOD COUNT 4.9 10^3/uL (4.3-11.0)
--- NOTE | 2022-08-13 21:26 | Diagnostic Imaging Report ---
Chest 1 view AP/PA only Indication: Shortness of breath. Comparison: 07/24/2022. Findings: The left-sided pleural effusion has resolved. Right basilar pulmonary opacities persist and may be due to atelectasis versus small residual effusion. Summation shadow of patient's head and neck overlies the lung apices and these partially obscure portions of the lung. Allowing for this, no pneumothorax or pleural effusion. Normal heart size. Impression: 1. Improved versus redistributed small left pleural effusion. 2. No acute process has developed in the interim. Dictated by: Dictated on workstation # [id number]
[2022-08-13 21:50] LABS: CREATININE SERUM 0.98 MG/DL (0.60-1.30)
[2022-08-13 21:51] LABS: ALBUMIN 2.9 GM/DL (3.2-4.5); BILIRUBIN,TOTAL 0.4 MG/DL (0.1-1.0); CALCIUM 8.5 MG/DL (8.5-10.1); TOTAL PROTEIN 6.7 GM/DL (6.4-8.2)
[2022-08-14] VITALS (7 sets, daily range): BP systolic 96–121; BP diastolic 52–65
[2022-08-14] MEDS ORDERED: CATHETER FLUSH 10 ML SYR IVP PRN (00:30)
[2022-08-14 00:35] LABS: ABG BASE EXCESS 12.3 MMOL/L (-2.5-2.5); ABG OXYGEN SATURATION 98 % (94-100); ABG PCO2 68 MMHG (35-45); ABG PH 7.36 (7.37-7.43); ABG PO2 97 MMHG (79-93)
[2022-08-14 00:37] LABS: ALLENS TEST YES-POS
[2022-08-14 00:38] LABS: INSPIRED O2 40%; PATIENT TEMP 36.8; VENTILATOR NO
[2022-08-14 00:39] LABS: ABG TCO2 40.3 MMOL/L (21.0-31.0)
--- NOTE | 2022-08-14 00:45 | Tele-ICU Progress Note ---
Subjective Date Seen by a Provider: Aug 14, 2022 Subjective/Events-last exam This virtual visit was conducted using real time audio/video. Thank you for asking us to see this patient for respiratory insufficiency due to AECOPD and Inf A. Recent events: transferred from [place]. Recent UTI, hospitalized 07/20-08/03 with AECOPD. PMH: COPD on supplemental, pulm htn, PEs, diast. HF, chronic LBBB, dementia. ROS: lias in HPI. PE: Obese. Appears comfortable on BiPAP. VSS. O2 sat 100% on BiPAP 18/8, 40%. HEENT: No obvious masses, adenopathy or JVD. Chest:diminished with wheezing on auscultation. CV: RRR S1 S2 No murmur or added sounds. Abd: Non-tender. Bowel sounds Y. : Unremarkable. Segal N. MODEL MAKER/psychiatric: Grossly intact. No obvious focal findings. Extremities: trace edema. Capillary refill < 3 seconds. Skin: unremarkable. Results: Elevated BUN 30, BG 119. Decreased Na 130, Hb 10.6. ABG: pending. CXR: Hyperinflated, improved.compared to previous. Available chart/ vitals / labs / images reviewed. Video assessment done using teleICU camera, rest of exam as per RN. A/P: Respiratory insufficiency: Continue present management with Medrol, duonebs, BiPAP. Monitor for increasing oxygenation needs and/or need for intubation. Critical Care: critically ill patient. Cont. IV Peramivir. Add Lovenox. Discussed with ERIN Prasad and ER . Asked RN to reach out to eICU if any questions or concerns later. Time spent with patient/coordination of care with other health professionals (mins): 25 Sepsis Event Evaluation Height, Weight, BMI Height: '" Weight: lbs. oz. kg; 30.41 BMI Method: Focused Exam Lactate Level 08/13/22 20:55: Lactic Acid Level 1.53 Lactic Acid Level Laboratory Tests Test 08/13/22 20:55 Lactic Acid Level 1.53 MMOL/L (0.50-2.00) Exam Exam Patient acknowledged, consented, and participated in this virtual visit which was conducted using real time audio/video Vital Signs Date Time Temp Pulse Resp B/P (MAP) Pulse Ox O2 Delivery O2 Flow Rate FiO2 08/14/22 00:21 87 26 99 40.00 Height & Weight Height: '" Weight: lbs. oz. kg; 30.41 BMI Method: General Appearance: Chronically ill, Moderate Distress, Obese HEENT: PERRL/EOMI, Moist Mucous Membranes Respiratory: Chest Non Tender, Accessory Muscle Use, Decreased Breath Sounds, Respiratory Distress, Rhonci, Wheezing Cardiovascular: Normal Peripheral Pulses, Tachycardia Extremity: Pedal Edema (1+ bilateral pitting edema), Other (cool extremities with multiple bruises in various stages of healing. ) Neurologic/Psychiatric: Alert; No Oriented x3 (oriented to self only) Skin: Cool, Ecchymosis (multiple bruises in various stages of healing) Results Lab Laboratory Tests 08/13/22 20:55 Assessment/Plan Assessment/Plan See free text. Critical Care: Critically Ill Patient LINDA FOX MD Aug 14, 2022 00:45
[2022-08-14] MEDS ORDERED: RT-ALBUTEROL/IPRATROPIUM 3 ML (DUONEB) VIAL INH PRN (01:00)
[2022-08-14] MEDS ORDERED: NS IV 500 ML 500 ML IV PRN (01:30)
[2022-08-14] MEDS: RT-ALBUTEROL/IPRATROPIUM 3 ML (DUONEB) VIAL INH SCH ×6 (02:56→22:10)
[2022-08-14] MEDS ORDERED: RT-ALBUTEROL/IPRATROPIUM 3 ML (DUONEB) VIAL INH SCH (03:00)
[2022-08-14 05:32] LABS: BASOPHILS % (AUTO) 0 % (0-10); EOSINOPHILS % (AUTO) 0 % (0-10); HEMATOCRIT 31 % (40-54); HEMOGLOBIN 9.3 g/dL (13.3-17.7); LYMPHOCYTES # (AUTO) 0.1 10^3/uL (1.0-4.0); LYMPHOCYTES % (AUTO) 4 % (12-44); MEAN CORPUSCULAR HEMOGLOBIN 29 pg (25-34); MEAN CORPUSCULAR HGB CONC 30 g/dL (32-36); MEAN CORPUSCULAR VOLUME 98 fL (80-99); MEAN PLATELET VOLUME 10.1 fL (9.0-12.2); MONOCYTES # (AUTO) 0.1 10^3/uL (0.0-1.0); MONOCYTES % (AUTO) 2 % (0-12); NEUTROPHILS # (AUTO) 3.3 10^3/uL (1.8-7.8); NEUTROPHILS % (AUTO) 94 % (42-75); PLATELET COUNT 130 10^3/uL (130-400); WHITE BLOOD COUNT 3.5 10^3/uL (4.3-11.0)
[2022-08-14 05:51] LABS: ALBUMIN 2.6 GM/DL (3.2-4.5); POTASSIUM 4.2 MMOL/L (3.6-5.0)
[2022-08-14 05:53] LABS: CALCIUM 7.8 MG/DL (8.5-10.1)
[2022-08-14 05:54] LABS: TOTAL PROTEIN 5.2 GM/DL (6.4-8.2)
[2022-08-14 05:56] LABS: BILIRUBIN,TOTAL 0.3 MG/DL (0.1-1.0)
[2022-08-14 05:57] LABS: PHOSPHORUS 3.9 MG/DL (2.3-4.7)
[2022-08-14 05:58] LABS: CREATININE SERUM 0.95 MG/DL (0.60-1.30)
[2022-08-14] MEDS: POTASSIUM CL 10MEQ/50ML IVPB 50 ML IV SCH (05:58)
[2022-08-14 06:00] LABS: MAGNESIUM 1.7 MG/DL (1.6-2.4); NEUTROPHILS % (MANUAL) 96 %
[2022-08-14 06:01] LABS: LYMPHOCYTES % (MANUAL) 2 %; MONOCYTES % (MANUAL) 2 %; RBC MORPH NORMAL
[2022-08-14] MEDS: KCL 20 MEQ TAB (K-DUR) PO SCH (06:02)
[2022-08-14] MEDS: MAGNESIUM 1 GM/100 ML IVPB 100 ML IV SCH ×3 (06:03→08:18)
[2022-08-14] MEDS: CATHETER FLUSH 10 ML SYR IVP SCH ×3 (06:41→22:27)
[2022-08-14] MEDS ORDERED: ENOXAPARIN 40 MG/0.4 ML (LOVENOX) SYR SC SCH (09:00)
--- NOTE | 2022-08-14 10:57 | History & Physical-Hospitalist ---
History of Present Illness HPI/Chief Complaint Chief complaint acute on chronic respiratory failure requiring BiPAP HPI: This is an 82-year-old male known to me from 2-week stay in hospital for acute on chronic respiratory failure just discharged last week to the residential who has severe dementia and was a hospice candidate weeks ago who presented once again to the ICU after assessed in the ER to be in acute on chronic respiratory failure requiring BiPAP. He remains on BiPAP currently. Dementia precludes any details. Hospice conversation will be initiated with family. Source: RN/, old records Date Seen 08/14/22 Time Seen by a Provider: 11:00 Attending Physician Francis Seay MD PCP Admitting Physician: Ruth Sweeney MD Attending Physician: Heather Graham DO Referring Physician Date of Admission Aug 14, 2022 at 00:03 Home Medications & Allergies Home Medications Reviewed patient Home Medication Reconciliation performed by pharmacy medication reconciliations instructional support technician and/or nursing. Patients Allergies have been reviewed. Allergies Allergies Coded Allergies No Known Drug Allergies ([id number]/28/22) Past Ucmrqiy-Khawch-Hkmvgo Hx Patient Social History Marrital Status: Employed/Student: retired Tobacco Use?: No Smoking Status: Never a Smoker Smokeless Tobacco Frequency: Unknown if Ever Used Use of E-Cig and/or Vaping dev: No Use of E-Cig and/or Vaping Toro: Unknown if Ever Used Substance use?: No Alcohol Use?: No Pt feels they are or have been: Unable to obtain Immunizations Up To Date Date of Influenza Vaccine: May 23, 2022 First/Initial COVID19 Vaccinat: unknown from [facility] Current Status Advance Directive Location: From [facility] Document reporting DNR on file Communicates: Verbally Primary Language: Belarusian Preferred Spoken Language: Belarusian Is interpretation needed?: No Sensory deficits: Hearing impairment Implanted or Applied Medical D: BiPAP Past Medical History Pneumonia, COPD High Cholesterol, Hypertension Dementia Gastroesophageal Reflux Review of Systems Constitutional: see HPI Physical Exam Physical Exam Vital Signs Vital Signs - First Documented 08/13/22 21:38 FiO2 60 Capillary Refill : Less Than 3 Seconds Height, Weight, BMI Height: '" Weight: lbs. oz. kg; 27.80 BMI Method: General Appearance: Chronically ill, Mild Distress, Other (Sleepy) Respiratory: No Accessory Muscle Use, No Respiratory Distress, Decreased Breath Sounds Cardiovascular: Regular Rate, Rhythm Results Results/Procedures Labs Laboratory Tests 08/13/22 20:55 08/14/22 04:47 08/15/22 04:37 Patient resulted labs reviewed. Assessment/Plan Admission Diagnosis Assessment: Acute influenza A Acute on chronic respiratory failure now BiPAP dependent again Severe dementia Hypertension Hyperlipidemia Orthostasis COPD Atrial fibrillation Plan: Needs hospice BiPAP until hospice DNR Admission Status: Inpatient Order (span 2 midnights) Reason for Inpatient Admission: Respiratory failure Diagnosis/Problems Diagnosis/Problems (1) Acute on chronic respiratory failure with hypoxia Status: Acute (2) Influenza A Status: Acute (3) Hypercapnemia Status: Acute HEATHER GRAHAM DO Aug 14, 2022 10:57
--- NOTE | 2022-08-14 11:05 | Tele-ICU Progress Note ---
Subjective Date Seen by a Provider: Aug 14, 2022 Time Seen by a Provider: 11:05 Subjective/Events-last exam (Tele-ICU Physician , Progress Note ) Service provided via interactive audio and video telecommunications E-CARE system to a patient admitted to ICU bed in [facility]. Available chart/ vitals / labs / Images reviewed Video assessment done using teleICU camera, rest of exam as per RN Discussed with RN Events overnight : Afebrile hemodynamically stable Respiratory - BIPAP18/8 21 % rr 22 TV 500 I/O = Drips: Pressors- no Consultants: Hospital course: 08/14- transferred from [facility]. Recent UTI, hospitalized 07/20-08/03 with AECOPD. 08/14-BIPAP18/8 21 % rr 22 TV 500 SEEN BY TELE ICU MD LAST NIGHT - see notes Patient is seen today due to persistent ARF , NIPPV A/P Acute hypoxic resp failure - on BIPAP 21 % rr 22 TV 500 - WILL TRY OFF NIPPV AND FOLLOW CLOSELY -received 80 lasix and 125 SM in ER - need to reassess Confusion , agitation - ? baseline , no co2 retention - to follow - neuro exam nonfocal as per RNs Chronic hypercarbic resp failure - -Co2 close to presumed baseline TRE ulcers - ? venous stasis , ? cellulites - as per bedside assessment Anemia - no active bleeding - follow Elv BNP - lasix given in ER - follow closely Lines : periph , (Central Line Necessity Reviewed) Segal: OG: Nutrition: Analgesia: Anxiety/ delirium VTE Prophylaxis: TO RESUME ELIQUIS IF CAN SWALLOW PO Stress Ulcer Prophylaxis: Plans in collaboration with bedside consultants and IM MDs. Discussed with RN to reach out if any questions or concerns A total of ADDITIONAL 15 MIN minutes of critical care time was devoted to this patient today, required to treat and/or prevent further deterioration of critical care condition ( as above ) . I am remotely monitoring this patient from another state. I am unable to do the bedside exam, and history/physical and pertinent information is taken from other notes in the computer and bedside staff. Sepsis Event Evaluation Height, Weight, BMI Height: '" Weight: lbs. oz. kg; 27.80 BMI Method: Focused Exam Lactate Level 08/13/22 20:55: Lactic Acid Level 1.53 Exam Exam Patient acknowledged, consented, and participated in this virtual visit which was conducted using real time audio/video Vital Signs Date Time Temp Pulse Resp B/P (MAP) Pulse Ox O2 Delivery O2 Flow Rate FiO2 08/14/22 10:11 66 20 95 21.00 08/14/22 10:00 67 21 105/64 (78) 90 NIV Bilevel 21.00 08/14/22 09:00 66 20 104/62 (76) 92 NIV Bilevel 21.00 08/14/22 08:00 66 19 95/58 (70) 92 NIV Bilevel 21.00 08/14/22 08:00 NIV Bilevel 21 08/14/22 07:46 36.4 08/14/22 07:03 70 20 96 21.00 08/14/22 07:00 67 08/14/22 07:00 67 20 97/60 (72) 99 NIV Bilevel 21.00 08/14/22 06:59 66 20 100 30.00 08/14/22 06:00 67 19 101/65 (77) 98 NIV Bilevel 40.00 08/14/22 05:00 71 19 109/61 (77) 98 NIV Bilevel 40.00 08/14/22 04:06 NIV Bilevel 30 08/14/22 04:00 73 19 101/55 (70) 98 NIV Bilevel 40.00 08/14/22 03:00 75 30 99/60 (73) 98 NIV Bilevel 40.00 08/14/22 02:59 98 30.00 08/14/22 02:56 75 20 100 40.00 08/14/22 02:00 79 21 110/65 (80) 100 NIV Bilevel 40.00 08/14/22 01:30 82 22 108/68 (81) 99 NIV Bilevel 40.00 08/14/22 01:00 82 23 82/49 (60) 99 NIV Bilevel 40.00 08/14/22 01:00 84 08/14/22 00:45 82 15 83/51 (62) 98 NIV Bilevel 40.00 08/14/22 00:30 87 16 86/57 (67) 100 NIV Bilevel 40.00 08/14/22 00:28 87 99 40 08/14/22 00:21 87 26 99 40.00 08/14/22 00:20 36.8 NIV Bilevel 40.00 08/14/22 00:19 85 08/14/22 00:15 87 23 104/61 (75) 100 NIV Bilevel 40.00 08/14/22 00:05 100 NIV Bilevel 40 08/13/22 23:15 37.2 98 22 97/43 95 NIV Bilevel 60.00 08/13/22 21:38 NIV Bilevel 60 08/13/22 20:40 Non Rebreather 10.00 08/13/22 20:40 37.2 115 32 120/67 (84) 100 Non Rebreather 10.00 08/13/22 20:40 100 Non Rebreather 10.00 I & O 08/14/22 07:00 Intake Total 0 ml Output Total 600 ml Balance -600 ml Height & Weight Height: '" Weight: lbs. oz. kg; 27.80 BMI Method: General Appearance: Chronically ill, Moderate Distress, Obese HEENT: PERRL/EOMI, Moist Mucous Membranes Respiratory: Chest Non Tender, Accessory Muscle Use, Decreased Breath Sounds, Respiratory Distress, Rhonci, Wheezing Cardiovascular: Normal Peripheral Pulses, Tachycardia Capillary Refill: Less Than 3 Seconds Extremity: Pedal Edema (1+ bilateral pitting edema), Other (cool extremities with multiple bruises in various stages of healing. ) Neurologic/Psychiatric: Alert; No Oriented x3 (oriented to self only) Skin: Cool, Ecchymosis (multiple bruises in various stages of healing) Results Lab Laboratory Tests 08/13/22 20:55 08/14/22 04:47 Assessment/Plan Assessment/Plan 1 YOEL ARREAGA MD Aug 14, 2022 11:05
[2022-08-14] MEDS: OSELTAMIVIR 6 MG/ML (TAMIFLU) 60 ML BOT PO SCH ×2 (12:22→20:19)
[2022-08-14] MEDS ORDERED: FURO40TA4 PO (13:54)
[2022-08-14] MEDS ORDERED: AMOX1TAB12 PO (13:54)
[2022-08-14] MEDS ORDERED: QUET100T33 PO (13:54)
[2022-08-14] MEDS ORDERED: DIGO125T3 PO (13:54)
[2022-08-15] MEDS: RT-ALBUTEROL/IPRATROPIUM 3 ML (DUONEB) VIAL INH SCH ×6 (02:40→21:54)
[2022-08-15 05:18] LABS: BASOPHILS % (AUTO) 0 % (0-10); EOSINOPHILS % (AUTO) 0 % (0-10); HEMATOCRIT 27 % (40-54); HEMOGLOBIN 8.4 g/dL (13.3-17.7); LYMPHOCYTES # (AUTO) 0.5 10^3/uL (1.0-4.0); LYMPHOCYTES % (AUTO) 12 % (12-44); MEAN CORPUSCULAR HEMOGLOBIN 30 pg (25-34); MEAN CORPUSCULAR HGB CONC 31 g/dL (32-36); MEAN CORPUSCULAR VOLUME 97 fL (80-99); MEAN PLATELET VOLUME 10.7 fL (9.0-12.2); MONOCYTES # (AUTO) 0.3 10^3/uL (0.0-1.0); MONOCYTES % (AUTO) 7 % (0-12); NEUTROPHILS # (AUTO) 3.4 10^3/uL (1.8-7.8); NEUTROPHILS % (AUTO) 81 % (42-75); PLATELET COUNT 135 10^3/uL (130-400); WHITE BLOOD COUNT 4.2 10^3/uL (4.3-11.0)
[2022-08-15 05:24] LABS: ALBUMIN 2.4 GM/DL (3.2-4.5); POTASSIUM 3.7 MMOL/L (3.6-5.0)
[2022-08-15 05:25] LABS: CALCIUM 8.1 MG/DL (8.5-10.1)
[2022-08-15 05:26] LABS: TOTAL PROTEIN 4.8 GM/DL (6.4-8.2)
[2022-08-15 05:28] LABS: BILIRUBIN,TOTAL 0.2 MG/DL (0.1-1.0)
[2022-08-15 05:29] LABS: PHOSPHORUS 2.5 MG/DL (2.3-4.7)
[2022-08-15 05:30] LABS: CREATININE SERUM 0.82 MG/DL (0.60-1.30)
[2022-08-15 05:33] LABS: MAGNESIUM 2.2 MG/DL (1.6-2.4)
[2022-08-15] MEDS: POTASSIUM CL 10MEQ/50ML IVPB 50 ML IV SCH (05:44)
[2022-08-15] MEDS: CATHETER FLUSH 10 ML SYR IVP SCH ×3 (05:44→19:29)
[2022-08-15] MEDS: KCL 20 MEQ TAB (K-DUR) PO SCH (05:44)
[2022-08-15] MEDS: MAGNESIUM 1 GM/100 ML IVPB 100 ML IV SCH (05:44)
[2022-08-15] MEDS ORDERED: DOCUSATE SODIUM 100 MG (COLACE) CAP PO PRN (07:00)
[2022-08-15] MEDS ORDERED: RT-ALBUTEROL/IPRATROPIUM 3 ML (DUONEB) VIAL INH PRN (07:00)
[2022-08-15] MEDS ORDERED: polyethylene glycoL POWDER 17 GM (MIRALAX) PACK PO PRN (07:00)
[2022-08-15] MEDS ORDERED: SALINE NASAL SPRAY (OCEAN) 45 ML BTL PRN (07:00)
[2022-08-15] MEDS ORDERED: ACETAMINOPHEN 500 MG TAB (TYLENOL) PO PRN (07:00)
--- NOTE | 2022-08-15 07:59 | Progress Note - Hospitalist ---
Subjective HPI/CC On Admission Date Seen by Provider: Aug 15, 2022 Time Seen by Provider: 11:00 Chief complaint acute on chronic respiratory failure requiring BiPAP HPI: This is an 82-year-old male known to me from 2-week stay in hospital for acute on chronic respiratory failure just discharged last week to the nursing h ome who has severe dementia and was a hospice candidate weeks ago who presented once again to the ICU after assessed in the ER to be in acute on chronic respiratory failure requiring BiPAP. He remains on BiPAP currently. Dementia precludes any details. Hospice conversation will be initiated with family. Subjective/Events-last exam Patient ready for transfer to fourth floor Maintained on nasal cannula off BiPAP Needs hospice Focused Exam Lactate Level 08/13/22 20:55: Lactic Acid Level 1.53 Objective Exam Vital Signs Vital Signs Date Time Temp Pulse Resp B/P (MAP) Pulse Ox O2 Delivery O2 Flow Rate FiO2 08/15/22 14:55 35.5 66 22 108/59 (75) 99 Nasal Cannula 3.00 08/14/22 16:00 21 Capillary Refill : Less Than 3 Seconds General Appearance: Chronically ill Respiratory: Lungs Clear, Normal Breath Sounds Results/Procedures Lab Laboratory Tests 08/15/22 04:37 Patient resulted labs reviewed. Assessment/Plan Assessment and Plan Assess & Plan/Chief Complaint Assessment: Acute influenza A Acute on chronic respiratory failure now BiPAP dependent again Severe dementia Hypertension Hyperlipidemia Orthostasis COPD Atrial fibrillation Plan: Needs hospice Moved to fourth floor DNR Critical Care Critically Ill Patient Diagnosis/Problems Diagnosis/Problems (1) Acute on chronic respiratory failure with hypoxia Status: Acute (2) Influenza A Status: Acute (3) Hypercapnemia Status: Acute VALERIO DEL REAL DO Aug 15, 2022 07:59
[2022-08-15] MEDS: APIXABAN 5 MG (ELIQUIS) TABLET PO SCH ×2 (08:27→19:29)
[2022-08-15] MEDS: OSELTAMIVIR 6 MG/ML (TAMIFLU) 60 ML BOT PO SCH ×2 (08:27→19:39)
[2022-08-15] MEDS: FUROSEMIDE 40 MG (LASIX) TAB PO SCH (08:27)
[2022-08-15] MEDS: QUEtiapine 25 MG (SEROquel) TAB IMMEDIATE RELEASE PO SCH (08:27)
[2022-08-15] MEDS: MULTIVIT W/MINERALS TAB (THERAGRAN M) PO SCH (08:27)
[2022-08-15] MEDS: DIGOXIN 0.125 MG (LANOXIN) TAB PO SCH (08:28)
[2022-08-15] MEDS: TAMSULOSIN 0.4 MG (FLOMAX) CAP PO SCH (08:28)
[2022-08-15] MEDS: MIDODRINE 10 MG (PROAMATINE) TAB PO SCH ×3 (08:28→17:06)
[2022-08-15] MEDS: ASPIRIN E.C. 81 MG (ECOTRIN) TAB PO SCH (08:28)
[2022-08-15] MEDS: FERROUS SULF 325 MG (IRON) TAB PO SCH (08:28)
--- NOTE | 2022-08-15 16:12 | Tele-ICU Progress Note ---
Subjective Date Seen by a Provider: Aug 15, 2022 Time Seen by a Provider: 09:07 Subjective/Events-last exam (Tele-ICU Physician , Progress Note ) Service provided via interactive audio and video telecommunications E-CARE system to a patient admitted to ICU bed in [facility]. Available chart/ vitals / labs / Images reviewed Video assessment done using teleICU camera, rest of exam as per RN Discussed with RN Events overnight : Afebrile hemodynamically stable Respiratory - 3l I/O = neg 700 Drips: Pressors- no Consultants: Hospital course: 08/14- transferred from [facility]. Recent UTI, hospitalized 07/20-08/03 with AECOPD. 08/14-BIPAP103/30 21 % rr 22 TV 500 08/15 - 3L SEEN BY TELE ICU MD LAST NIGHT - see notes Patient is seen today due to persistent ARF , NIPPV A/P Acute hypoxic resp failure - on BIPAP 21 % rr 22 TV 500 - WILL TRY OFF NIPPV AND FOLLOW CLOSELY -received 80 lasix and 125 SM in ER -- was taking off bipap in few hours - ON NC 3 L now Influenza A - tamiflu started 08/14 Confusion , agitation - ? baseline , no co2 retention - to follow - neuro exam nonfocal as per RNs Chronic hypercarbic resp failure - -Co2 close to presumed baseline TRE ulcers - ? venous stasis , ? cellulites - as per bedside assessment Anemia - no active bleeding - follow ( on Eliquis Elv BNP - lasix given in ER, cont PO now - follow closely Lines : periph , (Central Line Necessity Reviewed) Segal: OG: Nutrition: Analgesia: Anxiety/ delirium VTE Prophylaxis: ELIQUIS Stress Ulcer Prophylaxis: Plans in collaboration with bedside consultants and IM MDs. Discussed with RN to reach out if any questions or concerns A total of10 MIN minutes of critical care time was devoted to this patient today, required to treat and/or prevent further deterioration of critical care condition ( as above ) . I am remotely monitoring this patient from another state. I am unable to do the bedside exam, and history/physical and pertinent information is taken from other notes in the computer and bedside staff. Sepsis Event Evaluation Height, Weight, BMI Height: '" Weight: lbs. oz. kg; 27.80 BMI Method: Focused Exam Lactate Level 08/13/22 20:55: Lactic Acid Level 1.53 Exam Exam Patient acknowledged, consented, and participated in this virtual visit which was conducted using real time audio/video Vital Signs Date Time Temp Pulse Resp B/P (MAP) Pulse Ox O2 Delivery O2 Flow Rate FiO2 08/15/22 14:55 35.5 66 22 108/59 (75) 99 Nasal Cannula 3.00 08/15/22 12:00 95 Nasal Cannula 3.00 08/15/22 11:17 37.0 08/15/22 11:00 69 23 94/47 (63) 92 Nasal Cannula 3.00 08/15/22 10:00 92 Nasal Cannula 3.00 08/15/22 10:00 78 13 102/51 (68) 92 Nasal Cannula 3.00 08/15/22 09:00 73 10 118/60 (79) 96 Nasal Cannula 3.00 08/15/22 08:00 67 21 102/55 (71) 96 Nasal Cannula 3.00 08/15/22 08:00 95 Nasal Cannula 3.00 08/15/22 07:35 92 Nasal Cannula 4.00 08/15/22 07:22 35.7 08/15/22 07:00 68 08/15/22 07:00 68 16 97/56 (70) 94 Nasal Cannula 3.00 08/15/22 06:00 67 20 104/64 (77) 99 Nasal Cannula 3.00 08/15/22 05:00 68 17 102/59 (73) 100 Nasal Cannula 3.00 08/15/22 04:00 71 22 105/59 (74) 96 Nasal Cannula 3.00 08/15/22 04:00 96 Nasal Cannula 3.00 08/15/22 03:00 63 16 111/65 (80) 97 Nasal Cannula 3.00 08/15/22 02:40 94 Nasal Cannula 3.00 08/15/22 02:00 75 19 103/59 (74) 95 Nasal Cannula 3.00 08/15/22 01:00 71 08/15/22 01:00 71 23 105/58 (74) 98 Nasal Cannula 3.00 08/15/22 00:32 35.9 Nasal Cannula 3.00 08/15/22 00:00 68 18 101/55 (70) 93 NIV Bilevel 25.00 08/14/22 23:59 98 Nasal Cannula 3.00 08/14/22 23:00 68 18 11/60 (44) 90 NIV Bilevel 25.00 08/14/22 22:35 NIV Bilevel 25.00 08/14/22 22:00 79 18 92/54 (67) 94 Nasal Cannula 3.00 08/14/22 21:36 Nasal Cannula 3.00 08/14/22 21:00 80 22 94/42 (59) 94 Nasal Cannula 2.00 08/14/22 20:00 99 Nasal Cannula 2.00 08/14/22 20:00 84 20 120/61 (80) 99 Nasal Cannula 2.00 08/14/22 19:16 36.0 Nasal Cannula 2.00 08/14/22 19:00 78 08/14/22 19:00 78 24 117/54 (75) 94 NIV Bilevel 21.00 08/14/22 18:15 73 26 93 21.00 08/14/22 18:00 71 21 121/65 (83) 94 NIV Bilevel 21.00 08/14/22 17:00 77 17 112/67 (82) 90 NIV Bilevel 21.00 08/14/22 16:00 77 22 104/56 (72) 92 NIV Bilevel 21.00 08/14/22 16:00 90 NIV Bilevel 21 I & O 08/15/22 07:00 Intake Total 800 ml Output Total 950 ml Balance -150 ml Height & Weight Height: '" Weight: lbs. oz. kg; 27.80 BMI Method: General Appearance: Chronically ill, Mild Distress, Other (Sleepy) HEENT: PERRL/EOMI, Moist Mucous Membranes Respiratory: No Accessory Muscle Use, No Respiratory Distress, Decreased Breath Sounds Cardiovascular: Regular Rate, Rhythm Capillary Refill: Less Than 3 Seconds Extremity: Pedal Edema (1+ bilateral pitting edema), Other (cool extremities with multiple bruises in various stages of healing. ) Neurologic/Psychiatric: Alert; No Oriented x3 (oriented to self only) Skin: Cool, Ecchymosis (multiple bruises in various stages of healing) Results Lab Laboratory Tests 08/13/22 20:55 08/14/22 04:47 08/15/22 04:37 Assessment/Plan Assessment/Plan YOEL Maradiaga MD Aug 15, 2022 16:11
[2022-08-15] MEDS: QUEtiapine 100 MG (SEROquel) TAB IMMEDIATE RELEASE PO SCH (17:06)
[2022-08-15] MEDS: OLANZapine 5 MG ODT (ZyPREXA ZYDIS) PO SCH (19:28)
[2022-08-15] MEDS: MELATONIN 3 MG TABLET PO SCH (19:29)
[2022-08-16] MEDS: RT-ALBUTEROL/IPRATROPIUM 3 ML (DUONEB) VIAL INH SCH ×6 (03:40→23:18)
[2022-08-16 05:30] LABS: BASOPHILS % (AUTO) 0 % (0-10); EOSINOPHILS # (AUTO) 0.1 10^3/uL (0.0-0.3); EOSINOPHILS % (AUTO) 2 % (0-10); HEMATOCRIT 31 % (40-54); HEMOGLOBIN 9.3 g/dL (13.3-17.7); LYMPHOCYTES # (AUTO) 0.8 10^3/uL (1.0-4.0); LYMPHOCYTES % (AUTO) 20 % (12-44); MEAN CORPUSCULAR HEMOGLOBIN 29 pg (25-34); MEAN CORPUSCULAR HGB CONC 30 g/dL (32-36); MEAN CORPUSCULAR VOLUME 98 fL (80-99); MEAN PLATELET VOLUME 10.3 fL (9.0-12.2); MONOCYTES # (AUTO) 0.2 10^3/uL (0.0-1.0); MONOCYTES % (AUTO) 5 % (0-12); NEUTROPHILS # (AUTO) 2.9 10^3/uL (1.8-7.8); NEUTROPHILS % (AUTO) 72 % (42-75); PLATELET COUNT 125 10^3/uL (130-400)
[2022-08-16 05:41] LABS: ALBUMIN 2.5 GM/DL (3.2-4.5)
[2022-08-16 05:42] LABS: POTASSIUM 3.4 MMOL/L (3.6-5.0)
[2022-08-16 05:43] LABS: CALCIUM 8.2 MG/DL (8.5-10.1)
[2022-08-16 05:44] LABS: TOTAL PROTEIN 4.9 GM/DL (6.4-8.2)
[2022-08-16 05:46] LABS: BILIRUBIN,TOTAL 0.3 MG/DL (0.1-1.0)
[2022-08-16 05:48] LABS: CREATININE SERUM 0.83 MG/DL (0.60-1.30)
[2022-08-16 05:50] LABS: MAGNESIUM 1.9 MG/DL (1.6-2.4)
[2022-08-16] MEDS: CATHETER FLUSH 10 ML SYR IVP SCH ×3 (06:02→21:15)
[2022-08-16] MEDS: MIDODRINE 10 MG (PROAMATINE) TAB PO SCH ×3 (06:02→16:59)
--- NOTE | 2022-08-16 06:02 | Progress Note - Hospitalist ---
Subjective HPI/CC On Admission Date Seen by Provider: Aug 16, 2022 Time Seen by Provider: 11:00 Chief complaint acute on chronic respiratory failure requiring BiPAP HPI: This is an 82-year-old male known to me from 2-week stay in hospital for acute on chronic respiratory failure just discharged last week to the nursing h ome who has severe dementia and was a hospice candidate weeks ago who presented once again to the ICU after assessed in the ER to be in acute on chronic respiratory failure requiring BiPAP. He remains on BiPAP currently. Dementia precludes any details. Hospice conversation will be initiated with family. Subjective/Events-last exam Patient doing the same Needs discharge to hospice tomorrow Patient very demented Focused Exam Lactate Level 08/13/22 20:55: Lactic Acid Level 1.53 Objective Exam Vital Signs Vital Signs Date Time Temp Pulse Resp B/P (MAP) Pulse Ox O2 Delivery O2 Flow Rate FiO2 08/16/22 15:57 37.4 87 20 103/56 (72) 97 Nasal Cannula 3.00 08/14/22 16:00 21 Capillary Refill : Less Than 3 Seconds General Appearance: Chronically ill Respiratory: Lungs Clear, Normal Breath Sounds Cardiovascular: Regular Rate, Rhythm Results/Procedures Lab Laboratory Tests 08/16/22 05:15 Patient resulted labs reviewed. Assessment/Plan Assessment and Plan Assess & Plan/Chief Complaint Assessment: Acute influenza A Acute on chronic respiratory failure status post BiPAP dependent again now on nasal cannula Severe dementia Hypertension Hyperlipidemia Orthostasis COPD Atrial fibrillation Plan: Needs hospice Moved to fourth floor DNR Critical Care Critically Ill Patient Diagnosis/Problems Diagnosis/Problems (1) Acute on chronic respiratory failure with hypoxia Status: Acute (2) Influenza A Status: Acute (3) Hypercapnemia Status: Acute VALERIO DEL REAL DO Aug 16, 2022 06:02
[2022-08-16] MEDS: OSELTAMIVIR 6 MG/ML (TAMIFLU) 60 ML BOT PO SCH ×2 (09:08→21:10)
[2022-08-16] MEDS: APIXABAN 5 MG (ELIQUIS) TABLET PO SCH ×2 (09:09→21:10)
[2022-08-16] MEDS: MULTIVIT W/MINERALS TAB (THERAGRAN M) PO SCH (09:09)
[2022-08-16] MEDS: FUROSEMIDE 40 MG (LASIX) TAB PO SCH (09:09)
[2022-08-16] MEDS: TAMSULOSIN 0.4 MG (FLOMAX) CAP PO SCH (09:09)
[2022-08-16] MEDS: ASPIRIN E.C. 81 MG (ECOTRIN) TAB PO SCH (09:09)
[2022-08-16] MEDS: DIGOXIN 0.125 MG (LANOXIN) TAB PO SCH (09:09)
[2022-08-16] MEDS: FERROUS SULF 325 MG (IRON) TAB PO SCH (09:09)
[2022-08-16] MEDS: QUEtiapine 25 MG (SEROquel) TAB IMMEDIATE RELEASE PO SCH (09:10)
[2022-08-16] MEDS: QUEtiapine 100 MG (SEROquel) TAB IMMEDIATE RELEASE PO SCH (16:59)
[2022-08-16] MEDS: OLANZapine 5 MG ODT (ZyPREXA ZYDIS) PO SCH (21:10)
[2022-08-16] MEDS: MELATONIN 3 MG TABLET PO SCH (21:10)
[2022-08-17] MEDS: RT-ALBUTEROL/IPRATROPIUM 3 ML (DUONEB) VIAL INH SCH ×4 (03:20→22:01)
[2022-08-17 06:27] VITALS: BP 102/54
[2022-08-17] MEDS: CATHETER FLUSH 10 ML SYR IVP SCH ×3 (06:33→20:36)
[2022-08-17] MEDS: MIDODRINE 10 MG (PROAMATINE) TAB PO SCH ×3 (06:33→16:39)
--- NOTE | 2022-08-17 06:42 | Progress Note - Hospitalist ---
Subjective HPI/CC On Admission Date Seen by Provider: Aug 17, 2022 Time Seen by Provider: 11:00 Chief complaint acute on chronic respiratory failure requiring BiPAP HPI: This is an 82-year-old male known to me from 2-week stay in hospital for acute on chronic respiratory failure just discharged last week to the alf who has severe dementia and was a hospice candidate weeks ago who presented once again to the ICU after assessed in the ER to be in acute on chronic respiratory failure requiring BiPAP. He remains on BiPAP currently. Dementia precludes any details. Hospice conversation will be initiated with family. Subjective/Events-last exam No major changes Needs hospice at discharge Objective Exam Vital Signs Vital Signs Date Time Temp Pulse Resp B/P (MAP) Pulse Ox O2 Delivery O2 Flow Rate FiO2 08/17/22 19:16 35.8 94 20 122/69 (86) 90 High Flow N/C 5.00 08/17/22 06:27 40 Capillary Refill : Less Than 3 Seconds General Appearance: No Apparent Distress, WD/WN, Chronically ill Respiratory: Lungs Clear Cardiovascular: Regular Rate, Rhythm Results/Procedures Lab Patient resulted labs reviewed. Assessment/Plan Assessment and Plan Assess & Plan/Chief Complaint Assessment: Acute influenza A Acute on chronic respiratory failure status post BiPAP dependent again now on nasal cannula Severe dementia Hypertension Hyperlipidemia Orthostasis COPD Atrial fibrillation Plan: Needs hospice Moved to fourth floor DNR Critical Care Critically Ill Patient Diagnosis/Problems Diagnosis/Problems (1) Acute on chronic respiratory failure with hypoxia Status: Acute (2) Influenza A Status: Acute (3) Hypercapnemia Status: Acute VALERIO DEL REAL DO Aug 17, 2022 06:42
[2022-08-17] MEDS: ASPIRIN E.C. 81 MG (ECOTRIN) TAB PO SCH (08:09)
[2022-08-17] MEDS: QUEtiapine 25 MG (SEROquel) TAB IMMEDIATE RELEASE PO SCH (08:09)
[2022-08-17] MEDS: DIGOXIN 0.125 MG (LANOXIN) TAB PO SCH (08:09)
[2022-08-17] MEDS: FERROUS SULF 325 MG (IRON) TAB PO SCH (08:09)
[2022-08-17] MEDS: OSELTAMIVIR 6 MG/ML (TAMIFLU) 60 ML BOT PO SCH ×2 (08:09→20:35)
[2022-08-17] MEDS: TAMSULOSIN 0.4 MG (FLOMAX) CAP PO SCH (08:09)
[2022-08-17] MEDS: APIXABAN 5 MG (ELIQUIS) TABLET PO SCH ×2 (08:09→20:35)
[2022-08-17] MEDS: MULTIVIT W/MINERALS TAB (THERAGRAN M) PO SCH (08:09)
[2022-08-17] MEDS: FUROSEMIDE 40 MG (LASIX) TAB PO SCH (08:09)
[2022-08-17] MEDS: QUEtiapine 100 MG (SEROquel) TAB IMMEDIATE RELEASE PO SCH (16:39)
[2022-08-17] MEDS: MELATONIN 3 MG TABLET PO SCH (20:35)
[2022-08-17] MEDS: OLANZapine 5 MG ODT (ZyPREXA ZYDIS) PO SCH (20:35)
[2022-08-18] MEDS: RT-ALBUTEROL/IPRATROPIUM 3 ML (DUONEB) VIAL INH SCH ×4 (03:05→20:01)
[2022-08-18] MEDS: CATHETER FLUSH 10 ML SYR IVP SCH ×3 (06:07→19:57)
[2022-08-18] MEDS: MIDODRINE 10 MG (PROAMATINE) TAB PO SCH ×3 (06:07→17:02)
[2022-08-18] MEDS: DIGOXIN 0.125 MG (LANOXIN) TAB PO SCH (08:33)
[2022-08-18] MEDS: TAMSULOSIN 0.4 MG (FLOMAX) CAP PO SCH (08:33)
[2022-08-18] MEDS: FUROSEMIDE 40 MG (LASIX) TAB PO SCH (08:33)
[2022-08-18] MEDS: MULTIVIT W/MINERALS TAB (THERAGRAN M) PO SCH (08:33)
[2022-08-18] MEDS: QUEtiapine 25 MG (SEROquel) TAB IMMEDIATE RELEASE PO SCH (08:33)
[2022-08-18] MEDS: FERROUS SULF 325 MG (IRON) TAB PO SCH (08:33)
[2022-08-18] MEDS: APIXABAN 5 MG (ELIQUIS) TABLET PO SCH ×2 (08:33→19:57)
[2022-08-18] MEDS: ASPIRIN E.C. 81 MG (ECOTRIN) TAB PO SCH (08:35)
[2022-08-18] MEDS: OSELTAMIVIR 6 MG/ML (TAMIFLU) 60 ML BOT PO SCH ×2 (08:35→19:57)
--- NOTE | 2022-08-18 10:24 | Progress Note - Hospitalist ---
Subjective HPI/CC On Admission Date Seen by Provider: Aug 18, 2022 Time Seen by Provider: 11:00 Chief complaint acute on chronic respiratory failure requiring BiPAP HPI: This is an 82-year-old male known to me from 2-week stay in hospital for acute on chronic respiratory failure just discharged last week to the [facility] who has severe dementia and was a hospice candidate weeks ago who presented once again to the ICU after assessed in the ER to be in acute on chronic respiratory failure requiring BiPAP. He remains on BiPAP currently. Dementia precludes any details. Hospice conversation will be initiated with family. Subjective/Events-last exam Remains bedridden Word salad No concerns Objective Exam Vital Signs Vital Signs Date Time Temp Pulse Resp B/P (MAP) Pulse Ox O2 Delivery O2 Flow Rate FiO2 08/19/22 03:39 36.3 98 18 111/62 (78) 97 OxyMask 4.00 08/17/22 06:27 40 Capillary Refill : Less Than 3 Seconds General Appearance: No Apparent Distress, WD/WN, Chronically ill Respiratory: Lungs Clear Cardiovascular: Regular Rate, Rhythm Results/Procedures Lab Patient resulted labs reviewed. Assessment/Plan Assessment and Plan Assess & Plan/Chief Complaint Assessment: Acute influenza A Acute on chronic respiratory failure status post BiPAP dependent again now on nasal cannula Severe dementia Hypertension Hyperlipidemia Orthostasis COPD Atrial fibrillation Plan: Needs hospice Moved to fourth floor DNR Awaiting placement due to payer source Critical Care Critically Ill Patient Diagnosis/Problems Diagnosis/Problems (1) Acute on chronic respiratory failure with hypoxia Status: Acute (2) Influenza A Status: Acute (3) Hypercapnemia Status: Acute VALERIO DEL REAL DO Aug 18, 2022 10:24
[2022-08-18 11:43] VITALS: BP 112/65
[2022-08-18 16:08] VITALS: BP 115/59
[2022-08-18] MEDS: QUEtiapine 100 MG (SEROquel) TAB IMMEDIATE RELEASE PO SCH (17:01)
[2022-08-18 19:31] VITALS: BP 116/66
[2022-08-18] MEDS: OLANZapine 5 MG ODT (ZyPREXA ZYDIS) PO SCH (19:57)
[2022-08-18] MEDS: MELATONIN 3 MG TABLET PO SCH (19:57)
[2022-08-18 23:53] VITALS: BP 102/64
[2022-08-19] MEDS: RT-ALBUTEROL/IPRATROPIUM 3 ML (DUONEB) VIAL INH SCH ×2 (02:15→07:21)
[2022-08-19 03:39] VITALS: BP 111/62
--- NOTE | 2022-08-19 05:33 | Progress Note - Hospitalist ---
Subjective HPI/CC On Admission Date Seen by Provider: Aug 19, 2022 Time Seen by Provider: 11:00 Chief complaint acute on chronic respiratory failure requiring BiPAP HPI: This is an 82-year-old male known to me from 2-week stay in hospital for acute on chronic respiratory failure just discharged last week to the [facility] who has severe dementia and was a hospice candidate weeks ago who presented once again to the ICU after assessed in the ER to be in acute on chronic respiratory failure requiring BiPAP. He remains on BiPAP currently. Dementia precludes any details. Hospice conversation will be initiated with family. Objective Exam Vital Signs Vital Signs Date Time Temp Pulse Resp B/P (MAP) Pulse Ox O2 Delivery O2 Flow Rate FiO2 08/19/22 08:00 Nasal Cannula 5.00 08/19/22 07:21 94 08/19/22 07:18 36.4 91 16 121/71 (88) 08/17/22 06:27 40 Capillary Refill : Less Than 3 Seconds Results/Procedures Lab Patient resulted labs reviewed. Assessment/Plan Assessment and Plan Assess & Plan/Chief Complaint Assessment: Acute influenza A Acute on chronic respiratory failure status post BiPAP dependent again now on nasal cannula Severe dementia Hypertension Hyperlipidemia Orthostasis COPD Atrial fibrillation Plan: Needs hospice Moved to fourth floor DNR Awaiting placement due to payer source Critical Care Critically Ill Patient Diagnosis/Problems Diagnosis/Problems (1) Acute on chronic respiratory failure with hypoxia Status: Acute (2) Influenza A Status: Acute (3) Hypercapnemia Status: Acute VALERIO DEL REAL DO Aug 19, 2022 05:33
[2022-08-19] MEDS: MIDODRINE 10 MG (PROAMATINE) TAB PO SCH ×2 (06:29→13:17)
[2022-08-19] MEDS: CATHETER FLUSH 10 ML SYR IVP SCH ×2 (06:29→13:18)
[2022-08-19 07:18] VITALS: BP 121/71
[2022-08-19] MEDS: DIGOXIN 0.125 MG (LANOXIN) TAB PO SCH (08:44)
[2022-08-19] MEDS: QUEtiapine 25 MG (SEROquel) TAB IMMEDIATE RELEASE PO SCH (08:44)
[2022-08-19] MEDS: FUROSEMIDE 40 MG (LASIX) TAB PO SCH (08:44)
[2022-08-19] MEDS: APIXABAN 5 MG (ELIQUIS) TABLET PO SCH (08:44)
[2022-08-19] MEDS: FERROUS SULF 325 MG (IRON) TAB PO SCH (08:44)
[2022-08-19] MEDS: MULTIVIT W/MINERALS TAB (THERAGRAN M) PO SCH (08:44)
[2022-08-19] MEDS: ASPIRIN E.C. 81 MG (ECOTRIN) TAB PO SCH (08:44)
[2022-08-19] MEDS: TAMSULOSIN 0.4 MG (FLOMAX) CAP PO SCH (08:44)
--- NOTE | 2022-08-19 10:32 | Discharge Summary ---
Discharge Summary Hospital Course Was the Problem List Reviewed?: Yes Problems/Dx: (1) Acute on chronic respiratory failure with hypoxia Status: Acute (2) Influenza A Status: Acute (3) Hypercapnemia Status: Acute Hospital Course Date of Admission: Aug 14, 2022 at 00:03 Admission Diagnosis : Family Physician/Provider: Francis Seay MD Date of Discharge: 08/19/22 Discharge Diagnosis: [ ] Hospital Course: Lengthy hospital course after he came for acute on chronic respiratory failure with severe dementia requiring BiPAP for short time in the ICU. He was ultimately moved to fourth floor and the decision was made for hospice at discharge. He completed all of his acute treatment in the hospital and he will be continued on regular meds but extremely poor prognosis giving rise to hospice criteria. Labs and Pending Lab Test: Microbiology 08/14/22 MRSA Screen - Final, Complete MRSA not isolated 08/13/22 Blood Culture - Preliminary, Resulted No growth Home Meds Active Oxyir Tablet (Oxycodone HCl) 5 Mg Tab 5 Mg PO Q4HR PRN Iprat-Albut 0.5-3(2.5) mg/3 ml (Ipratropium/Albuterol Sulfate) 0.5 Mg-3 Mg (2.5 Mg Base)/3 Ml Ampul.neb 3 Ml INH Q2HR PRN Reported Amox Tr-K Clv 875-125 mg Tab (Amoxicillin/Potassium Clav) 875 Mg-125 Mg Tablet 1 Each PO BID START DATE 08-11-2022 END DATE 08-19-2022 Quetiapine Fumarate 100 Mg Tablet 100 Mg PO 1600 Furosemide 40 Mg Tablet 40 Mg PO DAILY Digoxin 125 Mcg (0.125 Mg) Tablet 125 Mcg PO DAILY Saline Nose [place] (Sodium Chloride) 0.65 % [place] 1 Sprays NSEACH DAILY PRN Multivitamin 1 Each Tablet 1 Each PO DAILY Miralax (Polyethylene Glycol 3350) 17 Gram Powd.pack 17 Gm PO DAILY PRN Olanzapine Odt (Olanzapine) 5 Mg Tab.rapdis 5 Mg PO HS Acetaminophen 500 Mg Tablet 500 Mg PO Q6H PRN Docusate Sodium 100 Mg Capsule 100 Mg PO Q12H PRN Midodrine HCl 5 Mg Tablet 5 Mg PO TID Eliquis (Apixaban) 5 Mg Tablet 5 Mg PO BID Atorvastatin Calcium 80 Mg Tablet 80 Mg PO HS Melatonin 3 Mg Tablet 3 Mg PO HS Flomax (Tamsulosin HCl) 0.4 Mg Cap 0.4 Mg PO DAILY Seroquel (Quetiapine Fumarate) 25 Mg Tablet 25 Mg PO DAILY Ferrous Sulfate 325 Mg (65 Mg Iron) Tablet 325 Mg PO DAILY Aspirin EC (Aspirin) 81 Mg Tablet.dr 81 Mg PO DAILY Assessment/Pt Instructions PCP assisted rounds for hospice Discharge Planning: <30 minutes discharge planning Discharge Physical Examination Vital Signs Vital Signs Date Time Temp Pulse Resp B/P (MAP) Pulse Ox O2 Delivery O2 Flow Rate FiO2 08/19/22 08:00 Nasal Cannula 5.00 08/19/22 07:21 94 08/19/22 07:18 36.4 91 16 121/71 (88) 08/17/22 06:27 40 General Appearance: No Apparent Distress Allergies: Coded Allergies: No Known Drug Allergies (Unverified , 07/20/22) Discharge Summary Date of Admission Aug 14, 2022 at 00:03 Date of Discharge Discharge Date: Aug 19, 2022 Admission Diagnosis Assessment: Acute influenza A Acute on chronic respiratory failure now BiPAP dependent again Severe dementia Hypertension Hyperlipidemia Orthostasis COPD Atrial fibrillation Plan: Needs hospice BiPAP until hospice DNR Discharge Diagnosis Assessment: Acute influenza A Acute on chronic respiratory failure status post BiPAP dependent again now on nasal cannula Severe dementia Hypertension Hyperlipidemia Orthostasis COPD Atrial fibrillation Plan: Needs hospice Moved to fourth floor DNR Awaiting placement due to payer source (1) Acute on chronic respiratory failure with hypoxia Status: Acute (2) Influenza A Status: Acute (3) Hypercapnemia Status: Acute VALERIO DEL REAL DO Aug 19, 2022 10:32
[2022-08-19 11:19] VITALS: BP 103/56
[2022-08-19 13:55] VITALS: BP 103/56
[2022-08-19 14:19] VITALS: BP 103/56
== END 2022-08-19 14:17 | disposition hospice, home (50) | DRG 193 ==
LOC: EDUNIT# 20:39 → ER FS 20:40 → ICU 08-14 00:03 → 4TH 08-15 14:10
PROVIDERS: ADMIT Family Medicine; ATTEND Internal Medicine
PROC: 5A09357 Assistance with Respiratory Ventilation, Less than 24 Consecutive Hours, Continuous Positive Airway Pressure (ICD-10-PCS; principal; 2022-08-13)
PROC: 5A0935A Assistance with Respiratory Ventilation, Less than 24 Consecutive Hours, High Flow/Velocity Cannula (ICD-10-PCS; 2022-08-14)
DX: J10.1 Influenza due to other identified influenza virus with other respiratory manifestations (principal); J96.21 Acute and chronic respiratory failure with hypoxia; J96.22 Acute and chronic respiratory failure with hypercapnia; I50.32 Chronic diastolic (congestive) heart failure; J44.1 Chronic obstructive pulmonary disease with (acute) exacerbation; Z86.711 Personal history of pulmonary embolism; I11.0 Hypertensive heart disease with heart failure; Z79.82 Long term (current) use of aspirin; Z79.899 Other long term (current) drug therapy; F03.90 Unspecified dementia, unspecified severity, without behavioral disturbance, psychotic disturbance, mood disturbance, and anxiety; Z20.822 Contact with and (suspected) exposure to COVID-19; Z66 Do not resuscitate; Z51.5 Encounter for palliative care; Z99.81 Dependence on supplemental oxygen; I44.7 Left bundle-branch block, unspecified; E78.00 Pure hypercholesterolemia, unspecified; K21.9 Gastro-esophageal reflux disease without esophagitis; I48.91 Unspecified atrial fibrillation; D64.9 Anemia, unspecified; R41.0 Disorientation, unspecified
CPT/HCPCS: 36415; 71045; 80053; 82805; 83605; 83735; 83880; 84100; 85007; 85025; 85027; 86141; 87040; 87081; 87636; 93005; 93041; 94640; 94660; 94760; 99291; 99292